=== PATIENT | male | born 1940 | race American Indian/Alaskan Native ===

== ENCOUNTER 2017-11-01 09:22 | Emergency (ER) | payer MEDICARE ==
[2017-11-01 10:06] LABS: Basophils % (Auto) 0.8 % (0.0-1.8); Eosinophils # (Auto) 0.2 K/mm3 (0.0-0.4); Eosinophils % (Auto) 4.5 % (0.0-4.3); Hematocrit 33.3 % (35.5-45.6); Hemoglobin 11.5 gm/dl (11.8-15.2); Lymphocytes # (Auto) 0.8 K/mm3 (1.2-5.4); Lymphocytes % (Auto) 15.4 % (13.4-35.0); Mean Corpuscular HGB Conc 35 % (32-34); Mean Corpuscular Hemoglobin 29 pg (28-32); Mean Corpuscular Volume 85 fl (84-94); Monocytes # (Auto) 0.6 K/mm3 (0.0-0.8); Monocytes % (Auto) 11.8 % (0.0-7.3); Platelet Count 147 K/mm3 (140-440); Red Blood Count 3.92 M/mm3 (3.65-5.03); Red Cell Distribution Width 13.3 % (13.2-15.2)
[2017-11-01 10:14] LABS: INR 0.91 (0.87-1.13)
[2017-11-01 10:15] LABS: Partial Thromboplastin Time 33.6 Sec. (24.2-36.6)
[2017-11-01 10:35] LABS: Albumin 3.6 g/dL (3.9-5); Calcium 8.6 mg/dL (8.4-10.2)
[2017-11-01] MEDS ORDERED: APRESOLINE PO ONE ×2 (11:00→14:06)
--- NOTE | 2017-11-01 11:45 | Emergency Department Report ---
ED ENT HPI - General Chief complaint: Nosebleed Stated complaint: BLOODY NOSE Time Seen by Provider: 11/01/17 10:36 Source: patient Mode of arrival: Ambulatory Limitations: No Limitations - History of Present Illness Initial comments: 77-year-old male with a past medical history diabetes and hypertension presents to the hospital complaining of seeing blood clot with blowing his nose. This happened this a.m. Patient noticed blood clots last nostril then blowing his congested nose this a.m. Patient states he had some blood, from the medial portion of his left eye and his mouth persistent bleeding. Symptoms resolved prior to ER evaluation. Patient takes aspirin 81 mg daily. Compliant with his blood pressure medicine clonidine 0.1 mg and metoprolol 100 mg which he takes once a day in the evening. He takes other medications as well but no other blood thinners. No recent trauma or pain reported. PMD: Dr. Klyeigh Nuñez - Related Data Allergies Allergy/AdvReac Type Severity Reaction Status Date / Time No Known Allergies Allergy Unverified 11/01/17 09:33 ED Dental HPI - General Chief complaint: Nosebleed Stated complaint: BLOODY NOSE Time Seen by Provider: 11/01/17 10:36 Source: patient Mode of arrival: Ambulatory Limitations: No Limitations - Related Data Allergies Allergy/AdvReac Type Severity Reaction Status Date / Time No Known Allergies Allergy Unverified 11/01/17 09:33 ED Review of Systems ROS: Stated complaint: BLOODY NOSE Other details as noted in HPI Comment: All other systems reviewed and negative Other: Constitutional: No fevers chills Eyes: No eye pain visual changes ENT: As per HPI Neck: Denies pain Respiratory: Denies cough wheezing shortness of breath Cardiovascular: Denies chest pain, palpitations, syncope GI: Denies abdominal pain, nausea, vomiting, diarrhea : Denies dysuria Musculoskeletal: Denies back pain Skin: Denies rash, lesions, erythema Neurologic: Denies headache, numbness, weakness Psychiatric: Denies suicidal ideation, hallucinations thy ED Past Medical Hx - Past Medical History Previous Medical History?: Yes Hx Hypertension: Yes Hx Diabetes: Yes - Surgical History Past Surgical History?: Yes Additional Surgical History: Prostate surgery, right knee surgery - Social History Smoking Status: Former Smoker Substance Use Type: Alcohol, Prescribed ED Physical Exam - General Limitations: No Limitations - Other Other exam information: General: No limitations, patient is alert in no acute distress Head exam: Atraumatic, normocephalic Eyes exam: Normal appearance, pupils equal reactive to light, extraocular movements intact ENT: Moist mucous membrane, normal oropharynx. Dry blood noted in left nares. No active clots or bleeding Neck exam: Normal inspection, full range of motion, no meningismus nontender Respiratory exam: Clear to auscultation bilateral, no wheezes, rales, crackles Cardiovascular: Normal rate and rhythm, normal heart sounds Abdomen: Soft, nondistended, and nontender, with normal bowel sounds, no rebound, or guarding Extremity: Full range of motion normal inspection no deformity Back: Normal Inspection, full range of motion, no tenderness Neurologic: Alert, oriented x3, cranial nerves intact, no motor or sensory deficit Psychiatric: normal affect, normal mood Skin: Warm, dry, intact ED Course Vital Signs 11/01/17 11/01/17 11/01/17 09:33 12:20 13:35 Temperature 97.7 F Pulse Rate 56 L 56 L 59 L Respiratory 18 18 Rate Blood Pressure 208/99 213/96 Blood Pressure [Left] O2 Sat by Pulse 100 99 Oximetry 11/01/17 14:33 Temperature Pulse Rate 58 L Respiratory 20 Rate Blood Pressure Blood Pressure 178/79 [Left] O2 Sat by Pulse 98 Oximetry - Reevaluation(s) Reevaluation #1: 11/01/17 14:43 BP improved after hydralazine 10 mg. Second dose not given - Consultations Consultation #1: 11/01/17 11:[address] 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3) % Baso % (Auto) 0.8 (0.0-1.8) % Lymph # 0.8 L (1.2-5.4) K/mm3 [place] # 0.6 (0.0-0.8) K/mm3 Eos # 0.2 (0.0-0.4) K/mm3 Baso # 0.0 (0.0-0.1) K/mm3 Seg Neutrophils % 67.5 (40.0-70.0) % Seg Neutrophils # 3.5 (1.8-7.7) K/mm3 PT 12.7 (12.2-14.9) Sec. INR 0.91 (0.87-1.13) APTT 33.6 (24.2-36.6) Sec. Sodium 140 (137-145) mmol/L Potassium 4.0 (3.6-5.0) mmol/L Chloride 102.7 (98-107) mmol/L Carbon Dioxide 26 (22-30) mmol/L Anion Gap 15 mmol/L BUN 22 H (9-20) mg/dL Creatinine 2.9 H (0.8-1.5) mg/dL Estimated GFR 26 ml/min BUN/Creatinine Ratio 8 % Glucose 173 H (75-100) mg/dL Calcium 8.6 (8.4-10.2) mg/dL Total Bilirubin 0.40 (0.1-1.2) mg/dL AST 14 (5-40) units/L ALT 7 (7-56) units/L Alkaline Phosphatase 48 (35-129) units/L Total Protein 6.9 (6.3-8.2) g/dL Albumin 3.6 L (3.9-5) g/dL Albumin/Globulin Ratio 1.1 % Lipase 33 (13-60) units/L - Medical Decision Making Epistaxis No signs of acute bleeding or coagulopathy. Patient takes aspirin 81 mg daily for cardioprotective effect. Patient will be advised to discontinue to discontinue the asa for 3 days. (No history of stent placement, TN/CAD, or stroke) HTN Chronic Compliant with medication hydralyzine given bp improving F/u advised Renal insuf ? new no acidosis or hyperkalemia Case discussed with nephrology outpatient follow-up advised - Differential Diagnosis uncontrolled hypertension, coagulopathy, epistaxis, anemia Critical Care Time: No Critical care attestation.: If time is entered above; I have spent that time in minutes in the direct care of this critically ill patient, excluding procedure time. ED Disposition Clinical Impression: Epistaxis, Renal insufficiency, Uncontrolled hypertension Disposition: TO HOME OR SELFCARE Is pt being admited?: No Does the pt Need Aspirin: No Condition: Stable Instructions: Epistaxis (ED), Hypertension (ED) Additional Instructions: Discontinue aspirin for 3 days to lessen the chance of recurrent bleeding. Your lab work indicates renal/kidney dysfunction. It is very important that you follow up with your primary care doctor and supervisor metal placing for further evaluation Referrals: KYLEIGH NUÑEZ JR, MD [Staff Physician] - 3-5 Days BOBO AGUDELO MD [Staff Physician] - 3-5 Days (kidney specialist ) Time of Disposition: 14:43
[2017-11-01 14:34] VITALS: BP 178/79
== END 2017-11-01 15:00 | disposition home or self-care (01) ==
LOC: ED 09:22
DX: R04.0 Epistaxis (principal); N28.9 Disorder of kidney and ureter, unspecified; I10 Essential (primary) hypertension; E11.9 Type 2 diabetes mellitus without complications; Z87.891 Personal history of nicotine dependence
CPT/HCPCS: 36415; 80053; 83690; 85025; 85610; 85730; 99283

== ENCOUNTER 2018-04-20 09:30 | Inpatient (IN) | payer MEDICARE ==
[2018-04-20] MEDS ORDERED: CATAPRES PO ONE (09:57)
[2018-04-20] MEDS ORDERED: CATAPRES ONE (09:58)
--- NOTE | 2018-04-20 10:32 | XRay Report ---
ROUTINE CHEST, TWO VIEWS: HISTORY: Shortness of breath. No comparison. Heart size and pulmonary vascularity are within normal limits. Bronchovascular markings in the lower lung zones appear prominent consistent with mild fibrotic changes. No evidence for consolidation, large pleural effusion or pneumothorax. The bony structures are grossly intact. IMPRESSION: Chronic interstitial changes in the lower lobes. No acute process is appreciated.
[2018-04-20 10:57] LABS: Basophils # (Auto) 0.1 K/mm3 (0.0-0.1); Basophils % (Auto) 1.4 % (0.0-1.8); Eosinophils # (Auto) 0.3 K/mm3 (0.0-0.4); Eosinophils % (Auto) 5.2 % (0.0-4.3); Hematocrit 31.5 % (35.5-45.6); Hemoglobin 10.6 gm/dl (11.8-15.2); Lymphocytes # (Auto) 0.8 K/mm3 (1.2-5.4); Lymphocytes % (Auto) 12.5 % (13.4-35.0); Mean Corpuscular HGB Conc 34 % (32-34); Mean Corpuscular Hemoglobin 30 pg (28-32); Mean Corpuscular Volume 88 fl (84-94); Monocytes # (Auto) 0.8 K/mm3 (0.0-0.8); Monocytes % (Auto) 11.3 % (0.0-7.3); Platelet Count 139 K/mm3 (140-440); Red Blood Count 3.57 M/mm3 (3.65-5.03); Red Cell Distribution Width 13.5 % (13.2-15.2)
[2018-04-20 11:10] LABS: Calcium 9.2 mg/dL (8.4-10.2)
--- NOTE | 2018-04-20 13:12 | Emergency Department Report ---
ED Shortness of Breath HPI - General Chief Complaint: Dyspnea/Respdistress Stated Complaint: SOB/WHEEZING Time Seen by Provider: 04/20/18 13:12 Source: patient Mode of arrival: Ambulatory Limitations: No Limitations - History of Present Illness Initial Comments: Patient called his primary doctor this morning complaining of shortness of breath which has been ongoing for 2 weeks, and his primary doctor told him to go to the emergency room for evaluation. Patient said he is here about renal failure today in the emergency room for the first time. MD Complaint: shortness of breath -: Gradual, week(s) (2) Severity: moderate Pain Scale: 6 Consistency: constant Improves With: nothing Worsens With: nothing Associated Symptoms: denies other symptoms Treatments Prior to Arrival: none - Related Data Home Oxygen Therapy: No Allergies Allergy/AdvReac Type Severity Reaction Status Date / Time No Known Allergies Allergy Unverified 11/01/17 09:33 ED Review of Systems ROS: Stated complaint: SOB/WHEEZING Other details as noted in HPI Comment: All other systems reviewed and negative Constitutional: denies: chills, fever Eyes: denies: eye pain ENT: denies: ear pain Respiratory: shortness of breath, SOB with exertion. denies: cough Cardiovascular: dyspnea on exertion. denies: chest pain, palpitations Endocrine: no symptoms reported Gastrointestinal: denies: abdominal pain, nausea, vomiting Genitourinary: denies: urgency, dysuria, frequency Musculoskeletal: denies: back pain, joint swelling Skin: denies: rash, lesions Neurological: denies: headache, weakness, numbness Psychiatric: denies: anxiety, depression Hematological/Lymphatic: denies: easy bleeding, easy bruising ED Past Medical Hx - Past Medical History Hx Hypertension: Yes Hx Diabetes: Yes - Surgical History Additional Surgical History: Prostate surgery, right knee surgery - Social History Smoking Status: Never Smoker Substance Use Type: Alcohol ED Physical Exam - General Limitations: No Limitations General appearance: alert, in no apparent distress - Head Head exam: Present: atraumatic, normocephalic, normal inspection - Eye Eye exam: Present: normal appearance, PERRL, EOMI Pupils: Present: normal accommodation - ENT ENT exam: Present: normal exam, normal orophraynx, mucous membranes moist - Neck Neck exam: Present: normal inspection, full ROM. Absent: tenderness - Respiratory Respiratory exam: Present: normal lung sounds bilaterally, respiratory distress , rales, rhonchi. Absent: wheezes - Cardiovascular Cardiovascular Exam: Present: regular rate, normal rhythm, normal heart sounds - GI/Abdominal GI/Abdominal exam: Present: soft, normal bowel sounds. Absent: distended, tenderness, guarding, rebound, rigid - Extremities Exam Extremities exam: Present: normal inspection, full ROM, normal capillary refill - Back Exam Back exam: Present: normal inspection, full ROM. Absent: tenderness, CVA tenderness (R), CVA tenderness (L) - Neurological Exam Neurological exam: Present: alert, oriented X3, CN II-XII intact - Psychiatric Psychiatric exam: Present: normal affect, normal mood - Skin Skin exam: Present: warm, dry, intact, normal color. Absent: rash ED Course Vital Signs 04/20/18 04/20/18 04/20/18 09:33 09:40 14:20 Temperature 98.1 F Pulse Rate 60 58 L Blood Pressure 224/99 198/88 Blood Pressure 194/103 [Right] O2 Sat by Pulse 98 Oximetry - Reevaluation(s) Reevaluation #1: 04/20/18 15:06 I consulted the [employer] container repairer Dr. Mccarthy. He will see the patient as a consult and he recommended admission to the hospitalist. Patient care was discussed with the hospitalist on-call Dr. Schmidt. He will admit patient to the hospital for further evaluation and management. ED Medical Decision Making - Lab Data Result diagrams: 04/20/18 10:26 04/20/18 10:26 - EKG Data -: EKG Interpreted by Me EKG shows normal: sinus rhythm Rate: bradycardia (50) - EKG Data Interpretation: nonspecific ST-T wave kishore, LVH, other (Diffused T wave inversion. No STEMI.) - Radiology Data Radiology results: report reviewed, image reviewed - Medical Decision Making Shortness of Breath. CHF. Critical Care Time: Yes Critical care time in (mins) excluding proc time.: 50 Critical care attestation.: If time is entered above; I have spent that time in minutes in the direct care of this critically ill patient, excluding procedure time. ED Disposition Clinical Impression: Shortness of breath, New onset of congestive heart failure, Uncontrolled hypertension Acute on chronic renal failure Qualifiers: Acute renal failure type: unspecified Chronic kidney disease stage: stage 5, not on chronic dialysis Qualified Code(s): N17.9 - Acute kidney failure, unspecified Disposition: OP ADMIT IP TO THIS HOSP Is pt being admited?: Yes Does the pt Need Aspirin: Yes Condition: Stable Instructions: Hypertension (ED) Referrals: KYLEIGH PHILLIPS JR, MD [Primary Care Provider] - 3-5 Days Time of Disposition: 15:06
[2018-04-20] MEDS ORDERED: APRESOLINE IV ONE ×2 (13:14→15:08)
[2018-04-20 13:39] LABS: INR 0.97 (0.87-1.13)
[2018-04-20 13:40] LABS: Partial Thromboplastin Time 32.9 Sec. (24.2-36.6)
[2018-04-20 13:52] LABS: Creatine Kinase MB 3.9 ng/mL (0.0-4.0)
[2018-04-20 14:26] LABS: Chol/HDL Ratio 2.18 %
[2018-04-20] MEDS ORDERED: BABY ASPIRIN PO ONE (15:03)
--- NOTE | 2018-04-20 15:31 | History and Physical Report ---
History of Present Illness Chief complaint: Its hard to breathe History of present illness: 77 YO Male with HTN, DM presents to ED for evaluation. Pt states that he has experienced shortness of breath for the past 2 weeks. Pt acknowledges Orthopnea , PND, leg swelling, and subjective weight gain. Pt denies fever, chills, CP, Palpitations, NVD, Trauma, productive cough, or recent ill contacts. Pt seen and evaluated by his PCP and was instructed to seek further care at [facility]. Pt seen and evaluated in ED and found to have CHF, Acute REspiratory Failure, ARF suspicious for ESRD, and Acidosis. Pt admitted to telemetry. Cardiology and Nephrology teams consulted in ED. Past History Past Medical History: diabetes, hypertension Past Surgical History: total knee replacement, Other (Prostatectomy, ) Social history: . denies: smoking, alcohol abuse, prescription drug abuse Family history: hypertension Medications and Allergies Allergies Allergy/AdvReac Type Severity Reaction Status Date / Time No Known Allergies Allergy Unverified 11/01/17 09:33 Home Medications Medication Instructions Recorded Confirmed Last Taken Type Amlodipine Besylate [Norvasc] 10 mg PO QDAY 04/20/18 04/20/18 Unknown History Bumetanide 0.5 mg PO QAM 04/20/18 04/20/18 Unknown History Insulin Aspart [Novolog] 0 unit SUB-Q AC 04/20/18 04/20/18 Unknown History Insulin Glargine,Hum.rec.anlog 50 units SUB-Q QPM 04/20/18 04/20/18 Unknown History [Lantus Solostar] Metoprolol Succinate [Toprol Xl] 100 mg PO QDAY 04/20/18 04/20/18 Unknown History Quinapril HCl 40 mg PO HS 04/20/18 04/20/18 Unknown History Simvastatin [Zocor TAB] 20 mg PO QHS 04/20/18 04/20/18 Unknown History Tamsulosin [Flomax] 0.4 mg PO QPM 04/20/18 04/20/18 Unknown History Active Meds: Active Medications Furosemide 80 mg/ Sodium (Chloride) 58 mls @ 100 mls/hr IV ONCE ONE Stop: 04/20/18 16:09 Review of Systems Constitutional: no weight loss, no weight gain, no fever, no chills Ears, nose, mouth and throat: no ear pain, no ear discharge, no tinnitis, no decreased hearing, no nose pain Cardiovascular: orthopnea, shortness of breath, paroxysmal nocturnal dyspnea, leg edema, decreased exercise tolerance, no chest pain, no palpitations, no rapid/irregular heart beat Respiratory: no cough, no cough with sputum, no excessive sputum, no hemoptysis , no shortness of breath Gastrointestinal: no nausea, no vomiting, no diarrhea, no constipation, no change in bowel habits Genitourinary Male: no hematuria, no flank pain, no discharge, no urinary frequency, no urinary hesitancy Rectal: no pain, no incontinence, no bleeding Musculoskeletal: no neck stiffness, no neck pain Integumentary: no rash, no pruritis, no redness, no sores, no wounds Neurological: no transient paralysis, no paralysis, no weakness, no parathesias , no numbness, no tingling, no seizures Psychiatric: no anxiety, no memory loss, no change in sleep habits, no sleep disturbances, no insomnia, no hypersomnia, no change in appetite Endocrine: no cold intolerance, no heat intolerance, no polyphagia, no excessive thirst, no polydipsia, no polyuria, no nocturia Hematologic/Lymphatic: no easy bruising, no easy bleeding, no lymphadenopathy, no lymphedema Allergic/Immunologic: no urticaria, no allergic rhinitis, no wheezing, no persistent infections, no anaphylaxis, no angioedema Exam - Constitutional Vitals: Temp Pulse Resp BP Pulse Ox 98.1 F 58 L 198/88 98 04/20/18 09:33 04/20/18 14:20 04/20/18 14:20 04/20/18 09:33 General appearance: Present: mild distress - EENT Eyes: Present: PERRL ENT: hearing intact, clear oral mucosa - Neck Neck: Present: supple, normal ROM - Respiratory Respiratory effort: normal, labored Respiratory: bilateral: diminished - Cardiovascular Heart Sounds: Present: S1 & S2. Absent: rub, click - Extremities Extremities: pulses symmetrical, No edema Extremity abnormal: edema Peripheral Pulses: within normal limits - Abdominal General gastrointestinal: Present: soft, non-tender, non-distended, normal bowel sounds Male genitourinary: Present: normal - Integumentary Integumentary: Present: clear, warm, dry - Musculoskeletal Musculoskeletal: gait normal, strength equal bilaterally - Psychiatric Psychiatric: appropriate mood/affect, intact judgment & insight - Neurologic Neurologic: CNII-XII intact, moves all extremities Results - Labs CBC & Chem 7: 04/20/18 10:26 04/20/18 10:26 Labs: Abnormal lab results 04/20/18 04/20/18 04/20/18 Range/Units 10: 10: 13:20 RBC 3.57 L (3.65-5.03) M/mm3 Hgb 10.6 L (11.8-15.2) gm/dl Hct 31.5 L (35.5-45.6) % Plt Count 139 L (140-440) K/mm3 Lymph % (Auto) 12.5 L (13.4-35.0) % [place] % (Auto) 11.3 H (0.0-7.3) % Eos % (Auto) 5.2 H (0.0-4.3) % Lymph # 0.8 L (1.2-5.4) K/mm3 Carbon Dioxide 21 L (22-30) mmol/L BUN 35 H (9-20) mg/dL Creatinine 4.9 H (0.8-1.5) mg/dL Glucose 141 H (75-100) mg/dL Total Creatine Kinase 200 H (55-170) units/L Troponin T 0.058 H (0.00-0.029) ng/mL NT-Pro-B Natriuret Pep (0-900) pg/mL 04/20/18 Range/Units 13:20 RBC (3.65-5.03) M/mm3 Hgb (11.8-15.2) gm/dl Hct (35.5-45.6) % Plt Count (140-440) K/mm3 Lymph % (Auto) (13.4-35.0) % [place] % (Auto) (0.0-7.3) % Eos % (Auto) (0.0-4.3) % Lymph # (1.2-5.4) K/mm3 Carbon Dioxide (22-30) mmol/L BUN (9-20) mg/dL Creatinine (0.8-1.5) mg/dL Glucose (75-100) mg/dL Total Creatine Kinase (55-170) units/L Troponin T (0.00-0.029) ng/mL NT-Pro-B Natriuret Pep 8504 H (0-900) pg/mL Assessment and Plan - Patient Problems (1) Respiratory failure Current Visit: Yes Status: Acute Qualifiers: Chronicity: acute Respiratory failure complication: hypoxia Qualified Code(s): J96.01 - Acute respiratory failure with hypoxia Plan to address problem: Supplemental oxygen, nebulizer therapy, Chest x ray, diuretics, NIPPV as clinically indicated, pulse oximetry (2) ARF (acute renal failure) with tubular necrosis Current Visit: Yes Status: Acute Plan to address problem: IVF resuscitation therapy, monitor uop q shift, renal ultrasound, urine electrolytes, nephrology consulted. (3) CHF (congestive heart failure) Current Visit: Yes Status: Acute Qualifiers: Heart failure type: systolic Heart failure chronicity: acute Qualified Code(s): I50.21 - Acute systolic (congestive) heart failure Plan to address problem: Admit to telemetry, Echo, cardiology consulted in ED, strict I/o, monitor uop q shift, daily weight, afterload reduction, thyroid panel, (4) Acidosis Current Visit: Yes Status: Acute Plan to address problem: secondary to ESRD. IV bicarbonate, repeat bmp (5) DVT prophylaxis Current Visit: Yes Status: Acute Plan to address problem: SCD to BLE while in bed.
[2018-04-20] MEDS ORDERED: LASIX 80 MG in NACL 0.9% 50 ML IV ONE (15:35)
[2018-04-20] MEDS ORDERED: PROVENTIL IH PRN (16:45)
[2018-04-20] MEDS ORDERED: ZOFRAN IV PRN (16:45)
[2018-04-20] MEDS ORDERED: MORPHINE IV PRN (16:45)
[2018-04-20] MEDS ORDERED: TYLENOL PO PRN (16:45)
[2018-04-20] MEDS ORDERED: SODIUM BICARBONATE 50 MEQ in NACL 0.9% 1000 ML 1,000 ML IV SCH (17:00)
--- NOTE | 2018-04-20 17:04 | Consultation ---
History of Present Illness - Reason for Consult Consult date: 04/20/18 acute renal failure Requesting physician: MARIELA HATCH - History of Present Illness This is a 77 yo AAM with past medical history of hypertension diagnosed more than 15 yrs ago, Type 2 DM more than 5 years ago, on insulin therapy about 2 years, CKD, who presents to the [facility] ER with complaints of progressive shortness of breath, dyspnea on exertion lasting for the last 2 weeks. pt called his PCP this AM about his symptoms and he was instructed to the ER since his renal function was deteriorating. in ER patient was found to be hypertensive with BP as high as 220/100mmHg, CXR showed chronic interstitial changes bibasilar, labs showed increased proBNP > 8000, elevated BUN/Cr at 35/ 4.9mg/dl along with mildly elevated trop at 0.058. pt is admitted for further cardiac and renal work up. based on chart review patient had abnormal BUN/Cr at 22/2.9mg/dl on 11/01/17, however pt states that it's his first time that he was told to have abnormal renal function. Pt denies fever, chills, vomiting, diarrhea, abd pain dysuria, rash, blurry vision, headaches. however reports intermittent nausea, especially early AM. No recent NSAIDs use or IV contrast exposure reported. Past History Past Medical History: diabetes, hypertension, renal failure Past Surgical History: Other (Prostate surgery, right knee surgery) Social history: denies: smoking, alcohol abuse, prescription drug abuse, IV drug use Family history: hypertension Medications and Allergies Allergies Allergy/AdvReac Type Severity Reaction Status Date / Time No Known Allergies Allergy Unverified 11/01/17 09:33 Home Medications Medication Instructions Recorded Confirmed Last Taken Type Amlodipine Besylate [Norvasc] 10 mg PO QDAY 04/20/18 04/20/18 Unknown History Bumetanide 0.5 mg PO QAM 04/20/18 04/20/18 Unknown History Insulin Aspart [Novolog] 0 unit SUB-Q AC 04/20/18 04/20/18 Unknown History Insulin Glargine,Hum.rec.anlog 50 units SUB-Q QPM 04/20/18 04/20/18 Unknown History [Lantus Solostar] Metoprolol Succinate [Toprol Xl] 100 mg PO QDAY 04/20/18 04/20/18 Unknown History Quinapril HCl 40 mg PO HS 04/20/18 04/20/18 Unknown History Simvastatin [Zocor TAB] 20 mg PO QHS 04/20/18 04/20/18 Unknown History Tamsulosin [Flomax] 0.4 mg PO QPM 04/20/18 04/20/18 Unknown History Active Meds: Active Medications Acetaminophen (Tylenol) 650 mg PO Q4H PRN PRN Reason: Pain MILD(1-3)/Fever >100.5/HER Albuterol (Proventil) 2.5 mg IH Q4HRT PRN PRN Reason: Shortness Of Breath Amlodipine Besylate (Norvasc) 10 mg PO QDAY [facility] Furosemide (Lasix) 20 mg IV BID@0600,1800 [facility] Sodium Bicarbonate 50 meq/ (Sodium Chloride) 1,050 mls @ 0 mls/hr IV DIRECT [facility] Metoprolol Succinate (Toprol Xl) 100 mg PO QDAY [facility] Miscellaneous Medication (Bumetanide [Bumetanide]) 0.5 mg PO QAM [facility] Miscellaneous Medication (Insulin Glargine,Hum.Rec.Anlog [Lantus Solostar]) 50 units SUB-Q QPM [facility] Miscellaneous Medication (Quinapril Hcl [Quinapril Hcl]) 40 mg PO HS [facility] Miscellaneous Medication (Simvastatin) 20 mg PO QHS [facility] Morphine Sulfate (Morphine) 2 mg IV Q4H PRN PRN Reason: Pain, Moderate (4-6) Ondansetron HCl (Zofran) 4 mg IV Q8H PRN PRN Reason: Nausea And Vomiting Sodium Chloride (Sodium Chloride Flush Syringe 10 Ml) 10 ml IV BID [facility] Sodium Chloride (Sodium Chloride Flush Syringe 10 Ml) 10 ml IV PRN PRN PRN Reason: LINE FLUSH Tamsulosin HCl (Flomax) 0.4 mg PO QPM [facility] Review of Systems All systems: negative Constitutional: weakness Respiratory: cough, shortness of breath, dyspnea on exertion Gastrointestinal: nausea Exam - Vital Signs Vital signs: Vital Signs Temp Pulse BP Pulse Ox 98.1 F 60 224/99 98 04/20/18 09:33 04/20/18 09:33 04/20/18 09:33 04/20/18 09:33 - General Appearance General appearance: well-developed, well-nourished, appears stated age EENT: ATNC, PERRL, mucous membranes moist Neck: Present: neck supple Respiratory: Decreased Breath Sounds Heart: regular, S1S2 Gastrointestinal: Present: normoactive bowel sounds Integumentary: no rash, other (no pitting edema ) Neurologic: no focal deficit, alert and oriented x3, strength 5/5, CN 3-12 intact Psychiatric: mood/affect appropriate, cooperative Results - Lab Results 04/20/18 10:26 04/20/18 10:26 Most recent lab results Calcium 9.2 mg/dL (8.4-10.2) 04/20/18 10:26 Magnesium 2.00 mg/dL (1.7-2.3) 04/20/18 13:20 Laboratory Tests 11/01/17 04/20/18 04/20/18 09:46 13:20 13:20 PT 13.4 INR 0.97 APTT 32.9 Total Creatine Kinase 200 H CK-MB (CK-2) 3.9 CK-MB (CK-2) Rel Index 1.9 Troponin T 0.058 H NT-Pro-B Natriuret Pep Total Protein 6.9 Albumin 3.6 L Albumin/Globulin Ratio 1.1 Triglycerides 41 Cholesterol 105 LDL Cholesterol Direct 54 HDL Cholesterol 48 Cholesterol/HDL Ratio 2.18 Lipase 33 04/20/18 13:20 PT INR APTT Total Creatine Kinase CK-MB (CK-2) CK-MB (CK-2) Rel Index Troponin T NT-Pro-B Natriuret Pep 8504 H Total Protein Albumin Albumin/Globulin Ratio Triglycerides Cholesterol LDL Cholesterol Direct HDL Cholesterol Cholesterol/HDL Ratio Lipase Assessment and Plan - Patient Problems (1) Acute on chronic renal failure Current Visit: Yes Status: Acute Qualifiers: Acute renal failure type: unspecified Chronic kidney disease stage: stage 4 (severe) Qualified Code(s): N17.9 - Acute kidney failure, unspecified; N18.4 - Chronic kidney disease, stage 4 (severe) Plan to address problem: To rule out acute cardiorenal syndrome, ECHO pending. treat with Lasix 80mg IVP , strict I/Os, target net negative fluid balance > 1L /day. Progressive CKD possible, check UA, urine lytes, urine protein/cr ratio. Will obtain renal US to rule out obstructive nephropathy. Avoid further nephrotoxins, NSAIDs, IV contrast. Will monitor lytes/renal parameters and make further recommendations. 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 cont lasix for further volume/BP control (4) Chronic kidney disease, stage IV (severe) Current Visit: Yes Status: Acute Plan to address problem: suspect underlying diabetic nephropathy/hypertensive nephrosclerosis. if renal US is negative, eGFR continues to decline with e/o significant hematuria/ proteinuria will consider renal biopsy. (5) Shortness of breath Current Visit: Yes Status: Acute Plan to address problem: IV lasix 80mg x 1 dose then 40mg bid to target net negative fluid balance
[2018-04-20] MEDS ORDERED: ZESTRIL PO SCH (17:30)
[2018-04-20 17:36] LABS: Bilirubin,Urine NEG (Negative); Blood,Urine NEG (Negative); Color,Urine Straw (Yellow); Mucus,Urine FEW /HPF; Urobilinogen,Urine < 2.0 mg/dL (<2.0)
[2018-04-20 17:39] LABS: WBC,Urine < 1.0 /HPF (0.0-6.0)
[2018-04-20 17:58] LABS: Free T4 (Free Thyroxine) 1.09 ng/dL (0.76-1.46)
[2018-04-20] MEDS ORDERED: NON-FORMULARY (Insulin Glargine,Hum.Rec.Anlog [Lantus Solostar] 50 UNITS) SUB-Q SCH (18:00)
[2018-04-20 18:05] LABS: Creatinine,Urine 48.5 mg/dL (0.1-20.0)
--- NOTE | 2018-04-20 19:03 | Ultrasound Report ---
FINAL REPORT EXAM: US RENAL BILAT HISTORY: ONEIL TECHNIQUE: Ultrasound kidneys PRIORS: None. FINDINGS: Right kidney is 9.0 x 4.8 x 5.2 centimeters. There is normal renal echogenicity. No evidence for hydronephrosis. There lobular contour present. Left kidney measures 8.3 x 6.3 x 5.6 centimeters. No evidence for hydronephrosis. At the mid left kidney there is a hypoechoic focus measuring 1.1 x 0.93 centimeters containing a a thin septation minimally complex. At the lower pole of the left kidney there is an anechoic structure measuring 1.52 centimeters most consistent with a simple cyst. IMPRESSION: Minimally complex 1.1 centimeter left renal cyst and simple cyst at the lower pole 1.52 centimeters
[2018-04-20] MEDS: SODIUM CHLORIDE FLUSH SYRINGE 10 ML IV SCH (20:55)
[2018-04-20] MEDS: LASIX IV SCH (20:57)
[2018-04-20] MEDS: PRAVACHOL PO SCH (21:50)
[2018-04-20] MEDS ORDERED: NON-FORMULARY (Simvastatin 20 MG) PO SCH (22:00)
[2018-04-20] MEDS ORDERED: QUINAPRIL HCL 40 MG PO SCH (22:00)
[2018-04-20] MEDS: LANTUS SUB-Q SCH (23:30)
[2018-04-21] MEDS: LASIX IV SCH (06:20)
[2018-04-21] MEDS ORDERED: APRESOLINE PO SCH (08:00)
[2018-04-21] MEDS: FLOMAX PO SCH ×2 (08:50→18:09)
[2018-04-21] MEDS ORDERED: BUMETANIDE 0.5 MG PO SCH (10:00)
[2018-04-21] MEDS ORDERED: BUMEX PO SCH (10:00)
[2018-04-21 11:25] LABS: Calcium 9.1 mg/dL (8.4-10.2)
[2018-04-21 12:47] LABS: Creatine Kinase MB 2.8 ng/mL (0.0-4.0)
--- NOTE | 2018-04-21 12:55 | Consultation ---
History of Present Illness Consult date: 04/21/18 Consult reason: other (CMP) History of present illness: This is a 77 year old man who presented to this hospital with worsening shortness of breath. On presentation, he was found to have acute renal failure, with a creatinine of 5.1. Chest x-ray reports chronic interstitial changes in the lower lobes. Further evaluation with an echocardiogram reveals a mildly decreased left ventricular systolic function, ejection fraction 40-45%. Cardiac consultation was requested further assessment. The patient has no chest pain or palpitations. There is no lower extremity edema. He denies syncope. He has no prior cardiac history. He is uncertain about his renal disease history although 6 months ago he had a creatinine of 2.9 during an emergency room visit to this hospital. He reports a history of hypertension and diabetes. His ECG shows sinus bradycardia with LVH, rate 50. Past History Past Medical History: diabetes, hypertension Social history: . denies: smoking, alcohol abuse, prescription drug abuse Family history: hypertension Medications and Allergies Allergies Allergy/AdvReac Type Severity Reaction Status Date / Time No Known Allergies Allergy Unverified 11/01/17 09:33 Home Medications Medication Instructions Recorded Confirmed Last Taken Type Amlodipine Besylate [Norvasc] 10 mg PO QDAY 04/20/18 04/20/18 Unknown History Bumetanide 0.5 mg PO QAM 04/20/18 04/20/18 Unknown History Insulin Aspart [Novolog] 0 unit SUB-Q AC 04/20/18 04/20/18 Unknown History Insulin Glargine,Hum.rec.anlog 50 units SUB-Q QPM 04/20/18 04/20/18 Unknown History [Lantus Solostar] Metoprolol Succinate [Toprol Xl] 100 mg PO QDAY 04/20/18 04/20/18 Unknown History Quinapril HCl 40 mg PO HS 04/20/18 04/20/18 Unknown History Simvastatin [Zocor TAB] 20 mg PO QHS 04/20/18 04/20/18 Unknown History Tamsulosin [Flomax] 0.4 mg PO QPM 04/20/18 04/20/18 Unknown History Active Meds: Active Medications Acetaminophen (Tylenol) 650 mg PO Q4H PRN PRN Reason: Pain MILD(1-3)/Fever >100.5/HER Albuterol (Proventil) 2.5 mg IH Q4HRT PRN PRN Reason: Shortness Of Breath Amlodipine Besylate (Norvasc) 10 mg PO QDAY [facility] Bumetanide (Bumex) 0.5 mg PO QAM [facility] Furosemide (Lasix) 20 mg IV BID@0600,1800 [facility] Last Admin: 04/21/18 06:20 Dose: 20 mg Hydralazine HCl (Apresoline) 100 mg PO Q8HR [facility] Sodium Bicarbonate 50 meq/ (Sodium Chloride) 1,050 mls @ 0 mls/hr IV DIRECT [facility] Insulin Glargine (Lantus) 50 units SUB-Q QHS [facility] Last Admin: 04/20/18 23:30 Dose: 50 units Metoprolol Succinate (Toprol Xl) 100 mg PO QDAY [facility] Morphine Sulfate (Morphine) 2 mg IV Q4H PRN PRN Reason: Pain, Moderate (4-6) Ondansetron HCl (Zofran) 4 mg IV Q8H PRN PRN Reason: Nausea And Vomiting Pravastatin Sodium (Pravachol) 40 mg PO QHS [facility] Last Admin: 04/20/18 21:50 Dose: 40 mg Sodium Chloride (Sodium Chloride Flush Syringe 10 Ml) 10 ml IV BID [facility] Last Admin: 04/20/18 20:55 Dose: 10 ml Sodium Chloride (Sodium Chloride Flush Syringe 10 Ml) 10 ml IV PRN PRN PRN Reason: LINE FLUSH Tamsulosin HCl (Flomax) 0.4 mg PO QPM [facility] Last Admin: 04/21/18 08:50 Dose: Not Given Physical Examination Vital Signs Temp Pulse BP Pulse Ox 98.1 F 60 224/99 98 04/20/18 09:33 04/20/18 09:33 04/20/18 09:33 04/20/18 09:33 General appearance: no acute distress HEENT: Positive: PERRL Cardiac: Positive: Reg Rate and Rhythm Lungs: Positive: Decreased Breath Sounds Neuro: Positive: Grossly Intact Extremities: Absent: edema Results 04/20/18 10:26 04/21/18 10:23 Cardiac Enzymes 04/20/18 04/21/18 Range/Units 13:20 11:59 CK-MB (CK-2) 3.9 2.8 (0.0-4.0) ng/mL Coagulation 04/20/18 Range/Units 13:20 PT 13.4 (12.2-14.9) Sec. INR 0.97 (0.87-1.13) APTT 32.9 (24.2-36.6) Sec. Lipids 04/20/18 Range/Units 13:20 Triglycerides 41 (2-149) mg/dL Cholesterol 105 (50-199) mg/dL HDL Cholesterol 48 (40-59) mg/dL Cholesterol/HDL Ratio 2.18 % CBC 04/20/18 Range/Units 10:26 WBC 6.7 (4.5-11.0) K/mm3 RBC 3.57 L (3.65-5.03) M/mm3 Hgb 10.6 L (11.8-15.2) gm/dl Hct 31.5 L (35.5-45.6) % Plt Count 139 L (140-440) K/mm3 Lymph # 0.8 L (1.2-5.4) K/mm3 Mccormick # 0.8 (0.0-0.8) K/mm3 Eos # 0.3 (0.0-0.4) K/mm3 Baso # 0.1 (0.0-0.1) K/mm3 Comprehensive Metabolic Panel 04/20/18 04/21/18 Range/Units 10:26 10:23 Sodium 140 140 (137-145) mmol/L Potassium 4.3 4.1 (3.6-5.0) mmol/L Chloride 104.7 103.1 (98-107) mmol/L Carbon Dioxide 21 L 22 (22-30) mmol/L BUN 35 H 41 H (9-20) mg/dL Creatinine 4.9 H 5.1 H (0.8-1.5) mg/dL Glucose 141 H 120 H (75-100) mg/dL Calcium 9.2 9.1 (8.4-10.2) mg/dL Assessment and Plan Acute on chronic renal failure Acute systolic heart failure echocardiogram reveals a mildly decreased left ventricular systolic function , ejection fraction 40-45%. Hypertension -uncontrolled Diabetes
--- NOTE | 2018-04-21 13:25 | Progress Note ---
Assessment and Plan Assessment and plan: 77 YO Male with HTN, DM presents to ED for evaluation. Pt states that he has experienced shortness of breath for the past 2 weeks. Pt acknowledges Orthopnea , PND, leg swelling, and subjective weight gain. Pt denies fever, chills, CP, Palpitations, NVD, Trauma, productive cough, or recent ill contacts. Pt seen and evaluated by his PCP and was instructed to seek further care at [facility]. Pt seen and evaluated in ED and found to have CHF, Acute REspiratory Failure, ARF suspicious for ESRD, and Acidosis. Pt admitted to telemetry. Cardiology and Nephrology teams consulted in ED. (1) Respiratory failure Current Visit: Yes Status: Acute Qualifiers: Chronicity: acute Respiratory failure complication: hypoxia Qualified Code(s): J96.01 - Acute respiratory failure with hypoxia Plan to address problem: Supplemental oxygen, nebulizer therapy, Chest x ray, diuretics, NIPPV as clinically indicated, pulse oximetry Clinically improving this. Continue current treatment (2) ARF (acute renal failure) with tubular necrosis Current Visit: Yes Status: Acute Plan to address problem: IVF resuscitation therapy, monitor uop q shift, renal ultrasound, urine electrolytes, nephrology consulted. (3) CHF (congestive heart failure) Current Visit: Yes Status: Acute Qualifiers: Heart failure type: systolic Heart failure chronicity: acute Qualified Code(s): I50.21 - Acute systolic (congestive) heart failure Plan to address problem: Continue telemetry and if no events can down grade in 24 hrs. Echo, cardiology consulted in ED, strict I/o, monitor uop q shift, daily weight, afterload reduction, thyroid panel, (4) Acidosis Current Visit: Yes Status: Acute Plan to address problem: secondary to ESRD. IV bicarbonate, repeat bmp (5) DVT prophylaxis Current Visit: Yes Status: Acute Plan to address problem: SCD to BLE while in bed. History Interval history: Patient seen and examined, reports improvement in shortness of breath,. Hospitalist Physical - Physical exam Narrative exam: General appearance: Present: NAD - EENT Eyes: Present: PERRL ENT: hearing intact, clear oral mucosa - Neck Neck: Present: supple, normal ROM - Respiratory Respiratory effort: normal, labored Respiratory: bilateral: diminished - Cardiovascular Heart Sounds: Present: S1 & S2. Absent: rub, click - Extremities Extremities: pulses symmetrical, No edema Extremity abnormal: edema Peripheral Pulses: within normal limits - Abdominal General gastrointestinal: Present: soft, non-tender, non-distended, normal bowel sounds Male genitourinary: Present: normal - Integumentary Integumentary: Present: clear, warm, dry - Musculoskeletal Musculoskeletal: gait normal, strength equal bilaterally - Psychiatric Psychiatric: appropriate mood/affect, intact judgment & insight - Neurologic Neurologic: CNII-XII intact, moves all extremities - Constitutional Vitals: Temp Pulse Resp BP Pulse Ox 97.9 F 55 L 20 198/84 95 04/21/18 11:55 04/21/18 11:55 04/21/18 11:55 04/21/18 11:55 04/21/18 11:55 General appearance: Present: no acute distress Results - Labs CBC & Chem 7: 04/20/18 10:26 04/21/18 10:23 Labs: Laboratory Last Values WBC 6.7 K/mm3 (4.5-11.0) 04/20/18 10:26 RBC 3.57 M/mm3 (3.65-5.03) L 04/20/18 10:26 Hgb 10.6 gm/dl (11.8-15.2) L 04/20/18 10:26 Hct 31.5 % (35.5-45.6) L 04/20/18 10:26 MCV 88 fl (84-94) 04/20/18 10:26 MCH 30 pg (28-32) 04/20/18 10:26 MCHC 34 % (32-34) 04/20/18 10:26 RDW 13.5 % (13.2-15.2) 04/20/18 10:26 Plt Count 139 K/mm3 (140-440) L 04/20/18 10:26 Lymph % (Auto) 12.5 % (13.4-35.0) L 04/20/18 10:26 [place] % (Auto) 11.3 % (0.0-7.3) H 04/20/18 10:26 Eos % (Auto) 5.2 % (0.0-4.3) H 04/20/18 10:26 Baso % (Auto) 1.4 % (0.0-1.8) 04/20/18 10:26 Lymph # 0.8 K/mm3 (1.2-5.4) L 04/20/18 10:26 [place] # 0.8 K/mm3 (0.0-0.8) 04/20/18 10:26 Eos # 0.3 K/mm3 (0.0-0.4) 04/20/18 10:26 Baso # 0.1 K/mm3 (0.0-0.1) 04/20/18 10:26 Seg Neutrophils % 69.6 % (40.0-70.0) 04/20/18 10:26 Seg Neutrophils # 4.6 K/mm3 (1.8-7.7) 04/20/18 10:26 PT 13.4 Sec. (12.2-14.9) 04/20/18 13:20 INR 0.97 (0.87-1.13) 04/20/18 13:20 APTT 32.9 Sec. (24.2-36.6) 04/20/18 13:20 Sodium 140 mmol/L (137-145) 04/21/18 10:23 Potassium 4.1 mmol/L (3.6-5.0) 04/21/18 10:23 Chloride 103.1 mmol/L (98-107) 04/21/18 10:23 Carbon Dioxide 22 mmol/L (22-30) 04/21/18 10:23 Anion Gap 19 mmol/L 04/21/18 10:23 BUN 41 mg/dL (9-20) H 04/21/18 10:23 Creatinine 5.1 mg/dL (0.8-1.5) H 04/21/18 10:23 Estimated GFR 13 ml/min 04/21/18 10:23 BUN/Creatinine Ratio 8 % 04/21/18 10:23 Glucose 120 mg/dL (75-100) H 04/21/18 10:23 POC Glucose 146 (70-105) H 04/21/18 05:06 Calcium 9.1 mg/dL (8.4-10.2) 04/21/18 10:23 Magnesium 2.00 mg/dL (1.7-2.3) 04/20/18 13:20 Total Creatine Kinase 133 units/L (55-170) 04/21/18 11:59 CK-MB (CK-2) 2.8 ng/mL (0.0-4.0) 04/21/18 11:59 CK-MB (CK-2) Rel Index 2.1 (0-4) 04/21/18 11:59 Troponin T 0.044 ng/mL (0.00-0.029) H D 04/21/18 11:59 NT-Pro-B Natriuret Pep 8504 pg/mL (0-900) H 04/20/18 13:20 Triglycerides 41 mg/dL (2-149) 04/20/18 13:20 Cholesterol 105 mg/dL (50-199) 04/20/18 13:20 LDL Cholesterol Direct 54 mg/dL (50-130) 04/20/18 13:20 HDL Cholesterol 48 mg/dL (40-59) 04/20/18 13:20 Cholesterol/HDL Ratio 2.18 % 04/20/18 13:20 TSH 2.210 mlU/mL (0.270-4.200) 04/20/18 17:12 Free T4 1.09 ng/dL (0.76-1.46) 04/20/18 17:12 Urine Color Straw (Yellow) 04/20/18 Unknown Urine Turbidity Clear (Clear) 04/20/18 Unknown Urine pH 6.0 (5.0-7.0) 04/20/18 Unknown Ur Specific Asher 1.008 (1.003-1.030) 04/20/18 Unknown Urine Protein 100 mg/dl mg/dL (Negative) 04/20/18 Unknown Urine Glucose (UA) Neg mg/dL (Negative) 04/20/18 Unknown Urine Ketones Neg mg/dL (Negative) 04/20/18 Unknown Urine Blood Neg (Negative) 04/20/18 Unknown Urine Nitrite Neg (Negative) 04/20/18 Unknown Urine Bilirubin Neg (Negative) 04/20/18 Unknown Urine Urobilinogen < 2.0 mg/dL (<2.0) 04/20/18 Unknown Ur Leukocyte Esterase Neg (Negative) 04/20/18 Unknown Urine WBC (Auto) < 1.0 /HPF (0.0-6.0) 04/20/18 Unknown Urine RBC (Auto) 4.0 /HPF (0.0-6.0) 04/20/18 Unknown Urine Mucus Few /HPF 04/20/18 Unknown Urine Creatinine 48.5 mg/dL (0.1-20.0) H 04/20/18 Unknown Urine Sodium 123 mmol/L 04/20/18 Unknown Urine Total Protein 113 mg/dL (5-11.8) H 04/20/18 Unknown
[2018-04-21] MEDS: TOPROL XL PO SCH (14:51)
[2018-04-21] MEDS: NORVASC PO SCH (14:51)
[2018-04-21] MEDS: APRESOLINE PO SCH ×2 (14:52→21:58)
--- NOTE | 2018-04-21 16:33 | Progress Note ---
Assessment and Plan - Patient Problems (1) Acute on chronic renal failure Current Visit: Yes Status: Acute Qualifiers: Acute renal failure type: unspecified Chronic kidney disease stage: stage 4 (severe) Qualified Code(s): N17.9 - Acute kidney failure, unspecified; N18.4 - Chronic kidney disease, stage 4 (severe) Plan to address problem: To rule out acute cardiorenal syndrome, Echo showing LVEF 40-45%. cont lasix 40mg po qd to target net negative fluid balance > 1L /day. Progressive CKD possible, urine studies show isolated proteinuria with urine protein/cr ratio of 2.3g/g, possibly secondary to underlying diabetic nephropathy. no hematuria seen. Renal US without obstructive nephropathy however smaller sized kidneys b/ l with L simple/mildly complex cyst. Recommend renal biopsy to rule out acute GN also to assess chronicity of underlying CKD. risks and benefits of renal biopsy discussed. pt agrees to procedure, will schedule for Mon. hold ASA. No acute indications for renal replacement therapy at present. Discussed different modalities of renal replacement therapy in case his renal function continues to decline, incl. PD, HD, transplantation. Pt understands agrees to [employer] if acute indications arise, leaning towards PD for usp dialysis. Avoid further nephrotoxins, NSAIDs, IV contrast. Will monitor lytes/renal parameters and make further recommendations. 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 (4) Chronic kidney disease, stage IV (severe) Current Visit: Yes Status: Acute Plan to address problem: suspect underlying diabetic nephropathy/hypertensive nephrosclerosis. (5) Shortness of breath Current Visit: Yes Status: Acute Plan to address problem: improved on diuretic therapy Subjective Date of service: 04/21/18 Principal diagnosis: ONEIL on CKD Interval history: Pt awake, alert, in NAD, improved respiratory status after receiving IV diuresis Objective - Vital Signs Vital signs: Vital Signs - 12hr 04/21/18 04/21/18 04/21/18 05:48 07:26 10:05 Temperature 98.1 F 98.0 F Pulse Rate 60 60 Respiratory 18 17 Rate Blood Pressure 182/76 Blood Pressure 194/103 [Right] O2 Sat by Pulse 96 95 97 Oximetry 04/21/18 04/21/18 04/21/18 11:18 11:20 11:55 Temperature 97.9 F Pulse Rate 71 57 L 55 L Respiratory 20 Rate Blood Pressure 198/84 Blood Pressure [Right] O2 Sat by Pulse 95 Oximetry 04/21/18 16:05 Temperature 97.6 F Pulse Rate 57 L Respiratory 18 Rate Blood Pressure 182/73 Blood Pressure [Right] O2 Sat by Pulse 96 Oximetry - General Appearance General appearance: well-developed, well-nourished, appears stated age EENT: ATNC, PERRL, mucous membranes moist Neck: no JVD Respiratory: Present: Clear to Ascultation Cardiology: regular, S1S2 Gastrointestinal: normoactive bowel sounds Integumentary: no rash, other (no edema ) Neurologic: no focal deficit, alert and oriented x3, strength 5/5, CN 3-12 intact Psychiatric: mood/affect appropriate, cooperative - Lab 04/20/18 10:26 04/21/18 10:23 Most recent lab results Calcium 9.1 mg/dL (8.4-10.2) 04/21/18 10:23 Magnesium 2.00 mg/dL (1.7-2.3) 04/20/18 13:20 Urine Creatinine 48.5 mg/dL (0.1-20.0) H 04/20/18 Unknown Urine Sodium 123 mmol/L 04/20/18 Unknown Urine Total Protein 113 mg/dL (5-11.8) H 04/20/18 Unknown
[2018-04-21 18:01] LABS: Creatine Kinase MB 2.7 ng/mL (0.0-4.0)
[2018-04-21] MEDS: CATAPRES PO SCH ×2 (18:09→21:56)
[2018-04-21] MEDS: SODIUM CHLORIDE FLUSH SYRINGE 10 ML IV SCH ×2 (18:39→21:59)
[2018-04-21] MEDS: LANTUS SUB-Q SCH (21:55)
[2018-04-21] MEDS: PRAVACHOL PO SCH (21:56)
[2018-04-22] MEDS: CATAPRES PO SCH ×3 (05:46→23:10)
[2018-04-22] MEDS: APRESOLINE PO SCH ×3 (05:46→23:09)
--- NOTE | 2018-04-22 11:17 | Progress Note ---
Assessment and Plan - Patient Problems (1) Acute on chronic renal failure Current Visit: Yes Status: Acute Qualifiers: Acute renal failure type: unspecified Chronic kidney disease stage: stage 4 (severe) Qualified Code(s): N17.9 - Acute kidney failure, unspecified; N18.4 - Chronic kidney disease, stage 4 (severe) Plan to address problem: Follow-up pending serologies. Kidney biopsy planned for Tuesday. Try to optimize kidney function. High risk for kidney failure on contrast exposure. 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 (3) Hypertensive chronic kidney disease with stage 1 through stage 4 chronic kidney disease, or unspecified chronic kidney disease Current Visit: Yes Status: Acute Plan to address problem: Blood pressure improving. Follow blood pressure and current medications (4) Type 2 diabetes mellitus with diabetic chronic kidney disease Current Visit: Yes Status: Chronic Qualifiers: Diabetes mellitus half-way insulin use: with half-way use Plan to address problem: Blood sugar management by primary attending (5) Anemia in chronic kidney disease Current Visit: Yes Status: Acute Plan to address problem: Check iron stores. Follow-up hemoglobin (6) Acidosis Current Visit: Yes Status: Acute Plan to address problem: Continue moderate protein diet. Follow bicarbonate Subjective Date of service: 04/22/18 Principal diagnosis: ONEIL on CKD Interval history: Patient seen lying in bed. He has no new complaints. No nausea or vomiting. No chest pain Objective - Exam Narrative Exam: Elderly -[place] male lying in bed in no acute distress HEENT: NCAT, pink oral mucous membrane Neck: Supple, no venous distention CVS: S1S2 RRR with no murmur, rub or gallop Chest: Clear to auscultation Abdomen: Protuberant, soft, nontender, no organomegaly, bowel sounds are present Extremities: No edema Skin warm and dry, no rash Neuro: Awake, alert no focal deficits - Vital Signs Vital signs: Vital Signs - 12hr 04/21/18 04/22/18 04/22/18 23:52 05:41 05:46 Temperature 97.9 F 98.3 F Pulse Rate 54 L 48 L 52 L Respiratory 18 18 Rate Blood Pressure 162/68 143/72 143/72 O2 Sat by Pulse 95 96 Oximetry - Lab 04/20/18 10:26 04/21/18 10:23 Most recent lab results Calcium 9.1 mg/dL (8.4-10.2) 04/21/18 10:23 Magnesium 2.00 mg/dL (1.7-2.3) 04/20/18 13:20 Urine Creatinine 48.5 mg/dL (0.1-20.0) H 04/20/18 Unknown Urine Sodium 123 mmol/L 04/20/18 Unknown Urine Total Protein 113 mg/dL (5-11.8) H 04/20/18 Unknown
[2018-04-22] MEDS: BUMEX PO SCH (11:53)
[2018-04-22] MEDS: NORVASC PO SCH (11:53)
[2018-04-22] MEDS: TOPROL XL PO SCH (11:53)
--- NOTE | 2018-04-22 13:01 | Progress Note ---
Assessment and Plan - Patient Problems (1) CHF (congestive heart failure) Current Visit: Yes Status: Acute Qualifiers: Heart failure type: systolic Heart failure chronicity: acute Qualified Code(s): I50.21 - Acute systolic (congestive) heart failure Plan to address problem: 77-year-old man who presented to the hospital with shortness of breath, and chest x-ray revealed bilateral mild interstitial infiltrates, consistent with fluid overload. On presentation, he was found with acute on chronic renal failure. His baseline creatinine of 2.9 in October 2017, is now 5.1. In addition , there was severe uncontrolled hypertension, systolic blood pressure 224 on presentation. The patient's echocardiogram shows a mild to moderate severity cardiomyopathy, ejection fraction 40-45%. However it's quite plausible that his fluid overload was due to diastolic dysfunction of uncontrolled hypertension plus the acute kidney injury, not necessarily cardiac ischemia. Recommendations: Aggressive risk factor management, we will substitute amlodipine with Procardia XL for better blood pressure control. Nephrology workup and management of the acute kidney injury. Diuretics for fluid overload as recommended by nephrology. Invasive cardiac ischemic workup will not be considered and decided not for acute kidney injury, but we will order a Persantine thallium stress test once fluid overload is resolved. (2) Uncontrolled hypertension Current Visit: Yes Status: Acute Plan to address problem: 77-year-old man who presented to the hospital with shortness of breath, and chest x-ray revealed bilateral mild interstitial infiltrates, consistent with fluid overload. On presentation, he was found with acute on chronic renal failure. His baseline creatinine of 2.9 in October 2017, is now 5.1. In addition , there was severe uncontrolled hypertension, systolic blood pressure 224 on presentation. The patient's echocardiogram shows a mild to moderate severity cardiomyopathy, ejection fraction 40-45%. However it's quite plausible that his fluid overload was due to diastolic dysfunction of uncontrolled hypertension plus the acute kidney injury, not necessarily cardiac ischemia. Recommendations: Aggressive risk factor management, we will substitute amlodipine with Procardia XL for better blood pressure control. Nephrology workup and management of the acute kidney injury. Diuretics for fluid overload as recommended by nephrology. Invasive cardiac ischemic workup will not be considered and decided not for acute kidney injury, but we will order a Persantine thallium stress test once fluid overload is resolved. Subjective Date of service: 04/22/18 Principal diagnosis: ONEIL on CKD Interval history: 77-year-old man who presented to the hospital with shortness of breath, and chest x-ray revealed bilateral mild interstitial infiltrates, consistent with fluid overload. On presentation, he was found with acute on chronic renal failure. His baseline creatinine of 2.9 in October 2017, is now 5.1. In addition , there was severe uncontrolled hypertension, systolic blood pressure 224 on presentation. EKG was a sinus bradycardia, left ventricular hypertrophy with nonspecific repolarization changes of LVH. Objective Vital Signs Temp Pulse Resp BP Pulse Ox 04/22/18 10:51 99 04/22/18 05:46 52 L 143/72 04/22/18 05:41 98.3 F 48 L 18 143/72 96 04/21/18 23:52 97.9 F 54 L 18 162/68 95 04/21/18 22:00 58 L 04/21/18 21:58 59 L 158/72 04/21/18 21:56 59 L 158/72 04/21/18 19:25 98.4 F 58 L 18 158/72 95 04/21/18 16:05 97.6 F 57 L 18 182/73 96 - Physical Examination General: No Apparent Distress HEENT: Positive: PERRL Neck: Positive: neck supple Cardiac: Positive: Reg Rate and Rhythm Lungs: Positive: Decreased Breath Sounds Neuro: Positive: Grossly Intact Abdomen: Positive: Soft Skin: Positive: Clear Extremities: Absent: edema - Labs and Meds Cardiac Enzymes 04/21/18 Range/Units 17:08 CK-MB (CK-2) 2.7 (0.0-4.0) ng/mL
--- NOTE | 2018-04-22 14:06 | Progress Note ---
Assessment and Plan Assessment and Plan Assessment and plan: 77 YO Male with HTN, DM presents to ED for evaluation. Pt states that he has experienced shortness of breath for the past 2 weeks. Pt acknowledges Orthopnea , PND, leg swelling, and subjective weight gain. Pt denies fever, chills, CP, Palpitations, NVD, Trauma, productive cough, or recent ill contacts. Pt seen and evaluated by his PCP and was instructed to seek further care at [facility]. Pt seen and evaluated in ED and found to have CHF, Acute REspiratory Failure, ARF suspicious for ESRD, and Acidosis. (1) Respiratory failure Current Visit: Yes Status: Acute Qualifiers: Chronicity: acute Respiratory failure complication: hypoxia Qualified Code(s): J96.01 - Acute respiratory failure with hypoxia Plan to address problem: Supplemental oxygen, nebulizer therapy, Chest x ray, diuretics, NIPPV as clinically indicated, pulse oximetry Clinically improving this. Continue current treatment.Improved (2) ARF (acute renal failure) with tubular necrosis Current Visit: Yes Status: Acute Plan to address problem: IVF resuscitation therapy, monitor uop q shift, renal ultrasound, urine electrolytes, nephrology consulted. Will defer to Nephrology about FIELD PROJECT MANAGER' (3) CHF (congestive heart failure) Exacerbation-Diastolic Current Visit: Yes Status: Acute Qualifiers: Heart failure type: systolic Heart failure chronicity: acute Qualified Code(s): I50.21 - Acute systolic (congestive) heart failure Plan to address problem: Continue telemetry and if no events can down grade in 24 hrs. Echo, cardiology consulted in ED, strict I/o, monitor uop q shift, daily weight, afterload reduction, thyroid panel, EF 40 to 45 percent Diuretics as necessary (4) Acidosis Current Visit: Yes Status: Acute Plan to address problem: secondary to ESRD. IV bicarbonate, repeat bmp (5) HTN Cont Procardia (6) DVT prophylaxis Current Visit: Yes Status: Acute Plan to address problem: SCD to BLE while in bed. Subjective Date of service: 04/22/18 Principal diagnosis: ONEIL on CKD ,Resp failure,CHF exacerbation Interval history: Symptomatically better No SOB at rest Objective - Constitutional Vitals: Vital Signs - 12hr 04/22/18 04/22/18 04/22/18 05:41 05:46 10:00 Temperature 98.3 F Pulse Rate 48 L 52 L 52 L Respiratory 18 Rate Blood Pressure 143/72 143/72 O2 Sat by Pulse 96 97 Oximetry 04/22/18 10:51 Temperature Pulse Rate Respiratory Rate Blood Pressure O2 Sat by Pulse 99 Oximetry General appearance: Present: no acute distress, well-nourished - EENT Eyes: PERRL, EOM intact ENT: hearing intact, clear oral mucosa Ears: bilateral: normal - Neck Neck: supple, normal ROM - Respiratory Respiratory effort: normal Respiratory: bilateral: CTA - Breasts Breasts: normal - Cardiovascular Heart rate: 78 Rhythm: regular Heart Sounds: Present: S1 & S2. Absent: gallop, rub Extremities: no ischemia, pulses intact, No edema, normal color, Full ROM - Gastrointestinal General gastrointestinal: Present: soft, non-tender, non-distended, normal bowel sounds - Genitourinary Male genitourinary: deferred, normal - Integumentary Integumentary: clear, warm, dry - Musculoskeletal Musculoskeletal: 1, strength equal bilaterally - Neurologic Neurologic: moves all extremities - Psychiatric Psychiatric: memory intact, appropriate mood/affect, intact judgment & insight - Allied health notes Allied health notes reviewed: nursing, case management - Labs CBC & Chem 7: 04/20/18 10:26 04/21/18 10:23 Labs: Abnormal lab results 04/21/18 04/21/18 04/21/18 Range/Units 11:57 16:07 17:08 POC Glucose 130 H 175 H (70-105) Troponin T 0.045 H (0.00-0.029) ng/mL 04/21/18 Range/Units 21:08 POC Glucose 230 H (70-105) Troponin T (0.00-0.029) ng/mL
[2018-04-22] MEDS: FLOMAX PO SCH (18:51)
[2018-04-22] MEDS: PROCARDIA XL PO SCH (18:51)
[2018-04-22] MEDS: PRAVACHOL PO SCH (23:10)
[2018-04-22] MEDS: SODIUM CHLORIDE FLUSH SYRINGE 10 ML IV SCH (23:11)
[2018-04-22] MEDS: LANTUS SUB-Q SCH (23:11)
[2018-04-23] MEDS: APRESOLINE PO SCH ×3 (05:11→22:55)
[2018-04-23] MEDS: CATAPRES PO SCH ×3 (05:12→22:54)
[2018-04-23] MEDS: BUMEX PO SCH (09:39)
[2018-04-23] MEDS: SODIUM CHLORIDE FLUSH SYRINGE 10 ML IV SCH ×3 (09:39→23:00)
[2018-04-23] MEDS: PROCARDIA XL PO SCH (09:39)
[2018-04-23] MEDS: TOPROL XL PO SCH (09:40)
--- NOTE | 2018-04-23 14:16 | Progress Note ---
Assessment and Plan Assessment and Plan 77 YO Male with HTN, DM presents to ED for evaluation. Pt states that he has experienced shortness of breath for the past 2 weeks. Pt acknowledges Orthopnea , PND, leg swelling, and subjective weight gain. Pt denies fever, chills, CP, Palpitations, NVD, Trauma, productive cough, or recent ill contacts. Pt seen and evaluated by his PCP and was instructed to seek further care at [facility]. Pt seen and evaluated in ED and found to have CHF, Acute REspiratory Failure, ARF suspicious for ESRD, and Acidosis. (1) Respiratory failure Current Visit: Yes Status: Acute Qualifiers: Chronicity: acute Respiratory failure complication: hypoxia Qualified Code(s): J96.01 - Acute respiratory failure with hypoxia Plan to address problem: Supplemental oxygen, nebulizer therapy, Chest x ray, diuretics, NIPPV as clinically indicated, pulse oximetry Clinically improving this. Continue current treatment.Improved (2) ARF (acute renal failure) with tubular necrosis Current Visit: Yes Status: Acute Plan to address problem: IVF resuscitation therapy, monitor uop q shift, renal ultrasound, urine electrolytes, nephrology consulted. Will defer to Nephrology about PHOSPHORIC ACID SUPERVISOR' For Kidney biopsy tomorrow (3) CHF (congestive heart failure) Exacerbation-Diastolic Current Visit: Yes Status: Acute Qualifiers: Heart failure type: systolic Heart failure chronicity: acute Qualified Code(s): I50.21 - Acute systolic (congestive) heart failure Plan to address problem: Continue telemetry and if no events can down grade in 24 hrs. Echo, cardiology consulted in ED, strict I/o, monitor uop q shift, daily weight, afterload reduction, thyroid panel, EF 40 to 45 percent Diuretics as necessary (4) Acidosis Current Visit: Yes Status: Acute Plan to address problem: secondary to ESRD. IV bicarbonate, repeat bmp (5) HTN Cont Procardia (6) DVT prophylaxis Current Visit: Yes Status: Acute Plan to address problem: SCD to BLE while in bed. Subjective Date of service: 04/23/18 Principal diagnosis: ONEIL on CKD ,Resp failure,CHF exacerbation Interval history: Symptomatically better No SOB at rest Objective - Constitutional Vitals: Vital Signs - 12hr 04/23/18 04/23/18 04/23/18 02:48 05:11 05:12 Temperature 97.9 F 98.2 F Pulse Rate 49 L 52 L 48 L Respiratory 18 18 Rate Blood Pressure 157/72 144/67 144/67 O2 Sat by Pulse 95 96 Oximetry 04/23/18 04/23/18 04/23/18 08:07 09:40 10:00 Temperature 97.6 F Pulse Rate 49 L 49 L 49 L Respiratory 18 18 Rate Blood Pressure 140/59 140/59 O2 Sat by Pulse 96 96 Oximetry 04/23/18 04/23/18 04/23/18 13:42 14:10 14:11 Temperature 97.4 F L Pulse Rate 52 L 52 L 52 L Respiratory 18 Rate Blood Pressure 122/67 122/67 122/67 O2 Sat by Pulse 97 Oximetry General appearance: Present: no acute distress, well-nourished - EENT Eyes: PERRL, EOM intact ENT: hearing intact, clear oral mucosa Ears: bilateral: normal - Neck Neck: supple, normal ROM - Respiratory Respiratory effort: normal Respiratory: bilateral: CTA - Breasts Breasts: normal - Cardiovascular Rhythm: regular Heart Sounds: Present: S1 & S2. Absent: gallop, rub Extremities: pulses intact, No edema, normal color, Full ROM - Gastrointestinal General gastrointestinal: Present: soft, non-tender, non-distended, normal bowel sounds - Genitourinary Male genitourinary: normal - Integumentary Integumentary: clear, warm, dry - Musculoskeletal Musculoskeletal: 1, strength equal bilaterally - Neurologic Neurologic: moves all extremities - Psychiatric Psychiatric: memory intact, appropriate mood/affect, intact judgment & insight - Labs CBC & Chem 7: 04/20/18 10:26 04/21/18 10:23 Labs: Abnormal lab results 04/22/18 04/23/18 04/23/18 Range/Units 22:27 08:10 11:28 POC Glucose 136 H 106 H 170 H (70-105)
--- NOTE | 2018-04-23 15:31 | Progress Note ---
Assessment and Plan - Patient Problems (1) Acute on chronic renal failure Current Visit: Yes Status: Acute Qualifiers: Acute renal failure type: unspecified Chronic kidney disease stage: stage 4 (severe) Qualified Code(s): N17.9 - Acute kidney failure, unspecified; N18.4 - Chronic kidney disease, stage 4 (severe) Plan to address problem: For Kidney biopsy in am. High risk for kidney failure on contrast exposure. No invasive cardiac procedures planned by booking prizer at his point. Follow-up electrolytes and renal function. Discussed moderate protein diet with patient and . We'll have dietitian discuss with them tomorrow. I answered their numerous questions (2) Shortness of breath Current Visit: Yes Status: Acute Plan to address problem: Patient with ejection fraction of 40-45%. (3) Hypertensive chronic kidney disease with stage 1 through stage 4 chronic kidney disease, or unspecified chronic kidney disease Current Visit: Yes Status: Acute Plan to address problem: Blood pressure improved. Follow blood pressure on current medications (4) Type 2 diabetes mellitus with diabetic chronic kidney disease Current Visit: Yes Status: Chronic Qualifiers: Diabetes mellitus mcc insulin use: with rn long term care use Plan to address problem: Blood sugar management by primary attending (5) Anemia in chronic kidney disease Current Visit: Yes Status: Acute Plan to address problem: Check iron stores. Follow-up hemoglobin (6) Acidosis Current Visit: Yes Status: Acute Plan to address problem: Continue moderate protein diet. Follow bicarbonate Subjective Date of service: 04/23/18 Principal diagnosis: ONEIL on CKD ,Resp failure,CHF exacerbation Interval history: Patient seen lying in bed. He has no new complaints. No nausea or vomiting. No chest pain. at bedside Objective - Exam Narrative Exam: Elderly -Armenian male lying in bed in no acute distress HEENT: NCAT, pink oral mucous membrane Neck: Supple, no venous distention CVS: S1S2 RRR with no murmur, rub or gallop Chest: Clear to auscultation Abdomen: Protuberant, soft, nontender, no organomegaly, bowel sounds are present Extremities: No edema Skin warm and dry, no rash Neuro: Awake, alert no focal deficits - Vital Signs Vital signs: Vital Signs - 12hr 04/23/18 04/23/18 04/23/18 05:11 05:12 08:07 Temperature 98.2 F 97.6 F Pulse Rate 52 L 48 L 49 L Respiratory 18 18 Rate Blood Pressure 144/67 144/67 140/59 O2 Sat by Pulse 96 96 Oximetry 04/23/18 04/23/18 04/23/18 09:40 10:00 13:42 Temperature 97.4 F L Pulse Rate 49 L 49 L 52 L Respiratory 18 18 Rate Blood Pressure 140/59 122/67 O2 Sat by Pulse 96 97 Oximetry 04/23/18 04/23/18 14:10 14:11 Temperature Pulse Rate 52 L 52 L Respiratory Rate Blood Pressure 122/67 122/67 O2 Sat by Pulse Oximetry - Lab 04/20/18 10:26 04/21/18 10:23 Most recent lab results Calcium 9.1 mg/dL (8.4-10.2) 04/21/18 10:23 Magnesium 2.00 mg/dL (1.7-2.3) 04/20/18 13:20 Urine Creatinine 48.5 mg/dL (0.1-20.0) H 04/20/18 Unknown Urine Sodium 123 mmol/L 04/20/18 Unknown Urine Total Protein 113 mg/dL (5-11.8) H 04/20/18 Unknown
[2018-04-23] MEDS: FLOMAX PO SCH (17:21)
[2018-04-23] MEDS: HumaLOG SUB-Q SCH ×2 (17:56→22:57)
[2018-04-23] MEDS: PRAVACHOL PO SCH (22:55)
[2018-04-23] MEDS: LANTUS SUB-Q SCH (22:56)
[2018-04-24 05:20] LABS: Calcium 8.8 mg/dL (8.4-10.2)
[2018-04-24] MEDS: APRESOLINE PO SCH ×4 (06:17→21:57)
[2018-04-24] MEDS: CATAPRES PO SCH (06:17)
--- NOTE | 2018-04-24 07:55 | Progress Note ---
Assessment and Plan - Patient Problems (1) Acute on chronic renal failure Current Visit: Yes Status: Acute Plan to address problem: Plan for renal biopsy today. High risk for injury with nephrotoxin exposure. Discussed with nursing staff to ensure adequate measurements of I/O No acute renal replacement needs today. Serology studies pending. (2) Hypertensive chronic kidney disease with stage 1 through stage 4 chronic kidney disease, or unspecified chronic kidney disease Current Visit: Yes Status: Acute Plan to address problem: Continue with current antihypertensive regimen. Will closely monitor. (3) Shortness of breath Current Visit: Yes Status: Acute Plan to address problem: Respiratory status has improved. Will continue to monitor. Current EF og 40-45%. (4) Type 2 diabetes mellitus with diabetic chronic kidney disease Current Visit: Yes Status: Chronic Plan to address problem: Management per primary team. (5) Acidosis Current Visit: Yes Status: Acute Plan to address problem: Serum bicarbonate levels are stable. Continue to monitor. Subjective Date of service: 04/24/18 Principal diagnosis: ONEIL on CKD ,Resp failure,CHF exacerbation Interval history: No acute issues overnight. patient set up for renal biopsy this am. He has been NPO after midnight. Labs noted. Objective - Vital Signs Vital signs: Vital Signs - 12hr 04/23/18 04/23/18 04/24/18 20:42 22:00 04:00 Temperature 98.2 F 98.3 F Pulse Rate 52 L 56 L 52 L Respiratory 20 20 18 Rate Blood Pressure 156/63 156/68 O2 Sat by Pulse 96 94 Oximetry - General Appearance General appearance: well-developed, well-nourished, appears stated age EENT: ATNC, PERRL Neck: no JVD, no thyromegaly, supple Respiratory: Present: Decreased Breath Sounds Cardiology: regular, bradycardia Gastrointestinal: normal, normoactive bowel sounds Integumentary: no rash, warm and dry Neurologic: no focal deficit, no asterixis, alert and oriented x3 Musculoskeletal: other ((-) edema ) Psychiatric: mood/affect appropriate, cooperative - Lab 04/20/18 10:26 04/24/18 03:59 Most recent lab results Calcium 8.8 mg/dL (8.4-10.2) 04/24/18 03:59 Magnesium 2.00 mg/dL (1.7-2.3) 09/06/18 13:20 Urine Creatinine 48.5 mg/dL (0.1-20.0) H 04/20/18 Unknown Urine Sodium 123 mmol/L 04/20/18 Unknown Urine Total Protein 113 mg/dL (5-11.8) H 04/20/18 Unknown - Allied health notes Allied health notes reviewed: nursing
[2018-04-24] MEDS: D50W (25GM) Syringe IV PRN ×2 (08:04→11:31)
[2018-04-24] MEDS: SODIUM CHLORIDE FLUSH SYRINGE 10 ML IV PRN ×2 (08:05→11:32)
[2018-04-24] MEDS: HumaLOG SUB-Q SCH ×4 (08:08→22:28)
[2018-04-24] MEDS ORDERED: VERSED IV ONE ×2 (08:37→12:44)
[2018-04-24] MEDS ORDERED: SUBLIMAZE IV ONE (08:37)
[2018-04-24] MEDS: BUMEX PO SCH (10:00)
[2018-04-24] MEDS: TOPROL XL PO SCH ×2 (10:01→20:52)
[2018-04-24] MEDS: SODIUM CHLORIDE FLUSH SYRINGE 10 ML IV SCH ×2 (10:01→21:57)
[2018-04-24] MEDS: PROCARDIA XL PO SCH ×2 (10:01→20:52)
--- NOTE | 2018-04-24 10:28 | Progress Note ---
Assessment and Plan Acute on chronic renal failure Acute systolic heart failure echocardiogram reveals a mildly decreased left ventricular systolic function , ejection fraction 40-45%. Hypertension Diabetes Recommend: Persantine thallium stress test once fluid overload is resolved. Subjective Date of service: 04/24/18 Principal diagnosis: ONEIL on CKD ,Resp failure,CHF exacerbation Interval history: Patient is resting in bed comfortably. He denies shortness of breath and chest pain. Objective Vital Signs Temp Pulse Resp BP Pulse Ox 04/24/18 08:46 18 94 04/24/18 07:27 98.4 F 66 18 153/63 94 04/24/18 04:00 98.3 F 52 L 18 156/68 94 04/23/18 22:00 56 L 20 04/23/18 20:42 98.2 F 52 L 20 156/63 96 04/23/18 14:11 52 L 122/67 04/23/18 14:10 52 L 122/67 04/23/18 13:42 97.4 F L 52 L 18 122/67 97 - Physical Examination General: No Apparent Distress HEENT: Positive: PERRL Cardiac: Positive: Reg Rate and Rhythm Lungs: Positive: Decreased Breath Sounds Neuro: Positive: Grossly Intact Extremities: Absent: edema - Labs and Meds Comprehensive Metabolic Panel 04/24/18 Range/Units 03:59 Sodium 137 (137-145) mmol/L Potassium 3.8 (3.6-5.0) mmol/L Chloride 99.4 (98-107) mmol/L Carbon Dioxide 23 (22-30) mmol/L BUN 45 H (9-20) mg/dL Creatinine 5.7 H (0.8-1.5) mg/dL Glucose 92 (75-100) mg/dL Calcium 8.8 (8.4-10.2) mg/dL - Allied health notes Allied health notes reviewed: nursing
[2018-04-24] MEDS ORDERED: SUBLIMAZE ONE (12:44)
--- NOTE | 2018-04-24 14:05 | Cat Scan Report ---
CT BIOPSY RENAL RIGHT History: Acute renal insufficiency, proteinuria Description of procedure: Informed consent was obtained. Sterile technique was utilized. 1% lidocaine for skin anesthesia. Moderate sedation was accomplished with Versed and fentanyl. The patient was sedated for 15 minutes. Independent cardiorespiratory monitoring by RN. Intraobserver time of [address] guidance, a 17-gauge introducer needle was advanced to the inferior pole of the right kidney. 2 separate 18-gauge core biopsies were obtained for pathologic analysis. No complications. Impression: Successful CT-guided biopsy of the inferior pole of the right kidney.
--- NOTE | 2018-04-24 16:59 | Progress Note ---
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 He denies chest pain or shortness of breath. Hospitalist Physical - Constitutional Vitals: Temp Pulse Resp BP Pulse Ox 98.4 F 48 L 14 131/63 100 04/24/18 07:27 04/24/18 13:32 04/24/18 13:32 04/24/18 14:57 04/24/18 13:32 General appearance: Present: no acute distress, well-nourished - EENT Eyes: Present: PERRL, EOM intact ENT: hearing intact, clear oral mucosa - Neck Neck: Present: supple - Respiratory Respiratory effort: normal Respiratory: bilateral: CTA - Cardiovascular Rhythm: other (bradycardia with regular rhythm) Heart Sounds: Present: S1 & S2 - Extremities Extremities: No edema - Abdominal General gastrointestinal: soft, non-tender, normal bowel sounds - Neurologic Neurologic: CNII-XII intact Results - Labs CBC & Chem 7: 04/20/18 10:26 04/24/18 03:59 Labs: Laboratory Last Values WBC 6.7 K/mm3 (4.5-11.0) 04/20/18 10:26 RBC 3.57 M/mm3 (3.65-5.03) L 04/20/18 10:26 Hgb 10.6 gm/dl (11.8-15.2) L 04/20/18 10:26 Hct 31.5 % (35.5-45.6) L 04/20/18 10:26 MCV 88 fl (84-94) 04/20/18 10:26 MCH 30 pg (28-32) 04/20/18 10:26 MCHC 34 % (32-34) 04/20/18 10:26 RDW 13.5 % (13.2-15.2) 04/20/18 10:26 Plt Count 139 K/mm3 (140-440) L 04/20/18 10:26 Lymph % (Auto) 12.5 % (13.4-35.0) L 04/20/18 10:26 [place] % (Auto) 11.3 % (0.0-7.3) H 04/20/18 10:26 Eos % (Auto) 5.2 % (0.0-4.3) H 04/20/18 10:26 Baso % (Auto) 1.4 % (0.0-1.8) 04/20/18 10:26 Lymph # 0.8 K/mm3 (1.2-5.4) L 04/20/18 10:26 [place] # 0.8 K/mm3 (0.0-0.8) 04/20/18 10:26 Eos # 0.3 K/mm3 (0.0-0.4) 04/20/18 10: Baso # 0.1 K/mm3 (0.0-0.1) 04/20/18 10:26 Seg Neutrophils % 69.6 % (40.0-70.0) 04/20/18 10: Seg Neutrophils # 4.6 K/mm3 (1.8-7.7) 04/20/18 10:26 PT 13.4 Sec. (12.2-14.9) 04/20/18 13:20 INR 0.97 (0.87-1.13) 04/20/18 13:20 APTT 32.9 Sec. (24.2-36.6) 04/20/18 13:20 Sodium 137 mmol/L (137-145) 04/24/18 03:59 Potassium 3.8 mmol/L (3.6-5.0) 04/24/18 03:59 Chloride 99.4 mmol/L (98-107) 04/24/18 03:59 Carbon Dioxide 23 mmol/L (22-30) 04/24/18 03:59 Anion Gap 18 mmol/L 04/24/18 03:59 BUN 45 mg/dL (9-20) H 04/24/18 03:59 Creatinine 5.7 mg/dL (0.8-1.5) H 04/24/18 03:59 Estimated GFR 12 ml/min 04/24/18 03:59 BUN/Creatinine Ratio 8 % 04/24/18 03:59 Glucose 92 mg/dL (75-100) 04/24/18 03:59 POC Glucose 164 (70-105) H 04/24/18 16:37 Calcium 8.8 mg/dL (8.4-10.2) 04/24/18 03:59 Magnesium 2.00 mg/dL (1.7-2.3) 04/20/18 13:20 Total Creatine Kinase 130 units/L (55-170) 04/21/18 17:08 CK-MB (CK-2) 2.7 ng/mL (0.0-4.0) 04/21/18 17:08 CK-MB (CK-2) Rel Index 2.0 (0-4) 04/21/18 17:08 Troponin T 0.045 ng/mL (0.00-0.029) H 04/21/18 17:08 NT-Pro-B Natriuret Pep 8504 pg/mL (0-900) H 04/20/18 13:20 Triglycerides 41 mg/dL (2-149) 04/20/18 13:20 Cholesterol 105 mg/dL (50-199) 04/20/18 13:20 LDL Cholesterol Direct 54 mg/dL (50-130) 04/20/18 13:20 HDL Cholesterol 48 mg/dL (40-59) 04/20/18 13:20 Cholesterol/HDL Ratio 2.18 % 04/20/18 13:20 TSH 2.210 mlU/mL (0.270-4.200) 04/20/18 17:12 Free T4 1.09 ng/dL (0.76-1.46) 04/20/18 17:12 Urine Color Straw (Yellow) 04/20/18 Unknown Urine Turbidity Clear (Clear) 04/20/18 Unknown Urine pH 6.0 (5.0-7.0) 04/20/18 Unknown Ur Specific [place] 1.008 (1.003-1.030) 04/20/18 Unknown Urine Protein 100 mg/dl mg/dL (Negative) 04/20/18 Unknown Urine Glucose (UA) Neg mg/dL (Negative) 04/20/18 Unknown Urine Ketones Neg mg/dL (Negative) 04/20/18 Unknown Urine Blood Neg (Negative) 04/20/18 Unknown Urine Nitrite Neg (Negative) 04/20/18 Unknown Urine Bilirubin Neg (Negative) 04/20/18 Unknown Urine Urobilinogen < 2.0 mg/dL (<2.0) 04/20/18 Unknown Ur Leukocyte Esterase Neg (Negative) 04/20/18 Unknown Urine WBC (Auto) < 1.0 /HPF (0.0-6.0) 04/20/18 Unknown Urine RBC (Auto) 4.0 /HPF (0.0-6.0) 04/20/18 Unknown Urine Mucus Few /HPF 04/20/18 Unknown Urine Creatinine 48.5 mg/dL (0.1-20.0) H 04/20/18 Unknown Urine Sodium 123 mmol/L 04/20/18 Unknown Urine Total Protein 113 mg/dL (5-11.8) H 04/20/18 Unknown
[2018-04-24] MEDS: FLOMAX PO SCH (17:45)
[2018-04-24] MEDS: PRAVACHOL PO SCH ×2 (20:53→21:58)
[2018-04-24] MEDS ORDERED: COLACE PO ONE (22:00)
[2018-04-24] MEDS: LANTUS SUB-Q SCH (22:27)
[2018-04-25] MEDS: APRESOLINE PO SCH ×3 (05:47→22:48)
[2018-04-25 06:30] LABS: Hematocrit 27.1 % (35.5-45.6); Hemoglobin 9.4 gm/dl (11.8-15.2); Mean Corpuscular HGB Conc 35 % (32-34); Mean Corpuscular Hemoglobin 30 pg (28-32); Mean Corpuscular Volume 88 fl (84-94); Platelet Count 127 K/mm3 (140-440); Red Blood Count 3.08 M/mm3 (3.65-5.03); Red Cell Distribution Width 13.8 % (13.2-15.2)
[2018-04-25 06:31] LABS: Eosinophils # (Auto) 0.3 K/mm3 (0.0-0.4); Eosinophils % (Auto) 5.5 % (0.0-4.3); Lymphocytes # (Auto) 0.8 K/mm3 (1.2-5.4); Lymphocytes % (Auto) 12.5 % (13.4-35.0); Monocytes # (Auto) 0.7 K/mm3 (0.0-0.8); Monocytes % (Auto) 10.9 % (0.0-7.3)
[2018-04-25 06:53] LABS: Calcium 8.8 mg/dL (8.4-10.2)
--- NOTE | 2018-04-25 08:40 | Progress Note ---
Assessment and Plan - Patient Problems (1) Acute on chronic renal failure Current Visit: Yes Status: Acute Qualifiers: Acute renal failure type: unspecified Chronic kidney disease stage: stage 4 (severe) Qualified Code(s): N17.9 - Acute kidney failure, unspecified; N18.4 - Chronic kidney disease, stage 4 (severe) Plan to address problem: s/p renal biopsy yesterday. High risk for injury with nephrotoxin exposure. Plan for NM stress test today. Discussed with nursing staff to ensure adequate measurements of I/O No acute renal replacement needs today. Serologies pending. (2) Hypertensive chronic kidney disease with stage 1 through stage 4 chronic kidney disease, or unspecified chronic kidney disease Current Visit: Yes Status: Acute Plan to address problem: Continue with current antihypertensive regimen. Will closely monitor. (3) Shortness of breath Current Visit: Yes Status: Acute Plan to address problem: Respiratory status has improved. Will continue to monitor. Current EF of 40-45%. Pending stress test this am. 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 (5) Acidosis Current Visit: Yes Status: Acute Plan to address problem: Serum bicarbonate levels are stable. Continue to monitor. Subjective Principal diagnosis: ONEIL on CKD ,Resp failure,CHF exacerbation Interval history: No acute issues overnight. Had CT guided renal biopsy done yesterday without any issues. Plan for NM stress test this am. Labs noted, and his serum creatinine is stable. Patient remains non oliguric. Objective - Vital Signs Vital signs: Vital Signs - 12hr 04/24/18 04/24/18 04/25/18 20:54 22:00 02:19 Temperature 98.8 F Pulse Rate 56 L 59 L Respiratory 18 16 Rate Blood Pressure 163/69 O2 Sat by Pulse 94 Oximetry - General Appearance General appearance: well-developed, well-nourished, appears stated age EENT: ATNC, PERRL Neck: no JVD, no thyromegaly, no carotid bruit, supple Respiratory: Present: Clear to Ascultation, Normal Exam Cardiology: regular, normal heart rate, S1S2 Gastrointestinal: normal, normoactive bowel sounds Integumentary: no rash, warm and dry Neurologic: no focal deficit, no asterixis, alert and oriented x3 Musculoskeletal: other ((-) edema) - Lab 04/25/18 05:49 04/25/18 05:49 Most recent lab results Calcium 8.8 mg/dL (8.4-10.2) 04/25/18 05:49 Magnesium 2.00 mg/dL (1.7-2.3) 04/20/18 13:20 Urine Creatinine 48.5 mg/dL (0.1-20.0) H 04/20/18 Unknown Urine Sodium 123 mmol/L 04/20/18 Unknown Urine Total Protein 113 mg/dL (5-11.8) H 04/20/18 Unknown - Allied health notes Allied health notes reviewed: nursing
[2018-04-25] MEDS: HumaLOG SUB-Q SCH ×4 (09:19→22:49)
[2018-04-25] MEDS: BUMEX PO SCH (09:19)
[2018-04-25] MEDS: PROCARDIA XL PO SCH (09:19)
[2018-04-25] MEDS: TOPROL XL PO SCH (09:41)
[2018-04-25] MEDS: SODIUM CHLORIDE FLUSH SYRINGE 10 ML IV SCH ×2 (10:00→22:50)
[2018-04-25] MEDS ORDERED: LEXISCAN IV ONE ×2 (10:43→11:00)
--- NOTE | 2018-04-25 15:34 | Progress Note ---
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 He denies chest pain. Hospitalist Physical - Constitutional Vitals: Temp Pulse Resp BP Pulse Ox 98 F 65 18 144/69 98 04/25/18 08:00 04/25/18 11:21 04/25/18 08:00 04/25/18 11:21 04/25/18 10:00 General appearance: Present: no acute distress, well-nourished - EENT Eyes: Present: PERRL, EOM intact ENT: hearing intact, clear oral mucosa - Neck Neck: Present: supple - Respiratory Respiratory effort: normal Respiratory: bilateral: CTA - Cardiovascular Rhythm: regular Heart Sounds: Present: S1 & S2 - Extremities Extremities: No edema - Abdominal General gastrointestinal: soft, non-tender, normal bowel sounds - Neurologic Neurologic: CNII-XII intact Results - Labs CBC & Chem 7: 04/25/18 05:49 04/25/18 05:49 Labs: Laboratory Last Values WBC 6.4 K/mm3 (4.5-11.0) 04/25/18 05:49 RBC 3.08 M/mm3 (3.65-5.03) L 04/25/18 05:49 Hgb 9.4 gm/dl (11.8-15.2) L 04/25/18 05:49 Hct 27.1 % (35.5-45.6) L 04/25/18 05:49 MCV 88 fl (84-94) 04/25/18 05:49 MCH 30 pg (28-32) 04/25/18 05:49 MCHC 35 % (32-34) H 04/25/18 05:49 RDW 13.8 % (13.2-15.2) 04/25/18 05:49 Plt Count 127 K/mm3 (140-440) L 04/25/18 05:49 Lymph % (Auto) 12.5 % (13.4-35.0) L 04/25/18 05:49 [place] % (Auto) 10.9 % (0.0-7.3) H 04/25/18 05:49 Eos % (Auto) 5.5 % (0.0-4.3) H 04/25/18 05:49 Baso % (Auto) 0.0 % (0.0-1.8) 04/25/18 05:49 Lymph # 0.8 K/mm3 (1.2-5.4) L 04/25/18 05:49 [place] # 0.7 K/mm3 (0.0-0.8) 04/25/18 05:49 Eos # 0.3 K/mm3 (0.0-0.4) 04/25/18 05:49 Baso # 0.0 K/mm3 (0.0-0.1) 04/25/18 05:49 Seg Neutrophils % 71.1 % (40.0-70.0) H 04/25/18 05:49 Seg Neutrophils # 4.5 K/mm3 (1.8-7.7) 04/25/18 05:49 PT 13.4 Sec. (12.2-14.9) 04/20/18 13:20 INR 0.97 (0.87-1.13) 04/20/18 13:20 APTT 32.9 Sec. (24.2-36.6) 04/20/18 13:20 Sodium 136 mmol/L (137-145) L 04/25/18 05:49 Potassium 4.4 mmol/L (3.6-5.0) 04/25/18 05:49 Chloride 99.3 mmol/L (98-107) 04/25/18 05:49 Carbon Dioxide 22 mmol/L (22-30) 04/25/18 05:49 Anion Gap 19 mmol/L 04/25/18 05:49 BUN 47 mg/dL (9-20) H 04/25/18 05:49 Creatinine 5.6 mg/dL (0.8-1.5) H 04/25/18 05:49 Estimated GFR 12 ml/min 04/25/18 05:49 BUN/Creatinine Ratio 8 % 09/11/18 05:49 Glucose 173 mg/dL (75-100) H 04/25/18 05:49 POC Glucose 134 (70-105) H 04/25/18 08:10 Calcium 8.8 mg/dL (8.4-10.2) 04/25/18 05:49 Magnesium 2.00 mg/dL (1.7-2.3) 04/20/18 13:20 Total Creatine Kinase 130 units/L (55-170) 04/21/18 17:08 CK-MB (CK-2) 2.7 ng/mL (0.0-4.0) 04/21/18 17:08 CK-MB (CK-2) Rel Index 2.0 (0-4) 04/21/18 17:08 Troponin T 0.045 ng/mL (0.00-0.029) H 04/21/18 17:08 NT-Pro-B Natriuret Pep 8504 pg/mL (0-900) H 04/20/18 13:20 Triglycerides 41 mg/dL (2-149) 04/20/18 13:20 Cholesterol 105 mg/dL (50-199) 04/20/18 13:20 LDL Cholesterol Direct 54 mg/dL (50-130) 04/20/18 13:20 HDL Cholesterol 48 mg/dL (40-59) 04/20/18 13:20 Cholesterol/HDL Ratio 2.18 % 04/20/18 13:20 TSH 2.210 mlU/mL (0.270-4.200) 04/20/18 17:12 Free T4 1.09 ng/dL (0.76-1.46) 04/20/18 17:12 Urine Color Straw (Yellow) 04/20/18 Unknown Urine Turbidity Clear (Clear) 04/20/18 Unknown Urine pH 6.0 (5.0-7.0) 04/20/18 Unknown Ur Specific [place] 1.008 (1.003-1.030) 04/20/18 Unknown Urine Protein 100 mg/dl mg/dL (Negative) 04/20/18 Unknown Urine Glucose (UA) Neg mg/dL (Negative) 04/20/18 Unknown Urine Ketones Neg mg/dL (Negative) 04/20/18 Unknown Urine Blood Neg (Negative) 04/20/18 Unknown Urine Nitrite Neg (Negative) 04/20/18 Unknown Urine Bilirubin Neg (Negative) 04/20/18 Unknown Urine Urobilinogen < 2.0 mg/dL (<2.0) 04/20/18 Unknown Ur Leukocyte Esterase Neg (Negative) 04/20/18 Unknown Urine WBC (Auto) < 1.0 /HPF (0.0-6.0) 04/20/18 Unknown Urine RBC (Auto) 4.0 /HPF (0.0-6.0) 04/20/18 Unknown Urine Mucus Few /HPF 04/20/18 Unknown Urine Creatinine 48.5 mg/dL (0.1-20.0) H 04/20/18 Unknown Urine Sodium 123 mmol/L 04/20/18 Unknown Urine Total Protein 113 mg/dL (5-11.8) H 04/20/18 Unknown
--- NOTE | 2018-04-25 17:22 | Progress Note ---
Assessment and Plan - Patient Problems (1) CHF (congestive heart failure) Current Visit: Yes Status: Acute Qualifiers: Heart failure type: systolic Heart failure chronicity: acute Qualified Code(s): I50.21 - Acute systolic (congestive) heart failure Plan to address problem: 77-year-old man who presented to the hospital with shortness of breath, and chest x-ray revealed bilateral mild interstitial infiltrates, consistent with fluid overload. On presentation, he was found with acute on chronic renal failure. His baseline creatinine of 2.9 in October 2017, is now 5.1. In addition , there was severe uncontrolled hypertension, systolic blood pressure 224 on presentation. The patient's echocardiogram shows a mild to moderate severity cardiomyopathy, ejection fraction 40-45%. However it's quite plausible that his fluid overload was due to diastolic dysfunction of uncontrolled hypertension plus the acute kidney injury, not necessarily cardiac ischemia. Recommendations: Aggressive risk factor management, we will substitute amlodipine with Procardia XL for better blood pressure control. Nephrology workup and management of the acute kidney injury. Diuretics for fluid overload as recommended by nephrology. Person and thallium stress test was completed for cardiac ischemia assessment, results pending. (2) Uncontrolled hypertension Current Visit: Yes Status: Acute Plan to address problem: Medical therapy for blood pressure control. Subjective Date of service: 04/25/18 Principal diagnosis: ONEIL on CKD ,Resp failure,CHF exacerbation Interval history: Patient is comfortable, no new cardiac complaints. Persantine thallium stress test completed, results pending. Objective Vital Signs Temp Pulse Resp BP BP Pulse Ox 04/25/18 12:30 60 04/25/18 12:00 16 04/25/18 11:21 65 144/69 04/25/18 11:20 67 140/68 04/25/18 11:19 67 141/68 04/25/18 11:18 68 122/67 04/25/18 11:17 71 126/69 04/25/18 11:16 62 161/77 04/25/18 11:07 57 L 159/78 04/25/18 10:00 98 04/25/18 08:00 98 F 70 18 160/70 96 04/25/18 02:19 98.8 F 59 L 16 163/69 94 04/24/18 22:00 56 L 04/24/18 20:54 18 04/24/18 19:04 98.2 F 59 L 16 185/78 97 - Physical Examination General: No Apparent Distress HEENT: Positive: PERRL Neck: Positive: neck supple Cardiac: Positive: Reg Rate and Rhythm Lungs: Positive: Decreased Breath Sounds Neuro: Positive: Grossly Intact Abdomen: Positive: Soft Skin: Positive: Clear Extremities: Absent: edema - Labs and Meds CBC 04/25/18 Range/Units 05:49 WBC 6.4 (4.5-11.0) K/mm3 RBC 3.08 L (3.65-5.03) M/mm3 Hgb 9.4 L (11.8-15.2) gm/dl Hct 27.1 L (35.5-45.6) % Plt Count 127 L (140-440) K/mm3 Lymph # 0.8 L (1.2-5.4) K/mm3 [place] # 0.7 (0.0-0.8) K/mm3 Eos # 0.3 (0.0-0.4) K/mm3 Baso # 0.0 (0.0-0.1) K/mm3 Comprehensive Metabolic Panel 04/25/18 Range/Units 05:49 Sodium 136 L (137-145) mmol/L Potassium 4.4 (3.6-5.0) mmol/L Chloride 99.3 (98-107) mmol/L Carbon Dioxide 22 (22-30) mmol/L BUN 47 H (9-20) mg/dL Creatinine 5.6 H (0.8-1.5) mg/dL Glucose 173 H (75-100) mg/dL Calcium 8.8 (8.4-10.2) mg/dL - Allied health notes Allied health notes reviewed: nursing
[2018-04-25] MEDS: FLOMAX PO SCH (19:07)
[2018-04-25] MEDS: PRAVACHOL PO SCH (22:48)
[2018-04-25] MEDS: LANTUS SUB-Q SCH (22:48)
[2018-04-26] MEDS: APRESOLINE PO SCH ×3 (06:44→23:15)
--- NOTE | 2018-04-26 07:14 | Treadmill Report ---
THALLIUM STRESS TEST LEFT VENTRICLE: Left ventricle is at the upper limits of normal in size. There is normal apical thinning. In addition, there is a small to moderate size fixed basal inferior defect, worse on the resting study. No significant reversible defects identified. Gated analysis suggests mild left ventricular systolic dysfunction with ejection fraction 43%. CONCLUSION: Fixed basal inferior defect, suggests diaphragmatic attenuation artifact. Cannot exclude a prior basal inferior infarct. There is no significant reversible ischemia demonstrated. Recommend clinical correlation and echocardiographic reassessment of left ventricular systolic function. JOB# [id number] CA/NTS
[2018-04-26] MEDS: HumaLOG SUB-Q SCH ×4 (07:35→23:16)
--- NOTE | 2018-04-26 10:00 | Progress Note ---
Assessment and Plan Acute on chronic renal failure Acute systolic heart failure echocardiogram reveals a mildly decreased left ventricular systolic function , ejection fraction 40-45%. no ischemia samanta MPI Hypertension Diabetes Conservative cardiac management. Subjective Date of service: 04/26/18 Principal diagnosis: ONEIL on CKD ,Resp failure,CHF exacerbation Interval history: Patient is resting in bed comfortably. He denies shortness of breath and chest pain. Objective Vital Signs Temp Pulse Resp BP Pulse Ox 04/26/18 07:53 98.9 F 60 18 153/69 96 04/26/18 02:16 98.3 F 56 L 20 167/76 97 04/25/18 22:00 56 L 20 97 04/25/18 20:17 98.3 F 60 20 161/76 96 04/25/18 14:54 98.6 F 55 L 18 152/67 97 04/25/18 12:30 60 04/25/18 12:00 16 04/25/18 11:21 65 144/69 04/25/18 11:20 67 140/68 04/25/18 11:19 67 141/68 04/25/18 11:18 68 122/67 04/25/18 11:17 71 126/69 04/25/18 11:16 62 161/77 04/25/18 11:07 57 L 159/78 04/25/18 10:00 98 - Physical Examination General: No Apparent Distress HEENT: Positive: PERRL Cardiac: Positive: Reg Rate and Rhythm Neuro: Positive: Grossly Intact Extremities: Absent: edema - Allied health notes Allied health notes reviewed: nursing
[2018-04-26] MEDS: SODIUM CHLORIDE FLUSH SYRINGE 10 ML IV SCH ×2 (10:05→23:24)
[2018-04-26] MEDS: BUMEX PO SCH (10:15)
[2018-04-26] MEDS: TOPROL XL PO SCH (10:15)
[2018-04-26] MEDS: PROCARDIA XL PO SCH (10:15)
--- NOTE | 2018-04-26 11:23 | Progress Note ---
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 -Improved on treatment -Continue Bumex and metoprolol, aspirin -Echo showed EF of 40-45% with diastolic dysfunction Metabolic acidosis, resolved Elevated troponin/NSTEMI type 2 -Echo significant for hypokinesis -nuclear stress test done showed a fixed inferior wall defect suggesting prior [place] however no ischemia - plan for conservative management DM2, stable HTN with bradycardia -BP and HR improved -Cont on tele monitor AOCD -H/H stable Disposition: For discharge when BP stable and cleared by nephrology Hospitalist Physical General appearance: Present: no acute distress, well-nourished - EENT Eyes: Present: PERRL, EOM intact ENT: hearing intact, clear oral mucosa - Neck Neck: Present: supple - Respiratory Respiratory effort: normal Respiratory: bilateral: CTA - Cardiovascular Rhythm: regular Heart Sounds: Present: S1 & S2 - Extremities Extremities: No edema - Abdominal General gastrointestinal: soft, non-tender, normal bowel sounds - Neurologic Neurologic: CNII-XII intact Subjective Date of service: 04/26/18 Principal diagnosis: ONEIL on CKD ,Resp failure,CHF exacerbation Interval history: Pt seen and examined states he is feeling lot better wants to know about dialysis planning no new complaint Updated family at bedside Objective - Constitutional Vitals: Vital Signs - 12hr 04/26/18 04/26/18 04/26/18 02:16 07:53 10:15 Temperature 98.3 F 98.9 F Pulse Rate 56 L 60 60 Respiratory 20 18 Rate Blood Pressure 167/76 153/69 153/69 O2 Sat by Pulse 97 96 Oximetry - Labs CBC & Chem 7: 04/25/18 05:49 04/25/18 05:49 Labs: Abnormal lab results 04/25/18 Range/Units 22:09 POC Glucose 308 H (70-105)
[2018-04-26] MEDS: HALFPRIN EC PO SCH (16:06)
[2018-04-26] MEDS: SODIUM CHLORIDE FLUSH SYRINGE 10 ML IV PRN (16:07)
[2018-04-26] MEDS: FLOMAX PO SCH (18:05)
--- NOTE | 2018-04-26 22:02 | Progress Note ---
Assessment and Plan - Patient Problems (1) Acute on chronic renal failure Current Visit: Yes Status: Acute Qualifiers: Qualified Code(s): N17.9 - Acute kidney failure, unspecified; N18.4 - Chronic kidney disease, stage 4 (severe) Plan to address problem: Awaiting kidney histology. Patient can be discharged and we will follow up kidney histology as out Patient and arrange for PD catheter placement if no renal recovery. (2) Shortness of breath Current Visit: Yes Status: Acute Plan to address problem: Patient with ejection fraction of 40-45%. Stress test also with no reversible ischemia (3) Hypertensive chronic kidney disease with stage 1 through stage 4 chronic kidney disease, or unspecified chronic kidney disease Current Visit: Yes Status: Acute Plan to address problem: Blood pressure improved. Follow blood pressure on current medications (4) Type 2 diabetes mellitus with diabetic chronic kidney disease Current Visit: Yes Status: Chronic Plan to address problem: Blood sugar management by primary attending (5) Anemia in chronic kidney disease Current Visit: Yes Status: Acute Plan to address problem: Check iron stores. Follow-up hemoglobin (6) Acidosis Current Visit: Yes Status: Acute Plan to address problem: Continue moderate protein diet. Follow bicarbonate Subjective Date of service: 04/26/18 Principal diagnosis: ONEIL on CKD ,Resp failure,CHF exacerbation Interval history: Patient seen lying in bed earlier this evening at 5.20 pm. He has no new complaints. No nausea or vomiting. No chest pain. at bedside Objective - Exam Narrative Exam: Elderly -[place] male lying in bed in no acute distress HEENT: NCAT, pink oral mucous membrane Neck: Supple, no venous distention CVS: S1S2 RRR with no murmur, rub or gallop Chest: Clear to auscultation Abdomen: Protuberant, soft, nontender, no organomegaly, bowel sounds are present Extremities: No edema Skin warm and dry, no rash Neuro: Awake, alert no focal deficits - Vital Signs Vital signs: Vital Signs - 12hr 04/26/18 04/26/18 04/26/18 10:00 10:15 16:00 Pulse Rate 72 60 66 Respiratory 18 Rate Blood Pressure 153/69 Blood Pressure 160/65 [Right] - Lab 04/25/18 05:49 04/25/18 05:49 Most recent lab results Calcium 8.8 mg/dL (8.4-10.2) 04/25/18 05:49 Magnesium 2.00 mg/dL (1.7-2.3) 04/20/18 13:20 Urine Creatinine 48.5 mg/dL (0.1-20.0) H 04/20/18 Unknown Urine Sodium 123 mmol/L 04/20/18 Unknown Urine Total Protein 113 mg/dL (5-11.8) H 04/20/18 Unknown
[2018-04-26] MEDS: HEPARIN SUB-Q SCH (23:14)
[2018-04-26] MEDS: PRAVACHOL PO SCH (23:15)
[2018-04-26] MEDS: LANTUS SUB-Q SCH (23:15)
[2018-04-27] MEDS: APRESOLINE PO SCH ×2 (05:41→14:41)
[2018-04-27 06:24] LABS: Calcium 8.8 mg/dL (8.4-10.2)
--- NOTE | 2018-04-27 06:46 | Progress Note ---
Assessment and Plan - Patient Problems (1) Acute on chronic renal failure Current Visit: Yes Status: Acute Qualifiers: Acute renal failure type: unspecified Chronic kidney disease stage: stage 4 (severe) Qualified Code(s): N17.9 - Acute kidney failure, unspecified; N18.4 - Chronic kidney disease, stage 4 (severe) Plan to address problem: s/p renal biopsy , pending histology. No acute renal replacement needs today. From a renal standpoint he is stable for DC but he needs to follow up with the nephrology clinic in 1 week time. (2) Hypertensive chronic kidney disease with stage 1 through stage 4 chronic kidney disease, or unspecified chronic kidney disease Current Visit: Yes Status: Acute Plan to address problem: Continue with current antihypertensive regimen. Will closely monitor. (3) Shortness of breath Current Visit: Yes Status: Acute Plan to address problem: Respiratory status has improved. Will continue to monitor. Current EF of 40-45%. Stress test results noted. 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 (5) Acidosis Current Visit: Yes Status: Acute Plan to address problem: Serum bicarbonate levels are stable. Continue to monitor. Subjective Date of service: 04/27/18 Principal diagnosis: ONEIL on CKD ,Resp failure,CHF exacerbation Interval history: No acute issues overnight. He remains non-oliguric. Serum creatinine is stable at 5.6. Final pathology report is pending at this time. He had NM stress test done. Objective - Vital Signs Vital signs: Vital Signs - 12hr 04/26/18 04/26/18 21:07 22:00 Temperature 98.5 F Pulse Rate 63 Respiratory 20 18 Rate Blood Pressure 167/73 O2 Sat by Pulse 93 93 Oximetry - General Appearance General appearance: well-developed, appears stated age EENT: ATNC, PERRL Neck: no JVD, no thyromegaly, supple Respiratory: Present: Clear to Ascultation, Normal Exam Cardiology: regular, normal heart rate Gastrointestinal: normal, normoactive bowel sounds Integumentary: no rash, warm and dry Neurologic: no focal deficit, no asterixis, alert and oriented x3 Musculoskeletal: other (-edema) Psychiatric: mood/affect appropriate, cooperative - Lab 04/25/18 05:49 04/27/18 05:43 Most recent lab results Calcium 8.8 mg/dL (8.4-10.2) 04/27/18 05:43 Magnesium 2.00 mg/dL (1.7-2.3) 04/20/18 13:20 Urine Creatinine 48.5 mg/dL (0.1-20.0) H 04/20/18 Unknown Urine Sodium 123 mmol/L 04/20/18 Unknown Urine Total Protein 113 mg/dL (5-11.8) H 04/20/18 Unknown - Allied health notes Allied health notes reviewed: nursing
[2018-04-27] MEDS: HumaLOG SUB-Q SCH ×2 (08:00→12:15)
--- NOTE | 2018-04-27 09:19 | Progress Note ---
Assessment and Plan Acute on chronic renal failure Acute systolic heart failure echocardiogram reveals a mildly decreased left ventricular systolic function , ejection fraction 40-45%. fixed inferior wall defect, no ischemia by MPI Hypertension Diabetes Conservative cardiac management. Once discharged, patient will follow up with [facility] at 240p. Subjective Date of service: 04/27/18 Principal diagnosis: ONEIL on CKD ,Resp failure,CHF exacerbation Interval history: Patient is resting in bed comfortably. He denies shortness of breath and chest pain. Objective Vital Signs Temp Pulse Resp BP BP Pulse Ox 04/27/18 07:51 98.7 F 63 18 150/68 94 04/26/18 22:00 18 93 04/26/18 21:07 98.5 F 63 20 167/73 93 04/26/18 16:00 66 160/65 04/26/18 13:24 98.7 F 63 18 168/72 98 04/26/18 10:15 60 153/69 04/26/18 10:00 72 18 - Physical Examination General: No Apparent Distress HEENT: Positive: PERRL Cardiac: Positive: Reg Rate and Rhythm Neuro: Positive: Grossly Intact Extremities: Absent: edema - Labs and Meds Comprehensive Metabolic Panel 04/27/18 Range/Units 05:43 Sodium 139 (137-145) mmol/L Potassium 4.3 (3.6-5.0) mmol/L Chloride 104.2 (98-107) mmol/L Carbon Dioxide 22 (22-30) mmol/L BUN 51 H (9-20) mg/dL Creatinine 5.6 H (0.8-1.5) mg/dL Glucose 78 (75-100) mg/dL Calcium 8.8 (8.4-10.2) mg/dL - Allied health notes Allied health notes reviewed: nursing
[2018-04-27] MEDS: TOPROL XL PO SCH (09:53)
[2018-04-27] MEDS: PROCARDIA XL PO SCH (09:53)
[2018-04-27] MEDS: HEPARIN SUB-Q SCH (09:54)
[2018-04-27] MEDS: HALFPRIN EC PO SCH (09:54)
[2018-04-27] MEDS: SODIUM CHLORIDE FLUSH SYRINGE 10 ML IV SCH (09:55)
[2018-04-27] MEDS: BUMEX PO SCH (10:00)
--- NOTE | 2018-04-27 12:07 | Discharge Summary ---
Providers - Providers Date of Admission: 04/20/18 16:46 Date of discharge: 04/27/18 Attending physician: COOPER HESS 04/21/18 08:09 Consult to Physician [CONS] Routine Comment: Consulting Provider: DESMOND KIM Physician Instructions: Reason For Exam: kaur 04/21/18 11:38 Consult to Physician [CONS] Routine Comment: Consulting Provider: PEDRO PABLO GOLDBERG Physician Instructions: Reason For Exam: cardiomyopathy Primary care physician: KYLEIGH PHILLIPS Hospitalization Condition: Stable Hospital course: Discharge diagnosis and management: Acute on CKD -Creatinine level remains elevated -s/p renal biopsy -Nephrology following - plan for PD to start as outpt 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 -Improved on treatment -Continue Bumex and metoprolol, aspirin -Echo showed EF of 40-45% with diastolic dysfunction Metabolic acidosis, resolved Elevated troponin/NSTEMI type 2 -Echo significant for hypokinesis -nuclear stress test done showed a fixed inferior wall defect suggesting prior IA however no ischemia - plan for conservative management DM2, stable HTN with bradycardia -BP and HR improved -Cont on tele monitor AOCD -H/H stable Hospitalist Physical General appearance: Present: no acute distress, well-nourished - EENT Eyes: Present: PERRL, EOM intact ENT: hearing intact, clear oral mucosa - Neck Neck: Present: supple - Respiratory Respiratory effort: normal Respiratory: bilateral: CTA - Cardiovascular Rhythm: regular Heart Sounds: Present: S1 & S2 - Extremities Extremities: No edema - Abdominal General gastrointestinal: soft, non-tender, normal bowel sounds - Neurologic Neurologic: CNII-XII intact Disposition: DC-01 TO HOME OR SELFCARE Time spent for discharge: 34 minutes Core Measure Documentation - Palliative Care Palliative Care/ Comfort Measures: Not Applicable - Core Measures Any of the following diagnoses?: history only Exam - Constitutional Vitals: Temp Pulse Resp BP Pulse Ox 98.7 F 63 18 150/68 94 04/27/18 07:51 04/27/18 09:53 04/27/18 07:51 04/27/18 09:53 04/27/18 07:51 Plan Activity: advance as tolerated Weight Bearing Status: Weight Bear as Tolerated Diet: renal Additional Instructions: Follow-up with cardiology on May 11. Follow- up with nephrology for outpatient peritoneal dialysis setup. Follow up with: KYLEIGH PHILLIPS JR, MD [Primary Care Provider] - 3-5 Days Prescriptions: Aspirin EC [Aspirin Enteric Coated TAB] 81 mg PO QDAY #30 tablet Bumetanide [Bumex 1 mg tab] 2 mg PO QAM #30 tablet hydrALAZINE [Apresoline TAB] 100 mg PO Q8HR #90 tab Metoprolol Xl [Metoprolol SUCCINATE ER TAB] 50 mg PO QDAY #30 tablet NIFEdipine XL [Procardia Xl] 90 mg PO QDAY #30 tablet
[2018-04-27 14:56] VITALS: BP 164/66
== END 2018-04-27 16:45 | disposition home or self-care (01) | DRG 280 ==
LOC: ED 09:30 → 4A 16:46 → 2B-ACE 04-22 20:35
PROVIDERS: ADMIT Internal Medicine; ATTEND Internal Medicine
PROC: 0TB03ZX Excision of Right Kidney, Percutaneous Approach, Diagnostic (ICD-10-PCS; principal; 2018-04-24)
DX: I13.2 Hypertensive heart and chronic kidney disease with heart failure and with stage 5 chronic kidney disease, or end stage renal disease (principal); I21.A1 Myocardial infarction type 2; I50.41 Acute combined systolic (congestive) and diastolic (congestive) heart failure; N17.0 Acute kidney failure with tubular necrosis; J96.01 Acute respiratory failure with hypoxia; N18.6 End stage renal disease; E87.2 Acidosis; E11.22 Type 2 diabetes mellitus with diabetic chronic kidney disease; D63.8 Anemia in other chronic diseases classified elsewhere; E11.649 Type 2 diabetes mellitus with hypoglycemia without coma; I25.5 Ischemic cardiomyopathy; R00.1 Bradycardia, unspecified; I16.0 Hypertensive urgency; E78.5 Hyperlipidemia, unspecified; Z96.659 Presence of unspecified artificial knee joint; Z82.49 Family history of ischemic heart disease and other diseases of the circulatory system; Z79.4 Long term (current) use of insulin; Z79.899 Other long term (current) drug therapy; Z90.79 Acquired absence of other genital organ(s); Z72.89 Other problems related to lifestyle
CPT/HCPCS: 36415; 71046; 76770; 77012; 78452; 80048; 80061; 81001; 82550; 82553; 82570; 82962; 83735; 83880; 84156; 84300; 84439; 84443; 84484; 85025; 85610; 85730; 93005; 93010; 93017; 93306; A9270-GY; A9502; J0360; J1644; J1815; J1940; J2250; J2785; J3010; J7030

== ENCOUNTER 2018-08-16 00:49 | Inpatient (IN) | payer MEDICARE ==
[2018-08-16 01:49] LABS: Basophils # (Auto) 0.1 K/mm3 (0.0-0.1); Basophils % (Auto) 0.8 % (0.0-1.8); Eosinophils # (Auto) 0.3 K/mm3 (0.0-0.4); Eosinophils % (Auto) 4.1 % (0.0-4.3); Hematocrit 27.2 % (35.5-45.6); Hemoglobin 9.1 gm/dl (11.8-15.2); Lymphocytes # (Auto) 0.6 K/mm3 (1.2-5.4); Lymphocytes % (Auto) 8.4 % (13.4-35.0); Mean Corpuscular HGB Conc 34 % (32-34); Mean Corpuscular Volume 89 fl (84-94); Monocytes # (Auto) 0.8 K/mm3 (0.0-0.8); Monocytes % (Auto) 10.5 % (0.0-7.3); Platelet Count 114 K/mm3 (140-440); Red Blood Count 3.06 M/mm3 (3.65-5.03); Red Cell Distribution Width 14.4 % (13.2-15.2)
--- NOTE | 2018-08-16 01:55 | Emergency Department Report ---
ED Shortness of Breath HPI - General Chief Complaint: Dyspnea/Respdistress Stated Complaint: SOB Time Seen by Provider: 08/16/18 01:54 Source: patient Mode of arrival: Ambulatory Limitations: No Limitations - History of Present Illness MD Complaint: shortness of breath -: Gradual, days(s) (2) Severity: moderate Pain Scale: 5 Quality: dull Consistency: constant Improves With: oxygen Worsens With: lying flat, exertion Known History Of: congestive heart failure Associated Symptoms: denies other symptoms Treatments Prior to Arrival: none - Related Data Home Oxygen Therapy: No Home Medications Medication Instructions Recorded Confirmed Last Taken Insulin Aspart [NovoLOG 100 0 unit SUB-Q AC 04/20/18 04/20/18 Unknown UNITS/ML VIAL] Simvastatin [Zocor TAB] 20 mg PO QHS 04/20/18 04/20/18 Unknown Tamsulosin [Flomax] 0.4 mg PO QPM 04/20/18 04/20/18 Unknown Previous Rx's Medication Instructions Recorded Last Taken Type Aspirin EC [Aspirin Enteric Coated 81 mg PO QDAY #30 tablet 04/27/18 Unknown Rx TAB] Bumetanide [Bumex 1 mg tab] 2 mg PO QAM #30 tablet 04/27/18 Unknown Rx Insulin Glargine,Hum.rec.anlog 20 units SUB-Q QPM 30 Days 04/27/18 Unknown Rx [Lantus Solostar] Metoprolol Xl [Metoprolol 50 mg PO QDAY #30 tablet 04/27/18 Unknown Rx SUCCINATE ER TAB] NIFEdipine XL [Procardia Xl] 90 mg PO QDAY #30 tablet 04/27/18 Unknown Rx hydrALAZINE [Apresoline TAB] 100 mg PO Q8HR #90 tab 04/27/18 Unknown Rx levoFLOXacin [Levaquin TAB] 500 mg PO Q48H #2 tablet 05/26/18 Unknown Rx oxyCODONE /ACETAMINOPHEN [Percocet 1 tab PO QHS PRN #5 tablet 05/26/18 Unknown Rx 5/325] ALBUTEROL Inhaler(NF) [VENTOLIN 1 puff IH BID #1 inha 08/02/18 Unknown Rx Inhaler(NF)] Allergies Allergy/AdvReac Type Severity Reaction Status Date / Time No Known Allergies Allergy Unverified 11/01/17 09:33 ED Review of Systems ROS: Stated complaint: SOB Other details as noted in HPI Comment: All other systems reviewed and negative Constitutional: denies: chills, fever Eyes: denies: eye pain, eye discharge, vision change ENT: denies: ear pain, throat pain Respiratory: orthopnea, shortness of breath, SOB with exertion, SOB at rest. denies: cough, wheezing Cardiovascular: orthopnea. denies: chest pain, palpitations Endocrine: no symptoms reported Gastrointestinal: denies: abdominal pain, nausea, diarrhea Genitourinary: denies: urgency, dysuria Musculoskeletal: denies: back pain, joint swelling, arthralgia Skin: denies: rash, lesions Neurological: denies: headache, weakness, paresthesias Psychiatric: denies: anxiety, depression Hematological/Lymphatic: denies: easy bleeding, easy bruising ED Past Medical Hx - Past Medical History Hx Hypertension: Yes Hx Congestive Heart Failure: No Hx Diabetes: Yes Hx Renal Disease: Yes (stage 5 CKD, not on dialysis yet) Hx Asthma: No Hx COPD: No - Surgical History Additional Surgical History: Prostate surgery, right knee surgery. Cardiac stent 07/2018 - Social History Smoking Status: Never Smoker Substance Use Type: None - Medications Home Medications: Home Medications Medication Instructions Recorded Confirmed Last Taken Type Insulin Aspart [NovoLOG 100 0 unit SUB-Q AC 04/20/18 04/20/18 Unknown History UNITS/ML VIAL] Simvastatin [Zocor TAB] 20 mg PO QHS 04/20/18 04/20/18 Unknown History Tamsulosin [Flomax] 0.4 mg PO QPM 04/20/18 04/20/18 Unknown History Aspirin EC [Aspirin Enteric Coated 81 mg PO QDAY #30 tablet 04/27/18 Unknown Rx TAB] Bumetanide [Bumex 1 mg tab] 2 mg PO QAM #30 tablet 04/27/18 Unknown Rx Insulin Glargine,Hum.rec.anlog 20 units SUB-Q QPM 30 Days 04/27/18 04/20/18 Unknown Rx [Lantus Solostar] Metoprolol Xl [Metoprolol 50 mg PO QDAY #30 tablet 04/27/18 Unknown Rx SUCCINATE ER TAB] NIFEdipine XL [Procardia Xl] 90 mg PO QDAY #30 tablet 04/27/18 Unknown Rx hydrALAZINE [Apresoline TAB] 100 mg PO Q8HR #90 tab 04/27/18 Unknown Rx levoFLOXacin [Levaquin TAB] 500 mg PO Q48H #2 tablet 05/26/18 Unknown Rx oxyCODONE /ACETAMINOPHEN [Percocet 1 tab PO QHS PRN #5 tablet 05/26/18 Unknown Rx 5/325] ALBUTEROL Inhaler(NF) [VENTOLIN 1 puff IH BID #1 inha 08/02/18 Unknown Rx Inhaler(NF)] ED Physical Exam - General Limitations: No Limitations General appearance: alert, in no apparent distress - Head Head exam: Present: atraumatic, normocephalic - Eye Eye exam: Present: normal appearance, PERRL, EOMI Pupils: Present: normal accommodation - ENT ENT exam: Present: normal exam, normal orophraynx, mucous membranes moist - Neck Neck exam: Present: normal inspection, full ROM - Respiratory Respiratory exam: Present: respiratory distress, rales - Cardiovascular Cardiovascular Exam: Present: regular rate, normal rhythm. Absent: systolic murmur, diastolic murmur, rubs, gallop - GI/Abdominal GI/Abdominal exam: Present: soft, normal bowel sounds - Rectal Rectal exam: Present: deferred - Extremities Exam Extremities exam: Present: normal inspection, full ROM, normal capillary refill - Back Exam Back exam: Present: normal inspection, full ROM - Neurological Exam Neurological exam: Present: alert, oriented X3, CN II-XII intact - Psychiatric Psychiatric exam: Present: normal affect, normal mood - Skin Skin exam: Present: warm, dry, intact, normal color. Absent: rash ED Course Vital Signs 08/16/18 08/16/18 00:50 01:59 Temperature 97.6 F Pulse Rate 66 56 L Respiratory 22 18 Rate Blood Pressure 221/100 Blood Pressure 193/84 [Right] O2 Sat by Pulse 97 Oximetry - Consultations Consultation #1: 08/16/18 04:[address] Morales who is on juan manuel for Dr Valentino. he recommend admission to the hospitalist for dialysis later this morning. Consultation #2: 08/16/18 04:14 Dr Keira Helm to admit. ED Medical Decision Making - Lab Data Result diagrams: 08/16/18 01:28 08/16/18 02:14 Lab Results 08/16/18 08/16/18 08/16/18 Range/Units 01:28 01:28 02:14 WBC 7.5 (4.5-11.0) K/mm3 RBC 3.06 L (3.65-5.03) M/mm3 Hgb 9.1 L (11.8-15.2) gm/dl Hct 27.2 L (35.5-45.6) % MCV 89 (84-94) fl MCH 30 (28-32) pg MCHC 34 (32-34) % RDW 14.4 (13.2-15.2) % Plt Count 114 L (140-440) K/mm3 Lymph % (Auto) 8.4 L (13.4-35.0) % King % (Auto) 10.5 H (0.0-7.3) % Eos % (Auto) 4.1 (0.0-4.3) % Baso % (Auto) 0.8 (0.0-1.8) % Lymph # 0.6 L (1.2-5.4) K/mm3 King # 0.8 (0.0-0.8) K/mm3 Eos # 0.3 (0.0-0.4) K/mm3 Baso # 0.1 (0.0-0.1) K/mm3 Seg Neutrophils % 76.2 H (40.0-70.0) % Seg Neutrophils # 5.7 (1.8-7.7) K/mm3 PT 14.1 (12.2-14.9) Sec. INR 1.05 (0.87-1.13) APTT 27.7 (24.2-36.6) Sec. Sodium 140 (137-145) mmol/L Potassium 4.2 (3.6-5.0) mmol/L Chloride 106.9 (98-107) mmol/L Carbon Dioxide 20 L (22-30) mmol/L Anion Gap 17 mmol/L BUN 49 H (9-20) mg/dL Creatinine 5.1 H (0.8-1.5) mg/dL Estimated GFR 13 ml/min BUN/Creatinine Ratio 10 % Glucose 172 H (75-100) mg/dL Calcium 8.9 (8.4-10.2) mg/dL Total Bilirubin (0.1-1.2) mg/dL AST (5-40) units/L ALT (7-56) units/L Alkaline Phosphatase (35-129) units/L Total Creatine Kinase (55-170) units/L CK-MB (CK-2) (0.0-4.0) ng/mL Troponin T 0.060 H (0.00-0.029) ng/mL NT-Pro-B Natriuret Pep (0-900) pg/mL Total Protein (6.3-8.2) g/dL Albumin (3.9-5) g/dL Albumin/Globulin Ratio % Triglycerides 57 (2-149) mg/dL Cholesterol 95 (50-199) mg/dL LDL Cholesterol Direct 47 L (50-130) mg/dL HDL Cholesterol 43 (40-59) mg/dL Cholesterol/HDL Ratio 2.20 % // Range/Units 02:14 WBC (4.5-11.0) K/mm3 RBC (3.65-5.03) M/mm3 Hgb (11.8-15.2) gm/dl Hct (35.5-45.6) % MCV (84-94) fl MCH (28-32) pg MCHC (32-34) % RDW (13.2-15.2) % Plt Count (140-440) K/mm3 Lymph % (Auto) (13.4-35.0) % King % (Auto) (0.0-7.3) % Eos % (Auto) (0.0-4.3) % Baso % (Auto) (0.0-1.8) % Lymph # (1.2-5.4) K/mm3 King # (0.0-0.8) K/mm3 Eos # (0.0-0.4) K/mm3 Baso # (0.0-0.1) K/mm3 Seg Neutrophils % (40.0-70.0) % Seg Neutrophils # (1.8-7.7) K/mm3 PT (12.2-14.9) Sec. INR (0.87-1.13) APTT (24.2-36.6) Sec. Sodium 140 (137-145) mmol/L Potassium 4.4 (3.6-5.0) mmol/L Chloride 106.1 (98-107) mmol/L Carbon Dioxide 23 (22-30) mmol/L Anion Gap 15 mmol/L BUN 50 H (9-20) mg/dL Creatinine 5.2 H (0.8-1.5) mg/dL Estimated GFR 13 ml/min BUN/Creatinine Ratio 10 % Glucose 179 H (75-100) mg/dL Calcium 9.0 (8.4-10.2) mg/dL Total Bilirubin 0.20 (0.1-1.2) mg/dL AST 14 (5-40) units/L ALT 11 (7-56) units/L Alkaline Phosphatase 44 (35-129) units/L Total Creatine Kinase 78 (55-170) units/L CK-MB (CK-2) 2.0 (0.0-4.0) ng/mL Troponin T (0.00-0.029) ng/mL NT-Pro-B Natriuret Pep 8313 H (0-900) pg/mL Total Protein 6.5 (6.3-8.2) g/dL Albumin 3.7 L (3.9-5) g/dL Albumin/Globulin Ratio 1.3 % Triglycerides (2-149) mg/dL Cholesterol (50-199) mg/dL LDL Cholesterol Direct (50-130) mg/dL HDL Cholesterol (40-59) mg/dL Cholesterol/HDL Ratio % - EKG Data -: EKG Interpreted by Me EKG shows normal: sinus rhythm Rate: bradycardia (57) - EKG Data When compared to previous EKG there are: no significant change Interpretation: nonspecific ST-T wave kishore 08/16/18 02:04 LBBB. - Radiology Data Radiology results: report reviewed, image reviewed CXR is consistent with CHF. - Medical Decision Making Volume overload. CHF form ESRD. Patient will be admitted for hemodialysis. Critical care attestation.: If time is entered above; I have spent that time in minutes in the direct care of this critically ill patient, excluding procedure time. ED Disposition Clinical Impression: Chronic kidney disease, stage IV (severe), ESRD (end stage renal disease), Uncontrolled hypertension CHF (congestive heart failure) Qualifiers: Heart failure type: unspecified Heart failure chronicity: acute on chronic Qualified Code(s): I50.9 - Heart failure, unspecified Volume overload Qualifiers: Hypervolemia type: unspecified Qualified Code(s): E87.70 - Fluid overload, unspecified Disposition: -09 OP ADMIT IP TO THIS HOSP Is pt being admited?: Yes Does the pt Need Aspirin: No Condition: Stable Instructions: Hypertension (ED) Time of Disposition: 04:17
--- NOTE | 2018-08-16 01:59 | XRay Report ---
FINAL REPORT EXAM: XR CHEST 1V AP HISTORY: Shortness of breath TECHNIQUE: A portable upright view of the chest was obtained and compared to the study of 05/22/2018 . FINDINGS: The heart size is normal. The lungs are diffusely congested with mild interstitial edema. There are n o localized infiltrates or effusions. The skeletal structures do not show any acute changes. IMPRESSION: Congestive heart failure pattern.
[2018-08-16] MEDS ORDERED: LASIX IV ONE (02:01)
[2018-08-16 02:05] LABS: Calcium 8.9 mg/dL (8.4-10.2)
[2018-08-16 02:26] LABS: Chol/HDL Ratio 2.2 %
[2018-08-16 02:37] LABS: Albumin 3.7 g/dL (3.9-5)
[2018-08-16 02:44] LABS: INR 1.05 (0.87-1.13); Partial Thromboplastin Time 27.7 Sec. (24.2-36.6)
[2018-08-16] MEDS ORDERED: NORVASC PO ONE (04:08)
[2018-08-16 04:36] LABS: Bilirubin,Urine NEG (Negative); Blood,Urine NEG (Negative); Color,Urine Straw (Yellow); Mucus,Urine FEW /HPF; RBC,Urine < 1.0 /HPF (0.0-6.0); Urobilinogen,Urine < 2.0 mg/dL (<2.0); WBC,Urine < 1.0 /HPF (0.0-6.0)
--- NOTE | 2018-08-16 10:30 | Consultation ---
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 To, presented to the ED secondary to worsening dyspnea, weakness. He has had multiple hospitalizations/ER visits for similar symptoms. Per patient he also had recent cardiac cath last month, after which time he did require temporary dialysis session x2 via vascath. He is being worked up for kidney transplant at [place], and he has a potential living donor in his daughter. She is currently undergoing evaluation. Patient states that he has had recurrent episodes of worsening dyspnea associated with progressively decreasing urine o utput despite chronic outpatient diuretic therapy. He is right hand dominant. He has had discussions with Dr. To in the past about the possibility of having to start dialysis. He noted decreased appetite, weight loss, metallic taste. Denies tremors, asterixis, nausea, vomiting, diarrhea. Past History Past Medical History: diabetes, hypertension, renal failure Past Surgical History: total knee replacement, Other (prostate surgery) Social history: lives with family, smoking (former smoker, quit this past year, 35 year smoking history) Family history: diabetes, hypertension Medications and Allergies Allergies Allergy/AdvReac Type Severity Reaction Status Date / Time No Known Allergies Allergy Unverified 11/01/17 09:33 Home Medications Medication Instructions Recorded Confirmed Last Taken Type Insulin Aspart [NovoLOG 100 0 unit SUB-Q AC 04/20/18 04/20/18 Unknown History UNITS/ML VIAL] Simvastatin [Zocor TAB] 20 mg PO QHS 04/20/18 04/20/18 Unknown History Tamsulosin [Flomax] 0.4 mg PO QPM 04/20/18 04/20/18 Unknown History Aspirin EC [Aspirin Enteric Coated 81 mg PO QDAY #30 tablet 04/27/18 Unknown Rx TAB] Bumetanide [Bumex 1 mg tab] 2 mg PO QAM #30 tablet 04/27/18 Unknown Rx Insulin Glargine,Hum.rec.anlog 20 units SUB-Q QPM 30 Days 04/27/18 04/20/18 Unk nown Rx [Lantus Solostar] Metoprolol Xl [Metoprolol 50 mg PO QDAY #30 tablet 04/27/18 Unknown Rx SUCCINATE ER TAB] NIFEdipine XL [Procardia Xl] 90 mg PO QDAY #30 tablet 04/27/18 Unknown Rx hydrALAZINE [Apresoline TAB] 100 mg PO Q8HR #90 tab 04/27/18 Unknown Rx levoFLOXacin [Levaquin TAB] 500 mg PO Q48H #2 tablet 05/26/18 Unknown Rx oxyCODONE /ACETAMINOPHEN [Percocet 1 tab PO QHS PRN #5 tablet 05/26/18 Unknown Rx 5/325] ALBUTEROL Inhaler(NF) [VENTOLIN 1 puff IH BID #1 inha 08/02/18 Unknown Rx Inhaler(NF)] Active Meds: Active Medications Hydralazine HCl (Apresoline) 5 mg IV Q6H PRN PRN Reason: Hypertension Review of Systems All systems: negative Constitutional: weight loss, fatigue, weakness, malaise, poor appetite Respiratory: shortness of breath, dyspnea on exertion Exam - Vital Signs Vital signs: Vital Signs Temp Pulse Resp BP Pulse Ox 97.6 F 66 22 221/100 97 08/16/18 00:50 08/16/18 00:50 08/16/18 00:50 08/16/18 00:50 08/16/18 00:50 - General Appearance General appearance: well-developed, well-nourished, appears stated age EENT: ATNC, PERRL Neck: Present: neck supple, trachea midline Respiratory: Rales Heart: regular, S1S2 Gastrointestinal: Present: normal, normoactive bowel sounds Integumentary: no rash, warm and dry Neurologic: no focal deficit, no asterixis, alert and oriented x3 Musculoskeletal: Present: other (-edema ) Psychiatric: mood/affect appropriate, cooperative Results - Lab Results 08/16/18 01:28 08/16/18 02:14 Most recent lab results Calcium 9.0 mg/dL (8.4-10.2) 08/16/18 02:14 Assessment and Plan - Patient Problems (1) CKD (chronic kidney disease), stage V Current Visit: Yes Status: Chronic Plan to address problem: Had long discussion with patient. Given his recurrent admissions for respiratory distress in the setting of volume overload, worsening uremia, generalized weakness, believe that as an inpatient this would be the optimal time to transition to HD, especially as he is still undergoing evaluation for kidney transplant. Explained to patient the risks and benefits of HD. Hope is that we can use this as an appropriate transition to eventual kidney transplant in future. I have contacted vascular surgery for plan to place permcath hopefully today and to initiate patient on HD. Will initiate on three consecutive HD sessions. Will also need to work with case management for placement as outpatient. Have instructed to the nursing staff that patient is right hand dominant, and therefore we need to prevent any IV lines/blood draws/blood pressure readings from the left arm as we want to preserve for possible permanent vascular access in the future if needed. (2) Acute and chronic respiratory failure with hypoxia Current Visit: Yes Status: Acute Plan to address problem: Will initiate patient on HD today, and will attempt UF goal 500cc to 1L as tolerated as this is the initiation process, and will titrate UF goals as he becomes stable on dialysis. (3) Fluid overload Current Visit: Yes Status: Acute Plan to address problem: UF goal 500cc to 1L during initial sessions. Would also favor that we continue his outpatient bumex regimen, which will help with adequate fluid removal especially on his off dialysis days. (4) Hypertensive chronic kidney disease with stage 1 through stage 4 chronic kidney disease, or unspecified chronic kidney disease Current Visit: No Status: Chronic Plan to address problem: Favor to continue patient on home anti-hypertensive regimen. (5) Type 2 diabetes mellitus with diabetic chronic kidney disease Current Visit: No Status: Chronic Qualifiers: Chronic kidney disease stage: stage 5, not on chronic dialysis Plan to address problem: Diabetes management per primary team. (6) Secondary hyperparathyroidism (of renal origin) Current Visit: Yes Status: Acute Plan to address problem: Will monitor Ca, Phos and iPTH. (7) Anemia in chronic kidney disease Current Visit: No Status: Chronic Qualifiers: Chronic kidney disease stage: stage 5, not on chronic dialysis Qualified Code(s): N18.5 - Chronic kidney disease, stage 5; D63.1 - Anemia in chronic kidney disease Plan to address problem: As he becomes stable on HD, will initiate EPO as an outpatient.
[2018-08-16] MEDS ORDERED: HEPARIN/NS 5000 UNIT/500ML(CATH LAB) 500 ML IR ONE (10:38)
[2018-08-16] MEDS ORDERED: NACL 0.9% 250ML 250 ML ONE (10:47)
[2018-08-16] MEDS ORDERED: NACL 0.9% 100 ML IV PRN (11:00)
[2018-08-16] MEDS ORDERED: VERSED ONE (11:09)
[2018-08-16] MEDS ORDERED: SUBLIMAZE ONE (11:09)
[2018-08-16] MEDS: XYLOCAINE 2% INFILTRATI ONE ×2 (11:39→11:42)
[2018-08-16] MEDS: HEPARIN 10,000 UNITS/10 ML ONE ×2 (11:47→11:48)
--- NOTE | 2018-08-16 11:59 | Operative Report ---
Operative Report Operative Report: Exam: Ultrasound and fluoroscopic guided placement of tunneled hemodialysis catheter Clinical indication: End-stage renal disease requiring dialysis access, volume overload Date: 08/16/2018 Procedure: Following an explanation of the risks, benefits and alternatives; written informed consent was obtained. The patient was brought to the angiographic suite and placed in supine position on the examination table. Initial ultrasound evaluation of the neck demonstrated a patent right internal jugular vein. The patient's right neck and chest wall were prepped and draped in the usual sterile fashion. 1% lidocaine was used for anesthesia. Under ultrasound guidance, the right internal jugular vein was cannulated with a 7 cm 18-gauge needle. A 0.035 guidewire was advanced centrally. Under fluoroscopy, the guidewire was advanced into the right hepatic vein to document intravenous positioning. The needle was removed. An appropriate catheter exit site was chosen along the lateral right chest wall. 1% lidocaine was used for anesthesia at the catheter exit site and along the tunnel tract. A Bard 23 cm tunneled hemodialysis catheter was then tunneled antegrade from the catheter exit site to the venotomy site. Following serial dilation over the guidewire under fluoroscopy, a 16 [place] peel-away sheath was placed over the guidewire under fluoroscopy and advanced centrally. The trocar and guidewire were removed and the catheter placed through the peel-away sheath. The peel-away sheath was removed and the catheter tip positioned in the proximal right atrium. Both ports flushed and aspirated easily and were then locked with appropriate volumes of heparin. That venotomy site was closed using 4-0 Vicryl suture and Dermabond. The catheter exit site was approximated with 4-0 Vicryl suture and Dermabond. Sterile dressings were then applied. The patient tolerated the procedure well. There were no immediate post procedure complications. Conscious sedation was performed under the guidance of radiologic nursing. Continuous cardiopulmonary monitoring was utilized. Impression: Ultrasound and fluoroscopic guided placement of tunneled hemodialysis catheter via the right internal jugular vein
[2018-08-16] MEDS ORDERED: AFLURIA QUAD 2018-2019 SYRINGE IM ONE (12:30)
--- NOTE | 2018-08-16 12:47 | History and Physical Report ---
History of Present Illness Date of examination: 08/16/18 Date of admission: 08/16/18 06:39 Chief complaint: SOB History of present illness: Patient is a 78 yo Black man with a history of CKD 4, hypertension, DM type 2, remote prostate cancer and anemia who presents to [facility] ED with severe acute onset constant and worsening SOB x 2 days without aggravating or relieving factors. He is followed by the Suppression Crew Leader Dr. To. He is being evaluated for kidney transplant at [place]. PMH: as hpi, prior short coarse of HD PSH: prostate seed implantation for prostate cancer, right knee surgery not replacement/bball injury, recent appendectomy here 05/2018, renal bx, cardiac cath, vas cath placement and removal SH: quit tob 36 years ago, no etoh or illegal drug abuse FH: DM, hypertension in Father, Mother had a stroke ROS: Constitutional: denies: fever ENT: denies: throat or neck pain Respiratory: denies: cough, + shortness of breath Cardiovascular: denies: chest pain Endocrine: denies unexplained weight loss or gain Gastrointestinal: denies: abdominal pain, nausea Genitourinary: denies: dysuria Rectal: denies no incontinence, no bleeding, no itching, no discharge Musculoskeletal: +leg swelling, myaglia, muscle weakness Skin: denies: rash Neurological: denies: headache Hematological/Lymphatic: denies: easy bleeding or easy bruising Allergic/Immunologic: no urticaria, no allergic rhinitis, no anaphylaxis Psych: denies sadness or hopelessness, SI/HI Past History Past Medical History: diabetes, hypertension, renal failure Past Surgical History: total knee replacement, Other (prostate surgery) Social history: lives with family, smoking (former smoker, quit this past year, 35 year smoking history) Family history: diabetes, hypertension Medications and Allergies Allergies Allergy/AdvReac Type Severity Reaction Status Date / Time No Known Allergies Allergy Unverified 11/01/17 09:33 Home Medications Medication Instructions Recorded Confirmed Last Taken Type Insulin Aspart [NovoLOG 100 0 unit SUB-Q AC 04/20/18 04/20/18 Unknown History UNITS/ML VIAL] Simvastatin [Zocor TAB] 20 mg PO QHS 04/20/18 04/20/18 Unknown History Tamsulosin [Flomax] 0.4 mg PO QPM 04/20/18 04/20/18 Unknown History Aspirin EC [Aspirin Enteric Coated 81 mg PO QDAY #30 tablet 04/27/18 Unknown Rx TAB] Bumetanide [Bumex 1 mg tab] 2 mg PO QAM #30 tablet 04/27/18 Unknown Rx Insulin Glargine,Hum.rec.anlog 20 units SUB-Q QPM 30 Days 04/27/18 04/20/18 Unknown Rx [Lantus Solostar] Metoprolol Xl [Metoprolol 50 mg PO QDAY #30 tablet 04/27/18 Unknown Rx SUCCINATE ER TAB] NIFEdipine XL [Procardia Xl] 90 mg PO QDAY #30 tablet 04/27/18 Unknown Rx hydrALAZINE [Apresoline TAB] 100 mg PO Q8HR #90 tab 04/27/18 Unknown Rx levoFLOXacin [Levaquin TAB] 500 mg PO Q48H #2 tablet 05/26/18 Unknown Rx oxyCODONE /ACETAMINOPHEN [Percocet 1 tab PO QHS PRN #5 tablet 05/26/18 Unknown Rx 5/325] ALBUTEROL Inhaler(NF) [VENTOLIN 1 puff IH BID #1 inha 08/02/18 Unknown Rx Inhaler(NF)] Active Meds: Active Medications Hydralazine HCl (Apresoline) 5 mg IV Q6H PRN PRN Reason: Hypertension Sodium Chloride (Nacl 0.9%) 100 mls @ 999 mls/hr IV RICK PRN PRN Reason: Hypotension Exam - Physical Exam Narrative exam: Gen: WDWN, NAD, Awake, Alert, Orientated x 3 HEENT: NCAT, EOMI, PERRL, OP Clear Neck: supple, no adenopathy, no thyromegaly, no JVD CVS/Heart: Regular bradycardia, normal S1S2, pulses present bilaterally Chest/Lungs: diminished bs bilaterally, Symmetrical chest expansion, good air entry bilaterally GI/Abdomen: soft, NTND, good bowel sounds, no guarding or rebound /Bladder: no suprapubic tenderness, no CVA or paraspinal tenderness Extermity/Skin: no c/c/e, no obvious rash MSK: FROM x 4 Neuro: CN 2-12 grossly intact, no new focal deficits Psych: calm - Constitutional Vitals: Temp Pulse Resp BP Pulse Ox 97.6 F 53 L 15 172/81 98 08/16/18 00:50 08/16/18 05:55 08/16/18 05:55 08/16/18 05:55 08/16/18 10:43 Results - Labs CBC & Chem 7: 08/16/18 01:28 08/16/18 02:14 Labs: Abnormal lab results 08/16/18 08/16/18 08/16/18 Range/Units 01:28 01:28 02:14 RBC 3.06 L (3.65-5.03) M/mm3 Hgb 9.1 L (11.8-15.2) gm/dl Hct 27.2 L (35.5-45.6) % Plt Count 114 L (140-440) K/mm3 Lymph % (Auto) 8.4 L (13.4-35.0) % Woodson % (Auto) 10.5 H (0.0-7.3) % Lymph # 0.6 L (1.2-5.4) K/mm3 Seg Neutrophils % 76.2 H (40.0-70.0) % Carbon Dioxide 20 L (22-30) mmol/L BUN 49 H 50 H (9-20) mg/dL Creatinine 5.1 H 5.2 H (0.8-1.5) mg/dL Glucose 172 H 179 H (75-100) mg/dL Troponin T 0.060 H (0.00-0.029) ng/mL NT-Pro-B Natriuret Pep 8313 H (0-900) pg/mL Albumin 3.7 L (3.9-5) g/dL LDL Cholesterol Direct 47 L (50-130) mg/dL Assessment and Plan Patient is a 78 yo Black man with a history of CKD 4, hypertension, IDDM type 2, remote prostate cancer, dyslipidemia, CHF EF and anemia who presents to [facility] ED with severe acute onset constant and worsening SOB x 2 days without aggravating or relieving factors. He is followed by the Supp[employer] Crew Leader Dr. To. He is being evaluated for kidney transplant at [place]. 04/20/2018 2D ECHO estimated EF 40-45%, mild LVH, abnormal LV diastolic filing, mid inferior, mid inferoseptal, apical septal and apical inferior wall hypokinetic, mild MR, mild TR, RVSP calculated at 48mmhg, small pericardial effusion * pCXR: CHF -SOB due to Acute on chronic combined heart failure: treat with diuretics, and hemodialysis with ultrafiltration -Acute on CKD IV, vasomotor nephropathy to ESRD suspected, cr on 05/2018 was 4.9 up to 5.5: Hemodialysis to begin per nephrology -Acute hypoxic respiratory failure: treat with O2 and try to wean off, add nebs treatment -Type 2 diabetes mellitus with diabetic chronic kidney disease: SSI while npo for tunnel cath, ada diet, a1c ordered -Hypertensive heart disease: continue antihypertensives, low salt diet, reduce metoprolol due to the bradycardia -Anemia in chronic kidney disease: monitor h/h closely, possibly EPO, -Secondary hyperparathyroidism (of renal origin); monitor bmp and electrolytes closely -DVT prophylaxis: sq heparin
[2018-08-16] MEDS ORDERED: D50W (25GM) Syringe IV PRN (13:06)
[2018-08-16] MEDS: HumaLOG SUB-Q SCH ×2 (14:07→18:16)
[2018-08-16] MEDS: APRESOLINE PO SCH ×2 (14:08→18:15)
[2018-08-16 16:16] LABS: Hepatitis B Surface Antigen Non-Reactive (Negative); Hepatitis C Virus Antibody Non-Reactive (NonReactive)
[2018-08-16] MEDS ORDERED: NACL 0.9 (PRIMING MACHINE ONLY DIALYSIS) MC ONE (17:56)
[2018-08-16] MEDS: FLOMAX PO SCH (18:15)
[2018-08-16] MEDS: PRAVACHOL PO SCH (21:56)
[2018-08-16] MEDS: APRESOLINE IV PRN (21:56)
[2018-08-16] MEDS ORDERED: NON-FORMULARY (Simvastatin 20 MG) PO SCH (22:00)
[2018-08-17] MEDS: HumaLOG SUB-Q SCH ×4 (00:25→21:53)
[2018-08-17] MEDS ORDERED: PROVENTIL IH PRN (00:43)
[2018-08-17] MEDS: APRESOLINE PO SCH ×4 (03:01→21:54)
[2018-08-17 06:32] LABS: Hematocrit 27.3 % (35.5-45.6); Hemoglobin 9.5 gm/dl (11.8-15.2); Mean Corpuscular HGB Conc 35 % (32-34); Mean Corpuscular Volume 87 fl (84-94); Platelet Count 113 K/mm3 (140-440); Red Blood Count 3.15 M/mm3 (3.65-5.03)
[2018-08-17] MEDS: PERCOCET 5/325 PO PRN ×2 (06:47→18:25)
[2018-08-17] MEDS: APRESOLINE IV PRN (06:47)
[2018-08-17 06:54] LABS: Calcium 8.5 mg/dL (8.4-10.2)
--- NOTE | 2018-08-17 09:44 | Progress Note ---
Assessment and Plan - Patient Problems (1) CKD (chronic kidney disease), stage V Current Visit: Yes Status: Chronic Plan to address problem: Had long discussion with patient. Given his recurrent admissions for respiratory distress in the setting of volume overload, worsening uremia, generalized weakness, believe that as an inpatient this would be the optimal time to transition to HD, especially as he is still undergoing evaluation for kidney transplant. Explained to patient the risks and benefits of HD. Hope is that we can use this as an appropriate transition to eventual kidney transplant in future. I have contacted vascular surgery for plan to place permcath hopefully today and to initiate patient on HD. Will initiate on three consecutive HD sessions. Will also need to work with case management for placement as outpatient. Have instructed to the nursing staff that patient is right hand dominant, and therefore we need to prevent any IV lines/blood draws/blood pressure readings from the left arm as we want to preserve for possible permanent vascular access in the future if needed. He had permcath placed and received his 1st session of HD yesterday. Receiving his second session today. Plan for third session tomorrow. CM on case and paperwork has been faxed out to [facility]. Pending placement at present time. (2) Acute and chronic respiratory failure with hypoxia Current Visit: Yes Status: Acute Plan to address problem: Will attempt UF goal 500cc to 1L/session as tolerated as this is the initiation process, and will titrate UF goals as he becomes stable on dialysis. (3) Fluid overload Current Visit: Yes Status: Acute Plan to address problem: UF goal 500cc to 1L during initial sessions. Would also favor that we continue his outpatient bumex regimen, which will help with adequate fluid removal especially on his off dialysis days. (4) Hypertensive chronic kidney disease with stage 1 through stage 4 chronic kidney disease, or unspecified chronic kidney disease Current Visit: No Status: Chronic Plan to address problem: Will add losartan 25 mg to his current regimen. (5) Type 2 diabetes mellitus with diabetic chronic kidney disease Current Visit: No Status: Chronic Qualifiers: Chronic kidney disease stage: stage 5, not on chronic dialysis Plan to address problem: Diabetes management per primary team. (6) Secondary hyperparathyroidism (of renal origin) Current Visit: Yes Status: Acute Plan to address problem: Will monitor Ca, Phos and iPTH. (7) Anemia in chronic kidney disease Current Visit: No Status: Chronic Qualifiers: Chronic kidney disease stage: stage 5, not on chronic dialysis Qualified Code(s): N18.5 - Chronic kidney disease, stage 5; D63.1 - Anemia in chronic kidney disease Plan to address problem: As he becomes stable on HD, will initiate EPO as an outpatient. Subjective Date of service: 08/17/18 Interval history: No acute issues, seen at HD unit this am. s/p permcath placement and initiation of HD. Tolerated 1st session without any issues. Undergoing second session of HD at present time. Objective - Vital Signs Vital signs: Vital Signs - 12hr 08/16/18 08/16/18 08/16/18 21:56 22:00 23:31 Temperature 98.0 F Pulse Rate 57 L 61 Respiratory 18 Rate Blood Pressure 189/78 155/68 O2 Sat by Pulse 97 96 Oximetry 08/17/18 08/17/18 08/17/18 05:14 06:47 07:36 Temperature 98.0 F 99.0 F Pulse Rate 65 65 Respiratory 18 17 Rate Blood Pressure 171/77 171/77 O2 Sat by Pulse 98 Oximetry 08/17/18 08/17/18 07:37 07:47 Temperature Pulse Rate 60 Respiratory 20 20 Rate Blood Pressure 182/77 O2 Sat by Pulse 97 Oximetry - General Appearance General appearance: well-developed, well-nourished, appears stated age EENT: ATNC, PERRL Neck: no JVD, no thyromegaly Respiratory: Present: Clear to Ascultation Cardiology: regular, S1S2 Gastrointestinal: normal, normoactive bowel sounds Integumentary: no rash, warm and dry Neurologic: no focal deficit, no asterixis Musculoskeletal: other (-edema) Psychiatric: mood/affect appropriate, cooperative - Lab 08/17/18 06:12 08/17/18 06:12 Most recent lab results Calcium 8.5 mg/dL (8.4-10.2) 08/17/18 06:12 - Imaging Chest x-ray: pending - Allied health notes Allied health notes reviewed: nursing Medications & Allergies - Medications Allergies/Adverse Reactions: Allergies No Known Allergies Allergy (Unverified 11/01/17 09:33) Home Medications: Home Medications Medication Instructions Recorded Confirmed Last Taken Type Insulin Aspart [NovoLOG 100 0 unit SUB-Q AC 04/20/18 08/17/18 Unknown History UNITS/ML VIAL] Simvastatin [Zocor TAB] 20 mg PO QHS 04/20/18 08/17/18 08/14/18 22:00 History Tamsulosin [Flomax] 0.4 mg PO QPM 04/20/18 08/17/18 08/14/18 History Aspirin EC [Aspirin Enteric Coated 81 mg PO QDAY #30 tablet 04/27/18 08/17/18 08/14/18 Rx TAB] Bumetanide [Bumex 1 mg tab] 2 mg PO QAM #30 tablet 04/27/18 08/17/18 08/14/18 Rx Insulin Glargine,Hum.rec.anlog 20 units SUB-Q QPM 30 Days 04/27/18 08/17/18 08/14/18 Rx [Lantus Solostar] Metoprolol Xl [Metoprolol 50 mg PO QDAY #30 tablet 04/27/18 08/17/18 08/14/18 Rx SUCCINATE ER TAB] NIFEdipine XL [Procardia Xl] 90 mg PO QDAY #30 tablet 04/27/18 08/17/18 08/14/18 Rx hydrALAZINE [Apresoline TAB] 100 mg PO Q8HR #90 tab 04/27/18 08/17/18 08/14/18 Rx levoFLOXacin [Levaquin TAB] 500 mg PO Q48H #2 tablet 05/26/18 08/17/18 Unknown Rx oxyCODONE /ACETAMINOPHEN [Percocet 1 tab PO QHS PRN #5 tablet 05/26/18 08/17/18 Unknown Rx 5/325] ALBUTEROL Inhaler(NF) [VENTOLIN 1 puff IH BID #1 inha 08/02/18 08/17/18 08/15/18 Rx Inhaler(NF)] Active Medications: Generic Name Dose Route Start Last Admin Trade Name Freq PRN Reason Stop Dose Admin Albuterol 2.5 mg 08/17/18 00:43 Proventil IH Q4HRT PRN Shortness Of Breath Aspirin 81 mg 08/17/18 10:00 Halfprin Ec PO QDAY PORSHA Bumetanide 2 mg 08/17/18 10:00 Bumex PO QAM PORSHA Dextrose 50 ml 08/16/18 13:06 D50w (25gm) Syringe IV PRN PRN Hypoglycemia Heparin Sodium (Porcine) 5,000 unit 08/17/18 13:04 Heparin SUB-Q Q12HR PORSHA Hydralazine HCl 5 mg 08/16/18 06:40 08/17/18 06:47 Apresoline IV 5 mg Q6H PRN Administration Hypertension Hydralazine HCl 100 mg 08/16/18 14:00 08/17/18 07:19 Apresoline PO Not Given Q8HR [facility] Sodium Chloride 100 mls @ 999 mls/hr 08/16/18 11:00 Nacl 0.9% IV RICK PRN Hypotension Insulin Human Lispro 0 unit 08/16/18 14:00 08/17/18 07:24 Humalog SUB-Q 2 unit Q6HR PORSHA Administration Protocol Metoprolol Succinate 25 mg 08/17/18 10:00 Toprol Xl PO QDAY PORSHA Nifedipine 90 mg 08/17/18 10:00 Procardia Xl PO QDAY PORSHA Oxycodone/Acetaminophen 1 tab 08/16/18 13:04 08/17/18 06:47 Percocet 5/325 PO 1 tab QHS PRN Administration Pain , Severe (7-10) Pravastatin Sodium 40 mg 08/16/18 22:00 08/16/18 21:56 Pravachol PO 40 mg QHS PORSHA Administration Tamsulosin HCl 0.4 mg 08/16/18 18:00 08/16/18 18:15 Flomax PO 0.4 mg QPM PORSHA Administration
[2018-08-17] MEDS ORDERED: AFLURIA QUAD 2018-2019 SYRINGE IM ONE (12:00)
[2018-08-17] MEDS: HALFPRIN EC PO SCH (12:55)
[2018-08-17] MEDS: COZAAR PO SCH (12:55)
[2018-08-17] MEDS: TOPROL XL PO SCH (12:56)
[2018-08-17] MEDS: BUMEX PO SCH (12:56)
[2018-08-17] MEDS: PROCARDIA XL PO SCH (12:56)
[2018-08-17] MEDS: HEPARIN SUB-Q SCH ×2 (14:23→21:57)
--- NOTE | 2018-08-17 16:57 | Progress Note ---
Subjective Date of service: 08/17/18 Principal diagnosis: ESRD Interval history: He has no new complaints today. Awake alert resting quietly in bed. Right IJ permacath present Respirations nonlabored at rest. Good ROM extremities. Palpable bilateral radial pulses. He has chronic renal disease previously had been managed medically. Admitted with fluid volume overload and worsening of renal function. Required permacath placement with initiation of hemodialysis He is being evaluated for renal transplant with daughter being possible donor. Vein mapping ordered not completed at time of this evaluation. He is right hand dominant advised no venipuncture, IV or blood pressures to the left arm in preparation for creation of permament hemodialysis access. Discussed different types of permanent hemodialysis access in detail with patient. He admits to some confusion if a permament hemodialysis access is necessary. If permanent hemodialysis access is necessary, he can follow up in office as outpatient for this to be set up. Objective - Constitutional Vitals: Vital Signs - 12hr 08/17/18 08/17/18 08/17/18 05:14 06:47 07:36 Temperature 98.0 F 99.0 F Pulse Rate 65 65 Respiratory 18 17 Rate Respiratory Rate [Abdomen] Blood Pressure 171/77 171/77 Blood Pressure [Right] O2 Sat by Pulse 98 Oximetry 08/17/18 08/17/18 08/17/18 07:37 07:47 08:00 Temperature Pulse Rate 60 62 Respiratory 20 20 Rate Respiratory Rate [Abdomen] Blood Pressure 182/77 Blood Pressure [Right] O2 Sat by Pulse 97 Oximetry 08/17/18 08/17/18 08/17/18 09:00 09:15 09:30 Temperature 98.6 F Pulse Rate 61 61 56 L Respiratory 16 Rate Respiratory Rate [Abdomen] Blood Pressure 171/89 171/89 164/81 Blood Pressure [Right] O2 Sat by Pulse Oximetry 08/17/18 08/17/18 08/17/18 09:45 10:00 10:15 Temperature Pulse Rate 56 L 57 L 59 L Respiratory Rate Respiratory Rate [Abdomen] Blood Pressure 143/76 149/73 167/80 Blood Pressure [Right] O2 Sat by Pulse Oximetry 08/17/18 08/17/18 08/17/18 10:30 10:45 11:03 Temperature Pulse Rate 57 L 58 L 60 Respiratory Rate Respiratory Rate [Abdomen] Blood Pressure 167/86 161/79 144/81 Blood Pressure [Right] O2 Sat by Pulse Oximetry 08/17/18 08/17/18 08/17/18 11:15 11:30 11:45 Temperature Pulse Rate 58 L 58 L 57 L Respiratory Rate Respiratory Rate [Abdomen] Blood Pressure 162/81 160/82 161/72 Blood Pressure [Right] O2 Sat by Pulse Oximetry 08/17/18 08/17/18 08/17/18 12:00 12:15 12:24 Temperature 98.9 F Pulse Rate 57 L 64 64 Respiratory 16 Rate Respiratory Rate [Abdomen] Blood Pressure 151/75 177/82 177/82 Blood Pressure [Right] O2 Sat by Pulse Oximetry 08/17/18 08/17/18 08/17/18 12:39 12:51 12:52 Temperature 98.2 F Pulse Rate 66 68 Respiratory 20 Rate Respiratory 17 Rate [Abdomen] Blood Pressure 178/73 Blood Pressure 178/73 [Right] O2 Sat by Pulse 99 99 Oximetry 08/17/18 08/17/18 08/17/18 12:55 14:22 16:25 Temperature 98.2 F Pulse Rate 66 66 69 Respiratory 18 Rate Respiratory Rate [Abdomen] Blood Pressure 178/73 189/90 173/83 Blood Pressure [Right] O2 Sat by Pulse 97 98 Oximetry - Labs CBC & Chem 7: 08/17/18 06:12 08/17/18 06:12 Labs: Abnormal lab results 08/16/18 08/16/18 08/17/18 Range/Units 18:12 22:09 06:12 RBC 3.15 L (3.65-5.03) M/mm3 Hgb 9.5 L (11.8-15.2) gm/dl Hct 27.3 L (35.5-45.6) % MCHC 35 H (32-34) % Plt Count 113 L (140-440) K/mm3 BUN (9-20) mg/dL Creatinine (0.8-1.5) mg/dL Glucose (75-100) mg/dL POC Glucose 164 H 139 H (70-105) Hemoglobin A1c (4-6) % 08/17/18 08/17/18 08/17/18 Range/Units 06:12 06:12 07:01 RBC (3.65-5.03) M/mm3 Hgb (11.8-15.2) gm/dl Hct (35.5-45.6) % MCHC (32-34) % Plt Count (140-440) K/mm3 BUN 33 H (9-20) mg/dL Creatinine 4.0 H (0.8-1.5) mg/dL Glucose 132 H (75-100) mg/dL POC Glucose 150 H (70-105) Hemoglobin A1c 7.1 H (4-6) % 08/17/18 Range/Units 12:51 RBC (3.65-5.03) M/mm3 Hgb (11.8-15.2) gm/dl Hct (35.5-45.6) % MCHC (32-34) % Plt Count (140-440) K/mm3 BUN (9-20) mg/dL Creatinine (0.8-1.5) mg/dL Glucose (75-100) mg/dL POC Glucose 172 H (70-105) Hemoglobin A1c (4-6) % Medications & Allergies - Medications Allergies/Adverse Reactions: Allergies No Known Allergies Allergy (Unverified 11/01/17 09:33) Home Medications: Home Medications Medication Instructions Recorded Confirmed Last Taken Type Insulin Aspart [NovoLOG 100 0 unit SUB-Q AC 04/20/18 08/17/18 Unknown History UNITS/ML VIAL] Simvastatin [Zocor TAB] 20 mg PO QHS 04/20/18 08/17/18 08/14/18 22:00 History Tamsulosin [Flomax] 0.4 mg PO QPM 04/20/18 08/17/18 08/14/18 History Aspirin EC [Aspirin Enteric Coated 81 mg PO QDAY #30 tablet 04/27/18 08/17/18 08/14/18 Rx TAB] Bumetanide [Bumex 1 mg tab] 2 mg PO QAM #30 tablet 04/27/18 08/17/18 08/14/18 Rx Insulin Glargine,Hum.rec.anlog 20 units SUB-Q QPM 30 Days 04/27/18 08/17/18 08/14/18 Rx [Lantus Solostar] Metoprolol Xl [Metoprolol 50 mg PO QDAY #30 tablet 04/27/18 08/17/18 08/14/18 Rx SUCCINATE ER TAB] NIFEdipine XL [Procardia Xl] 90 mg PO QDAY #30 tablet 04/27/18 08/17/18 08/14/18 Rx hydrALAZINE [Apresoline TAB] 100 mg PO Q8HR #90 tab 04/27/18 08/17/18 08/14/18 Rx levoFLOXacin [Levaquin TAB] 500 mg PO Q48H #2 tablet 05/26/18 08/17/18 Unknown Rx oxyCODONE /ACETAMINOPHEN [Percocet 1 tab PO QHS PRN #5 tablet 05/26/18 08/17/18 Unknown Rx 5/325] ALBUTEROL Inhaler(NF) [VENTOLIN 1 puff IH BID #1 inha 08/02/18 08/17/18 08/15/18 Rx Inhaler(NF)] Active Medications: Generic Name Dose Route Start Last Admin Trade Name Freq PRN Reason Stop Dose Admin Albuterol 2.5 mg 08/17/18 00:43 Proventil IH Q4HRT PRN Shortness Of Breath Aspirin 81 mg 08/17/18 10:00 08/17/18 12:55 Halfprin Ec PO 81 mg QDAY PORSHA Administration Bumetanide 2 mg 08/17/18 10:00 08/17/18 12:56 Bumex PO 2 mg QAM PORSHA Administration Dextrose 50 ml 08/16/18 13:06 D50w (25gm) Syringe IV PRN PRN Hypoglycemia Heparin Sodium (Porcine) 5,000 unit 08/17/18 13:04 08/17/18 14:23 Heparin SUB-Q 5,000 unit Q12HR PORSHA Administration Hydralazine HCl 5 mg 08/16/18 06:40 08/17/18 06:47 Apresoline IV 5 mg Q6H PRN Administration Hypertension Hydralazine HCl 100 mg 08/16/18 14:00 08/17/18 14:23 Apresoline PO 100 mg Q8HR PORSHA Administration Sodium Chloride 100 mls @ 999 mls/hr 08/16/18 11:00 Nacl 0.9% IV RICK PRN Hypotension Insulin Human Lispro 0 unit 08/16/18 14:00 08/17/18 12:57 Humalog SUB-Q 2 unit Q6HR PORSHA Administration Protocol Losartan Potassium 25 mg 08/17/18 10:00 08/17/18 12:55 Cozaar PO 25 mg QDAY PORSHA Administration Metoprolol Succinate 25 mg 08/17/18 10:00 08/17/18 12:56 Toprol Xl PO 25 mg QDAY PORSHA Administration Nifedipine 90 mg 08/17/18 10:00 08/17/18 12:56 Procardia Xl PO 90 mg QDAY PORSHA Administration Oxycodone/Acetaminophen 1 tab 08/16/18 13:04 08/17/18 06:47 Percocet 5/325 PO 1 tab QHS PRN Administration Pain , Severe (7-10) Pravastatin Sodium 40 mg 08/16/18 22:00 08/16/18 21:56 Pravachol PO 40 mg QHS PORSHA Administration Tamsulosin HCl 0.4 mg 08/16/18 18:00 08/16/18 18:15 Flomax PO 0.4 mg QPM PORSHA Administration
--- NOTE | 2018-08-17 17:00 | Progress Note ---
Assessment and Plan Assessment and plan: Patient is a 78 yo Black man with a history of CKD 4, hypertension, IDDM type 2, remote prostate cancer, dyslipidemia, CHF EF and anemia who presents to [facility] ED with severe acute onset constant and worsening SOB x 2 days without aggravating or relieving factors. He is followed by the Laundry Housekeeping Aide Dr. To. He is being evaluated for kidney transplant at [facility]. 04/20/2018 2D ECHO estimated EF 40-45%, mild LVH, abnormal LV diastolic filing, mid inferior, mid inferoseptal, apical septal and apical inferior wall hypokinetic, mild MR, mild TR, RVSP calculated at 48mmhg, small pericardial effusion * pCXR: CHF -SOB due to Acute on chronic combined heart failure: treat with diuretics, and hemodialysis with ultrafiltration -Acute on CKD IV, vasomotor nephropathy to ESRD suspected, cr on 05/2018 was 4.9 up to 5.5 on admission: Hemodialysis started 08/16/17 -Acute hypoxic respiratory failure: treat with O2 and try to wean off, add nebs treatment -Type 2 diabetes mellitus with diabetic chronic kidney disease: SSI while npo for tunnel cath, ada diet, a1c ordered -Hypertensive heart disease: continue antihypertensives, low salt diet, reduce metoprolol due to the bradycardia -Anemia in chronic kidney disease: monitor h/h closely, possibly EPO, -Secondary hyperparathyroidism (of renal origin); monitor bmp and electrolytes closely -DVT prophylaxis: sq heparin History Interval history: Patient was seen and examined. Follow-up on current diagnosis of sob, resolved. Overnight uneventful. Patient denies any chest pain, shortness breath, nausea/vomiting or severe headaches. Imaging, nursing note, chart, labs and old chart reviewed. Discussed with patient. Hospitalist Physical - Physical exam Narrative exam: Gen: WDWN, NAD, Awake, Alert, Orientated x 3 HEENT: NCAT, EOMI, PERRL, OP Clear Neck: supple, no adenopathy, no thyromegaly, no JVD CVS/Heart: Regular bradycardia, normal S1S2, pulses present bilaterally Chest/Lungs: diminished bs bilaterally, Symmetrical chest expansion, good air entry bilaterally GI/Abdomen: soft, NTND, good bowel sounds, no guarding or rebound /Bladder: no suprapubic tenderness, no CVA or paraspinal tenderness Extermity/Skin: no c/c/e, no obvious rash MSK: FROM x 4 Neuro: CN 2-12 grossly intact, no new focal deficits Psych: calm - Constitutional Vitals: Temp Pulse Resp BP Pulse Ox 98.2 F 69 18 173/83 98 08/17/18 16:25 08/17/18 16:25 08/17/18 16:25 08/17/18 16:25 08/17/18 16:25 Results - Labs CBC & Chem 7: 08/17/18 06:12 08/17/18 06:12 Labs: Laboratory Last Values WBC 6.2 K/mm3 (4.5-11.0) 08/17/18 06:12 RBC 3.15 M/mm3 (3.65-5.03) L 08/17/18 06:12 Hgb 9.5 gm/dl (11.8-15.2) L 08/17/18 06:12 Hct 27.3 % (35.5-45.6) L 08/17/18 06:12 MCV 87 fl (84-94) 08/17/18 06:12 MCH 30 pg (28-32) 08/17/18 06:12 MCHC 35 % (32-34) H 08/17/18 06:12 RDW 14.0 % (13.2-15.2) 08/17/18 06:12 Plt Count 113 K/mm3 (140-440) L 08/17/18 06:12 Lymph % (Auto) 8.4 % (13.4-35.0) L 08/16/18 01:28 [place] % (Auto) 10.5 % (0.0-7.3) H 08/16/18 01:28 Eos % (Auto) 4.1 % (0.0-4.3) 08/16/18 01:28 Baso % (Auto) 0.8 % (0.0-1.8) 08/16/18 01:28 Lymph # 0.6 K/mm3 (1.2-5.4) L 08/16/18 01:28 [place] # 0.8 K/mm3 (0.0-0.8) 08/16/18 01:28 Eos # 0.3 K/mm3 (0.0-0.4) 08/16/18 01:28 Baso # 0.1 K/mm3 (0.0-0.1) 08/16/18 01:28 Seg Neutrophils % 76.2 % (40.0-70.0) H 08/16/18 01:28 Seg Neutrophils # 5.7 K/mm3 (1.8-7.7) 08/16/18 01:28 PT 14.1 Sec. (12.2-14.9) 08/16/18 02:14 INR 1.05 (0.87-1.13) 08/16/18 02:14 APTT 27.7 Sec. (24.2-36.6) 08/16/18 02:14 Sodium 138 mmol/L (137-145) 08/17/18 06:12 Potassium 3.7 mmol/L (3.6-5.0) 08/17/18 06:12 Chloride 100.7 mmol/L (98-107) 08/17/18 06:12 Carbon Dioxide 26 mmol/L (22-30) 08/17/18 06:12 Anion Gap 15 mmol/L 08/17/18 06:12 BUN 33 mg/dL (9-20) H 08/17/18 06:12 Creatinine 4.0 mg/dL (0.8-1.5) H 08/17/18 06:12 Estimated GFR 18 ml/min 08/17/18 06:12 BUN/Creatinine Ratio 8 % 08/17/18 06:12 Glucose 132 mg/dL (75-100) H 08/17/18 06:12 POC Glucose 172 (70-105) H 08/17/18 12:51 Hemoglobin A1c 7.1 % (4-6) H 08/17/18 06:12 Calcium 8.5 mg/dL (8.4-10.2) 08/17/18 06:12 Total Bilirubin 0.20 mg/dL (0.1-1.2) 08/16/18 02:14 AST 14 units/L (5-40) 08/16/18 02:14 ALT 11 units/L (7-56) 08/16/18 02:14 Alkaline Phosphatase 44 units/L (35-129) 08/16/18 02:14 Total Creatine Kinase 78 units/L (55-170) 08/16/18 02:14 CK-MB (CK-2) 2.0 ng/mL (0.0-4.0) 08/16/18 02:14 Troponin T 0.060 ng/mL (0.00-0.029) H 08/16/18 01:28 NT-Pro-B Natriuret Pep 8313 pg/mL (0-900) H 08/16/18 02:14 Total Protein 6.5 g/dL (6.3-8.2) 08/16/18 02:14 Albumin 3.7 g/dL (3.9-5) L 08/16/18 02:14 Albumin/Globulin Ratio 1.3 % 08/16/18 02:14 Triglycerides 57 mg/dL (2-149) 08/16/18 01:28 Cholesterol 95 mg/dL (50-199) 08/16/18 01:28 LDL Cholesterol Direct 47 mg/dL (50-130) L 08/16/18 01:28 HDL Cholesterol 43 mg/dL (40-59) 08/16/18 01:28 Cholesterol/HDL Ratio 2.20 % 08/16/18 01:28 Urine Color Straw (Yellow) 08/16/18 04:27 Urine Turbidity Clear (Clear) 08/16/18 04:27 Urine pH 5.0 (5.0-7.0) 08/16/18 04:27 Ur Specific [place] 1.006 (1.003-1.030) 08/16/18 04:27 Urine Protein 100 mg/dl mg/dL (Negative) 08/16/18 04:27 Urine Glucose (UA) Neg mg/dL (Negative) 08/16/18 04:27 Urine Ketones Neg mg/dL (Negative) 08/16/18 04:27 Urine Blood Neg (Negative) 08/16/18 04:27 Urine Nitrite Neg (Negative) 08/16/18 04:27 Urine Bilirubin Neg (Negative) 08/16/18 04:27 Urine Urobilinogen < 2.0 mg/dL (<2.0) 08/16/18 04:27 Ur Leukocyte Esterase Neg (Negative) 08/16/18 04:27 Urine WBC (Auto) < 1.0 /HPF (0.0-6.0) 08/16/18 04:27 Urine RBC (Auto) < 1.0 /HPF (0.0-6.0) 08/16/18 04:27 Urine Mucus Few /HPF 08/16/18 04:27 Hepatitis A IgM Ab Non-reactive (NonReactive) 08/16/18 14:39 Hep Bs Antigen Non-reactive (Negative) 08/16/18 14:39 Hep B Core IgM Ab Non-reactive (NonReactive) 08/16/18 14:39 Hepatitis C Antibody Non-reactive (NonReactive) 08/16/18 14:39 Nutrition/Malnutrition Assess - Dietary Evaluation Nutrition/Malnutrition Findings: Nutrition Notes Start: 08/16/18 15:41 Freq: Status: Active Protocol: Document 08/17/18 15:32 RM (Rec: 08/17/18 15:33 RM [id number]) Nutrition Notes Initial or Follow up Brief Note Current Diagnoses CKD (stage V CKD) Diabetes Hypertension Other Pertinent Diagnosis prostate cancer, fluid overload Subjective/Other Information Pt not in room at time of visit. Nutrition Intervention Follow-Up By: 08/18/18 Additional Comments f/u: assessment and education needs
[2018-08-17] MEDS ORDERED: NON-FORMULARY (Insulin Glargine,Hum.Rec.Anlog [Lantus Solostar] 20 UNITS) SUB-Q SCH (18:00)
[2018-08-17] MEDS: FLOMAX PO SCH (18:23)
[2018-08-17] MEDS: PRAVACHOL PO SCH (21:54)
[2018-08-18 05:05] LABS: Hematocrit 28.6 % (35.5-45.6); Mean Corpuscular HGB Conc 35 % (32-34); Mean Corpuscular Volume 87 fl (84-94); Red Blood Count 3.31 M/mm3 (3.65-5.03); Red Cell Distribution Width 14.1 % (13.2-15.2)
[2018-08-18 05:17] LABS: Platelet Count 98 K/mm3 (140-440)
[2018-08-18 05:30] LABS: Calcium 8.5 mg/dL (8.4-10.2)
[2018-08-18] MEDS: APRESOLINE PO SCH ×3 (05:35→22:26)
--- NOTE | 2018-08-18 07:20 | Progress Note ---
Assessment and Plan - Patient Problems (1) CKD (chronic kidney disease), stage V Current Visit: Yes Status: Chronic Plan to address problem: Had long discussion with patient. Given his recurrent admissions for respiratory distress in the setting of volume overload, worsening uremia, generalized weakness, believe that as an inpatient this would be the optimal time to transition to HD, especially as he is still undergoing evaluation for kidney transplant. Explained to patient the risks and benefits of HD. Hope is that we can use this as an appropriate transition to eventual kidney transplant in future. I have contacted vascular surgery for plan to place permcath hopefully today and to initiate patient on HD. Will initiate on three consecutive HD sessions. Will also need to work with case management for placement as outpatient. Have instructed to the nursing staff that patient is right hand dominant, and therefore we need to prevent any IV lines/blood draws/blood pressure readings from the left arm as we want to preserve for possible permanent vascular access in the future if needed. He had permcath placed and received his first two sessions of HD. Plan for third session today. CM on case and [facility]. Pending placement at present time. From renal standpoint patient is stable for DC pending outpatient HD arrangements. (2) Acute and chronic respiratory failure with hypoxia Current Visit: Yes Status: Acute Plan to address problem: Will attempt UF goal 500cc to 1L/session as tolerated as this is the initiation process, and will titrate UF goals as he becomes stable on dialysis. (3) Fluid overload Current Visit: Yes Status: Acute Plan to address problem: UF goal 500cc to 1L during initial sessions. Would also favor that we continue his outpatient bumex regimen, which will help with adequate fluid removal especially on his off dialysis days. (4) Hypertensive chronic kidney disease with stage 1 through stage 4 chronic kidney disease, or unspecified chronic kidney disease Current Visit: No Status: Chronic Plan to address problem: Added losartan 25 mg to his current regimen. Continue to monitor (5) Type 2 diabetes mellitus with diabetic chronic kidney disease Current Visit: No Status: Chronic Qualifiers: Chronic kidney disease stage: stage 5, not on chronic dialysis Plan to address problem: Diabetes management per primary team. (6) Secondary hyperparathyroidism (of renal origin) Current Visit: Yes Status: Acute Plan to address problem: Will monitor Ca, Phos and iPTH. (7) Anemia in chronic kidney disease Current Visit: No Status: Chronic Qualifiers: Chronic kidney disease stage: stage 5, not on chronic dialysis Qualified Code(s): N18.5 - Chronic kidney disease, stage 5; D63.1 - Anemia in chronic kidney disease Plan to address problem: As he becomes stable on HD, will initiate EPO as an outpatient. Subjective Date of service: 08/18/18 Principal diagnosis: ESRD Interval history: Tolerated his second session of HD. Did c/o mild nausea after session, which soon resolved after medication treatment. No complaints this am. Pending outpatient dialysis arrangements. Objective - Vital Signs Vital signs: Vital Signs - 12hr 08/17/18 08/17/18 08/17/18 20:01 20:57 20:58 Temperature 99.1 F Pulse Rate 65 Respiratory 20 Rate Respiratory 17 Rate [Abdomen] Blood Pressure 139/61 O2 Sat by Pulse 95 98 Oximetry 08/17/18 08/18/18 23:03 03:27 Temperature 98.9 F 98.7 F Pulse Rate 60 66 Respiratory 20 20 Rate Respiratory Rate [Abdomen] Blood Pressure 155/68 136/69 O2 Sat by Pulse 97 97 Oximetry - General Appearance General appearance: well-developed, well-nourished, appears stated age EENT: ATNC, PERRL Neck: no JVD, no thyromegaly Respiratory: Present: Clear to Ascultation, Normal Exam Cardiology: regular, S1S2 Gastrointestinal: normal, normoactive bowel sounds Integumentary: no rash, warm and dry Neurologic: no focal deficit, no asterixis Musculoskeletal: other (-edema ) Psychiatric: mood/affect appropriate, cooperative - Lab 08/18/18 04:23 08/18/18 04:23 Most recent lab results Calcium 8.5 mg/dL (8.4-10.2) 08/18/18 04:23 - Allied health notes Allied health notes reviewed: nursing Medications & Allergies - Medications Allergies/Adverse Reactions: Allergies No Known Allergies Allergy (Unverified 11/01/17 09:33) Home Medications: Home Medications Medication Instructions Recorded Confirmed Last Taken Type Insulin Aspart [NovoLOG 100 0 unit SUB-Q AC 04/20/18 08/17/18 Unknown History UNITS/ML VIAL] Simvastatin [Zocor TAB] 20 mg PO QHS 04/20/18 08/17/18 08/14/18 22:00 History Tamsulosin [Flomax] 0.4 mg PO QPM 04/20/18 08/17/18 08/14/18 History Aspirin EC [Aspirin Enteric Coated 81 mg PO QDAY #30 tablet 04/27/18 08/17/18 08/14/18 Rx TAB] Bumetanide [Bumex 1 mg tab] 2 mg PO QAM #30 tablet 04/27/18 08/17/18 08/14/18 Rx Insulin Glargine,Hum.rec.anlog 20 units SUB-Q QPM 30 Days 04/27/18 08/17/18 08/14/18 Rx [Lantus Solostar] Metoprolol Xl [Metoprolol 50 mg PO QDAY #30 tablet 04/27/18 08/17/18 08/14/18 Rx SUCCINATE ER TAB] NIFEdipine XL [Procardia Xl] 90 mg PO QDAY #30 tablet 04/27/18 08/17/18 08/14/18 Rx hydrALAZINE [Apresoline TAB] 100 mg PO Q8HR #90 tab 04/27/18 08/17/18 08/14/18 Rx levoFLOXacin [Levaquin TAB] 500 mg PO Q48H #2 tablet 05/26/18 08/17/18 Unknown Rx oxyCODONE /ACETAMINOPHEN [Percocet 1 tab PO QHS PRN #5 tablet 05/26/18 08/17/18 Unknown Rx 5/325] ALBUTEROL Inhaler(NF) [VENTOLIN 1 puff IH BID #1 inha 08/02/18 08/17/18 08/15/18 Rx Inhaler(NF)] Active Medications: Generic Name Dose Route Start Last Admin Trade Name Freq PRN Reason Stop Dose Admin Albuterol 2.5 mg 08/17/18 00:43 Proventil IH Q4HRT PRN Shortness Of Breath Aspirin 81 mg 08/17/18 10:00 08/17/18 12:55 Halfprin Ec PO 81 mg QDAY PORSHA Administration Bumetanide 2 mg 08/17/18 10:00 08/17/18 12:56 Bumex PO 2 mg QAM PORSHA Administration Dextrose 50 ml 08/16/18 13:06 D50w (25gm) Syringe IV PRN PRN Hypoglycemia Heparin Sodium (Porcine) 5,000 unit 08/17/18 13:04 08/17/18 21:57 Heparin SUB-Q 5,000 unit Q12HR PORSHA Administration Hydralazine HCl 5 mg 08/16/18 06:40 08/17/18 06:47 Apresoline IV 5 mg Q6H PRN Administration Hypertension Hydralazine HCl 100 mg 08/16/18 14:00 08/18/18 05:35 Apresoline PO 100 mg Q8HR PORSHA Administration Sodium Chloride 100 mls @ 999 mls/hr 08/16/18 11:00 Nacl 0.9% IV RICK PRN Hypotension Insulin Human Lispro 0 unit 08/17/18 22:00 08/17/18 21:53 Humalog SUB-Q 2 unit ACHS PORSHA Administration Protocol Losartan Potassium 25 mg 08/17/18 10:00 08/17/18 12:55 Cozaar PO 25 mg QDAY PORSHA Administration Metoprolol Succinate 25 mg 08/17/18 10:00 08/17/18 12:56 Toprol Xl PO 25 mg QDAY PORSHA Administration Nifedipine 90 mg 08/17/18 10:00 08/17/18 12:56 Procardia Xl PO 90 mg QDAY PORSHA Administration Oxycodone/Acetaminophen 1 tab 08/16/18 13:04 08/17/18 18:25 Percocet 5/325 PO 1 tab QHS PRN Administration Pain , Severe (7-10) Pravastatin Sodium 40 mg 08/16/18 22:00 08/17/18 21:54 Pravachol PO 40 mg QHS PORSHA Administration Tamsulosin HCl 0.4 mg 08/16/18 18:00 08/17/18 18:23 Flomax PO 0.4 mg QPM PORSHA Administration
[2018-08-18] MEDS: HumaLOG SUB-Q SCH ×4 (09:30→22:24)
[2018-08-18] MEDS: HALFPRIN EC PO SCH (09:59)
[2018-08-18] MEDS: BUMEX PO SCH (09:59)
[2018-08-18] MEDS: PROCARDIA XL PO SCH (10:02)
[2018-08-18] MEDS: COZAAR PO SCH (10:02)
[2018-08-18] MEDS: TOPROL XL PO SCH (10:02)
[2018-08-18] MEDS: HEPARIN SUB-Q SCH ×2 (10:03→22:26)
--- NOTE | 2018-08-18 14:36 | Progress Note ---
Assessment and Plan Assessment and plan: Patient is a 78 yo Black man with a history of CKD 4, hypertension, IDDM type 2, remote prostate cancer, dyslipidemia, CHF EF and anemia who presents to [facility] ED with severe acute onset constant and worsening SOB x 2 days without aggravating or relieving factors. He is followed by the Welding Machine Operator/Tender Dr. To. He is being evaluated for kidney transplant at [facility]. 04/20/2018 2D ECHO estimated EF 40-45%, mild LVH, abnormal LV diastolic filing, mid inferior, mid inferoseptal, apical septal and apical inferior wall hypokinetic, mild MR, mild TR, RVSP calculated at 48mmhg, small pericardial effusion * pCXR: CHF -SOB due to Acute on chronic combined heart failure: treat with diuretics, and hemodialysis with ultrafiltration -Acute on CKD IV, vasomotor nephropathy to ESRD suspected, cr on 05/2018 was 4.9 up to 5.5 on admission: Hemodialysis started 08/16/17 -Acute hypoxic respiratory failure: treat with O2 and try to wean off, add nebs treatment -Type 2 diabetes mellitus with diabetic chronic kidney disease: SSI while npo for tunnel cath, ada diet, a1c ordered -Hypertensive heart disease: continue antihypertensives, low salt diet, reduce metoprolol due to the bradycardia -Anemia in chronic kidney disease: monitor h/h closely, possibly EPO, -Secondary hyperparathyroidism (of renal origin); monitor bmp and electrolytes closely -DVT prophylaxis: sq heparin Awaiting on outpatient hemodialysis setup History Interval history: Patient was seen and examined. Follow-up on current diagnosis of sob, resolved. Overnight uneventful. Patient denies any chest pain, shortness breath, nausea/vomiting or severe headaches. Imaging, nursing note, chart, labs and old chart reviewed. Discussed with patient. Hospitalist Physical - Physical exam Narrative exam: Gen: WDWN, NAD, Awake, Alert, Orientated x 3 HEENT: NCAT, EOMI, PERRL, OP Clear Neck: supple, no adenopathy, no thyromegaly, no JVD CVS/Heart: Regular bradycardia, normal S1S2, pulses present bilaterally Chest/Lungs: CTA B, Symmetrical chest expansion, good air entry bilaterally GI/Abdomen: soft, NTND, good bowel sounds, no guarding or rebound /Bladder: no suprapubic tenderness, no CVA or paraspinal tenderness Extermity/Skin: no c/c/e, no obvious rash MSK: FROM x 4 Neuro: CN 2-12 grossly intact, no new focal deficits Psych: calm - Constitutional Vitals: Temp Pulse Resp BP Pulse Ox 98.7 F 71 20 150/70 97 08/18/18 03:27 08/18/18 10:02 08/18/18 03:27 08/18/18 10:02 08/18/18 03:27 Results - Labs CBC & Chem 7: 08/18/18 04:23 08/18/18 04:23 Labs: Laboratory Last Values WBC 6.0 K/mm3 (4.5-11.0) 08/18/18 04:23 RBC 3.31 M/mm3 (3.65-5.03) L 08/18/18 04:23 Hgb 10.0 gm/dl (11.8-15.2) L 08/18/18 04:23 Hct 28.6 % (35.5-45.6) L 08/18/18 04:23 MCV 87 fl (84-94) 08/18/18 04:23 MCH 30 pg (28-32) 08/18/18 04:23 MCHC 35 % (32-34) H 08/18/18 04:23 RDW 14.1 % (13.2-15.2) 08/18/18 04:23 Plt Count 98 K/mm3 (140-440) L 08/18/18 04:23 Lymph % (Auto) 8.4 % (13.4-35.0) L 08/16/18 01:28 [place] % (Auto) 10.5 % (0.0-7.3) H 08/16/18 01:28 Eos % (Auto) 4.1 % (0.0-4.3) 08/16/18 01:28 Baso % (Auto) 0.8 % (0.0-1.8) 08/16/18 01:28 Lymph # 0.6 K/mm3 (1.2-5.4) L 08/16/18 01:28 [place] # 0.8 K/mm3 (0.0-0.8) 08/16/18 01:28 Eos # 0.3 K/mm3 (0.0-0.4) 08/16/18 01:28 Baso # 0.1 K/mm3 (0.0-0.1) 08/16/18 01:28 Seg Neutrophils % 76.2 % (40.0-70.0) H 08/16/18 01:28 Seg Neutrophils # 5.7 K/mm3 (1.8-7.7) 08/16/18 01:28 PT 14.1 Sec. (12.2-14.9) 08/16/18 02:14 INR 1.05 (0.87-1.13) 08/16/18 02:14 APTT 27.7 Sec. (24.2-36.6) 08/16/18 02:14 Sodium 138 mmol/L (137-145) 08/18/18 04:23 Potassium 3.5 mmol/L (3.6-5.0) L 08/18/18 04:23 Chloride 97.3 mmol/L (98-107) L 08/18/18 04:23 Carbon Dioxide 28 mmol/L (22-30) 08/18/18 04:23 Anion Gap 16 mmol/L 08/18/18 04:23 BUN 21 mg/dL (9-20) H 08/18/18 04:23 Creatinine 3.5 mg/dL (0.8-1.5) H 08/18/18 04:23 Estimated GFR 21 ml/min 08/18/18 04:23 BUN/Creatinine Ratio 6 % 08/18/18 04:23 Glucose 155 mg/dL (75-100) H 08/18/18 04:23 POC Glucose 191 (70-105) H 08/17/18 21:29 Hemoglobin A1c 7.1 % (4-6) H 08/17/18 06:12 Calcium 8.5 mg/dL (8.4-10.2) 08/18/18 04:23 Total Bilirubin 0.20 mg/dL (0.1-1.2) 08/16/18 02:14 AST 14 units/L (5-40) 08/16/18 02:14 ALT 11 units/L (7-56) 08/16/18 02:14 Alkaline Phosphatase 44 units/L (35-129) 08/16/18 02:14 Total Creatine Kinase 78 units/L (55-170) 08/16/18 02:14 CK-MB (CK-2) 2.0 ng/mL (0.0-4.0) 08/16/18 02:14 Troponin T 0.060 ng/mL (0.00-0.029) H 08/16/18 01:28 NT-Pro-B Natriuret Pep 8313 pg/mL (0-900) H 08/16/18 02:14 Total Protein 6.5 g/dL (6.3-8.2) 08/16/18 02:14 Albumin 3.7 g/dL (3.9-5) L 08/16/18 02:14 Albumin/Globulin Ratio 1.3 % 08/16/18 02:14 Triglycerides 57 mg/dL (2-149) 08/16/18 01:28 Cholesterol 95 mg/dL (50-199) 08/16/18 01:28 LDL Cholesterol Direct 47 mg/dL (50-130) L 08/16/18 01:28 HDL Cholesterol 43 mg/dL (40-59) 08/16/18 01:28 Cholesterol/HDL Ratio 2.20 % 08/16/18 01:28 Urine Color Straw (Yellow) 08/16/18 04:27 Urine Turbidity Clear (Clear) 08/16/18 04:27 Urine pH 5.0 (5.0-7.0) 08/16/18 04:27 Ur Specific [place] 1.006 (1.003-1.030) 08/16/18 04:27 Urine Protein 100 mg/dl mg/dL (Negative) 08/16/18 04:27 Urine Glucose (UA) Neg mg/dL (Negative) 08/16/18 04:27 Urine Ketones Neg mg/dL (Negative) 08/16/18 04:27 Urine Blood Neg (Negative) 08/16/18 04:27 Urine Nitrite Neg (Negative) 08/16/18 04:27 Urine Bilirubin Neg (Negative) 08/16/18 04:27 Urine Urobilinogen < 2.0 mg/dL (<2.0) 08/16/18 04:27 Ur Leukocyte Esterase Neg (Negative) 08/16/18 04:27 Urine WBC (Auto) < 1.0 /HPF (0.0-6.0) 08/16/18 04:27 Urine RBC (Auto) < 1.0 /HPF (0.0-6.0) 08/16/18 04:27 Urine Mucus Few /HPF 08/16/18 04:27 Hepatitis A IgM Ab Non-reactive (NonReactive) 08/16/18 14:39 Hep Bs Antigen Non-reactive (Negative) 08/16/18 14:39 Hep B Core IgM Ab Non-reactive (NonReactive) 08/16/18 14:39 Hepatitis C Antibody Non-reactive (NonReactive) 08/16/18 14:39 Nutrition/Malnutrition Assess - Dietary Evaluation Nutrition/Malnutrition Findings: Nutrition Notes Start: 08/16/18 15:41 Freq: Status: Active Protocol: Document 08/17/18 15:32 RM (Rec: 08/17/18 15:33 RM [id number]) Nutrition Notes Initial or Follow up Brief Note Current Diagnoses CKD (stage V CKD) Diabetes Hypertension Other Pertinent Diagnosis prostate cancer, fluid overload Subjective/Other Information Pt not in room at time of visit. Nutrition Intervention Follow-Up By: 08/18/18 Additional Comments f/u: assessment and education needs
[2018-08-18] MEDS ORDERED: NACL 0.9 (PRIMING MACHINE ONLY DIALYSIS) MC ONE (16:32)
[2018-08-18] MEDS: FLOMAX PO SCH (18:06)
[2018-08-18] MEDS: PRAVACHOL PO SCH (22:26)
[2018-08-19] MEDS: PERCOCET 5/325 PO PRN ×2 (04:35→22:33)
[2018-08-19 05:13] LABS: Hematocrit 26.4 % (35.5-45.6); Hemoglobin 9.4 gm/dl (11.8-15.2); Mean Corpuscular HGB Conc 35 % (32-34); Mean Corpuscular Volume 86 fl (84-94); Red Blood Count 3.06 M/mm3 (3.65-5.03); Red Cell Distribution Width 13.9 % (13.2-15.2)
[2018-08-19 05:14] LABS: Platelet Count 95 K/mm3 (140-440)
[2018-08-19 05:30] LABS: Calcium 8.4 mg/dL (8.4-10.2)
[2018-08-19] MEDS: APRESOLINE IV PRN (05:41)
[2018-08-19] MEDS: APRESOLINE PO SCH ×3 (05:41→21:24)
[2018-08-19] MEDS: HumaLOG SUB-Q SCH ×4 (07:50→22:35)
[2018-08-19] MEDS: HEPARIN SUB-Q SCH ×2 (10:22→21:26)
[2018-08-19] MEDS: COZAAR PO SCH (10:23)
[2018-08-19] MEDS: TOPROL XL PO SCH (10:23)
[2018-08-19] MEDS: BUMEX PO SCH (10:23)
[2018-08-19] MEDS: HALFPRIN EC PO SCH (10:23)
[2018-08-19] MEDS: PROCARDIA XL PO SCH (10:23)
--- NOTE | 2018-08-19 10:56 | Progress Note ---
Assessment and Plan - Patient Problems (1) Chronic kidney disease, stage V Current Visit: Yes Status: Acute Plan to address problem: Patient has been started on dialysis and is tolerating it so far. Received 3 dialysis sessions the last 3 days. Awaiting confirmation of placement at the outpatient dialysis clinic. Once confirmed, patient can be discharged home to follow up at outpatient dialysis clinic from renal perspective (2) Hypertensive chronic kidney disease with stage 5 chronic kidney disease or end stage renal disease Current Visit: Yes Status: Acute Plan to address problem: Follow-up blood pressure and current medications (3) Acute and chronic respiratory failure with hypoxia Current Visit: Yes Status: Acute Plan to address problem: Resolved (4) Fluid overload Current Visit: Yes Status: Acute Plan to address problem: Improved (5) Anemia in chronic kidney disease Current Visit: No Status: Chronic Qualifiers: Chronic kidney disease stage: stage 5, not on chronic dialysis Qualified Code(s): N18.5 - Chronic kidney disease, stage 5; D63.1 - Anemia in chronic kidney disease Plan to address problem: Give erythropoietin on dialysis (6) Type 2 diabetes mellitus with diabetic chronic kidney disease Current Visit: No Status: Chronic Qualifiers: Chronic kidney disease stage: stage 5, not on chronic dialysis Plan to address problem: Blood sugar management by primary attending Subjective Date of service: 08/19/18 Principal diagnosis: ESRD Interval history: Patient seen lying in bed. There is no complaints today. Denies chest pain, shortness of breath, nausea or vomiting today. Objective - Exam Narrative Exam: Elderly -Kazakh male lying in bed in no acute distress HEENT: NCAT, pink oral mucous membrane Neck: Supple, no venous distention CVS: S1S2 RRR with no murmur, rub or gallop Chest: Clear to auscultation Abdomen: Protuberant, soft, nontender, no organomegaly, bowel sounds are present Extremities: No edema Neuro: Awake, alert no focal deficits - Vital Signs Vital signs: Vital Signs - 12hr 08/19/18 08/19/18 08/19/18 00:01 04:49 05:00 Temperature 99.6 F 98.6 F Pulse Rate 70 68 68 Respiratory 18 18 Rate Blood Pressure 162/78 181/76 Blood Pressure [Right] O2 Sat by Pulse 98 96 Oximetry 08/19/18 08/19/18 05:41 07:53 Temperature 98.7 F Pulse Rate 61 Respiratory 20 Rate Blood Pressure 181/76 Blood Pressure 172/74 [Right] O2 Sat by Pulse 98 Oximetry - Lab 08/19/18 04:24 08/19/18 04:24 Most recent lab results Calcium 8.4 mg/dL (8.4-10.2) 08/19/18 04:24 Medications & Allergies - Medications Allergies/Adverse Reactions: Allergies No Known Allergies Allergy (Unverified 11/01/17 09:33) Home Medications: Home Medications Medication Instructions Recorded Confirmed Last Taken Type Insulin Aspart [NovoLOG 100 0 unit SUB-Q AC 04/20/18 08/17/18 Unknown History UNITS/ML VIAL] Simvastatin [Zocor TAB] 20 mg PO QHS 04/20/18 08/17/18 08/14/18 22:00 History Tamsulosin [Flomax] 0.4 mg PO QPM 04/20/18 08/17/18 08/14/18 History Aspirin EC [Aspirin Enteric Coated 81 mg PO QDAY #30 tablet 04/27/18 08/17/18 08/14/18 Rx TAB] Bumetanide [Bumex 1 mg tab] 2 mg PO QAM #30 tablet 04/27/18 08/17/18 08/14/18 Rx Insulin Glargine,Hum.rec.anlog 20 units SUB-Q QPM 30 Days 04/27/18 08/17/18 08/14/18 Rx [Lantus Solostar] Metoprolol Xl [Metoprolol 50 mg PO QDAY #30 tablet 04/27/18 08/17/18 08/14/18 Rx SUCCINATE ER TAB] NIFEdipine XL [Procardia Xl] 90 mg PO QDAY #30 tablet 04/27/18 08/17/18 08/14/18 Rx hydrALAZINE [Apresoline TAB] 100 mg PO Q8HR #90 tab 04/27/18 08/17/18 08/14/18 Rx levoFLOXacin [Levaquin TAB] 500 mg PO Q48H #2 tablet 05/26/18 08/17/18 Unknown Rx oxyCODONE /ACETAMINOPHEN [Percocet 1 tab PO QHS PRN #5 tablet 05/26/18 08/17/18 Unknown Rx 5/325] ALBUTEROL Inhaler(NF) [VENTOLIN 1 puff IH BID #1 inha 08/02/18 08/17/18 08/15/18 Rx Inhaler(NF)] Active Medications: Generic Name Dose Route Start Last Admin Trade Name Freq PRN Reason Stop Dose Admin Albuterol 2.5 mg 08/17/18 00:43 Proventil IH Q4HRT PRN Shortness Of Breath Aspirin 81 mg 08/17/18 10:00 08/19/18 10:23 Halfprin Ec PO 81 mg QDAY PORSHA Administration Bumetanide 2 mg 08/17/18 10:00 08/19/18 10:23 Bumex PO 2 mg QAM PORSHA Administration Dextrose 50 ml 08/16/18 13:06 D50w (25gm) Syringe IV PRN PRN Hypoglycemia Heparin Sodium (Porcine) 5,000 unit 08/17/18 13:04 08/19/18 10:22 Heparin SUB-Q 5,000 unit Q12HR PORSHA Administration Hydralazine HCl 5 mg 08/16/18 06:40 08/19/18 05:41 Apresoline IV 5 mg Q6H PRN Administration Hypertension Hydralazine HCl 100 mg 08/16/18 14:00 08/19/18 05:41 Apresoline PO 100 mg Q8HR PORSHA Administration Sodium Chloride 100 mls @ 999 mls/hr 08/16/18 11:00 Nacl 0.9% IV RICK PRN Hypotension Insulin Human Lispro 0 unit 08/17/18 22:00 08/19/18 07:50 Humalog SUB-Q Not Given ACHS [facility] Protocol Losartan Potassium 25 mg 08/17/18 10:00 08/19/18 10:23 Cozaar PO 25 mg QDAY PORSHA Administration Metoprolol Succinate 25 mg 08/17/18 10:00 08/19/18 10:23 Toprol Xl PO 12.5 mg QDAY PORSHA Administration Nifedipine 90 mg 08/17/18 10:00 08/19/18 10:23 Procardia Xl PO 90 mg QDAY PORSHA Administration Oxycodone/Acetaminophen 1 tab 08/16/18 13:04 08/19/18 04:35 Percocet 5/325 PO 1 tab QHS PRN Administration Pain , Severe (7-10) Pravastatin Sodium 40 mg 08/16/18 22:00 08/18/18 22:26 Pravachol PO 40 mg QHS PORSHA Administration Tamsulosin HCl 0.4 mg 08/16/18 18:00 08/18/18 18:06 Flomax PO 0.4 mg QPM PORSHA Administration
[2018-08-19] MEDS: FLOMAX PO SCH (17:25)
--- NOTE | 2018-08-19 18:17 | Progress Note ---
Assessment and Plan Assessment and plan: Patient is a 78 yo Black man with a history of CKD 4, hypertension, IDDM type 2, remote prostate cancer, dyslipidemia, CHF EF and anemia who presents to [facility] ED with severe acute onset constant and worsening SOB x 2 days without aggravating or relieving factors. He is followed by the Vendor Analyst Dr. To. He is being evaluated for kidney transplant at [place]. 04/20/2018 2D ECHO estimated EF 40-45%, mild LVH, abnormal LV diastolic filing, mid inferior, mid inferoseptal, apical septal and apical inferior wall hypokinetic, mild MR, mild TR, RVSP calculated at 48mmhg, small pericardial effusion * pCXR: CHF -SOB due to Acute on chronic combined heart failure: treat with diuretics, and hemodialysis with ultrafiltration -Acute on CKD IV, vasomotor nephropathy to ESRD suspected, cr on 05/2018 was 4.9 up to 5.5 on admission: Hemodialysis started 08/16/17 -Acute hypoxic respiratory failure: treat with O2 and try to wean off, add nebs treatment -Type 2 diabetes mellitus with diabetic chronic kidney disease: SSI while npo for tunnel cath, ada diet, a1c ordered -Hypertensive heart disease: continue antihypertensives, low salt diet, reduce metoprolol due to the bradycardia -Anemia in chronic kidney disease: monitor h/h closely, possibly EPO, -Secondary hyperparathyroidism (of renal origin); monitor bmp and electrolytes closely -DVT prophylaxis: sq heparin Awaiting on outpatient hemodialysis setup History Interval history: Patient was seen and examined. Follow-up on current diagnosis of sob, resolved. Overnight uneventful. Patient denies any chest pain, shortness breath, nausea/vomiting or severe headaches. Imaging, nursing note, chart, labs and old chart reviewed. Discussed with patient. Hospitalist Physical - Physical exam Narrative exam: Gen: WDWN, NAD, Awake, Alert, Orientated x 3 HEENT: NCAT, EOMI, PERRL, OP Clear Neck: supple, no adenopathy, no thyromegaly, no JVD CVS/Heart: Regular bradycardia, normal S1S2, pulses present bilaterally Chest/Lungs: CTA B, Symmetrical chest expansion, good air entry bilaterally GI/Abdomen: soft, NTND, good bowel sounds, no guarding or rebound /Bladder: no suprapubic tenderness, no CVA or paraspinal tenderness Extermity/Skin: no c/c/e, no obvious rash MSK: FROM x 4 Neuro: CN 2-12 grossly intact, no new focal deficits Psych: calm - Constitutional Vitals: Temp Pulse Resp BP Pulse Ox 99.4 F 72 18 127/57 97 08/19/18 16:20 08/19/18 16:20 08/19/18 16:20 08/19/18 16:20 08/19/18 16:20 Results - Labs CBC & Chem 7: 08/19/18 04:24 08/19/18 04:24 Labs: Laboratory Last Values WBC 6.8 K/mm3 (4.5-11.0) 08/19/18 04:24 RBC 3.06 M/mm3 (3.65-5.03) L 08/19/18 04:24 Hgb 9.4 gm/dl (11.8-15.2) L 08/19/18 04:24 Hct 26.4 % (35.5-45.6) L 08/19/18 04:24 MCV 86 fl (84-94) 08/19/18 04:24 MCH 31 pg (28-32) 08/19/18 04:24 MCHC 35 % (32-34) H 08/19/18 04:24 RDW 13.9 % (13.2-15.2) 08/19/18 04:24 Plt Count 95 K/mm3 (140-440) L 08/19/18 04:24 Lymph % (Auto) 8.4 % (13.4-35.0) L 08/16/18 01:28 [place] % (Auto) 10.5 % (0.0-7.3) H 08/16/18 01:28 Eos % (Auto) 4.1 % (0.0-4.3) 08/16/18 01:28 Baso % (Auto) 0.8 % (0.0-1.8) 08/16/18 01:28 Lymph # 0.6 K/mm3 (1.2-5.4) L 08/16/18 01:28 [place] # 0.8 K/mm3 (0.0-0.8) 08/16/18 01:28 Eos # 0.3 K/mm3 (0.0-0.4) 08/16/18 01:28 Baso # 0.1 K/mm3 (0.0-0.1) 08/16/18 01:28 Seg Neutrophils % 76.2 % (40.0-70.0) H 08/16/18 01:28 Seg Neutrophils # 5.7 K/mm3 (1.8-7.7) 08/16/18 01:28 PT 14.1 Sec. (12.2-14.9) 08/16/18 02:14 INR 1.05 (0.87-1.13) 08/16/18 02:14 APTT 27.7 Sec. (24.2-36.6) 08/16/18 02:14 Sodium 138 mmol/L (137-145) 08/19/18 04:24 Potassium 3.4 mmol/L (3.6-5.0) L 08/19/18 04:24 Chloride 99.0 mmol/L (98-107) 08/19/18 04:24 Carbon Dioxide 28 mmol/L (22-30) 08/19/18 04:24 Anion Gap 14 mmol/L 08/19/18 04:24 BUN 16 mg/dL (9-20) 08/19/18 04:24 Creatinine 3.5 mg/dL (0.8-1.5) H 08/19/18 04:24 Estimated GFR 21 ml/min 08/19/18 04:24 BUN/Creatinine Ratio 5 % 08/19/18 04:24 Glucose 150 mg/dL (75-100) H 08/19/18 04:24 POC Glucose 209 (70-105) H 08/19/18 15:30 Hemoglobin A1c 7.1 % (4-6) H 08/17/18 06:12 Calcium 8.4 mg/dL (8.4-10.2) 08/19/18 04:24 Total Bilirubin 0.20 mg/dL (0.1-1.2) 08/16/18 02:14 AST 14 units/L (5-40) 08/16/18 02:14 ALT 11 units/L (7-56) 08/16/18 02:14 Alkaline Phosphatase 44 units/L (35-129) 08/16/18 02:14 Total Creatine Kinase 78 units/L (55-170) 08/16/18 02:14 CK-MB (CK-2) 2.0 ng/mL (0.0-4.0) 08/16/18 02:14 Troponin T 0.060 ng/mL (0.00-0.029) H 08/16/18 01:28 NT-Pro-B Natriuret Pep 8313 pg/mL (0-900) H 08/16/18 02:14 Total Protein 6.5 g/dL (6.3-8.2) 08/16/18 02:14 Albumin 3.7 g/dL (3.9-5) L 08/16/18 02:14 Albumin/Globulin Ratio 1.3 % 08/16/18 02:14 Triglycerides 57 mg/dL (2-149) 08/16/18 01:28 Cholesterol 95 mg/dL (50-199) 08/16/18 01:28 LDL Cholesterol Direct 47 mg/dL (50-130) L 08/16/18 01:28 HDL Cholesterol 43 mg/dL (40-59) 08/16/18 01:28 Cholesterol/HDL Ratio 2.20 % 08/16/18 01:28 Urine Color Straw (Yellow) 08/16/18 04:27 Urine Turbidity Clear (Clear) 08/16/18 04:27 Urine pH 5.0 (5.0-7.0) 08/16/18 04:27 Ur Specific [place] 1.006 (1.003-1.030) 08/16/18 04:27 Urine Protein 100 mg/dl mg/dL (Negative) 08/16/18 04:27 Urine Glucose (UA) Neg mg/dL (Negative) 08/16/18 04:27 Urine Ketones Neg mg/dL (Negative) 08/16/18 04:27 Urine Blood Neg (Negative) 08/16/18 04:27 Urine Nitrite Neg (Negative) 08/16/18 04:27 Urine Bilirubin Neg (Negative) 08/16/18 04:27 Urine Urobilinogen < 2.0 mg/dL (<2.0) 08/16/18 04:27 Ur Leukocyte Esterase Neg (Negative) 08/16/18 04:27 Urine WBC (Auto) < 1.0 /HPF (0.0-6.0) 08/16/18 04:27 Urine RBC (Auto) < 1.0 /HPF (0.0-6.0) 08/16/18 04:27 Urine Mucus Few /HPF 01/02/19 04:27 Hepatitis A IgM Ab Non-reactive (NonReactive) 08/16/18 14:39 Hep Bs Antigen Non-reactive (Negative) 08/16/18 14:39 Hep B Core IgM Ab Non-reactive (NonReactive) 08/16/18 14:39 Hepatitis C Antibody Non-reactive (NonReactive) 08/16/18 14:39 Nutrition/Malnutrition Assess - Dietary Evaluation Nutrition/Malnutrition Findings: Nutrition Notes Start: 08/16/18 15:41 Freq: Status: Active Protocol: Document 08/18/18 16:08 RM (Rec: 08/18/18 16:10 RM [id number]) Nutrition Notes Initial or Follow up Brief Note Current Diagnoses CKD (stage V CKD) Diabetes Hypertension Other Pertinent Diagnosis prostate cancer, fluid overload Subjective/Other Information Pt not in room for AM or PM visit. Nutrition Intervention Follow-Up By: 08/21/18 Additional Comments Follow for assessment and education needs
[2018-08-19] MEDS: PRAVACHOL PO SCH (21:25)
[2018-08-20] MEDS ORDERED: BANOPHEN PO ONE (00:02)
[2018-08-20] MEDS: APRESOLINE PO SCH ×2 (05:31→14:07)
[2018-08-20] MEDS: HumaLOG SUB-Q SCH ×3 (07:19→17:20)
[2018-08-20] MEDS: HALFPRIN EC PO SCH (10:05)
[2018-08-20] MEDS: HEPARIN SUB-Q SCH (10:05)
[2018-08-20] MEDS: PROCARDIA XL PO SCH (10:05)
[2018-08-20] MEDS: BUMEX PO SCH (10:05)
[2018-08-20] MEDS: COZAAR PO SCH (10:05)
[2018-08-20] MEDS: TOPROL XL PO SCH (10:05)
--- NOTE | 2018-08-20 14:53 | Progress Note ---
Assessment and Plan - Patient Problems (1) Chronic kidney disease, stage V Current Visit: Yes Status: Acute Plan to address problem: Patient has been started on dialysis and is tolerating it so far. Received 3 dialysis sessions the last 3 days. Confirmed outpatient dialysis at [facility] dialysis starting tomorrow at 1:30 PM Mondays, Wednesdays and Fridays. Patient can be discharged home to follow up at outpatient dialysis clinic from renal pe rspective. Discussed the need to get an AV access placed. Patient's daughter is meant to be his kidney donor and transplant appears to be imminent. I explained the importance of getting an AV fistula/graft and we agreed that if transplant is not imminent by the end of August, patient will get AV graft placed. (2) Hypertensive chronic kidney disease with stage 5 chronic kidney disease or end stage renal disease Current Visit: Yes Status: Acute Plan to address problem: Follow-up blood pressure and current medications (3) Acute and chronic respiratory failure with hypoxia Current Visit: Yes Status: Acute Plan to address problem: Resolved (4) Fluid overload Current Visit: Yes Status: Acute Plan to address problem: Improved (5) Anemia in chronic kidney disease Current Visit: No Status: Chronic Qualifiers: Chronic kidney disease stage: stage 5, not on chronic dialysis Qualified Code(s): N18.5 - Chronic kidney disease, stage 5; D63.1 - Anemia in chronic kidney disease Plan to address problem: Give erythropoietin on dialysis (6) Type 2 diabetes mellitus with diabetic chronic kidney disease Current Visit: No Status: Chronic Qualifiers: Chronic kidney disease stage: stage 5, not on chronic dialysis Plan to address problem: Blood sugar management by primary attending Subjective Date of service: 08/20/18 Principal diagnosis: ESRD Interval history: Patient seen lying in bed. There is no complaints today. Denies chest pain, shortness of breath, nausea or vomiting today. at bedside Objective - Exam Narrative Exam: Elderly -[place]igerian male lying in bed in no acute distress HEENT: NCAT, pink oral mucous membrane Neck: Supple, no venous distention CVS: S1S2 RRR with no murmur, rub or gallop Chest: Clear to auscultation Abdomen: Protuberant, soft, nontender, no organomegaly, bowel sounds are present Extremities: No edema Neuro: Awake, alert no focal deficits - Vital Signs Vital signs: Vital Signs - 12hr 08/20/18 08/20/18 08/20/18 04:44 06:03 08:02 Temperature 98.0 F 98.2 F Pulse Rate 62 62 66 Respiratory 18 20 Rate Blood Pressure 173/76 159/71 O2 Sat by Pulse 97 98 Oximetry 08/20/18 08/20/18 11:04 12:05 Temperature 98.5 F Pulse Rate 61 67 Respiratory 18 Rate Blood Pressure 179/73 O2 Sat by Pulse 96 Oximetry - Lab 08/19/18 04:24 08/19/18 04:24 Most recent lab results Calcium 8.4 mg/dL (8.4-10.2) 08/19/18 04:24 Medications & Allergies - Medications Allergies/Adverse Reactions: Allergies No Known Allergies Allergy (Unverified 11/01/17 09:33) Home Medications: Home Medications Medication Instructions Recorded Confirmed Last Taken Type Insulin Aspart [NovoLOG 100 0 unit SUB-Q AC 04/20/18 08/17/18 Unknown History UNITS/ML VIAL] Simvastatin [Zocor TAB] 20 mg PO QHS 04/20/18 08/17/18 08/14/18 22:00 History Tamsulosin [Flomax] 0.4 mg PO QPM 04/20/18 08/17/18 08/14/18 History Aspirin EC [Aspirin Enteric Coated 81 mg PO QDAY #30 tablet 04/27/18 08/17/18 08/14/18 Rx TAB] Bumetanide [Bumex 1 mg tab] 2 mg PO QAM #30 tablet 04/27/18 08/17/18 08/14/18 Rx Insulin Glargine,Hum.rec.anlog 20 units SUB-Q QPM 30 Days 04/27/18 08/17/1807/17 Rx [Lantus Solostar] Metoprolol Xl [Metoprolol 50 mg PO QDAY #30 tablet 04/27/18 08/17/18 08/14/18 Rx SUCCINATE ER TAB] NIFEdipine XL [Procardia Xl] 90 mg PO QDAY #30 tablet 04/27/18 08/17/18 08/14/18 Rx hydrALAZINE [Apresoline TAB] 100 mg PO Q8HR #90 tab 04/27/18 08/17/18 08/14/18 Rx levoFLOXacin [Levaquin TAB] 500 mg PO Q48H #2 tablet 05/26/18 08/17/18 Unknown Rx oxyCODONE /ACETAMINOPHEN [Percocet 1 tab PO QHS PRN #5 tablet 05/26/18 08/17/18 Unknown Rx 5/325] ALBUTEROL Inhaler(NF) [VENTOLIN 1 puff IH BID #1 inha 08/02/18 08/17/18 08/15/18 Rx Inhaler(NF)] Active Medications: Generic Name Dose Route Start Last Admin Trade Name Freq PRN Reason Stop Dose Admin Albuterol 2.5 mg 08/17/18 00:43 Proventil IH Q4HRT PRN Shortness Of Breath Aspirin 81 mg 08/17/18 10:00 08/20/18 10:05 Halfprin Ec PO 81 mg QDAY PORSHA Administration Bumetanide 2 mg 08/17/18 10:00 08/20/18 10:05 Bumex PO 2 mg QAM PORSHA Administration Dextrose 50 ml 08/16/18 13:06 D50w (25gm) Syringe IV PRN PRN Hypoglycemia Heparin Sodium (Porcine) 5,000 unit 08/17/18 13:04 08/20/18 10:05 Heparin SUB-Q 5,000 unit Q12HR PORSHA Administration Hydralazine HCl 5 mg 08/16/18 06:40 08/19/18 05:41 Apresoline IV 5 mg Q6H PRN Administration Hypertension Hydralazine HCl 100 mg 08/16/18 14:00 08/20/18 14:07 Apresoline PO 100 mg Q8HR PORSHA Administration Sodium Chloride 100 mls @ 999 mls/hr 08/16/18 11:00 Nacl 0.9% IV RICK PRN Hypotension Insulin Human Lispro 0 unit 08/17/18 22:00 08/20/18 12:51 Humalog SUB-Q 3 unit ACHS PORSHA Administration Protocol Losartan Potassium 25 mg 08/17/18 10:00 08/20/18 10:05 Cozaar PO 25 mg QDAY PORSHA Administration Metoprolol Succinate 25 mg 08/17/18 10:00 08/20/18 10:05 Toprol Xl PO 25 mg QDAY PORSHA Administration Nifedipine 90 mg 08/17/18 10:00 08/20/18 10:05 Procardia Xl PO 90 mg QDAY PORSHA Administration Oxycodone/Acetaminophen 1 tab 08/16/18 13:04 08/19/18 22:33 Percocet 5/325 PO 1 tab QHS PRN Administration Pain , Severe (7-10) Pravastatin Sodium 40 mg 08/16/18 22:00 08/19/18 21:25 Pravachol PO 40 mg QHS PORSHA Administration Tamsulosin HCl 0.4 mg 08/16/18 18:00 08/19/18 17:25 Flomax PO 0.4 mg QPM PORSHA Administration
--- NOTE | 2018-08-20 14:57 | Discharge Summary ---
Providers - Providers Date of Admission: 08/16/18 06:39 Date of discharge: 08/20/18 Attending physician: RASHAD RUTLEDGE 08/16/18 04:09 Consult to Physician [CONS] Stat Comment: Dr. Dan spoke with Dr. Morales @ [phone] Consulting Provider: ILANA MORALES Physician Instructions: Reason For Exam: ESRD needing hemodialysis Primary care physician: AUTOMATIC MACHINE ATTENDANT Hospitalization Condition: Stable Hospital course: Patient is a 78 yo Black man with a history of CKD 4, hypertension, IDDM type 2, remote prostate cancer, dyslipidemia, CHF EF and anemia who presents to [facility] ED with severe acute onset constant and worsening SOB x 2 days without aggravating or relieving factors. He is followed by the Kindergarten Aide Dr. To. He is being evaluated for kidney transplant at [place]. 04/20/2018 2D ECHO estimated EF 40-45%, mild LVH, abnormal LV diastolic filing, mid inferior, mid inferoseptal, apical septal and apical inferior wall hypokinetic, mild MR, mild TR, RVSP calculated at 48mmhg, small pericardial effusion * pCXR: CHF -SOB due to Acute on chronic combined heart failure: treat with diuretics, and hemodialysis with ultrafiltration -Acute on CKD IV, vasomotor nephropathy to ESRD cr on 05/2018 was 4.9 up to 5.5 on admission: Hemodialysis started 08/16/17 -Acute hypoxic respiratory failure: treat with O2 and try to wean off, add nebs treatment -Type 2 diabetes mellitus with diabetic chronic kidney disease: SSI while npo for tunnel cath, ada diet, a1c ordered -Hypertensive heart disease: continue antihypertensives, low salt diet, reduce metoprolol due to the bradycardia -Anemia in chronic kidney disease: monitor h/h closely, possibly EPO, -Secondary hyperparathyroidism (of renal origin); monitor bmp and electrolytes closely -DVT prophylaxis: sq heparin Awaiting on outpatient hemodialysis setup===> I was notified by Dr. Mccarthy that Mr. Burrows has hemodialysis arranged for tomorrow MW at 1:30 pm [facility] Disposition: DC- TO HOME OR SELFCARE Time spent for discharge: 32 minutes Core Measure Documentation - Palliative Care Palliative Care/ Comfort Measures: Not Applicable - Core Measures Any of the following diagnoses?: none - VTE Discharge Requirements Deep Vein Thrombosis/Pulmonary Embolism Present on Admission: No Has pt received <5 days of overlap therapy or INR<2.0: No Anticoagulant overlap therapy prescribed at discharge: No Contraindication No Overlap Therapy order at DC: Not Indicated Exam - Physical Exam Narrative exam: Gen: WDWN, NAD, Awake, Alert, Orientated x 3 HEENT: NCAT, EOMI, PERRL, OP Clear Neck: supple, no adenopathy, no thyromegaly, no JVD CVS/Heart: Regular bradycardia, normal S1S2, pulses present bilaterally Chest/Lungs: CTA B, Symmetrical chest expansion, good air entry bilaterally GI/Abdomen: soft, NTND, good bowel sounds, no guarding or rebound /Bladder: no suprapubic tenderness, no CVA or paraspinal tenderness Extermity/Skin: no c/c/e, no obvious rash MSK: FROM x 4 Neuro: CN 2-12 grossly intact, no new focal deficits Psych: calm - Constitutional Vitals: Temp Pulse Resp BP Pulse Ox 98.5 F 67 18 179/73 96 08/20/18 12:05 08/20/18 12:05 08/20/18 12:05 08/20/18 12:05 08/20/18 12:05 Plan Activity: other (no strenous activity unless cleared by pcp) Diet: renal Additional Instructions: Go to Hemodialysi tomorrow at 1:30 pm [facility] ([facility] [address] [address] Follow up with: PRIMARY CARE, [Primary Care Provider] - 3-5 Days ILANA MORALES DO [Staff Physician] - 7 Days Forms: Discharge Signature Page Prescriptions: RX: oxyCODONE /ACETAMINOPHEN [Percocet 5/325 mg] 1 tab PO QHS PRN #10 tablet PRN Reason: Pain , Severe (7-10) RX: Simvastatin [Zocor TAB] 20 mg PO QHS #30 tablet RX: ALBUTEROL Inhaler(NF) [VENTOLIN Inhaler(NF)] 2 puff IH Q4H PRN #1 inha PRN Reason: Shortness Of Breath RX: Aspirin EC [Aspirin Enteric Coated TAB] 81 mg PO QDAY #30 tablet RX: Bumetanide [Bumex 1 mg tab] 2 mg PO QAM 30 Days tablet RX: hydrALAZINE [Apresoline TAB] 100 mg PO TID #90 tab RX: Losartan [Cozaar] 25 mg PO QDAY #30 tablet RX: Metoprolol Xl [Metoprolol SUCCINATE ER TAB] 50 mg PO QDAY #30 tablet RX: NIFEdipine XL [Procardia Xl] 90 mg PO QDAY #30 tablet RX: Tamsulosin [Flomax] 0.4 mg PO QPM #30 capsule
[2018-08-20 16:16] VITALS: BP 149/65
[2018-08-20] MEDS: FLOMAX PO SCH (17:20)
== END 2018-08-20 18:42 | disposition home or self-care (01) | DRG 673 ==
LOC: ED 00:49 → 4A 06:39
PROVIDERS: ADMIT Internal Medicine; ATTEND Internal Medicine
PROC: 0JH63XZ Insertion of Tunneled Vascular Access Device into Chest Subcutaneous Tissue and Fascia, Percutaneous Approach (ICD-10-PCS; principal; 2018-08-16)
PROC: B2141ZZ Fluoroscopy of Right Heart using Low Osmolar Contrast (ICD-10-PCS; 2018-08-16)
PROC: 02H633Z Insertion of Infusion Device into Right Atrium, Percutaneous Approach (ICD-10-PCS; 2018-08-16)
PROC: B244YZZ Ultrasonography of Right Heart using Other Contrast (ICD-10-PCS; 2018-08-16)
PROC: 5A1D70Z Performance of Urinary Filtration, Intermittent, Less than 6 Hours Per Day (ICD-10-PCS; 2018-08-16)
PROC: 5A1D70Z Performance of Urinary Filtration, Intermittent, Less than 6 Hours Per Day (ICD-10-PCS; 2018-08-17)
PROC: 5A1D70Z Performance of Urinary Filtration, Intermittent, Less than 6 Hours Per Day (ICD-10-PCS; 2018-08-18)
DX: N17.0 Acute kidney failure with tubular necrosis (principal); I50.43 Acute on chronic combined systolic (congestive) and diastolic (congestive) heart failure; J96.21 Acute and chronic respiratory failure with hypoxia; I13.2 Hypertensive heart and chronic kidney disease with heart failure and with stage 5 chronic kidney disease, or end stage renal disease; I31.3 Pericardial effusion (noninflammatory); N18.6 End stage renal disease; N25.81 Secondary hyperparathyroidism of renal origin; E11.22 Type 2 diabetes mellitus with diabetic chronic kidney disease; I08.1 Rheumatic disorders of both mitral and tricuspid valves; D63.1 Anemia in chronic kidney disease; Z85.46 Personal history of malignant neoplasm of prostate; Z90.49 Acquired absence of other specified parts of digestive tract; Z79.4 Long term (current) use of insulin; Z95.5 Presence of coronary angioplasty implant and graft; Z83.3 Family history of diabetes mellitus; Z82.49 Family history of ischemic heart disease and other diseases of the circulatory system
CPT/HCPCS: 36415; 36558; 71045; 77001; 80048; 80053; 80061; 80074; 81001; 82550; 82553; 82962; 83036; 83880; 84484; 85025; 85027; 85610; 85730; 90686; 93005; 93010; 94760; 96374; G0378; A9270-GY; C1750; J0360; J1644; J1815; J1940; J2250; J3010; J7030; J7050; Q0163

== ENCOUNTER 2020-01-26 13:12 | Emergency (ER) | payer MEDICARE ==
--- NOTE | 2020-01-26 14:06 | Event Note ---
ED Screening Note ED Screening Note: tripped over something outside and landed forward left shoulder left rib pain unsure of LOC no neck pain or back pain PMHx ESRD on dialysis M,W,F, DM no allergies to meds This initial assessment/diagnostic orders/clinical plan/treatment(s) is/are subject to change based on patients health status, clinical progression and re- assessment by fellow clinical providers in the ED. Further treatment and workup at subsequent clinical providers discretion. Patient/guardian urged not to elope from the ED as their condition may be serious if not clinically assessed and managed. Initial orders include: CT head/c-spine XR shoulder left XR chest with ribs sent to MAIN
--- NOTE | 2020-01-26 15:13 | XRay Report ---
Left shoulder-3 views INDICATION: fall, left shoulder pain. COMPARISON: None. IMPRESSION: There is an impacted fracture of the superolateral humeral head with mild sclerosis in t he humeral head in this region. There is also faint calcific density overlying the humeral head and t he acromiohumeral interval. No significant fracture displacement. Some of this calcific density could represent external callus; however, chondral calcinosis is another possibility. Underlying mild deg enerative changes are present at the acromioclavicular and glenohumeral joints. Visualized left lung is clear. Signer Name: Joaquín Salcido MD Signed: 01/26/2020 3:08 PM Workstation Name: [id number]
--- NOTE | 2020-01-26 15:16 | XRay Report ---
BILATERAL RIBS, PA CHEST RADIOGRAPH HISTORY: Fall, rib pain COMPARISON: Chest radiograph 08/16/2018 TECHNIQUE: 4 views of the ribs were obtained. Single view of the chest was also obtained. FINDINGS: Bilateral Ribs: There is suggestion of probable nondisplaced fractures of the right posterior seventh through ninth r ibs. Chest: Cardiomediastinal silhouette: Stable borderline heart size. Normal mediastinal contours. Lungs: There is mild opacity in the medial right lung base. The lungs are otherwise clear. No pleural effusions. No pneumothorax. Pulmonary vascularity: Normal. Additional findings: None. IMPRESSION: 1. Probable nondisplaced fractures of the right posterior seventh through ninth ribs. 2. Mild right basilar pulmonary opacity likely reflects subsegmental atelectasis. Signer Name: Leonor Holcobm MD Signed: 01/26/2020 3:11 PM Workstation Name: [id number]
--- NOTE | 2020-01-26 16:10 | Emergency Department Report ---
ED General Adult HPI - General Chief complaint: Fall Stated complaint: FALL PUI?: No Time Seen by Provider: 01/26/20 14:02 Source: patient, RN notes reviewed, old records reviewed Mode of arrival: Ambulatory Limitations: Physical Limitation - History of Present Illness Initial comments: Nephrology: Dr. To This is an 79-year-old gentleman. The patient has a history of end-stage renal disease, on hemodialysis, Tuesday, Tuesday, Tuesday. Also has a history of hypertension, CHF, anemia, remote prostate cancer, awaiting kidney transplant, ejection fraction 45% Patient is right-hand dominant, and has a history of left upper extremity graft. Patient presents to the ER with acute left-sided thoracic rib pain, and left pro ximal shoulder pain, after mechanical trip and fall. There is no complaint of headache, neck pain, abdominal pain, extremity weakness and or numbness. Pain is sharp and throbbing, increases with palpation, range of motion of the aforementioned, decreases with rest, pain medication, and position. Patient reports being in his usual state of health this afternoon, when he had his mechanical trip and fall. Prior to the trip and fall, he states being in his usual state of health. -: Sudden, This afternoon Location: left (Left chest and ribs), upper extremity (Left shoulder) Quality: other Consistency: other Improves with: other Worsens with: other - Related Data Home Medications Medication Instructions Recorded Confirmed Last Taken Insulin Aspart (Nf) [NovoLOG 100 0 unit SUB-Q AC 04/20/18 08/17/18 Unknown UNITS/ML VIAL] Previous Rx's Medication Instructions Recorded Last Taken Type Insulin Glargine,Hum.rec.anlog 20 units SUB-Q QPM 30 Days 04/27/18 08/14/18 Rx [Lantus Solostar] ALBUTEROL Inhaler(NF) [VENTOLIN 2 puff IH Q4H PRN #1 inha 08/20/18 Unknown Rx Inhaler(NF)] Aspirin EC [Halfprin EC] 81 mg PO QDAY #30 tablet 08/20/18 Unknown Rx Bumetanide [Bumex 1 mg tab] 2 mg PO QAM 30 Days tablet 08/20/18 Unknown Rx Losartan [Cozaar] 25 mg PO QDAY #30 tablet 08/20/18 Unknown Rx Metoprolol Xl [Metoprolol 50 mg PO QDAY #30 tablet 08/20/18 Unknown Rx SUCCINATE ER TAB] NIFEdipine XL [Procardia Xl] 90 mg PO QDAY #30 tablet 08/20/18 Unknown Rx Simvastatin (Nf) [Zocor TAB] 20 mg PO QHS #30 tablet 08/20/18 Unknown Rx Tamsulosin [Flomax] 0.4 mg PO QPM #30 capsule 08/20/18 Unknown Rx hydrALAZINE [Apresoline TAB] 100 mg PO TID #90 tab 08/20/18 Unknown Rx oxyCODONE /ACETAMINOPHEN [Percocet 1 tab PO QHS PRN #10 tablet 08/20/18 Unknown Rx 5/325 mg] Allergies Allergy/AdvReac Type Severity Reaction Status Date / Time No Known Allergies Allergy Unverified 11/01/17 09:33 ED Review of Systems ROS: Stated complaint: FALL Other details as noted in HPI Constitutional: denies: fever Eyes: denies: eye discharge ENT: denies: congestion Cardiovascular: chest pain (Left-sided chest wall pain) Gastrointestinal: denies: abdominal pain Musculoskeletal: as per HPI, arthralgia, myalgia Neurological: denies: weakness, numbness, paresthesias Psychiatric: anxiety Hematological/Lymphatic: denies: easy bleeding ED Past Medical Hx - Past Medical History Previous Medical History?: Yes Hx Hypertension: Yes Hx Congestive Heart Failure: No Hx Diabetes: Yes Hx Renal Disease: Yes (stage 5 CKD, On dialysis) Hx Asthma: No Hx COPD: No - Surgical History Past Surgical History?: Yes Additional Surgical History: Prostate surgery, right knee surgery. Cardiac stent 07/2018 - Social History Smoking Status: Never Smoker Substance Use Type: None - Medications Home Medications: Home Medications Medication Instructions Recorded Confirmed Last Taken Type Insulin Aspart (Nf) [NovoLOG 100 0 unit SUB-Q AC 04/20/18 08/17/18 Unknown History UNITS/ML VIAL] Insulin Glargine,Hum.rec.anlog 20 units SUB-Q QPM 30 Days 04/27/18 08/17/18 08/14/18 Rx [Lantus Solostar] ALBUTEROL Inhaler(NF) [VENTOLIN 2 puff IH Q4H PRN #1 inha 08/20/18 Unknown Rx Inhaler(NF)] Aspirin EC [Halfprin EC] 81 mg PO QDAY #30 tablet 08/20/18 Unknown Rx Bumetanide [Bumex 1 mg tab] 2 mg PO QAM 30 Days tablet 08/20/18 Unknown Rx Losartan [Cozaar] 25 mg PO QDAY #30 tablet 08/20/18 Unknown Rx Metoprolol Xl [Metoprolol 50 mg PO QDAY #30 tablet 08/20/18 Unknown Rx SUCCINATE ER TAB] NIFEdipine XL [Procardia Xl] 90 mg PO QDAY #30 tablet 08/20/18 Unknown Rx Simvastatin (Nf) [Zocor TAB] 20 mg PO QHS #30 tablet 08/20/18 Unknown Rx Tamsulosin [Flomax] 0.4 mg PO QPM #30 capsule 08/20/18 Unknown Rx hydrALAZINE [Apresoline TAB] 100 mg PO TID #90 tab 08/20/18 Unknown Rx oxyCODONE /ACETAMINOPHEN [Percocet 1 tab PO QHS PRN #10 tablet 08/20/18 Unknown Rx 5/325 mg] ED Physical Exam - General Limitations: Physical Limitation General appearance: alert, anxious, in distress - Head Head exam: Present: atraumatic, normocephalic - Eye Eye exam: Present: normal appearance, PERRL, EOMI, other (Visual acuity intact to finger counting, color perception, reading at a close distance). Absent: nystagmus - ENT ENT exam: Present: normal exam, normal orophraynx, mucous membranes moist, normal external ear exam - Neck Neck exam: Present: normal inspection - Respiratory Respiratory exam: Present: chest wall tenderness (There is diffuse left-sided rib and thoracic tenderness. There is no right-sided rib tenderness.), decreased breath sounds. Absent: wheezes, rhonchi, stridor - Cardiovascular Cardiovascular Exam: Present: normal rhythm, bradycardia, normal heart sounds. Absent: systolic murmur, diastolic murmur, rubs, gallop - GI/Abdominal GI/Abdominal exam: Present: soft. Absent: distended, tenderness, guarding, rebound, rigid, pulsatile mass - Rectal Rectal exam: Present: deferred - Extremities Exam Extremities exam: Present: tenderness, other (2+ pulses noted on the bilateral upper and lower extremities. There is lower extremity edema. The pelvis is stable. There is no snuffbox tenderness on the bilateral upper extremities. There is no pain with axial loading on the bilateral upper extremities. There is a left upper extremity graft, without redness, pus or streaking. There is proximal left-sided humerus tenderness. Range of motion in the right upper ex tremity is intact. Range of motion in the left wrist is intact. Left elbow, left shoulder range of motion not intact secondary to acute pain). Absent: full ROM - Back Exam Back exam: Present: normal inspection, paraspinal tenderness. Absent: CVA tenderness (R), CVA tenderness (L) - Neurological Exam Neurological exam: Present: alert, other (No facial droop. Tongue midline. Extraocular movements intact bilaterally. Facial sensation intact to light touch in V1, V2, V3 distribution bilaterally. 5 and a 5 strength in 4 extremities. Sensation intact to light touch in 4 extremities.) - Psychiatric Psychiatric exam: Present: anxious - Skin Skin exam: Present: warm, dry, intact, normal color. Absent: rash ED Course Vital Signs 01/26/20 01/26/20 01/26/20 13:42 15:59 16:00 Temperature 98.3 F Pulse Rate 60 78 Respiratory 14 18 18 Rate Blood Pressure 156/70 Blood Pressure 144/82 [Right] O2 Sat by Pulse 98 96 Oximetry 01/26/20 01/26/20 01/26/20 17:33 18:00 18:03 Temperature Pulse Rate 70 Respiratory 16 16 16 Rate Blood Pressure Blood Pressure 156/76 [Right] O2 Sat by Pulse 96 Oximetry ED Medical Decision Making - Lab Data Result diagrams: 01/26/20 16:35 01/26/20 16:35 Vital Signs (72 hours) 01/26/20 13:42 Temperature 98.3 F Pulse Rate 60 Respiratory 14 Rate Blood Pressure 156/70 O2 Sat by Pulse 98 Oximetry Lab Results 01/26/20 01/26/20 Range/Units 16:35 16:35 WBC 7.0 (4.5-11.0) K/mm3 RBC 3.98 (3.65-5.03) M/mm3 Hgb 12.5 (11.8-15.2) gm/dl Hct 37.3 (35.5-45.6) % MCV 94 (84-94) fl MCH 32 (28-32) pg MCHC 34 (32-34) % RDW 18.4 H (13.2-15.2) % Plt Count 106 L (140-440) K/mm3 Sodium 138 (137-145) mmol/L Potassium 4.1 (3.6-5.0) mmol/L Chloride 97.1 L (98-107) mmol/L Carbon Dioxide 24 (22-30) mmol/L Anion Gap 21 mmol/L BUN 20 (9-20) mg/dL Creatinine 4.2 H (0.8-1.5) mg/dL Estimated GFR 17 ml/min BUN/Creatinine Ratio 5 % Glucose 194 H (75-100) mg/dL Calcium 9.5 (8.4-10.2) mg/dL Magnesium 2.30 (1.7-2.3) mg/dL Total Bilirubin 0.80 (0.1-1.2) mg/dL AST 23 (5-40) units/L ALT 14 (7-56) units/L Alkaline Phosphatase 116 (35-129) units/L Total Creatine Kinase 90 (55-170) units/L Total Protein 7.9 (6.3-8.2) g/dL Albumin 4.1 (3.9-5) g/dL Albumin/Globulin Ratio 1.1 % Vital Signs 01/26/20 13:42 Temperature 98.3 F Pulse Rate 60 Respiratory 14 Rate Blood Pressure 156/70 O2 Sat by Pulse 98 Oximetry - Radiology Data Radiology results: report reviewed, image reviewed interpreted by me: One-view portable x-ray of the pelvis, interpreted by myself, negative for acute findings. Prostate seeds noted, arterial calcifications noted. Print Report Referring Physician: BYRON MATSON Patient Name: KALEB FERMIN Date of : 1940 Sex: Male Report Date: 2020-01-26 Report Status: Finalized Findings [facility] [address] [place] [address] XRay Report Signed Patient: KALEB FERMIN MR#: [id number] : 1940 Acct:[id number] Age/Sex: 79 / M ADM Date: 01/26/20 Loc: ED Attending Dr: Ordering Physician: SHAHEEN RODRÍGUEZ Date of Service: 01/26/20 Procedure(s): XR shoulder 2+V LT Accession Number(s): [id number] cc: SHAHEEN RODRÍGUEZ Fluoro Time In Minutes: Left shoulder-3 views INDICATION: fall, left shoulder pain. COMPARISON: None. IMPRESSION: There is an impacted fracture of the superolateral humeral head with mild sclerosis in the humeral head in this region. There is also faint calcific density overlying the humeral head and the acromiohumeral interval. No significant fracture displacement. Some of this calcific density could represent external callus; however, chondral calcinosis is another possibility. Underlying mild degenerative changes are present at the acromioclavicular and glenohumeral joints. Visualized left lung is clear. Signer Name: Joaquín Salcido MD Signed: 01/26/2020 3:08 PM Workstation Name: [id number] Transcribed By: JW Dictated By: Joaquín Salcido MD Electronically Authenticated By: Joaquín Salcido MD Signed Date/Time: 01/26/201507 DD/ 150 rint Report Referring Physician: BYRON MATSON Patient Name: KALEB FERMIN Date of : 1940 Sex: Male Report Date: 2020-01-26 Report Status: Finalized Findings [facility] [address] [place] [address] XRay Report Signed Patient: KALEB FERMIN MR#: [id number] : 1940 Acct:[id number] Age/Sex: 79 / M ADM Date: 01/26/20 Loc: ED Attending Dr: Ordering Physician: SHAHEEN RODRÍGUEZ Date of Service: 01/26/20 Procedure(s): XR ribs BILAT w/PA chest 4+V Accession Number(s): [id number] cc: SHAHEEN RODRÍGUEZ Fluoro Time In Minutes: BILATERAL RIBS, PA CHEST RADIOGRAPH HISTORY: Fall, rib pain COMPARISON: Chest radiograph 08/16/2018 TECHNIQUE: 4 views of the ribs were obtained. Single view of the chest was also obtained. FINDINGS: Bilateral Ribs: There is suggestion of probable nondisplaced fractures of the right posterior seventh through ninth ribs. Chest: Cardiomediastinal silhouette: Stable borderline heart size. Normal mediastinal contours. Lungs: There is mild opacity in the medial right lung base. The lungs are otherwise clear. No pleural effusions. No pneumothorax. Pulmonary vascularity: Normal. Additional findings: None. IMPRESSION: 1. Probable nondisplaced fractures of the right posterior seventh through ninth ribs. 2. Mild right basilar pulmonary opacity likely reflects subsegmental atelectasis. Signer Name: Leonor Holcomb MD Signed: 01/26/2020 3:11 PM Workstation Name: [id number] Transcribed By: HRC Dictated By: Leonor Holcomb MD Electronically Authenticated By: Leonor Holcomb MD Signed Date/Time: 01/26/20 1511 DD/ 1504 Print Report Referring Physician: BYRON MATSON Patient Name: KALEB FERMIN Date of : 1940 Sex: Male Report Date: 2020-01-26 Report Status: Finalized Findings [facility] [address] [place] [address] Cat Scan Report Signed Patient: KALEB FERMIN MR#: [id number] : 1940 Acct:[id number] Age/Sex: 79 / M ADM Date: 01/26/20 Loc: ED [place] Dr: Ordering Physician: SHAHEEN RODRÍGUEZ Date of Service: 01/26/20 Procedure(s): CT head/brain wo con Accession Number(s): [id number] cc: SHAHEEN RODRÍGUEZ NONENHANCED CT SCAN OF THE HEAD: INDICATION / CLINICAL INFORMATION: 79 years Male; fall, unsure of LOC. TECHNIQUE: Routine CT head without contrast. All CT scans at this location are performed using CT dose reduction for ALARA by means of automated exposure control. COMPARISON: None. FINDINGS: BRAIN / INTRACRANIAL CONTENTS: No intracranial sequela from the trauma. Focal scalp thickening is seen in the left parasagittal frontoparietal junction, probably sebaceous cyst. No air-fluid level in the visualized portions of the paranasal sinuses. No acute hemorrhage, mass effect, midline shift, hydrocephalus, or acute, large territorial infarct. No chronic infarct or focal atrophy. Periventricular low attenuation areas are seen probably due to chronic small vessel disease. Cortical and deep central involutions are seen. CRANIOCERVICAL JUNCTION: No significant abnormality. ORBITS: No significant abnormality of visualized orbits. SINUSES / MASTOIDS: No significant abnormality of the visualized paranasal sinuses or mastoid air cells. ADDITIONAL FINDINGS: None. IMPRESSION: No intracranial sequela from the trauma Signer Name: Anahi Valenzuela MD Signed: 01/26/2020 4:17 PM Workstation Name: [id number] Transcribed By: BS Dictated By: Anahi Heart MD Electronically Authenticated By: Anahi Heart MD Signed Date/Time: 01/26/201616 DD/ 13 TD/TT: PELVIC RADIOGRAPH, ONE VIEW INDICATION / CLINICAL INFORMATION: fall pain COMPARISON: None available. FINDINGS: BONES / JOINT(S): No acute displaced fracture or subluxation. Moderate degenerative change of both hips. SOFT TISSUES: No significant abnormality. ADDITIONAL FINDINGS: Vascular calcifications in the pelvis. Probable prostate brachytherapy seeds. Signer Name: Leonor Holcomb MD Signed: 01/26/2020 4:51 PM Workstation Name: [id number] - Medical Decision Making Differential diagnosis, including but not limited to: Left upper extremity fracture, multiple rib fractures, pulmonary contusion, flail chest, intracranial injury, cervical spine injury Assessment and plan: 79-year-old gentleman, [id number], GCS of 15, who was in his usual state of health, and after mechanical fall, found to have impacted left-sided proximal humerus fracture and multiple rib fractures, and possible early pulmonary contusion. GCS 15. Protecting airway at this time. CT scan of the brain and cervical spine negative for acute pathology. X-rays ordered prior to my interpretation appropriately as part of the patient's primary and secondary survey. We do not detect any obvious penetrating injury on his primary and secondary survey. We will treat his pain aggressively. Screening laboratory studies obtained. CT scan of the chest is ordered by myself. This hospital does not have trauma surgery or orthopedics available for consultation. Given multiple injuries, significant tenderness, potential for dramatic clinical decompensation, patient requires transfer to a trauma center, as we cannot manage this patient at this hospital without the aforementioned consulting services, which at this point time, the hospital cannot provide. I discussed the care with trauma surgeon, Dr. Starks, at [facility], who graciously accepted the patient as a transfer. Updated patient regarding plan of care, and he verbalized understanding. He is hemodynamically stable at this time, and medically suitable for transportation for higher level of care. Critical care attestation.: If time is entered above; I have spent that time in minutes in the direct care of this critically ill patient, excluding procedure time. ED Disposition Clinical Impression: Multiple fractures of ribs of left side, Fracture of humerus, proximal, left, closed, End stage renal disease Disposition: DC/TX- [facility] IP Is pt being admited?: No Does the pt Need Aspirin: No Condition: Serious Referrals: ONIEL DENISE MD [Primary Care Provider] - 3-5 Days
--- NOTE | 2020-01-26 16:22 | Cat Scan Report ---
NONENHANCED CT SCAN OF THE HEAD: INDICATION / CLINICAL INFORMATION: 79 years Male; fall, unsure of LOC. TECHNIQUE: Routine CT head without contrast. All CT scans at this location are performed using CT dos e reduction for ALARA by means of automated exposure control. COMPARISON: None. FINDINGS: BRAIN / INTRACRANIAL CONTENTS: No intracranial sequela from the trauma. Focal scalp thickening is see n in the left parasagittal frontoparietal junction, probably sebaceous cyst. No air-fluid level in th e visualized portions of the paranasal sinuses. No acute hemorrhage, mass effect, midline shift, hydrocephalus, or acute, large territorial infarct. No chronic infarct or focal atrophy. Periventricular low attenuation areas are seen probably due to c hronic small vessel disease. Cortical and deep central involutions are seen. CRANIOCERVICAL JUNCTION: No significant abnormality. ORBITS: No significant abnormality of visualized orbits. SINUSES / MASTOIDS: No significant abnormality of the visualized paranasal sinuses or mastoid air sakshi ls. ADDITIONAL FINDINGS: None. IMPRESSION: No intracranial sequela from the trauma Signer Name: Anahi Valenzuela MD Signed: 01/26/2020 4:17 PM Workstation Name: [id number]
--- NOTE | 2020-01-26 16:34 | Cat Scan Report ---
Exam: CT cervical spine History: MAIN: fall, unsure of LOC ; Technique: Contiguous thin cut axial images obtained through the cervical spine. Sagittal and garcia l reconstructions performed by the technologist. All CT scans at this location are performed using CT dose reduction for ALARA by means of automated exposure control. Findings: No priors. There is no evidence of fracture or traumatic subluxation. No vertebral compression fracture; prevert ebral fat stripe is normal. In the transverse images, no fracture involving the bony canal. At C3-C4 disc level, disc osteophyte complex is seen extending bilaterally. Focal area of dense calci fication is seen in the ligamentum flavum posteriorly in the midline extending towards the left side. Neuroforamina are narrowed. Disc osteophyte complex without lateralization is seen at C4-C5 disc level. At C5-C6 disc level, bony spur is seen on the left side of midline. Right neuroforamen is narrowed. C6-C7 disc level, broad-based disc osteophyte complex is seen extending bilaterally. C7-T1 disc space is normal. Surrounding soft tissues are grossly normal. Impression: No signs of acute bony trauma to the cervical spine. Signer Name: Anahi Valenzuela MD Signed: 01/26/2020 4:29 PM Workstation Name: [id number]
[2020-01-26] MEDS ORDERED: MORPHINE 4 MG/1 ML INJ IV ONE (16:35)
[2020-01-26 16:55] LABS: Albumin 4.1 g/dL (3.9-5); Calcium 9.5 mg/dL (8.4-10.2)
[2020-01-26 17:05] LABS: Hematocrit 37.3 % (35.5-45.6); Hemoglobin 12.5 gm/dl (11.8-15.2); Mean Corpuscular HGB Conc 34 % (32-34); Mean Corpuscular Volume 94 fl (84-94); Red Blood Count 3.98 M/mm3 (3.65-5.03); Red Cell Distribution Width 18.4 % (13.2-15.2)
[2020-01-26 17:07] LABS: Platelet Count 106 K/mm3 (140-440)
[2020-01-26 17:46] LABS: INR 1.24 (0.87-1.13)
--- NOTE | 2020-01-26 17:56 | XRay Report ---
PELVIC RADIOGRAPH, ONE VIEW INDICATION / CLINICAL INFORMATION: fall pain COMPARISON: None available. FINDINGS: BONES / JOINT(S): No acute displaced fracture or subluxation. Moderate degenerative change of both hi ps. SOFT TISSUES: No significant abnormality. ADDITIONAL FINDINGS: Vascular calcifications in the pelvis. Probable prostate brachytherapy seeds. Signer Name: Leonor Holcomb MD Signed: 01/26/2020 5:51 PM Workstation Name: [id number]
--- NOTE | 2020-01-26 18:10 | Cat Scan Report ---
CT chest without contrast INDICATION : fall rib fx, pulm contusion pain. TECHNIQUE: Axial imaging performed through the chest without the use of intravenous contrast. All C T scans at this location are performed using CT dose reduction for ALARA by means of automated exposu re control. COMPARISON: Rib series from today FINDINGS: No displaced fractures identified. There are degenerative changes throughout the cervical spine which are moderately advanced with multilevel prominent Schmorl's node formation. There is a moderate-sized layering effusion on the right with underlying compressive atelectasis. Candi gs are otherwise clear. There is mild cardia megaly with moderate atherosclerotic disease in the thoracic aorta and in the co ronary arteries. Limited imaging of the upper abdomen shows nothing acute. There is small volume ascites. IMPRESSION: 1. No acute fracture identified. 2. Moderate-sized pleural effusion on the right and small volume ascites in the upper abdomen. Underl jp compressive atelectasis in the right lung. Signer Name: Joaquín Salcido MD Signed: 01/26/2020 6:06 PM Workstation Name: [id number]
[2020-01-26 21:25] VITALS: BP 146/78
== END 2020-01-26 21:27 | disposition short-term general hospital (02) ==
LOC: ED 13:12
DX: S22.42XA Multiple fractures of ribs, left side, initial encounter for closed fracture (principal); S42.292A Other displaced fracture of upper end of left humerus, initial encounter for closed fracture; I12.0 Hypertensive chronic kidney disease with stage 5 chronic kidney disease or end stage renal disease; E11.22 Type 2 diabetes mellitus with diabetic chronic kidney disease; N18.6 End stage renal disease; Z98.890 Other specified postprocedural states; Z79.4 Long term (current) use of insulin; Z79.899 Other long term (current) drug therapy; Z79.1 Long term (current) use of non-steroidal anti-inflammatories (NSAID); Z88.8 Allergy status to other drugs, medicaments and biological substances; W01.0XXA Fall on same level from slipping, tripping and stumbling without subsequent striking against object, initial encounter; Y93.89 Activity, other specified; Y92.89 Other specified places as the place of occurrence of the external cause; Y99.8 Other external cause status
CPT/HCPCS: 36415; 70450; 71111; 71250; 72125; 72170; 73030; 80053; 82550; 83735; 85027; 85610; 96374; 99285; J2270

== ENCOUNTER 2020-05-09 07:57 | Emergency (ER) | payer MEDICARE ==
[2020-05-09] MEDS ORDERED: ONDANSETRON 4 MG/2 ML INJ IV ONE (08:24)
--- NOTE | 2020-05-09 08:25 | Emergency Department Report ---
ED General Adult HPI - General Chief complaint: Weakness Stated complaint: ABDOMINAL PRESSURE/CAN'T SWOLLOW PUI?: No Time Seen by Provider: 05/09/20 08:13 Source: patient, EMS (Verbal report received from emergency medical services. EMS documentation not available at time of chart dictation ), RN notes reviewed Mode of arrival: Stretcher Limitations: Physical Limitation - History of Present Illness Initial comments: The patient was evaluated in the emergency department for symptoms described in the history of present illness. He/she was evaluated in the context of the global COVID-19 pandemic, which necessitated consideration that the patient might be at risk for infection with the virus that causes COVID-19. Institut ional protocols and algorithms that pertain to the evaluation of patients at risk for COVID-19 are in a state of rapid change based on information released by regulatory bodies including the CDC and federal and state organizations. These policies and algorithms were followed during the patient's care in the emergency department. Please note that these policies, procedures and recommendations changed on a rapid basis. Nephrology: Dr. Agudelo The patient is an 79-year-old gentleman. His past medical history is complicated, including diabetes on insulin, hypertension, end-stage renal disease, on hemodialysis, Tuesday, Tuesday, Tuesday, supposed to have hemodialysis today, recently diagnosed cirrhosis, chronic congestive heart failure with EF of 40 to 45%, and a documented history of dysphasia in the past. He is sent to the emergency room today by his dialysis center with a complaint of abdominal pressure, nausea, vomiting, and inability to take/tolerate any oral feeds. Patient reports no physical pain, but reports that he feels "tense." He reports inability to swallow solids and/or liquids. He is unable to take his medicines. He denies headache, neck pain, chest pain. He has lower extremity swelling. He does not produce urine. He reports a few episodes of loose bowel movements. Symptoms worsen when he attempts to eat or drink. -: Gradual, days(s) Consistency: intermittent Improves with: rest Worsens with: eating - Related Data Home Medications Medication Instructions Recorded Confirmed Last Taken Insulin Aspart (Nf) [NovoLOG 100 0 unit SUB-Q AC 04/20/18 08/17/18 Unknown UNITS/ML VIAL] Previous Rx's Medication Instructions Recorded Last Taken Type ALBUTEROL Inhaler(NF) [VENTOLIN 2 puff IH Q4H PRN #1 inha 08/20/18 Unknown Rx Inhaler(NF)] Aspirin EC [Halfprin EC] 81 mg PO QDAY #30 tablet 08/20/18 Unknown Rx Bumetanide [Bumex 1 mg tab] 2 mg PO QAM 30 Days tablet 08/20/18 Unknown Rx Losartan [Cozaar] 25 mg PO QDAY #30 tablet 08/20/18 Unknown Rx Simvastatin (Nf) [Zocor TAB] 20 mg PO QHS #30 tablet 08/20/18 Unknown Rx Tamsulosin [Flomax] 0.4 mg PO QPM #30 capsule 08/20/18 Unknown Rx oxyCODONE /ACETAMINOPHEN [Percocet 1 tab PO QHS PRN #10 tablet 08/20/18 Unknown Rx 5/325 mg] Metoprolol Xl [Metoprolol 25 mg PO QDAY tablet 03/24/20 Unknown Rx SUCCINATE ER TAB] megestroL [Megestrol] 400 mg PO QDAY 30 Days 03/24/20 Unknown Rx Allergies Allergy/AdvReac Type Severity Reaction Status Date / Time No Known Allergies Allergy Unverified 11/01/17 09:33 ED Review of Systems ROS: Stated complaint: ABDOMINAL PRESSURE/CAN'T SWOLLOW Other details as noted in HPI Constitutional: malaise, weakness Eyes: denies: eye discharge ENT: denies: congestion Respiratory: shortness of breath (Chronic shortness of breath). denies: wheezing Cardiovascular: edema. denies: chest pain Gastrointestinal: nausea. denies: abdominal pain, hematemesis, melena, hematochezia Genitourinary: denies: dysuria Musculoskeletal: myalgia Skin: denies: lesions Neurological: weakness Hematological/Lymphatic: denies: easy bleeding ED Past Medical Hx - Past Medical History Hx Hypertension: Yes Hx Congestive Heart Failure: No Hx Diabetes: Yes Hx Liver Disease: Yes (cirrhosis newly diagnosed) Hx Renal Disease: Yes (stage 5 CKD, On dialysis M,W,F) Hx Arthritis: Yes (LEFT KNEE SURGERY) Hx Asthma: No Hx COPD: No Additional medical history: Dialysis Access Left arm Last Dialyzed this am - Surgical History Hx Appendectomy: Yes Additional Surgical History: Prostate surgery, right knee surgery. Cardiac stent 07/2018 - Social History Smoking Status: Never Smoker - Medications Home Medications: Home Medications Medication Instructions Recorded Confirmed Last Taken Type Insulin Aspart (Nf) [NovoLOG 100 0 unit SUB-Q AC 04/20/18 08/17/18 Unknown History UNITS/ML VIAL] ALBUTEROL Inhaler(NF) [VENTOLIN 2 puff IH Q4H PRN #1 inha 08/20/18 03/18/20 Unknown Rx Inhaler(NF)] Aspirin EC [Halfprin EC] 81 mg PO QDAY #30 tablet 08/20/18 03/18/20 Unknown Rx Bumetanide [Bumex 1 mg tab] 2 mg PO QAM 30 Days tablet 08/20/18 03/18/20 Unknown Rx Losartan [Cozaar] 25 mg PO QDAY #30 tablet 08/20/18 03/18/20 Unknown Rx Simvastatin (Nf) [Zocor TAB] 20 mg PO QHS #30 tablet 08/20/18 03/18/20 Unknown Rx Tamsulosin [Flomax] 0.4 mg PO QPM #30 capsule 08/20/18 03/18/20 Unknown Rx oxyCODONE /ACETAMINOPHEN [Percocet 1 tab PO QHS PRN #10 tablet 08/20/18 03/18/20 Unknown Rx 5/325 mg] Metoprolol Xl [Metoprolol 25 mg PO QDAY tablet 03/24/20 Unknown Rx SUCCINATE ER TAB] megestroL [Megestrol] 400 mg PO QDAY 30 Days 03/24/20 Unknown Rx ED Physical Exam - General Limitations: No Limitations General appearance: alert, anxious, in distress, obese - Head Head exam: Present: atraumatic, normocephalic - Eye Eye exam: Present: normal appearance, EOMI. Absent: nystagmus - ENT ENT exam: Present: normal exam, normal orophraynx, mucous membranes moist, normal external ear exam - Neck Neck exam: Present: normal inspection, full ROM. Absent: tenderness, meningismus - Respiratory Respiratory exam: Present: decreased breath sounds. Absent: respiratory distress, wheezes, rales, rhonchi, stridor - Cardiovascular Cardiovascular Exam: Present: regular rate, normal rhythm, normal heart sounds. Absent: bradycardia, tachycardia, irregular rhythm, systolic murmur, diastolic murmur, rubs, gallop - GI/Abdominal GI/Abdominal exam: Present: soft, other (Ascites fluid is appreciated, there is no abdominal tenderness, rebound or guarding.). Absent: distended, tenderness, guarding, rebound, rigid, pulsatile mass - Rectal Rectal exam: Present: deferred - Extremities Exam Extremities exam: Present: normal inspection (There is a left upper extremity fistula, without redness, pus, streaking or tenderness.), full ROM, pedal edema (3+ edema noted in the bilateral lower extremities), other (2+ pulses noted in the bilateral upper and lower extremities. There is no palpable cord. negative Homans sign. Muscular compartments are soft. The pelvis is stable.). Absent: calf tenderness - Back Exam Back exam: Present: normal inspection, full ROM. Absent: tenderness, CVA tenderness (R), CVA tenderness (L), paraspinal tenderness, vertebral tenderness - Neurological Exam Neurological exam: Present: alert, other (No facial droop. Tongue midline. Extraocular movements intact bilaterally. Facial sensation intact to light touch in V1, V2, V3 distribution bilaterally. 5 and a 5 strength in 4 extremities. Sensation intact to light touch in 4 extremities.). Absent: motor sensory deficit - Psychiatric Psychiatric exam: Present: anxious - Skin Skin exam: Present: warm, dry, intact, normal color. Absent: rash ED Course Vital Signs 05/09/20 05/09/20 08:28 08:59 Temperature 98.4 F Pulse Rate 79 Respiratory 12 12 Rate Blood Pressure 151/80 Blood Pressure 151/80 [Right] O2 Sat by Pulse 100 100 Oximetry - Reevaluation(s) Reevaluation #1: 05/09/20 08:55 Differential diagnosis, including but not limited to: Dysphasia, electrolyte derangement, hyperkalemia, end-stage renal disease, fluid overload Assessment and plan: 79-year-old gentleman with evidence of fluid overload, manifest by lower extremity edema, also with dysphagia. X-ray of the chest shows right lower lobe atelectasis and effusion. This finding appears to be chronic, there also appears to be an opacity however we do not clinically suspect pneumonia at this time We will obtain swallow screen/barium swallow test. Check appropriate laboratory studies and obtain EKG. We will reassess after his data points have resulted. 05/09/20 09:05 05/09/20 10:44 Reevaluation #2: 05/09/20 10:44 The patient is reassessed. X-ray of the chest shows chronic findings. We do not clinically suspect acute pneumonia or aspiration. Barium swallow was unremarkable, laboratory studies do not demonstrate emergent need for hemodialysis while in the hospital. I contacted the patient's covering densitometrist, Dr. Agudelo, I discussed the patient's history, physical, pertinent laboratory findings. He states he can arrange her outpatient hemodialysis immediately, and therefore, the patient can be discharged from emergency room to go to his hemodialysis as an outpatient receive his routine outpatient hemodialysis. He can follow-up with a primary care doctor or freelance programmer/app developer for his chronic subjective dysphagia. ED Medical Decision Making - Lab Data Result diagrams: 05/09/20 08:36 05/09/20 08:36 Vital Signs 05/09/20 08:28 Temperature 98.4 F Pulse Rate 79 Respiratory 12 Rate Blood Pressure 151/80 Blood Pressure 151/80 [Right] O2 Sat by Pulse 100 Oximetry Lab Results 05/09/20 Range/Units 08:36 WBC 8.3 (4.5-11.0) K/mm3 RBC 3.41 L (3.65-5.03) M/mm3 Hgb 10.9 L (11.8-15.2) gm/dl Hct 32.9 L (35.5-45.6) % MCV 97 H (84-94) fl MCH 32 (28-32) pg MCHC 33 (32-34) % RDW 18.2 H (13.2-15.2) % Lymph % (Auto) 4.1 L (13.4-35.0) % Rich % (Auto) 12.7 H (0.0-7.3) % Eos % (Auto) 0.2 (0.0-4.3) % Baso % (Auto) 0.2 (0.0-1.8) % Lymph # (Auto) 0.3 L (1.2-5.4) K/mm3 Rich # (Auto) 1.1 H (0.0-0.8) K/mm3 Eos # (Auto) 0.0 (0.0-0.4) K/mm3 Baso # (Auto) 0.0 (0.0-0.1) K/mm3 Seg Neutrophils % 82.8 H (40.0-70.0) % Seg Neutrophils # 6.9 (1.8-7.7) K/mm3 - EKG Data -: EKG Interpreted by Me EKG shows normal: sinus rhythm Rate: normal - EKG Data When compared to previous EKG there are: no significant change Interpretation: unchanged when compared t (Compared to prior EKG from March 17, 2020) 05/09/20 08:57 Sinus rhythm, 78 bpm, there is a left axis deviation, there is a left anterior fascicular block, nonspecific interventricular conduction delay, multiple Q waves, poor R wave progression. The EKG is abnormal. The EKG is not a STEMI. Unchanged from prior EKG - Radiology Data Radiology results: pending, report reviewed, image reviewed Print Report Referring Physician: VIET PARKER Patient Name: KALEB FERMIN Date of : 1940 Sex: Male Report Date: 2020-05-09 Report Status: Finalized Findings [facility] [address] [place] [address] XRay Report Signed Patient: KALEB FERMIN MR#: [id number] : 1940 Acct:[id number] Age/Sex: 79 / M ADM Date: 05/09/20 Loc: ED Attending Dr: Ordering Physician: VIET PARKER MD Date of Service: 05/09/20 Procedure(s): XR chest 1V ap Accession Number(s): [id number] cc: VIET PARKER MD Fluoro Time In Minutes: CHEST 1 VIEW INDICATION / CLINICAL INFORMATION: dysphagia. CO MPARISON: 03/17/2020 FINDINGS: SUPPORT DEVICES: None. HEART / MEDIASTINUM: There is prominence the cardiac silhouette LUNGS / PLEURA: There is elevation right hemidiaphragm. There is airspace opacity in the right lung base which is similar to the prior study the left lung appears clear. No pneumothorax is seen.. ADDITIONAL FINDINGS: No significant additional findings. IMPRESSION: 1. There is persistent airspace opacity in the right lung base. There is elevation of the right hemidiaphragm. 2. There is prominence of the cardiac silhouette Signer Name: Adan Malik MD Signed: 05/09/2020 8:49 AM Workstation Name: [id number] Transcribed By: SS Dictated By: Adan Malik MD Electronically Authenticated By: Adan Malik MD Signed Date/Time: 05/09/20 0849 DD/ TD/TT: Print Report Referring Physician: BYRON MATSON Patient Name: KALEB FERMIN Date of : 1940 Sex: Male Report Date: 2020-03-17 Report Status: Finalized Findings [address] [address] XRay Report Signed Patient: KALEB FERMIN MR#: [id number] : 1940 Acct:[id number] Age/Sex: 79 / M ADM Date: 03/17/20 Loc: ED Attending Dr: Ordering Physician: SHAHEEN RODRÍGUEZ Date of Service: 03/17/20 Procedure(s): XR chest routine 2V Accession Number(s): [id number] cc: SHAHEEN RODRÍGUEZ Fluoro Time In Minutes: CHEST 2 VIEWS INDICATION: weakness. COMPARISON: 08/16/2018 FINDINGS: SUPPORT DEVICES: None. HEART: Within normal limits. LUNGS/PLEURA: Patchy right basilar airspace disease with moderate-sized layering effusion. Clear left lung. No pneumothorax. ADDITIONAL FINDINGS: None. IMPRESSION: 1. Pulmonary findings as above. Signer Name: Joaquín Salcido MD Signed: 03/17/2020 6:20 PM Workstation Name: [id number] Transcribed By: JW Dictated By: Joaquín Salcido MD Electronically Authenticated By: Joaquín Salcido MD Signed Date/Time: 03/17/201819 DD/ 1818 Print Report Referring Physician: VIET PARKER Patient Name: KALEB FERMIN Date of : 1940 Sex: Male Report Date: 2020-05-09 Report Status: Finalized Findings [address] [address] Fluoroscopy Report Signed Patient: KALEB FERMIN MR#: [id number] : 1940 Acct:[id number] Age/Sex: 79 / M ADM Date: 05/09/20 Loc: ED Atten ding Dr: Ordering Physician: VIET PARKER MD Date of Service: 05/09/20 Procedure(s): FL barium swallow (esophogram) Accession Number(s): [id number] cc: VIET PARKER MD Fluoro Time In Minutes: 0.8 Limited barium swallow Indication: Chronic dysphagia, reportedly unable to drink water, here for evaluation prior to any potential intervention. Technique: Limited single contrast barium technique utilized to evaluate the esophagus. Findings: To begin the exam, the patient was unable to stand completely so he was tipped to approximately 45 degrees upright. Single contrast technique utilizing thin barium demonstrated no obstruction and contrast did pass distally into the stomach. There was no gross mass or mass effect. The patient was unable to tolerate any further testing. No gastroesophageal reflux. Impression: Very limited exam shows no obstruction or gross mass/mass effect. Fluoroscopic time: 0.8 minutes Number of fluoroscopic images: 10 Signer Name: Joaquín Salcido MD Signed: 05/09/2020 9:34 AM Workstation Name: [id number] Transcribed By: NGUYEN Dictated By: Joaquín Salcido MD Electronically Authenticated By: Joaquín Salcido MD Signed Date/Time: 05/09/20933 DD/ 2 TD/TT: Critical care attestation.: If time is entered above; I have spent that time in minutes in the direct care of this critically ill patient, excluding procedure time. ED Disposition Clinical Impression: ESRD (end stage renal disease), History of dysphagia Disposition: DC-01 TO HOME OR SELFCARE Is pt being admited?: No Does the pt Need Aspirin: No Condition: Stable Instructions: Chronic Kidney Disease (ED), Chronic Dysphagia (ED) Additional Instructions: Please continue outpatient medications. Avoid consumption of Motrin, ibuprofen, Naprosyn, Aleve, heavy and spicy foods. Please follow-up with a freelance programmer/app developer, such as Dr. Thomas within the next week. Advance diet as tolerated, recommend that patient start with foods that are easy to chew and swallow. Patient is to be discharged from this emergency room, and he should present to his outpatient hemodialysis center immediately for routine outpatient hemodialysis. Please return to the emergency room right away with new pain, worsened pain, migration of pain, projectile vomiting, change in mental status, confusion, inability to tolerate liquid feeds, new, worsened or different symptoms not present on the initial emergency room evaluation Referrals: CARMEN THOMAS MD [Staff Physician] - 3-5 Days BOBO AGUDELO MD [Staff Physician] - 3-5 Days
[2020-05-09 08:33] VITALS: BP 151/80
[2020-05-09 08:52] LABS: Basophils % (Auto) 0.2 % (0.0-1.8); Eosinophils % (Auto) 0.2 % (0.0-4.3); Hematocrit 32.9 % (35.5-45.6); Hemoglobin 10.9 gm/dl (11.8-15.2); Lymphocytes # (Auto) 0.3 K/mm3 (1.2-5.4); Lymphocytes % (Auto) 4.1 % (13.4-35.0); Mean Corpuscular HGB Conc 33 % (32-34); Mean Corpuscular Volume 97 fl (84-94); Monocytes # (Auto) 1.1 K/mm3 (0.0-0.8); Monocytes % (Auto) 12.7 % (0.0-7.3); Red Blood Count 3.41 M/mm3 (3.65-5.03); Red Cell Distribution Width 18.2 % (13.2-15.2)
--- NOTE | 2020-05-09 08:53 | XRay Report ---
CHEST 1 VIEW INDICATION / CLINICAL INFORMATION: dysphagia. COMPARISON: 03/17/2020 FINDINGS: SUPPORT DEVICES: None. HEART / MEDIASTINUM: There is prominence the cardiac silhouette LUNGS / PLEURA: There is elevation right hemidiaphragm. There is airspace opacity in the right lung b ase which is similar to the prior study the left lung appears clear. No pneumothorax is seen.. ADDITIONAL FINDINGS: No significant additional findings. IMPRESSION: 1. There is persistent airspace opacity in the right lung base. There is elevation of the right hemid iaphragm. 2. There is prominence of the cardiac silhouette Signer Name: Adan Malik MD Signed: 05/09/2020 8:49 AM Workstation Name: [id number]
[2020-05-09 09:02] LABS: INR 1.46 (0.87-1.13)
[2020-05-09 09:14] LABS: Albumin 3.6 g/dL (3.9-5); Bilirubin,Direct 1.1 mg/dL (0-0.2)
[2020-05-09 09:33] LABS: Platelet Count 99 K/mm3 (140-440)
--- NOTE | 2020-05-09 09:39 | Fluoroscopy Report ---
Limited barium swallow Indication: Chronic dysphagia, reportedly unable to drink water, here for evaluation prior to any po tential intervention. Technique: Limited single contrast barium technique utilized to evaluate the esophagus. Findings: To begin the exam, the patient was unable to stand completely so he was tipped to approxim ately 45 degrees upright. Single contrast technique utilizing thin barium demonstrated no obstruction and contrast did pass dis tally into the stomach. There was no gross mass or mass effect. The patient was unable to tolerate an y further testing. No gastroesophageal reflux. Impression: Very limited exam shows no obstruction or gross mass/mass effect. Fluoroscopic time: 0.8 minutes Number of fluoroscopic images: 10 Signer Name: Joaquín Salcido MD Signed: 05/09/2020 9:34 AM Workstation Name: [id number]
[2020-05-09 09:56] LABS: Calcium 10.2 mg/dL (8.4-10.2)
== END 2020-05-09 11:54 | disposition home or self-care (01) ==
LOC: ED 07:57
DX: E11.22 Type 2 diabetes mellitus with diabetic chronic kidney disease (principal); I12.0 Hypertensive chronic kidney disease with stage 5 chronic kidney disease or end stage renal disease; N18.6 End stage renal disease; R13.10 Dysphagia, unspecified; M19.91 Primary osteoarthritis, unspecified site; Z99.2 Dependence on renal dialysis; Z98.890 Other specified postprocedural states; Z79.4 Long term (current) use of insulin; Z79.899 Other long term (current) drug therapy
CPT/HCPCS: 36415; 71045; 74220; 80048; 80076; 82140; 82550; 83735; 83880; 85025; 85610; 93005

== ENCOUNTER 2020-06-01 13:44 | Inpatient (IN) | payer MEDICARE ==
[2020-06-01] MEDS ORDERED: SODIUM CHLORIDE 0.9% 1000 ML 1,000 ML IV ONE (14:08)
--- NOTE | 2020-06-01 14:12 | Emergency Department Report ---
ED General Adult HPI - General Chief complaint: Hyperglycemia Stated complaint: HYPERGLYCEMIA Time Seen by Provider: 06/01/20 13:52 Source: patient, EMS Mode of arrival: Stretcher Limitations: No Limitations - History of Present Illness Initial comments: Patient is 79 years old male with history of end-stage renal disease on hemodialysis, last dialysis this morning. Patient also had history of diabetes and hypertension. Patient brought to the emergency room for evaluation of hyper glycemia and generalized weakness. EMS stated that patient blood sugar recorded more than 500. Patient denied any chest pain, shortness of breath, abdominal pain, nausea, vomiting or diarrhea. No fever or chills. Patient stated that he is not sure if he took his medicine for diabetes or not. Patient informed the nurse that he has not been drinking and eating well for the last few days. - Related Data Home Medications Medication Instructions Recorded Confirmed Last Taken Insulin Glargine [Lantus VIAL] 50 unit SUB-Q QHS 06/01/20 06/01/20 Unknown Metoprolol Xl [Metoprolol 50 mg PO QDAY 06/01/20 Unknown SUCCINATE ER TAB] Pravastatin Sodium [Pravastatin] 10 mg PO QHS 06/01/20 06/01/20 Unknown Tamsulosin [Flomax] 0.4 mg PO DAILY 06/01/20 Unknown amLODIPine [Norvasc] 10 mg PO DAILY 06/01/20 06/01/20 Unknown hydrALAZINE [Apresoline TAB] 100 mg PO TID 06/01/20 06/01/20 Unknown megestroL [Megestrol] 400 mg PO TID 06/01/20 Unknown Previous Rx's Medication Instructions Recorded Last Taken Type Aspirin EC [Halfprin EC] 81 mg PO QDAY #30 tablet 08/20/18 Unknown Rx Allergies Allergy/AdvReac Type Severity Reaction Status Date / Time No Known Allergies Allergy Unverified 11/01/17 09:33 ED Review of Systems ROS: Stated complaint: HYPERGLYCEMIA Other details as noted in HPI Comment: All other systems reviewed and negative Constitutional: denies: chills, fever Respiratory: denies: cough, shortness of breath, SOB with exertion, SOB at rest Gastrointestinal: denies: abdominal pain, nausea, vomiting, diarrhea, constipation, hematemesis, melena, hematochezia Musculoskeletal: denies: back pain Neurological: weakness. denies: headache, numbness, paresthesias, confusion, abnormal gait ED Past Medical Hx - Past Medical History Previous Medical History?: Yes Hx Hypertension: Yes Hx Congestive Heart Failure: No Hx Diabetes: Yes Hx Liver Disease: Yes (cirrhosis newly diagnosed) Hx Renal Disease: Yes (stage 5 CKD, On dialysis M,W,F) Hx Arthritis: Yes (LEFT KNEE SURGERY) Hx Asthma: No Hx COPD: No Additional medical history: Dialysis Access Left arm Last Dialyzed this am - Surgical History Hx Appendectomy: Yes Additional Surgical History: Prostate surgery, right knee surgery. Cardiac stent 07/2018 - Social History Smoking Status: Former Smoker - Medications Home Medications: Home Medications Medication Instructions Recorded Confirmed Last Taken Type Aspirin EC [Halfprin EC] 81 mg PO QDAY #30 tablet 08/20/18 03/18/20 Unknown Rx Insulin Glargine [Lantus VIAL] 50 unit SUB-Q QHS 06/01/20 06/01/20 Unknown History Metoprolol Xl [Metoprolol 50 mg PO QDAY 06/01/20 Unknown History SUCCINATE ER TAB] Pravastatin Sodium [Pravastatin] 10 mg PO QHS 06/01/20 06/01/20 Unknown History Tamsulosin [Flomax] 0.4 mg PO DAILY 06/01/20 Unknown History amLODIPine [Norvasc] 10 mg PO DAILY 06/01/20 06/01/20 Unknown History hydrALAZINE [Apresoline TAB] 100 mg PO TID 06/01/20 06/01/20 Unknown History megestroL [Megestrol] 400 mg PO TID 06/01/20 Unknown History ED Physical Exam - General Limitations: No Limitations General appearance: alert, in no apparent distress - Head Head exam: Present: atraumatic, normocephalic, normal inspection - Eye Eye exam: Present: normal appearance - ENT ENT exam: Present: normal exam, normal orophraynx, mucous membranes moist - Neck Neck exam: Present: normal inspection, full ROM. Absent: tenderness, meningismus, lymphadenopathy, thyromegaly - Respiratory Respiratory exam: Present: normal lung sounds bilaterally - Cardiovascular Cardiovascular Exam: Present: regular rate, normal rhythm, normal heart sounds - GI/Abdominal GI/Abdominal exam: Present: soft, normal bowel sounds. Absent: distended, tenderness, guarding, rebound, rigid, organomegaly, mass, bruit, pulsatile mass, hernia - Extremities Exam Extremities exam: Present: normal capillary refill - Back Exam Back exam: Present: normal inspection. Absent: CVA tenderness (R), CVA tenderness (L) - Neurological Exam Neurological exam: Present: alert, oriented X3, CN II-XII intact - Psychiatric Psychiatric exam: Present: normal mood - Skin Skin exam: Present: warm, dry, intact ED Course Vital Signs 06/01/20 06/01/20 06/01/20 13:45 13:48 14:00 Temperature 97.5 F L Pulse Rate 62 64 Respiratory 16 11 L 16 Rate Blood Pressure 125/57 O2 Sat by Pulse 96 Oximetry 06/01/20 06/01/20 06/01/20 15:01 16:00 17:00 Temperature Pulse Rate 64 82 74 Respiratory 13 14 20 Rate Blood Pressure 125/57 141/90 133/76 O2 Sat by Pulse 95 Oximetry 06/01/20 06/01/20 06/01/20 19:01 20:01 21:01 Temperature Pulse Rate 68 Respiratory 16 18 19 Rate Blood Pressure 127/68 127/68 127/68 O2 Sat by Pulse 100 98 97 Oximetry ED Medical Decision Making - Lab Data Result diagrams: 06/01/20 14:15 06/01/20 14:15 - EKG Data -: EKG Interpreted by Il - Radiology Data Radiology results: report reviewed - Medical Decision Making Patient is 79 years old male with history of end-stage renal disease on hemodialysis, last dialysis this morning. Patient also had history of diabetes and hypertension. Patient brought to the emergency room for evaluation of hyper glycemia and generalized weakness. EMS stated that patient blood sugar recorded more than 500. Patient denied any chest pain, shortness of breath, abdominal pain, nausea, vomiting or diarrhea. No fever or chills. Patient stated that he is not sure if he took his medicine for diabetes or not. Patient labs reviewed and is unremarkable except for lactic acid of 3.9 that increased to 4.4 even after fluids. Chest x-ray is unremarkable except for a right pleural effusion no evidence of pneumonia. CT abdomen and pelvis is negative for acute finding. Patient received 1/2 L of normal saline so far. I discussed the patient with Dr. Schmidt, he agreed to admit the patient to medical service for further management. Critical Care Time: Yes Critical care time in (mins) excluding proc time.: 30 Critical care attestation.: If time is entered above; I have spent that time in minutes in the direct care of this critically ill patient, excluding procedure time. ED Disposition Clinical Impression: Lactic acidosis, Acute hyperglycemia, Dehydration Disposition: DC-09 OP ADMIT IP TO THIS HOSP Is pt being admited?: Yes Condition: Stable
[2020-06-01] MEDS ORDERED: INSULIN REGULAR, HUMAN 100 UNIT/ML 3ML VIAL IV ONE (15:07)
[2020-06-01 15:09] LABS: Basophils # (Auto) 0.1 K/mm3 (0.0-0.1); Eosinophils # (Auto) 0.1 K/mm3 (0.0-0.4); Eosinophils % (Auto) 1.2 % (0.0-4.3); Hematocrit 39.1 % (35.5-45.6); Hemoglobin 12.5 gm/dl (11.8-15.2); Lymphocytes # (Auto) 0.4 K/mm3 (1.2-5.4); Lymphocytes % (Auto) 6.3 % (13.4-35.0); Mean Corpuscular HGB Conc 32 % (32-34); Mean Corpuscular Volume 103 fl (84-94); Monocytes # (Auto) 0.7 K/mm3 (0.0-0.8); Monocytes % (Auto) 10.6 % (0.0-7.3); Red Blood Count 3.82 M/mm3 (3.65-5.03); Red Cell Distribution Width 19.8 % (13.2-15.2)
[2020-06-01 15:21] LABS: Calcium 9.7 mg/dL (8.4-10.2)
--- NOTE | 2020-06-01 15:24 | XRay Report ---
CHEST 1 VIEW INDICATION / CLINICAL INFORMATION: Lightheadedness/Dizziness. COMPARISON: 05/09/2020 FINDINGS: SUPPORT DEVICES: None. HEART / MEDIASTINUM: Mild cardiomegaly LUNGS / PLEURA: Pleural-parenchymal disease in the right lung base No pneumothorax. ADDITIONAL FINDINGS: No significant additional findings. IMPRESSION: Mild cardiomegaly with pleural-parenchymal disease in the right lung base which could represent pleur al fluid Signer Name: Edmundo Lopez MD FACR Signed: 06/01/2020 3:19 PM Workstation Name: [id number]
[2020-06-01 15:25] LABS: Albumin 4.1 g/dL (3.9-5); Bilirubin,Direct 0.6 mg/dL (0-0.2)
[2020-06-01 16:02] LABS: Platelet Count 64 K/mm3 (140-440)
[2020-06-01] MEDS ORDERED: SODIUM CHLORIDE 0.9% 500 ML 500 ML IV ONE (17:34)
--- NOTE | 2020-06-01 18:59 | Cat Scan Report ---
CT abdomen pelvis wo con INDICATION / CLINICAL INFORMATION: MAIN. TECHNIQUE: All CT scans at this location are performed using CT dose reduction for ALARA by means of automated e xposure control. COMPARISON: 05/22/2018 FINDINGS: A large right pleural effusion is present with basilar atelectasis. A moderate amount of ascites is p resent in the abdomen. Stomach is moderately distended. Diffuse atherosclerotic changes present witho ut evidence of an aneurysm. A nonobstructing right renal stone is present. The liver, spleen, left ki dney, pancreas and adrenal glands are normal. In the pelvis, a small amount of ascites is present. No enlarged lymph nodes are seen. The bladder is normal. Diffuse degenerative changes seen in the spine. IMPRESSION: 1. Large right pleural effusion with basilar atelectasis 2. Moderate amount of ascites 3. moderate gastric distention 4. Nonobstructing right renal stone Signer Name: Edmundo Lopez MD FACR Signed: 06/01/2020 6:55 PM Workstation Name: [id number]
--- NOTE | 2020-06-01 19:11 | History and Physical Report ---
History of Present Illness Chief complaint: I feel weak History of present illness: 79 YO Male with ESRD on HD(M, W,F), HTN, HLD, BPH, Asthma, DM, CAD S/P Stent Placement, Vascular Dementia, Cerebral Atherosclerosis presents to ED for evaluation. Patient has cognitive slowing and provides minimal history. Patient acknowledges feeling weak and also reports that he does not remember if he took his prescribed medication. Patient acknowledges decreased exercise tolerance, orthopnea, and shortness of breath. Patient found to have elevated blood glucose levels. EMS was notified and upon arrival the patient was found to be in distress and subsequently transported to [facility] for further care and evaluation of the aforementioned symptoms. Patient seen and evaluated in the emergency department. All lab and imaging studies reviewed. Patient found to have end-stage renal disease, metabolic acidosis, as well as clinical symptoms consistent with diastolic congestive heart failure. Patient admitted to telemetry and initiated on CHF protocol. Nephrology team consulted in ED. Cardiology team consulted in ED. No reports of fever, chills, chest pain, palpitation, leg swelling, chills, CP, Palpitations, NVD, Trauma, productive cough, or recent ill contacts. Advanced care planning conducted in ED. Past History Past Medical History: heart failure, hypertension, hyperlipidemia, other (See HPI) Past Surgical History: total knee replacement, Other (Prostate surgery, cardiac stent placement, dialysis access) Social history: . denies: smoking, alcohol abuse, prescription drug abuse Family history: diabetes, hypertension Medications and Allergies Allergies Allergy/AdvReac Type Severity Reaction Status Date / Time No Known Allergies Allergy Unverified 11/01/17 09:33 Home Medications Medication Instructions Recorded Confirmed Last Taken Type Aspirin EC [Halfprin EC] 81 mg PO QDAY #30 tablet 08/20/18 03/18/20 Unknown Rx Insulin Glargine [Lantus VIAL] 50 unit SUB-Q QHS 06/01/20 06/01/20 Unknown History Metoprolol Xl [Metoprolol 50 mg PO QDAY 06/01/20 Unknown History SUCCINATE ER TAB] Pravastatin Sodium [Pravastatin] 10 mg PO QHS 06/01/20 06/01/20 Unknown History Tamsulosin [Flomax] 0.4 mg PO DAILY 06/01/20 Unknown History amLODIPine [Norvasc] 10 mg PO DAILY 06/01/20 06/01/20 Unknown History hydrALAZINE [Apresoline TAB] 100 mg PO TID 06/01/20 06/01/20 Unknown History megestroL [Megestrol] 400 mg PO TID 06/01/20 Unknown History Review of Systems ROS unobtainable: due to mental status Constitutional: weakness Exam - Constitutional Vitals: Temp Pulse Resp BP Pulse Ox 97.5 F L 62 16 125/57 96 06/01/20 13:45 06/01/20 13:45 06/01/20 14:00 06/01/20 13:45 06/01/20 14:00 General appearance: Present: mild distress - EENT Eyes: Present: PERRL ENT: hearing intact, clear oral mucosa - Neck Neck: Present: supple, normal ROM - Respiratory Respiratory effort: normal Respiratory: bilateral: CTA - Cardiovascular Heart Sounds: Present: S1 & S2. Absent: rub, click - Extremities Extremities: pulses symmetrical, No edema Peripheral Pulses: within normal limits - Abdominal General gastrointestinal: Present: soft, non-tender, non-distended, normal bowel sounds Male genitourinary: Present: normal - Integumentary Integumentary: Present: clear, warm, dry - Musculoskeletal Musculoskeletal: gait normal, strength equal bilaterally - Psychiatric Psychiatric: appropriate mood/affect, intact judgment & insight - Neurologic Neurologic: CNII-XII intact, moves all extremities HEART Score - HEART Score Troponin: Troponin T 0.293 ng/mL (0.00-0.029) H* 06/01/20 16:20 Results - Labs CBC & Chem 7: 06/01/20 14:15 06/01/20 14:15 Labs: Abnormal lab results 06/01/20 06/01/20 06/01/20 Range/Units 14:15 14:15 14:15 MCV 103 H (84-94) fl MCH 33 H (28-32) pg RDW 19.8 H (13.2-15.2) % Plt Count 64 L (140-440) K/mm3 Lymph % (Auto) 6.3 L (13.4-35.0) % [place] % (Auto) 10.6 H (0.0-7.3) % Lymph # (Auto) 0.4 L (1.2-5.4) K/mm3 Seg Neutrophils % 80.9 H (40.0-70.0) % Sodium 135 L (137-145) mmol/L Chloride 94.0 L (98-107) mmol/L BUN 38 H (9-20) mg/dL Creatinine 4.5 H (0.8-1.3) mg/dL Glucose 411 H (75-100) mg/dL POC Glucose (70-105) Lactic Acid 3.90 H* (0.7-2.0) mmol/L Direct Bilirubin (0-0.2) mg/dL Alkaline Phosphatase (35-129) units/L Troponin T 0.339 H* (0.00-0.029) ng/mL Total Protein (6.3-8.2) g/dL 06/01/20 06/01/20 06/01/20 Range/Units 14:15 14:21 16:20 MCV (84-94) fl MCH (28-32) pg RDW (13.2-15.2) % Plt Count (140-440) K/mm3 Lymph % (Auto) (13.4-35.0) % [place] % (Auto) (0.0-7.3) % Lymph # (Auto) (1.2-5.4) K/mm3 Seg Neutrophils % (40.0-70.0) % Sodium (137-145) mmol/L Chloride (98-107) mmol/L BUN (9-20) mg/dL Creatinine (0.8-1.3) mg/dL Glucose (75-100) mg/dL POC Glucose 361 H (70-105) Lactic Acid 4.40 H* (0.7-2.0) mmol/L Direct Bilirubin 0.6 H (0-0.2) mg/dL Alkaline Phosphatase 168 H (35-129) units/L Troponin T (0.00-0.029) ng/mL Total Protein 8.6 H (6.3-8.2) g/dL 06/01/20 06/01/20 Range/Units 16:20 17:49 MCV (84-94) fl MCH (28-32) pg RDW (13.2-15.2) % Plt Count (140-440) K/mm3 Lymph % (Auto) (13.4-35.0) % [place] % (Auto) (0.0-7.3) % Lymph # (Auto) (1.2-5.4) K/mm3 Seg Neutrophils % (40.0-70.0) % Sodium (137-145) mmol/L Chloride (98-107) mmol/L BUN (9-20) mg/dL Creatinine (0.8-1.3) mg/dL Glucose (75-100) mg/dL POC Glucose 239 H (70-105) Lactic Acid (0.7-2.0) mmol/L Direct Bilirubin (0-0.2) mg/dL Alkaline Phosphatase (35-129) units/L Troponin T 0.293 H* (0.00-0.029) ng/mL Total Protein (6.3-8.2) g/dL Assessment and Plan - Patient Problems (1) CHF (congestive heart failure) Current Visit: No Status: Acute Qualifiers: Heart failure type: unspecified Heart failure chronicity: acute on chronic Qualified Code(s): I50.9 - Heart failure, unspecified Plan to address problem: Strict I's/O, monitor urine output every shift, blood pressure control, afterload reduction, urgent dialysis, supplemental oxygen, thyroid panel, magnesium level. (2) End stage renal disease Current Visit: Yes Status: Acute Plan to address problem: Nephrology team consulted. Dialysis as per renal team, strict I/O, monitor urine output every shift, avoid nephrotoxic agents. (3) Metabolic acidosis Current Visit: Yes Status: Acute Plan to address problem: IV bicarbonate therapy, supportive care, BMP, repeat BMP in a.m. (4) Hyponatremia syndrome Current Visit: Yes Status: Acute Plan to address problem: Supportive care, repeat BMP in a.m., (5) DVT prophylaxis Current Visit: Yes Status: Acute Plan to address problem: SCD to bilateral lower extremities while in bed, patient is ambulatory (6) Advance care planning Current Visit: Yes Status: Acute Plan to address problem: Disease education conducted, patient is full code, prognosis discussed, patient knowledges understanding and agreement with care plan, +30 minutes.
[2020-06-01] MEDS ORDERED: ALBUTEROL 2.5 MG/3 ML NEBU IH PRN (19:22)
[2020-06-01] MEDS ORDERED: ACETAMINOPHEN 325 MG TAB PO PRN (19:22)
[2020-06-01] MEDS ORDERED: ONDANSETRON 4 MG/2 ML INJ IV PRN (19:22)
[2020-06-01] MEDS: hydrALAZINE 100 MG TAB PO SCH (20:08)
[2020-06-01 22:00] LABS: Free T4 (Free Thyroxine) 1.07 ng/dL (0.76-1.46)
[2020-06-01] MEDS ORDERED: NON-FORMULARY EACH (Pravastatin Sodium [Pravastatin] 10 MG) PO SCH (22:00)
[2020-06-01] MEDS: PRAVASTATIN 20 MG TAB PO SCH (23:45)
[2020-06-01] MEDS: INSULIN LISPRO 100 UNIT/ML VIAL 3 mL SUB-Q SCH (23:45)
[2020-06-02] MEDS: DEXTROSE 50% IN WATER (25GM) 50 ML SYRINGE IV PRN ×3 (03:52→10:57)
--- NOTE | 2020-06-02 05:34 | Event Note ---
Date: 06/02/20 Attention called to patient with known history of diabetes mellitus, end-stage renal disease on dialysis who has been on admission for congestive heart failure suddenly having changes in his mental status. Stat blood glucose was done and he was found to be hypoglycemic. Patient has been given an amp of D50. Will monitor blood glucose closely.
[2020-06-02] MEDS: hydrALAZINE 100 MG TAB PO SCH ×3 (07:57→21:35)
[2020-06-02] MEDS: INSULIN LISPRO 100 UNIT/ML VIAL 3 mL SUB-Q SCH ×3 (07:58→21:35)
[2020-06-02] MEDS ORDERED: EPOETIN ALFA 10,000 UNIT/1 ML INJ IV PRN (09:38)
--- NOTE | 2020-06-02 09:45 | Consultation ---
History of Present Illness - Reason for Consult Consult date: 06/02/20 end stage renal disease Requesting physician: JASON RICHARD - History of Present Illness 79-year-old male with a history of diabetes mellitus, hypertension end-stage renal disease on hemodialysis on a Tuesday, Tuesday and Tuesday schedule. Patient has not been doing well recently. He has been losing weight and was having difficulty swallowing with non diagnostic work-up. Patient brought to the hospital because of weakness and hyperglycemia with blood sugar more than 500. Per his , he has not been eating or drinking well for the last few days. Patient says "I am week, tired and I do not know why" He says he is no lobger having difficulty swallowing and has been eating well in his opinion. No fever or chills. No nausea, diarrhea or vomiting. No chest pain or shortness of breath. Past History Past Medical History: heart failure, hypertension, hyperlipidemia, other (See HPI) Past Surgical History: total knee replacement, Other (Prostate surgery, cardiac stent placement, dialysis access) Social history: . denies: smoking, alcohol abuse, prescription drug abuse Family history: diabetes, hypertension Medications and Allergies Allergies Allergy/AdvReac Type Severity Reaction Status Date / Time No Known Allergies Allergy Unverified 11/01/17 09:33 Home Medications Medication Instructions Recorded Confirmed Last Taken Type Aspirin EC [Halfprin EC] 81 mg PO QDAY #30 tablet 08/20/18 03/18/20 Unknown Rx Insulin Glargine [Lantus VIAL] 50 unit SUB-Q QHS 06/01/20 06/01/20 Unknown History Metoprolol Xl [Metoprolol 50 mg PO QDAY 06/01/20 Unknown History SUCCINATE ER TAB] Pravastatin Sodium [Pravastatin] 10 mg PO QHS 06/01/20 06/01/20 Unknown History Tamsulosin [Flomax] 0.4 mg PO DAILY 06/01/20 Unknown History amLODIPine [Norvasc] 10 mg PO DAILY 06/01/20 06/01/20 Unknown History hydrALAZINE [Apresoline TAB] 100 mg PO TID 06/01/20 06/01/20 Unknown History megestroL [Megestrol] 400 mg PO TID 06/01/20 Unknown History Active Meds: Active Medications Acetaminophen (Tylenol) 650 mg PO Q4H PRN PRN Reason: Pain MILD(1-3)/Fever >100.5/HER Albuterol (Proventil) 2.5 mg IH Q4H PRN PRN Reason: Shortness Of Breath Amlodipine Besylate (Amlodipine) 10 mg PO DAILY [facility] Aspirin (Halfprin Ec) 81 mg PO QDAY [facility] Dextrose (D50w (25gm) Syringe) 50 ml IV Q30MIN PRN; Protocol PRN Reason: Hypoglycemia Last Admin: 06/02/20 03:52 Dose: 50 ml Documented by: Hydralazine HCl (Apresoline) 100 mg PO TID [facility] Last Admin: 06/01/20 20:08 Dose: 100 mg Documented by: Insulin Human Lispro (Humalog) 0 unit SUB-Q ACHS [facility]; Protocol Last Admin: 06/01/20 23:45 Dose: Not Given Documented by: Metoprolol Succinate (Metoprolol Xl) 50 mg PO QDAY [facility] Ondansetron HCl (Zofran) 4 mg IV Q8H PRN PRN Reason: Nausea And Vomiting Pravastatin Sodium (Pravachol) 10 mg PO QHS [facility] Last Admin: 06/01/20 23:45 Dose: 10 mg Documented by: Sodium Chloride (Sodium Chloride Flush Syringe 10 Ml) 10 ml IV BID [facility] Last Admin: 06/01/20 23:45 Dose: 10 ml Documented by: Sodium Chloride (Sodium Chloride Flush Syringe 10 Ml) 10 ml IV PRN PRN PRN Reason: LINE FLUSH Tamsulosin HCl (Flomax) 0.4 mg PO DAILY [facility] Review of Systems All systems: negative (Constitutional: no fever or chills. No anorexia or weight loss. HEENT: No sore throat or sinus drainage no hearing or vision impairment . Cardiovascular: No chest pain, shortness of breath, palpitations, lower extremity swelling or dizziness. Respiratory: No cough, sputum, shortness of breath, hemoptysis or wheezing. Gastrointestinal: No nausea, vomiting, diarrhea, abdominal pain, hematemesis or melena. Genitourinary: He does not make urine. hematologic: No abnormal bleeding or bruising. Integumentary: no pruritus or rash. Neurological: No headache no focal weakness or numbness, no syncope or seizures. Musculoskeletal: No joint pains no stiffness. Psychiatry: no anxiety or depression) Exam - Vital Signs Vital signs: Vital Signs Temp Pulse Resp BP 97.5 F L 62 16 125/57 06/01/20 13:45 06/01/20 13:45 06/01/20 13:45 06/01/20 13:45 - Physical Exam Narrative exam: Elderly -[place] male lying in bed in no acute distress HEENT: NCAT, pink oral mucous membrane Neck: Supple, no venous distention CVS: S1S2 RRR with no murmur, rub or gallop Chest: Clear to auscultation Abdomen: Protuberant, soft, nontender, no organomegaly, bowel sounds are present Extremities: 2+ bilateral pitting Edema Skin no rash Genitourinary deferred Neuro: Awake, alert no focal deficits Results - Lab Results 06/01/20 14:15 06/01/20 14:15 Most recent lab results Calcium 9.7 mg/dL (8.4-10.2) 06/01/20 14:15 Magnesium 2.30 mg/dL (1.7-2.3) 06/01/20 21:13 Assessment and Plan - Patient Problems (1) Hyponatremia Current Visit: No Status: Acute Plan to address problem: Hypervolemic hyponatremia. Hemodialysis for fluid removal. Reevaluate (2) Volume overload Current Visit: No Status: Acute Qualifiers: Hypervolemia type: unspecified Qualified Code(s): E87.70 - Fluid overload, unspecified Plan to address problem: Initiate dialysis for fluid removal. May need daily dialysis for the next 3 days. (3) Anemia in chronic kidney disease Current Visit: No Status: Chronic Qualifiers: Chronic kidney disease stage: stage 5, not on chronic dialysis Qualified Code(s): N18.5 - Chronic kidney disease, stage 5; D63.1 - Anemia in chronic kidney disease Plan to address problem: Give erythropoietin on hemodialysis (4) ESRD (end stage renal disease) Current Visit: No Status: Chronic (5) Hypertensive chronic kidney disease with stage 5 chronic kidney disease or end stage renal disease Current Visit: No Status: Chronic Plan to address problem: Hemodialysis Tuesday, Tuesday and Tuesday schedule. We will need to have a lengthy discussion about continuing dialysis. Patient is not doing well and at some point may need to start considering switch to palliation. (6) Type 2 diabetes mellitus with diabetic chronic kidney disease Current Visit: No Status: Chronic Qualifiers: Chronic kidney disease stage: stage 5, not on chronic dialysis Plan to address problem: Blood sugar management by primary team
[2020-06-02] MEDS ORDERED: SODIUM CHLORIDE 0.9% 100 ML IV PRN (10:00)
[2020-06-02] MEDS ORDERED: DEXTROSE 50% IN WATER (25GM) 50 ML SYRINGE IV STA (10:06)
[2020-06-02] MEDS ORDERED: DEXTROSE 50% IN WATER (25GM) 50 ML VIAL IV NR (10:08)
[2020-06-02] MEDS: amLODIPine 10 MG TAB PO SCH (10:58)
[2020-06-02] MEDS: METOPROLOL SUCCINATE XL 50 MG TAB PO SCH (10:59)
[2020-06-02 13:33] LABS: Hepatitis B Surface Antigen Non-Reactive (Negative); Hepatitis C Virus Antibody Non-Reactive (NonReactive)
[2020-06-02] MEDS: TAMSULOSIN 0.4 MG CAP PO SCH (18:10)
[2020-06-02] MEDS: ASPIRIN EC 81 MG TAB PO SCH (18:11)
[2020-06-02] MEDS: PRAVASTATIN 20 MG TAB PO SCH (21:35)
--- NOTE | 2020-06-03 07:18 | Progress Note ---
Assessment and Plan (1) CHF (congestive heart failure) exacerbation Hemodialysis and increased ultrafiltration (2) End stage renal disease Current Visit: Yes Status: Acute Plan to address problem: Nephrology consult appreciated Patient going for hemodialysis today (3) Metabolic acidosis Current Visit: Yes Status: Acute Plan to address problem: IV bicarbonate therapy, supportive care, BMP, repeat BMP in a.m. (4) Hyponatremia syndrome Volume correction 5)uncontrolled diabetes Medications adjusted 6)hypoglycemia D50 W 2 A given in the morning (7) DVT prophylaxis Current Visit: Yes Status: Acute Plan to address problem: SCD to bilateral lower extremities while in bed, patient is ambulatory (8) discharge care planning Patient was not discharged today because of his hypoglycemia and slight lethargy Patient may be discharged tomorrow if stable and hypoglycemia is corrected Subjective Date of service: 06/02/20 Principal diagnosis: Persistent hypoglycemia, CHF exacerbation, end-stage renal disease Interval history: 79 YO Male with ESRD on HD(M, W,F), HTN, HLD, BPH, Asthma, DM, CAD S/P Stent Placement, Vascular Dementia, Cerebral Atherosclerosis presents to ED for evalua tion. Patient has cognitive slowing and provides minimal history. Patient acknowledges feeling weak and also reports that he does not remember if he took his prescribed medication. Patient acknowledges decreased exercise tolerance, orthopnea, and shortness of breath. Patient found to have elevated blood glucose levels. EMS was notified and upon arrival the patient was found to be in distress and subsequently transported to [facility] for further care and evaluation of the aforementioned symptoms. Patient seen and evaluated in the emergency department. All lab and imaging studies reviewed. Patient found to have end- stage renal disease, metabolic acidosis, as well as clinical symptoms consistent with diastolic congestive heart failure. Patient admitted to telemetry and initiated on CHF protocol. Nephrology team consulted in ED. Cardiology team consulted in ED. No reports of fever, chills, chest pain, palpitation, leg swelling, chills, CP, Palpitations, NVD, Trauma, productive cough, or recent ill contacts. Advanced care planning conducted in ED. Patient is hypoglycemic this morning Patient also short of breath Objective - Constitutional Vitals: Vital Signs - 12hr 06/02/20 06/02/20 06/02/20 19:25 21:20 21:30 Temperature 98.5 F 98.5 F Pulse Rate 61 61 67 Respiratory 32 H 18 Rate Blood Pressure 123/67 110/61 113/61 Blood Pressure [Right] O2 Sat by Pulse 100 Oximetry 06/02/20 06/02/20 06/02/20 21:45 21:56 22:00 Temperature Pulse Rate 60 61 Respiratory Rate Blood Pressure 114/59 118/51 Blood Pressure [Right] O2 Sat by Pulse 96 Oximetry 06/02/20 06/02/20 06/02/20 22:15 22:30 22:45 Temperature Pulse Rate 61 61 60 Respiratory Rate Blood Pressure 115/54 107/55 129/61 Blood Pressure [Right] O2 Sat by Pulse Oximetry 06/02/20 06/02/20 06/02/20 23:00 23:15 23:30 Temperature Pulse Rate 60 57 L 61 Respiratory Rate Blood Pressure 127/61 122/59 117/56 Blood Pressure [Right] O2 Sat by Pulse Oximetry 06/02/20 06/02/20 06/03/20 23:45 23:46 00:00 Temperature Pulse Rate 60 61 60 Respiratory 18 Rate Blood Pressure 122/57 119/56 Blood Pressure 117/56 [Right] O2 Sat by Pulse Oximetry 06/03/20 06/03/20 06/03/20 00:15 00:30 00:45 Temperature 98.6 F Pulse Rate 61 61 61 Respiratory 18 Rate Blood Pressure 129/65 123/60 129/60 Blood Pressure [Right] O2 Sat by Pulse Oximetry 06/03/20 03:25 Temperature 98.1 F Pulse Rate 87 Respiratory 18 Rate Blood Pressure 117/62 Blood Pressure [Right] O2 Sat by Pulse 99 Oximetry General appearance: Present: mild distress, well-nourished - EENT Eyes: PERRL, EOM intact ENT: hearing intact, clear oral mucosa Ears: bilateral: normal - Neck Neck: supple, normal ROM - Respiratory Respiratory effort: normal Respiratory: bilateral: CTA, rhonchi - Breasts Breasts: normal - Cardiovascular Heart rate: 78 Rhythm: regular Heart Sounds: Present: S1 & S2. Absent: gallop, rub Extremities: pulses intact, No edema, normal color, Full ROM - Gastrointestinal General gastrointestinal: Present: soft, non-tender, non-distended, normal bowel sounds - Genitourinary Male genitourinary: normal - Integumentary Integumentary: clear, warm, dry - Musculoskeletal Musculoskeletal: 1, strength equal bilaterally - Neurologic Neurologic: moves all extremities - Psychiatric Psychiatric: memory intact, appropriate mood/affect, intact judgment & insight - Labs CBC & Chem 7: 06/01/20 14:15 06/01/20 14:15 Labs: Abnormal lab results 06/02/20 06/02/20 06/02/20 Range/Units 08:26 11:18 17:39 POC Glucose 53 L 187 H 179 H (70-105) 06/02/20 06/03/20 06/03/20 Range/Units 22:03 03:48 06:47 POC Glucose 181 H 197 H 205 H (70-105) HEART Score - HEART Score Troponin: Troponin T 0.293 ng/mL (0.00-0.029) H* 06/01/20 16:20
[2020-06-03] MEDS ORDERED: SODIUM CHLORIDE 0.9% 100 ML IV PRN (09:50)
--- NOTE | 2020-06-03 09:55 | Progress Note ---
Assessment and Plan - Patient Problems (1) Hyponatremia Current Visit: No Status: Acute Plan to address problem: Hypervolemic hyponatremia. Hemodialysis again today isolated ultrafiltration. Reevaluate in the morning (2) Volume overload Current Visit: No Status: Acute Qualifiers: Hypervolemia type: unspecified Qualified Code(s): E87.70 - Fluid overload, unspecified Plan to address problem: Daily dialysis for the next 3 days. Get right lateral decubitus chest x-ray in the morning to evaluate right pleural effusion (3) Anemia in chronic kidney disease Current Visit: No Status: Chronic Qualifiers: Chronic kidney disease stage: stage 5, not on chronic dialysis Qualified Code(s): N18.5 - Chronic kidney disease, stage 5; D63.1 - Anemia in chronic kidney disease Plan to address problem: Give erythropoietin on hemodialysis (4) ESRD (end stage renal disease) Current Visit: No Status: Chronic Plan to address problem: Continue hemodialysis on a Tuesday, Tuesday and Tuesday schedule. Isolated ultrafiltration today for fluid removal (5) Hypertensive chronic kidney disease with stage 5 chronic kidney disease or end stage renal disease Current Visit: No Status: Chronic Plan to address problem: Hemodialysis Tuesday, Tuesday and Tuesday schedule. We will need to have a lengthy discussion about continuing dialysis. Patient is not doing well and at some point may need to start considering switch to palliation. (6) Type 2 diabetes mellitus with diabetic chronic kidney disease Current Visit: No Status: Chronic Qualifiers: Chronic kidney disease stage: stage 5, not on chronic dialysis Plan to address problem: Blood sugar management by primary team Subjective Date of service: 06/03/20 Principal diagnosis: Persistent hypoglycemia, CHF exacerbation, end-stage renal disease Interval history: Patient seen lying in bed. Has no new complaints. Still has shortness of breath. Objective - Exam Narrative Exam: Elderly -[place] male lying in bed in no acute distress HEENT: NCAT, Neck: Supple, no venous distention CVS: S1S2 RRR with no murmur, rub or gallop Chest: Clear to auscultation but diminished in the lower zones Abdomen: Protuberant, soft, nontender, no organomegaly, bowel sounds are present Extremities: 1-2+ bilateral pitting Edema Skin no rash Genitourinary deferred Neuro: Awake, alert no focal deficits - Vital Signs Vital signs: Vital Signs - 12hr 06/02/20 06/02/20 06/02/20 21:56 22:00 22:15 Temperature Pulse Rate 61 61 Respiratory Rate Blood Pressure 118/51 115/54 Blood Pressure [Right] O2 Sat by Pulse 96 Oximetry 06/02/20 06/02/20 06/02/20 22:30 22:45 23:00 Temperature Pulse Rate 61 60 60 Respiratory Rate Blood Pressure 107/55 129/61 127/61 Blood Pressure [Right] O2 Sat by Pulse Oximetry 06/02/20 06/02/20 06/02/20 23:15 23:30 23:45 Temperature Pulse Rate 57 L 61 60 Respiratory Rate Blood Pressure 122/59 117/56 122/57 Blood Pressure [Right] O2 Sat by Pulse Oximetry 06/02/20 06/03/20 06/03/20 23:46 00:00 00:15 Temperature Pulse Rate 61 60 61 Respiratory 18 Rate Blood Pressure 119/56 129/65 Blood Pressure 117/56 [Right] O2 Sat by Pulse Oximetry 06/03/20 06/03/20 06/03/20 00:30 00:45 03:25 Temperature 98.6 F 98.1 F Pulse Rate 61 61 87 Respiratory 18 18 Rate Blood Pressure 123/60 129/60 117/62 Blood Pressure [Right] O2 Sat by Pulse 99 Oximetry 06/03/20 06/03/20 04:00 07:19 Temperature 98.1 F Pulse Rate 82 85 Respiratory 18 Rate Blood Pressure 126/73 Blood Pressure [Right] O2 Sat by Pulse 89 Oximetry - Lab 06/01/20 14:15 06/01/20 14:15 Most recent lab results Calcium 9.7 mg/dL (8.4-10.2) 06/01/20 14:15 Magnesium 2.30 mg/dL (1.7-2.3) 06/01/20 21:13 Medications & Allergies - Medications Allergies/Adverse Reactions: Allergies No Known Allergies Allergy (Unverified 11/01/17 09:33) Home Medications: Home Medications Medication Instructions Recorded Confirmed Last Taken Type Aspirin EC [Halfprin EC] 81 mg PO QDAY #30 tablet 08/20/18 03/18/20 Unknown Rx Insulin Glargine [Lantus VIAL] 50 unit SUB-Q QHS 06/01/20 06/01/20 Unknown History Metoprolol Xl [Metoprolol 50 mg PO QDAY 06/01/20 Unknown History SUCCINATE ER TAB] Pravastatin Sodium [Pravastatin] 10 mg PO QHS 06/01/20 06/01/20 Unknown History Tamsulosin [Flomax] 0.4 mg PO DAILY 06/01/20 Unknown History amLODIPine [Norvasc] 10 mg PO DAILY 06/01/20 06/01/20 Unknown History hydrALAZINE [Apresoline TAB] 100 mg PO TID 06/01/20 06/01/20 Unknown History megestroL [Megestrol] 400 mg PO TID 06/01/20 Unknown History Active Medications: Generic Name Dose Route Start Last Admin Trade Name Freq PRN Reason Stop Dose Admin Acetaminophen 650 mg 06/01/20 19:22 Tylenol PO Q4H PRN Pain MILD(1-3)/Fever >100.5/HER Albuterol 2.5 mg 06/01/20 19:22 Proventil IH Q4H PRN Shortness Of Breath Amlodipine Besylate 10 mg 06/02/20 10:00 06/02/20 10:58 Amlodipine PO Not Given DAILY PORSHA Aspirin 81 mg 06/02/20 10:00 06/02/20 18:11 Halfprin Ec PO 81 mg QDAY PORSHA Administration Dextrose 50 ml 06/01/20 19:28 06/02/20 10:57 D50w (25gm) Syringe IV 50 ml Q30MIN PRN Administration Hypoglycemia Protocol Epoetin Lucho 10,000 unit 06/02/20 09:38 Procrit IV RICK PRN hemodialysis Hydralazine HCl 100 mg 06/01/20 20:00 06/02/20 21:35 Apresoline PO 100 mg TID PORSHA Administration Sodium Chloride 100 mls @ 999 mls/hr 06/02/20 10:00 Nacl 0.9% IV RICK PRN Hypotension Sodium Chloride 100 mls @ 999 mls/hr 06/03/20 09:50 Nacl 0.9% IV RICK PRN Hypotension Insulin Human Lispro 0 unit 06/01/20 22:00 06/02/20 21:35 Humalog SUB-Q Not Given ACHS PORSHA Protocol Metoprolol Succinate 50 mg 06/02/20 10:00 06/02/20 10:59 Metoprolol Xl PO Not Given QDAY PORSHA Ondansetron HCl 4 mg 06/01/20 19:22 Zofran IV Q8H PRN Nausea And Vomiting Pravastatin Sodium 10 mg 06/01/20 22:00 06/02/20 21:35 Pravachol PO 10 mg QHS PORSHA Administration Sodium Chloride 10 ml 06/01/20 22:00 06/02/20 21:35 Sodium Chloride Flush Syringe 10 Ml IV 10 ml BID PORSHA Administration Sodium Chloride 10 ml 06/01/20 19:22 Sodium Chloride Flush Syringe 10 Ml IV PRN PRN LINE FLUSH Tamsulosin HCl 0.4 mg 06/02/20 10:00 06/02/20 18:10 Flomax PO 0.4 mg DAILY PORSHA Administration
[2020-06-03] MEDS: TAMSULOSIN 0.4 MG CAP PO SCH (10:21)
[2020-06-03] MEDS: ASPIRIN EC 81 MG TAB PO SCH (10:21)
[2020-06-03] MEDS: amLODIPine 10 MG TAB PO SCH (10:30)
[2020-06-03] MEDS: hydrALAZINE 100 MG TAB PO SCH ×3 (10:31→21:18)
[2020-06-03] MEDS: METOPROLOL SUCCINATE XL 50 MG TAB PO SCH (10:31)
[2020-06-03] MEDS: INSULIN LISPRO 100 UNIT/ML VIAL 3 mL SUB-Q SCH ×4 (10:32→21:18)
--- NOTE | 2020-06-03 13:59 | Progress Note ---
Assessment and Plan Assessment and plan: (1) CHF (congestive heart failure) exacerbation Hemodialysis and increased ultrafiltration (2) End stage renal disease Current Visit: Yes Status: Acute Plan to address problem: Nephrology evaluation appreciated Hemodialysis today. Possible discharge tomorrow (3) Metabolic acidosis Current Visit: Yes Status: Acute Plan to address problem: IV bicarbonate therapy, supportive care, BMP, repeat BMP in a.m. (4) Hyponatremia syndrome Volume correction 5)uncontrolled diabetes Medications adjusted 6)hypoglycemia Continue to monitor (7) DVT prophylaxis Current Visit: Yes Status: Acute Plan to address problem: SCD to bilateral lower extremities while in bed, patient is ambulatory (8) discharge care planning Plan for hemodialysis today. DC tomorrow History Interval history: Patient seen and examined at bedside this morning. Will get HD today. Hospitalist Physical - Constitutional Vitals: Temp Pulse Resp BP Pulse Ox 98.1 F 62 18 120/65 89 06/03/20 07:19 06/03/20 13:32 06/03/20 07:19 06/03/20 13:32 06/03/20 07:19 General appearance: Present: no acute distress, well-nourished - Neck Neck: Present: supple - Respiratory Respiratory: bilateral: diminished (bases) - Cardiovascular Heart Sounds: Present: S1 & S2 - Extremities Extremities: no ischemia - Abdominal General gastrointestinal: soft, non-distended, normal bowel sounds - Neurologic Neurologic: CNII-XII intact HEART Score - HEART Score Troponin: Troponin T 0.293 ng/mL (0.00-0.029) H* 06/01/20 16:20 Results - Labs CBC & Chem 7: 06/01/20 14:15 06/01/20 14:15 Labs: Laboratory Last Values WBC 6.7 K/mm3 (4.5-11.0) 06/01/20 14:15 RBC 3.82 M/mm3 (3.65-5.03) 06/01/20 14:15 Hgb 12.5 gm/dl (11.8-15.2) 06/01/20 14:15 Hct 39.1 % (35.5-45.6) 06/01/20 14:15 MCV 103 fl (84-94) H 06/01/20 14:15 MCH 33 pg (28-32) H 06/01/20 14:15 MCHC 32 % (32-34) 06/01/20 14:15 RDW 19.8 % (13.2-15.2) H 06/01/20 14:15 Plt Count 64 K/mm3 (140-440) L 06/01/20 14:15 Lymph % (Auto) 6.3 % (13.4-35.0) L 06/01/20 14:15 [place] % (Auto) 10.6 % (0.0-7.3) H 06/01/20 14:15 Eos % (Auto) 1.2 % (0.0-4.3) 06/01/20 14:15 Baso % (Auto) 1.0 % (0.0-1.8) 06/01/20 14:15 Lymph # (Auto) 0.4 K/mm3 (1.2-5.4) L 06/01/20 14:15 [place] # (Auto) 0.7 K/mm3 (0.0-0.8) 06/01/20 14:15 Eos # (Auto) 0.1 K/mm3 (0.0-0.4) 06/01/20 14:15 Baso # (Auto) 0.1 K/mm3 (0.0-0.1) 06/01/20 14:15 Seg Neutrophils % 80.9 % (40.0-70.0) H 06/01/20 14:15 Seg Neutrophils # 5.4 K/mm3 (1.8-7.7) 06/01/20 14:15 Sodium 135 mmol/L (137-145) L 06/01/20 14:15 Potassium 4.3 mmol/L (3.6-5.0) 06/01/20 14:15 Chloride 94.0 mmol/L (98-107) L 06/01/20 14:15 Carbon Dioxide 22 mmol/L (22-30) 06/01/20 14:15 Anion Gap 23 mmol/L 06/01/20 14:15 BUN 38 mg/dL (9-20) H 06/01/20 14:15 Creatinine 4.5 mg/dL (0.8-1.3) H 06/01/20 14:15 Estimated GFR 15 ml/min 06/01/20 14:15 BUN/Creatinine Ratio 8 % 06/01/20 14:15 Glucose 411 mg/dL (75-100) H 06/01/20 14:15 POC Glucose 181 (70-105) H 06/03/20 07:58 Lactic Acid 1.50 mmol/L (0.7-2.0) 06/02/20 01:14 Calcium 9.7 mg/dL (8.4-10.2) 06/01/20 14:15 Magnesium 2.30 mg/dL (1.7-2.3) 06/01/20 21:13 Total Bilirubin 1.10 mg/dL (0.1-1.2) 06/01/20 14:15 Direct Bilirubin 0.6 mg/dL (0-0.2) H 06/01/20 14:15 Indirect Bilirubin 0.5 mg/dL 06/01/20 14:15 AST 21 units/L (5-40) 06/01/20 14:15 ALT 23 units/L (7-56) 06/01/20 14:15 Alkaline Phosphatase 168 units/L (35-129) H 06/01/20 14:15 Troponin T 0.293 ng/mL (0.00-0.029) H* 06/01/20 16:20 NT-Pro-B Natriuret Pep > 26158 pg/mL (0-900) H 06/01/20 21:13 Total Protein 8.6 g/dL (6.3-8.2) H 06/01/20 14:15 Albumin 4.1 g/dL (3.9-5) 06/01/20 14:15 Albumin/Globulin Ratio 0.9 % 06/01/20 14:15 TSH 4.530 mlU/mL (0.270-4.200) H 06/01/20 21:13 Free T4 1.07 ng/dL (0.76-1.46) 06/01/20 21:13 Hepatitis A IgM Ab Non-reactive (NonReactive) 06/02/20 11:26 Hep Bs Antigen Non-reactive (Negative) 06/02/20 11:26 Hep B Core IgM Ab Non-reactive (NonReactive) 06/02/20 11:26 Hepatitis C Antibody Non-reactive (NonReactive) 06/02/20 11:26 Cooper/IV: Voiding Method Toilet IV Catheter Type [Right Peripheral IV Forearm] Active Medications - Current Medications Current Medications: Generic Name Dose Route Start Last Admin Trade Name Freq PRN Reason Stop Dose Admin Acetaminophen 650 mg 06/01/20 19:22 Tylenol PO Q4H PRN Pain MILD(1-3)/Fever >100.5/HER Albuterol 2.5 mg 06/01/20 19:22 Proventil IH Q4H PRN Shortness Of Breath Amlodipine Besylate 10 mg 06/02/20 10:00 06/03/20 10:30 Amlodipine PO Not Given DAILY PORSHA Aspirin 81 mg 06/02/20 10:00 06/03/20 10:21 Halfprin Ec PO 81 mg QDAY PORSHA Administration Dextrose 50 ml 06/01/20 19:28 06/02/20 10:57 D50w (25gm) Syringe IV 50 ml Q30MIN PRN Administration Hypoglycemia Protocol Epoetin Lucho 10,000 unit 06/02/20 09:38 Procrit IV RICK PRN hemodialysis Hydralazine HCl 100 mg 06/01/20 20:00 06/03/20 10:31 Apresoline PO Not Given TID [facility] Sodium Chloride 100 mls @ 999 mls/hr 06/03/20 09:50 Nacl 0.9% IV RICK PRN Hypotension Insulin Human Lispro 0 unit 06/01/20 22:00 06/03/20 12:48 Humalog SUB-Q Not Given ACHS [facility] Protocol Metoprolol Succinate 50 mg 06/02/20 10:00 06/03/20 10:31 Metoprolol Xl PO Not Given QDAY PORSHA Ondansetron HCl 4 mg 06/01/20 19:22 Zofran IV Q8H PRN Nausea And Vomiting Pravastatin Sodium 10 mg 06/01/20 22:00 06/02/20 21:35 Pravachol PO 10 mg QHS PORSHA Administration Sodium Chloride 10 ml 06/01/20 22:00 06/03/20 10:31 Sodium Chloride Flush Syringe 10 Ml IV 10 ml BID PORSAH Administration Sodium Chloride 10 ml 06/01/20 19:22 Sodium Chloride Flush Syringe 10 Ml IV PRN PRN LINE FLUSH Tamsulosin HCl 0.4 mg 06/02/20 10:00 06/03/20 10:21 Flomax PO 0.4 mg DAILY PORSHA Administration
[2020-06-03 15:45] LABS: Calcium 9.4 mg/dL (8.4-10.2)
[2020-06-03 16:17] LABS: Chol/HDL Ratio 2.6 %
[2020-06-03] MEDS: PRAVASTATIN 20 MG TAB PO SCH (21:18)
[2020-06-04] MEDS ORDERED: LOPERAMIDE 2 MG CAP PO ONE ×2 (02:15→23:15)
[2020-06-04] MEDS: hydrALAZINE 100 MG TAB PO SCH ×3 (09:18→21:27)
[2020-06-04] MEDS: amLODIPine 10 MG TAB PO SCH (09:18)
[2020-06-04] MEDS: TAMSULOSIN 0.4 MG CAP PO SCH (09:18)
[2020-06-04] MEDS: ASPIRIN EC 81 MG TAB PO SCH (09:18)
[2020-06-04] MEDS: METOPROLOL SUCCINATE XL 50 MG TAB PO SCH (09:19)
[2020-06-04] MEDS: INSULIN LISPRO 100 UNIT/ML VIAL 3 mL SUB-Q SCH ×4 (09:21→21:27)
--- NOTE | 2020-06-04 12:59 | Progress Note ---
Assessment and Plan - Patient Problems (1) Hyponatremia Current Visit: No Status: Acute Plan to address problem: Hypervolemic hyponatremia. Improved. Hemodialysis again today (2) Volume overload Current Visit: No Status: Acute Qualifiers: Hypervolemia type: unspecified Qualified Code(s): E87.70 - Fluid overload, unspecified Plan to address problem: Completing Daily dialysis for 3 days. (3) Anemia in chronic kidney disease Current Visit: No Status: Chronic Qualifiers: Chronic kidney disease stage: stage 5, not on chronic dialysis Qualified Code(s): N18.5 - Chronic kidney disease, stage 5; D63.1 - Anemia in chronic kidney disease Plan to address problem: Give erythropoietin on hemodialysis (4) ESRD (end stage renal disease) Current Visit: No Status: Chronic Plan to address problem: Continue hemodialysis on a Tuesday, Tuesday and Tuesday schedule. (5) Hypertensive chronic kidney disease with stage 5 chronic kidney disease or end stage renal disease Current Visit: No Status: Chronic Plan to address problem: Completing third day of daily dialysis today. Continue hemodialysis Tuesday, Tuesday and Tuesday schedule. Discharge planning by primary attending (6) Type 2 diabetes mellitus with diabetic chronic kidney disease Current Visit: No Status: Chronic Qualifiers: Chronic kidney disease stage: stage 5, not on chronic dialysis Plan to address problem: Blood sugar management by primary team Subjective Date of service: 06/04/20 Principal diagnosis: Persistent hypoglycemia, CHF exacerbation, end-stage renal disease Interval history: Patient seen lying in bed. Has no new complaints. Shortness of breath imp roving. He is eating better Objective - Exam Narrative Exam: Elderly -[place] male lying in bed in no acute distress HEENT: NCAT, Neck: Supple, no venous distention CVS: S1S2 RRR with no murmur, rub or gallop Chest: Clear to auscultation but diminished in the lower zones Abdomen: Protuberant, soft, nontender, no organomegaly, bowel sounds are present Extremities: 1-2+ bilateral pitting Edema Skin no rash Genitourinary deferred Neuro: Awake, alert no focal deficits - Vital Signs Vital signs: Vital Signs - 12hr 06/04/20 06/04/20 06/04/20 03:27 04:00 08:09 Temperature 97.7 F Pulse Rate 61 60 Respiratory 16 30 H Rate Blood Pressure 115/61 115/61 O2 Sat by Pulse 99 Oximetry 06/04/20 06/04/20 06/04/20 08:15 09:18 09:19 Temperature Pulse Rate 60 60 Respiratory 18 Rate Blood Pressure 115/61 115/61 O2 Sat by Pulse Oximetry 06/04/20 06/04/20 09:47 11:21 Temperature 98.0 F Pulse Rate 55 L Respiratory 18 Rate Blood Pressure 111/53 O2 Sat by Pulse 100 98 Oximetry - Lab 06/01/20 14:15 06/03/20 11:10 Most recent lab results Calcium 9.4 mg/dL (8.4-10.2) 06/03/20 11:10 Magnesium 2.30 mg/dL (1.7-2.3) 06/01/20 21:13 Medications & Allergies - Medications Allergies/Adverse Reactions: Allergies No Known Allergies Allergy (Unverified 11/01/17 09:33) Home Medications: Home Medications Medication Instructions Recorded Confirmed Last Taken Type Aspirin EC [Halfprin EC] 81 mg PO QDAY #30 tablet 08/20/18 03/18/20 Unknown Rx Insulin Glargine [Lantus VIAL] 50 unit SUB-Q QHS 06/01/20 06/01/20 Unknown History Metoprolol Xl [Metoprolol 50 mg PO QDAY 06/01/20 Unknown History SUCCINATE ER TAB] Pravastatin Sodium [Pravastatin] 10 mg PO QHS 06/01/20 06/01/20 Unknown History Tamsulosin [Flomax] 0.4 mg PO DAILY 06/01/20 Unknown History amLODIPine [Norvasc] 10 mg PO DAILY 06/01/20 06/01/20 Unknown History hydrALAZINE [Apresoline TAB] 100 mg PO TID 06/01/20 06/01/20 Unknown History megestroL [Megestrol] 400 mg PO TID 06/01/20 Unknown History Active Medications: Generic Name Dose Route Start Last Admin Trade Name Freq PRN Reason Stop Dose Admin Acetaminophen 650 mg 06/01/20 19:22 Tylenol PO Q4H PRN Pain MILD(1-3)/Fever >100.5/HER Albuterol 2.5 mg 06/01/20 19:22 Proventil IH Q4H PRN Shortness Of Breath Amlodipine Besylate 10 mg 06/02/20 10:00 06/04/20 09:18 Amlodipine PO 10 mg DAILY PORSHA Administration Aspirin 81 mg 06/02/20 10:00 06/04/20 09:18 Halfprin Ec PO 81 mg QDAY PORSHA Administration Dextrose 50 ml 06/01/20 19:28 06/02/20 10:57 D50w (25gm) Syringe IV 50 ml Q30MIN PRN Administration Hypoglycemia Protocol Epoetin Lucho 10,000 unit 06/02/20 09:38 Procrit IV RICK PRN hemodialysis Hydralazine HCl 100 mg 06/01/20 20:00 06/04/20 09:18 Apresoline PO 100 mg TID PORSHA Administration Sodium Chloride 100 mls @ 999 mls/hr 06/03/20 09:50 Nacl 0.9% IV RICK PRN Hypotension Insulin Human Lispro 0 unit 06/01/20 22:00 06/04/20 12:18 Humalog SUB-Q 1 unit ACHS PORSHA Administration Protocol Metoprolol Succinate 50 mg 06/02/20 10:00 06/04/20 09:19 Metoprolol Xl PO 50 mg QDAY PORSHA Administration Ondansetron HCl 4 mg 06/01/20 19:22 Zofran IV Q8H PRN Nausea And Vomiting Pravastatin Sodium 10 mg 06/01/20 22:00 06/03/20 21:18 Pravachol PO 10 mg QHS PORSHA Administration Sodium Chloride 10 ml 06/01/20 22:00 06/04/20 09:20 Sodium Chloride Flush Syringe 10 Ml IV 10 ml BID PORSHA Administration Sodium Chloride 10 ml 06/01/20 19:22 Sodium Chloride Flush Syringe 10 Ml IV PRN PRN LINE FLUSH Tamsulosin HCl 0.4 mg 06/02/20 10:00 06/04/20 09:18 Flomax PO 0.4 mg DAILY PORSHA Administration
--- NOTE | 2020-06-04 15:34 | Discharge Summary ---
Providers - Providers Date of discharge: 06/04/20 Attending physician: JM EMANUEL 06/01/20 19:24 Consult to Physician [CONS] Routine Comment: Consulting Provider: ILANA ROMERO Physician Instructions: Reason For Exam: esrd Primary care physician: PHILOSOPHY SPECIALIST Hospitalization Condition: Stable Hospital course: HPI 79 YO Male with ESRD on HD(M, W,F), HTN, HLD, BPH, Asthma, DM, CAD S/P Stent Placement, Vascular Dementia, Cerebral Atherosclerosis presents to ED for evaluation. Patient has cognitive slowing and provides minimal history. Patient acknowledges feeling weak and also reports that he does not remember if he took his prescribed medication. Patient acknowledges decreased exercise tolerance, orthopnea, and shortness of breath. Patient found to have elevated blood glucose levels. EMS was notified and upon arrival the patient was found to be in distress and subsequently transported to [facility] for further care and evalu ation of the aforementioned symptoms. Patient seen and evaluated in the emergency department. All lab and imaging studies reviewed. Patient found to have end-stage renal disease, metabolic acidosis, as well as clinical symptoms consistent with diastolic congestive heart failure. Patient admitted to telemetry and initiated on CHF protocol. Nephrology team consulted in ED. Cardiology team consulted in ED. No reports of fever, chills, chest pain, palpitation, leg swelling, chills, CP, Palpitations, NVD, Trauma, productive cough, or recent ill contacts. Advanced care planning conducted in ED. Hospital course Patient was started on hemodialysis and breathing subsequently improved. Patient remains stable. He denies any chest pain, shortness of breath or palpitations. He had elevated troponin on admission but denies any chest pain. Elevated troponin most likely from chronic kidney disease. He was recently admitted to outside facility and had extensive cardiac work-up. He mentions that he has a emergency management program specialist. As a result, patient will be discharged and he has been advised to follow-up with his emergency management program specialist in the office. Patient agrees with plan. He is currently stable to be discharged today Disposition: TO HOME OR SELFCARE - Discharge Diagnoses (1) CHF (congestive heart failure) Status: Acute Qualifiers: Heart failure type: systolic Heart failure chronicity: acute on chronic Qualified Code(s): I50.23 - Acute on chronic systolic (congestive) heart failure (2) Volume overload Status: Resolved Qualifiers: Hypervolemia type: unspecified Qualified Code(s): E87.70 - Fluid overload, unspecified (3) Metabolic encephalopathy Status: Resolved Core Measure Documentation - Palliative Care Palliative Care/ Comfort Measures: Not Applicable - Core Measures Any of the following diagnoses?: none Exam - Constitutional Vitals: Temp Pulse Resp BP Pulse Ox 98.2 F 61 18 120/63 98 06/04/20 12:50 06/04/20 12:50 06/04/20 12:50 06/04/20 12:50 06/04/20 11:21 General appearance: Present: no acute distress, well-nourished - EENT Eyes: Present: PERRL ENT: hearing intact, clear oral mucosa - Neck Neck: Present: supple, normal ROM - Respiratory Respiratory effort: normal Respiratory: bilateral: CTA - Cardiovascular Heart Sounds: Present: S1 & S2. Absent: rub, click - Extremities Extremities: pulses symmetrical, No edema Peripheral Pulses: within normal limits - Abdominal General gastrointestinal: Present: soft, non-tender, non-distended, normal bowel sounds Male genitourinary: Present: normal - Integumentary Integumentary: Present: clear, warm, dry - Musculoskeletal Musculoskeletal: gait normal, strength equal bilaterally - Psychiatric Psychiatric: appropriate mood/affect, intact judgment & insight - Neurologic Neurologic: CNII-XII intact, moves all extremities Plan Diet: low fat, low cholesterol, low salt, renal Additional Instructions: Continue medications as prescribed. Follow-up with emergency management program specialist in 1 to 2 weeks. Continue hemodialysis as ordered/scheduled Plan of Treatment: Resumption of home health with [facility] [phone]. Follow up with: PRIMARY CAREMD [Primary Care Provider] - 3-5 Days
--- NOTE | 2020-06-04 15:46 | Progress Note ---
Assessment and Plan Assessment and plan: Problem (1) CHF (congestive heart failure) exacerbation Echocardiogram Hemodialysis and increased ultrafiltration (2) End stage renal disease Current Visit: Yes Status: Acute Plan to address problem: Nephrology evaluation appreciated Hemodialysis today. Possible discharge tomorrow (3) Metabolic acidosis Current Visit: Yes Status: Acute Plan to address problem: IV bicarbonate therapy, supportive care, BMP, repeat BMP in a.m. (4) Elevated Troponin Possible from CKD Will get echocardiogram Stress test tomorrow. 5) Uncontrolled diabetes Medications adjusted 6) Hypoglycemia Continue to monitor (7) DVT prophylaxis Current Visit: Yes Status: Acute Plan to address problem: SCD to bilateral lower extremities while in bed, patient is ambulatory (8) discharge care planning Plan for hemodialysis today. DC tomorrow History Interval history: Patient seen and examined at bedside this morning. Will get HD today. Hospitalist Physical - Constitutional Vitals: Temp Pulse Resp BP Pulse Ox 98.2 F 61 18 120/63 98 06/04/20 12:50 06/04/20 12:50 06/04/20 12:50 06/04/20 12:50 06/04/20 11:21 General appearance: Present: no acute distress, well-nourished - EENT Eyes: Present: PERRL - Respiratory Respiratory: bilateral: CTA - Cardiovascular Heart Sounds: Present: S1 & S2 - Extremities Extremities: No edema - Abdominal General gastrointestinal: soft, non-tender, non-distended, normal bowel sounds - Psychiatric Psychiatric: appropriate mood/affect - Neurologic Neurologic: CNII-XII intact HEART Score - HEART Score Troponin: Troponin T 0.293 ng/mL (0.00-0.029) H* 06/01/20 16:20 Results - Labs CBC & Chem 7: 06/01/20 14:15 06/03/20 11:10 Labs: Laboratory Last Values WBC 6.7 K/mm3 (4.5-11.0) 06/01/20 14:15 RBC 3.82 M/mm3 (3.65-5.03) 06/01/20 14:15 Hgb 12.5 gm/dl (11.8-15.2) 06/01/20 14:15 Hct 39.1 % (35.5-45.6) 06/01/20 14:15 MCV 103 fl (84-94) H 06/01/20 14:15 MCH 33 pg (28-32) H 06/01/20 14:15 MCHC 32 % (32-34) 06/01/20 14:15 RDW 19.8 % (13.2-15.2) H 06/01/20 14:15 Plt Count 64 K/mm3 (140-440) L 06/01/20 14:15 Lymph % (Auto) 6.3 % (13.4-35.0) L 06/01/20 14:15 Sac % (Auto) 10.6 % (0.0-7.3) H 06/01/20 14:15 Eos % (Auto) 1.2 % (0.0-4.3) 06/01/20 14:15 Baso % (Auto) 1.0 % (0.0-1.8) 06/01/20 14:15 Lymph # (Auto) 0.4 K/mm3 (1.2-5.4) L 06/01/20 14:15 Sac # (Auto) 0.7 K/mm3 (0.0-0.8) 06/01/20 14:15 Eos # (Auto) 0.1 K/mm3 (0.0-0.4) 06/01/20 14:15 Baso # (Auto) 0.1 K/mm3 (0.0-0.1) 06/01/20 14:15 Seg Neutrophils % 80.9 % (40.0-70.0) H 06/01/20 14:15 Seg Neutrophils # 5.4 K/mm3 (1.8-7.7) 06/01/20 14:15 Sodium 139 mmol/L (137-145) 06/03/20 11:10 Potassium 3.9 mmol/L (3.6-5.0) 06/03/20 11:10 Chloride 98.7 mmol/L (98-107) 06/03/20 11:10 Carbon Dioxide 23 mmol/L (22-30) 06/03/20 11:10 Anion Gap 21 mmol/L 06/03/20 11:10 BUN 34 mg/dL (9-20) H 06/03/20 11:10 Creatinine 4.3 mg/dL (0.8-1.3) H 06/03/20 11:10 Estimated GFR 16 ml/min 06/03/20 11:10 BUN/Creatinine Ratio 8 % 06/03/20 11:10 Glucose 356 mg/dL (75-100) H 06/03/20 11:10 POC Glucose 159 mg/dL (70-105) H 06/04/20 08:30 Lactic Acid 1.50 mmol/L (0.7-2.0) 06/02/20 01:14 Calcium 9.4 mg/dL (8.4-10.2) 06/03/20 11:10 Magnesium 2.30 mg/dL (1.7-2.3) 06/01/20 21:13 Total Bilirubin 1.10 mg/dL (0.1-1.2) 06/01/20 14:15 Direct Bilirubin 0.6 mg/dL (0-0.2) H 06/01/20 14:15 Indirect Bilirubin 0.5 mg/dL 06/01/20 14:15 AST 21 units/L (5-40) 06/01/20 14:15 ALT 23 units/L (7-56) 06/01/20 14:15 Alkaline Phosphatase 168 units/L (35-129) H 06/01/20 14:15 Troponin T 0.293 ng/mL (0.00-0.029) H* 06/01/20 16:20 NT-Pro-B Natriuret Pep > 05415 pg/mL (0-900) H 06/01/20 21:13 Total Protein 8.6 g/dL (6.3-8.2) H 06/01/20 14:15 Albumin 4.1 g/dL (3.9-5) 06/01/20 14:15 Albumin/Globulin Ratio 0.9 % 06/01/20 14:15 Triglycerides 80 mg/dL (2-149) 06/01/20 14:15 Cholesterol 107 mg/dL (50-199) 06/01/20 14:15 LDL Cholesterol Direct 53 mg/dL (50-130) 06/01/20 14:15 HDL Cholesterol 41 mg/dL (40-59) 06/01/20 14:15 Cholesterol/HDL Ratio 2.60 % 06/01/20 14:15 TSH 4.530 mlU/mL (0.270-4.200) H 06/01/20 21:13 Free T4 1.07 ng/dL (0.76-1.46) 06/01/20 21:13 Hepatitis A IgM Ab Non-reactive (NonReactive) 06/02/20 11:26 Hep Bs Antigen Non-reactive (Negative) 06/02/20 11:26 Hep B Core IgM Ab Non-reactive (NonReactive) 06/02/20 11:26 Hepatitis C Antibody Non-reactive (NonReactive) 06/02/20 11:26 Cooper/IV: Voiding Method Urinal IV Catheter Type [Right Peripheral IV Forearm] IV Catheter Type [Left Upper INT / Saline Lock arm] Active Medications - Current Medications Current Medications: Generic Name Dose Route Start Last Admin Trade Name Freq PRN Reason Stop Dose Admin Acetaminophen 650 mg 06/01/20 19:22 Tylenol PO Q4H PRN Pain MILD(1-3)/Fever >100.5/HER Albuterol 2.5 mg 06/01/20 19:22 Proventil IH Q4H PRN Shortness Of Breath Amlodipine Besylate 10 mg 06/02/20 10:00 06/04/20 09:18 Amlodipine PO 10 mg DAILY PORSHA Administration Aspirin 81 mg 06/02/20 10:00 06/04/20 09:18 Halfprin Ec PO 81 mg QDAY PORSHA Administration Dextrose 50 ml 06/01/20 19:28 06/02/20 10:57 D50w (25gm) Syringe IV 50 ml Q30MIN PRN Administration Hypoglycemia Protocol Epoetin Lucho 10,000 unit 06/02/20 09:38 Procrit IV RICK PRN hemodialysis Hydralazine HCl 100 mg 06/01/20 20:00 06/04/20 09:18 Apresoline PO 100 mg TID PORSHA Administration Sodium Chloride 100 mls @ 999 mls/hr 06/03/20 09:50 Nacl 0.9% IV RICK PRN Hypotension Insulin Human Lispro 0 unit 06/01/20 22:00 06/04/20 12:18 Humalog SUB-Q 1 unit ACHS PORSHA Administration Protocol Metoprolol Succinate 50 mg 06/02/20 10:00 06/04/20 09:19 Metoprolol Xl PO 50 mg QDAY PORSHA Administration Ondansetron HCl 4 mg 06/01/20 19:22 Zofran IV Q8H PRN Nausea And Vomiting Pravastatin Sodium 10 mg 06/01/20 22:00 10/20/20 21:18 Pravachol PO 10 mg QHS PORSHA Administration Sodium Chloride 10 ml 06/01/20 22:00 06/04/20 09:20 Sodium Chloride Flush Syringe 10 Ml IV 10 ml BID PORSHA Administration Sodium Chloride 10 ml 06/01/20 19:22 Sodium Chloride Flush Syringe 10 Ml IV PRN PRN LINE FLUSH Tamsulosin HCl 0.4 mg 06/02/20 10:00 06/04/20 09:18 Flomax PO 0.4 mg DAILY PORSHA Administration
[2020-06-04] MEDS: PRAVASTATIN 20 MG TAB PO SCH (21:27)
[2020-06-05] MEDS: INSULIN LISPRO 100 UNIT/ML VIAL 3 mL SUB-Q SCH ×3 (09:22→14:18)
[2020-06-05] MEDS: hydrALAZINE 100 MG TAB PO SCH ×2 (09:22→14:18)
--- NOTE | 2020-06-05 10:09 | Progress Note ---
Assessment and Plan - Patient Problems (1) Hyponatremia Current Visit: No Status: Acute Plan to address problem: Hypervolemic hyponatremia. Improved with dialysis (2) Volume overload Current Visit: No Status: Acute Qualifiers: Hypervolemia type: unspecified Qualified Code(s): E87.70 - Fluid overload, unspecified Plan to address problem: Improved with Daily dialysis for 3 days. (3) Anemia in chronic kidney disease Current Visit: No Status: Chronic Qualifiers: Chronic kidney disease stage: stage 5, not on chronic dialysis Qualified Code(s): N18.5 - Chronic kidney disease, stage 5; D63.1 - Anemia in chronic kidney disease Plan to address problem: Give erythropoietin on hemodialysis (4) ESRD (end stage renal disease) Current Visit: No Status: Chronic Plan to address problem: Continue hemodialysis on a Tuesday, Tuesday and Tuesday schedule. (5) Hypertensive chronic kidney disease with stage 5 chronic kidney disease or end stage renal disease Current Visit: No Status: Chronic Plan to address problem: Completing third day of daily dialysis today. Continue hemodialysis Tuesday, Tuesday and Tuesday schedule. Discharge planning by primary attending (6) Type 2 diabetes mellitus with diabetic chronic kidney disease Current Visit: No Status: Chronic Qualifiers: Chronic kidney disease stage: stage 5, not on chronic dialysis Plan to address problem: Blood sugar management by primary team Subjective Date of service: 06/05/20 Principal diagnosis: Persistent hypoglycemia, CHF exacerbation, end-stage renal disease Interval history: Patient seen lying in bed. Has no new complaints. No chest pain or shortness of breath. He is eating better and actually complains that he is not being fed -missing breakfast due to stress test Objective - Exam Narrative Exam: Elderly -[place] male lying in bed in no acute distress HEENT: NCAT, Neck: Supple, no venous distention CVS: S1S2 RRR with no murmur, rub or gallop Chest: Clear to auscultation but diminished in the lower zones Abdomen: Protuberant, soft, nontender, no organomegaly, bowel sounds are present Extremities: no Edema Skin no rash Genitourinary deferred Neuro: Awake, alert no focal deficits - Vital Signs Vital signs: Vital Signs - 12hr 06/04/20 06/05/20 06/05/20 23:31 03:07 05:00 Temperature 98.8 F 98.4 F Pulse Rate 62 64 68 Respiratory 16 16 Rate Blood Pressure 109/56 113/60 O2 Sat by Pulse 99 99 Oximetry 06/05/20 07:37 Temperature 97.8 F Pulse Rate 60 Respiratory 18 Rate Blood Pressure 119/65 O2 Sat by Pulse 100 Oximetry - Lab 06/01/20 14:15 06/03/20 11:10 Most recent lab results Calcium 9.4 mg/dL (8.4-10.2) 06/03/20 11:10 Magnesium 2.30 mg/dL (1.7-2.3) 06/01/20 21:13 Medications & Allergies - Medications Allergies/Adverse Reactions: Allergies No Known Allergies Allergy (Unverified 11/01/17 09:33) Home Medications: Home Medications Medication Instructions Recorded Confirmed Last Taken Type Aspirin EC [Halfprin EC] 81 mg PO QDAY #30 tablet 08/20/18 03/18/20 Unknown Rx Insulin Glargine [Lantus VIAL] 50 unit SUB-Q QHS 06/01/20 06/01/20 Unknown History Metoprolol Xl [Metoprolol 50 mg PO QDAY 06/01/20 Unknown History SUCCINATE ER TAB] Pravastatin Sodium [Pravastatin] 10 mg PO QHS 06/01/20 06/01/20 Unknown History Tamsulosin [Flomax] 0.4 mg PO DAILY 06/01/20 Unknown History amLODIPine [Norvasc] 10 mg PO DAILY 06/01/20 06/01/20 Unknown History hydrALAZINE [Apresoline TAB] 100 mg PO TID 06/01/20 06/01/20 Unknown History megestroL [Megestrol] 400 mg PO TID 06/01/20 Unknown History Active Medications: Generic Name Dose Route Start Last Admin Trade Name Freq PRN Reason Stop Dose Admin Acetaminophen 650 mg 06/01/20 19:22 Tylenol PO Q4H PRN Pain MILD(1-3)/Fever >100.5/HER Albuterol 2.5 mg 06/01/20 19:22 Proventil IH Q4H PRN Shortness Of Breath Amlodipine Besylate 10 mg 06/02/20 10:00 06/04/20 09:18 Amlodipine PO 10 mg DAILY PORSHA Administration Aspirin 81 mg 06/02/20 10:00 06/04/20 09:18 Halfprin Ec PO 81 mg QDAY PORSHA Administration Dextrose 50 ml 06/01/20 19:28 06/02/20 10:57 D50w (25gm) Syringe IV 50 ml Q30MIN PRN Administration Hypoglycemia Protocol Epoetin Lucho 10,000 unit 06/02/20 09:38 Procrit IV RICK PRN hemodialysis Hydralazine HCl 100 mg 06/01/20 20:00 06/05/20 09:22 Apresoline PO Not Given TID PORSHA Sodium Chloride 100 mls @ 999 mls/hr 06/03/20 09:50 Nacl 0.9% IV RICK PRN Hypotension Insulin Human Lispro 0 unit 06/01/20 22:00 06/05/20 09:22 Humalog SUB-Q Not Given ACHS PORSHA Protocol Metoprolol Succinate 50 mg 06/02/20 10:00 06/04/20 09:19 Metoprolol Xl PO 50 mg QDAY PORSHA Administration Ondansetron HCl 4 mg 06/01/20 19:22 Zofran IV Q8H PRN Nausea And Vomiting Pravastatin Sodium 10 mg 06/01/20 22:00 06/04/20 21:27 Pravachol PO 10 mg QHS PORSHA Administration Sodium Chloride 10 ml 06/01/20 22:00 06/04/20 21:28 Sodium Chloride Flush Syringe 10 Ml IV 10 ml BID PORSHA Administration Sodium Chloride 10 ml 06/01/20 19:22 Sodium Chloride Flush Syringe 10 Ml IV PRN PRN LINE FLUSH Tamsulosin HCl 0.4 mg 06/02/20 10:00 06/04/20 09:18 Flomax PO 0.4 mg DAILY PORSHA Administration
[2020-06-05] MEDS: TAMSULOSIN 0.4 MG CAP PO SCH (10:17)
[2020-06-05] MEDS: amLODIPine 10 MG TAB PO SCH (10:18)
[2020-06-05] MEDS: ASPIRIN EC 81 MG TAB PO SCH (10:18)
[2020-06-05] MEDS: METOPROLOL SUCCINATE XL 50 MG TAB PO SCH (10:18)
[2020-06-05 14:07] VITALS: BP 108/55
== END 2020-06-05 14:00 | disposition home health service (06) | DRG 291 ==
LOC: ED 13:44 → 4A 19:22
PROVIDERS: ADMIT Internal Medicine; ATTEND Internal Medicine
PROC: 5A1D70Z Performance of Urinary Filtration, Intermittent, Less than 6 Hours Per Day (ICD-10-PCS; principal; 2020-06-02)
PROC: 5A1D70Z Performance of Urinary Filtration, Intermittent, Less than 6 Hours Per Day (ICD-10-PCS; 2020-06-03)
PROC: 5A1D70Z Performance of Urinary Filtration, Intermittent, Less than 6 Hours Per Day (ICD-10-PCS; 2020-06-04)
DX: I13.2 Hypertensive heart and chronic kidney disease with heart failure and with stage 5 chronic kidney disease, or end stage renal disease (principal); N18.6 End stage renal disease; G93.41 Metabolic encephalopathy; I50.43 Acute on chronic combined systolic (congestive) and diastolic (congestive) heart failure; E87.2 Acidosis; E87.1 Hypo-osmolality and hyponatremia; J90 Pleural effusion, not elsewhere classified; J98.11 Atelectasis; E11.22 Type 2 diabetes mellitus with diabetic chronic kidney disease; Z99.2 Dependence on renal dialysis; E11.65 Type 2 diabetes mellitus with hyperglycemia; Z79.4 Long term (current) use of insulin; Z79.82 Long term (current) use of aspirin; M17.12 Unilateral primary osteoarthritis, left knee; Z87.891 Personal history of nicotine dependence; E86.0 Dehydration; I25.10 Atherosclerotic heart disease of native coronary artery without angina pectoris; Z95.5 Presence of coronary angioplasty implant and graft; J45.909 Unspecified asthma, uncomplicated; E78.5 Hyperlipidemia, unspecified; N40.0 Benign prostatic hyperplasia without lower urinary tract symptoms; F01.50 Vascular dementia, unspecified severity, without behavioral disturbance, psychotic disturbance, mood disturbance, and anxiety; Z83.3 Family history of diabetes mellitus; Z82.49 Family history of ischemic heart disease and other diseases of the circulatory system; Z71.89 Other specified counseling; E87.70 Fluid overload, unspecified; D63.1 Anemia in chronic kidney disease; E11.649 Type 2 diabetes mellitus with hypoglycemia without coma
CPT/HCPCS: 36415; 71045; 74176; 80048; 80061; 80074; 80076; 82140; 82962; 83735; 83880; 84439; 84443; 84484; 85025; 87045; 93005; 96361; 96374; G0378; A9270-GY; J1815; J7030; J7040

== ENCOUNTER 2020-06-06 12:33 | Emergency (ER) | payer MEDICARE ==
[2020-06-06] MEDS ORDERED: DEXTROSE 50% IN WATER (25GM) 50 ML SYRINGE IV ONE (12:54)
[2020-06-06 14:26] LABS: Hematocrit TNR % (35.5-45.6); Hemoglobin TNR gm/dl (11.8-15.2); Mean Corpuscular HGB Conc TNR % (32-34); Mean Corpuscular Volume TNR fl (84-94); Platelet Count TNR K/mm3 (140-440); Red Blood Count TNR M/mm3 (3.65-5.03); Red Cell Distribution Width TNR % (13.2-15.2)
[2020-06-06 14:28] LABS: Basophils # (Auto) TNR K/mm3 (0.0-0.1); Basophils % (Auto) TNR % (0.0-1.8); Eosinophils # (Auto) TNR K/mm3 (0.0-0.4); Eosinophils % (Auto) TNR % (0.0-4.3); Lymphocytes # (Auto) TNR K/mm3 (1.2-5.4); Lymphocytes % (Auto) TNR % (13.4-35.0); Monocytes # (Auto) TNR K/mm3 (0.0-0.8); Monocytes % (Auto) TNR % (0.0-7.3)
[2020-06-06 14:38] LABS: Calcium 8.8 mg/dL (8.4-10.2)
--- NOTE | 2020-06-06 15:25 | Emergency Department Report ---
ED General Adult HPI - General Chief complaint: Hypoglycemia Stated complaint: LOW BLOOD SUGAR Time Seen by Provider: 06/06/20 12:53 Source: family Mode of arrival: Wheelchair Limitations: No Limitations - History of Present Illness Initial comments: Patient is 79-year-old F [place] male with a past medical history of hypertension diabetes and end-stage renal disease who is presenting with some hypoglycemia. Patient had just left dialysis and his blood glucose was slightly low at that time. His was alerted. Patient became less talkative and paramedics were called out. Blood glucose was in the 40s. Patient was a difficult stick and arrived without an IV. Patient going between not speaking at all and yelling at staff in a threatening manner. Patient's apparently states that lately he has been more argumentative and somewhat combative. Severity scale (0 -10): 4 - Related Data Home Medications Medication Instructions Recorded Confirmed Last Taken Insulin Glargine [Lantus VIAL] 50 unit SUB-Q QHS 06/01/20 06/01/20 Unknown Metoprolol Xl [Metoprolol 50 mg PO QDAY 06/01/20 06/05/20 Unknown SUCCINATE ER TAB] Pravastatin Sodium [Pravastatin] 10 mg PO QHS 06/01/20 06/01/20 Unknown Tamsulosin [Flomax] 0.4 mg PO DAILY 06/01/20 06/05/20 Unknown amLODIPine 10 mg PO DAILY 06/01/20 06/01/20 Unknown hydrALAZINE [Apresoline TAB] 100 mg PO TID 06/01/20 06/01/20 Unknown megestroL [Megestrol] 400 mg PO TID 06/01/20 06/05/20 Unknown Previous Rx's Medication Instructions Recorded Last Taken Type Aspirin EC [Halfprin EC] 81 mg PO QDAY #30 tablet 08/20/18 Unknown Rx Allergies Allergy/AdvReac Type Severity Reaction Status Date / Time No Known Allergies Allergy Unverified 11/01/17 09:33 ED Review of Systems ROS: Stated complaint: LOW BLOOD SUGAR Other details as noted in HPI Comment: All other systems reviewed and negative ED Past Medical Hx - Past Medical History Hx Hypertension: Yes Hx Heart Attack/AMI: Yes Hx Congestive Heart Failure: No Hx Diabetes: Yes Hx Liver Disease: Yes (cirrhosis newly diagnosed) Hx Renal Disease: Yes (stage 5 CKD, On dialysis M,W,F) Hx Arthritis: Yes (LEFT KNEE SURGERY) Hx Asthma: No Hx COPD: No Hx Dementia: Yes Additional medical history: Dialysis Access Left arm Last Dialyzed this am - Surgical History Hx Coronary Stent: Yes Hx Appendectomy: Yes Additional Surgical History: Prostate surgery, right knee surgery. Cardiac stent 07/2018 - Social History Smoking Status: Never Smoker Substance Use Type: None - Medications Home Medications: Home Medications Medication Instructions Recorded Confirmed Last Taken Type Aspirin EC [Halfprin EC] 81 mg PO QDAY #30 tablet 08/20/18 06/05/20 Unknown Rx Insulin Glargine [Lantus VIAL] 50 unit SUB-Q QHS 06/01/20 06/01/20 Unknown History Metoprolol Xl [Metoprolol 50 mg PO QDAY 06/01/20 06/05/20 Unknown History SUCCINATE ER TAB] Pravastatin Sodium [Pravastatin] 10 mg PO QHS 06/01/20 06/01/20 Unknown History Tamsulosin [Flomax] 0.4 mg PO DAILY 06/01/20 06/05/20 Unknown History amLODIPine 10 mg PO DAILY 06/01/20 06/01/20 Unknown History hydrALAZINE [Apresoline TAB] 100 mg PO TID 06/01/20 06/01/20 Unknown History megestroL [Megestrol] 400 mg PO TID 06/01/20 06/05/20 Unknown History ED Physical Exam - General Limitations: No Limitations General appearance: alert, in no apparent distress - Head Head exam: Present: atraumatic, normocephalic - Eye Eye exam: Present: normal appearance, PERRL, EOMI - ENT ENT exam: Present: mucous membranes moist - Neck Neck exam: Present: normal inspection - Respiratory Respiratory exam: Present: normal lung sounds bilaterally. Absent: respiratory distress, wheezes - Cardiovascular Cardiovascular Exam: Present: regular rate, normal rhythm, normal heart sounds. Absent: systolic murmur, diastolic murmur, rubs, gallop - GI/Abdominal GI/Abdominal exam: Present: soft, normal bowel sounds. Absent: distended, tenderness, guarding, rebound - Rectal Rectal exam: Present: deferred - Extremities Exam Extremities exam: Present: normal inspection - Back Exam Back exam: Present: normal inspection - Neurological Exam Neurological exam: Present: alert, oriented X3 - Psychiatric Psychiatric exam: Present: normal affect, normal mood - Skin Skin exam: Present: warm, dry, intact, normal color. Absent: rash ED Course Vital Signs 06/06/20 06/06/20 12:39 13:21 Temperature 98.2 F Pulse Rate 54 L 75 Respiratory 14 18 Rate Blood Pressure 135/62 Blood Pressure 135/61 [Right] O2 Sat by Pulse 100 100 Oximetry - Reevaluation(s) Reevaluation #1: 06/06/20 15:25 Ultrasound had to be used to obtain an IV. I was able to place IV in the patient's right bicep. Patient was given D50 afterwards and patient was given with food. Is much more alert. ED Medical Decision Making - Lab Data Result diagrams: 06/06/20 15:32 06/06/20 13:43 Lab Results 06/06/20 06/06/20 06/06/20 Range/Units 12:54 13:21 13:43 WBC TNR RBC TNR Hgb TNR Hct TNR MCV TNR MCH TNR MCHC TNR RDW TNR Plt Count TNR Lymph % (Auto) TNR [place] % (Auto) TNR Eos % (Auto) TNR Baso % (Auto) TNR Lymph # (Auto) TNR [place] # (Auto) TNR Eos # (Auto) TNR Baso # (Auto) TNR Seg Neutrophils % TNR Seg Neutrophils # TNR Sodium (137-145) mmol/L Potassium (3.6-5.0) mmol/L Chloride (98-107) mmol/L Carbon Dioxide (22-30) mmol/L Anion Gap mmol/L BUN (9-20) mg/dL Creatinine (0.8-1.3) mg/dL Estimated GFR ml/min BUN/Creatinine Ratio % Glucose (75-100) mg/dL POC Glucose 65 L 42 L (70-105) mg/dL Calcium (8.4-10.2) mg/dL 06/06/20 06/06/20 06/06/20 Range/Units 13:43 14:46 15:32 WBC 8.7 RBC 4.19 Hgb 13.4 Hct 42.0 MCV 100 H MCH 32 MCHC 32 RDW 19.5 H Plt Count 74 L Lymph % (Auto) 4.3 L [place] % (Auto) 14.5 H Eos % (Auto) 0.4 Baso % (Auto) 0.6 Lymph # (Auto) 0.4 L [place] # (Auto) 1.3 H Eos # (Auto) 0.0 Baso # (Auto) 0.1 Seg Neutrophils % 80.2 H Seg Neutrophils # 7.0 Sodium 139 (137-145) mmol/L Potassium 3.2 L (3.6-5.0) mmol/L Chloride 96.2 L (98-107) mmol/L Carbon Dioxide 33 H D (22-30) mmol/L Anion Gap 13 mmol/L BUN 17 (9-20) mg/dL Creatinine 2.5 H (0.8-1.3) mg/dL Estimated GFR 30 ml/min BUN/Creatinine Ratio 7 % Glucose 79 (75-100) mg/dL POC Glucose 76 (70-105) mg/dL Calcium 8.8 (8.4-10.2) mg/dL 06/06/20 Range/Units 16:31 WBC RBC Hgb Hct MCV MCH MCHC RDW Plt Count Lymph % (Auto) [place] % (Auto) Eos % (Auto) Baso % (Auto) Lymph # (Auto) [place] # (Auto) Eos # (Auto) Baso # (Auto) Seg Neutrophils % Seg Neutrophils # Sodium (137-145) mmol/L Potassium (3.6-5.0) mmol/L Chloride (98-107) mmol/L Carbon Dioxide (22-30) mmol/L Anion Gap mmol/L BUN (9-20) mg/dL Creatinine (0.8-1.3) mg/dL Estimated GFR ml/min BUN/Creatinine Ratio % Glucose (75-100) mg/dL POC Glucose 84 (70-105) mg/dL Calcium (8.4-10.2) mg/dL - Medical Decision Making Patient had multiple blood glucose which were within normal limits. He is eating and at his baseline Critical care attestation.: If time is entered above; I have spent that time in minutes in the direct care of this critically ill patient, excluding procedure time. ED Disposition Clinical Impression: Hypoglycemia Disposition: DC-01 TO HOME OR SELFCARE Is pt being admited?: No Does the pt Need Aspirin: No Condition: Stable Instructions: Diabetic Hypoglycemia (ED) Time of Disposition: 16:30
[2020-06-06 15:59] LABS: Basophils # (Auto) 0.1 K/mm3 (0.0-0.1); Basophils % (Auto) 0.6 % (0.0-1.8); Eosinophils % (Auto) 0.4 % (0.0-4.3); Hemoglobin 13.4 gm/dl (11.8-15.2); Lymphocytes # (Auto) 0.4 K/mm3 (1.2-5.4); Lymphocytes % (Auto) 4.3 % (13.4-35.0); Mean Corpuscular HGB Conc 32 % (32-34); Mean Corpuscular Volume 100 fl (84-94); Monocytes # (Auto) 1.3 K/mm3 (0.0-0.8); Monocytes % (Auto) 14.5 % (0.0-7.3); Red Blood Count 4.19 M/mm3 (3.65-5.03); Red Cell Distribution Width 19.5 % (13.2-15.2)
[2020-06-06 16:09] LABS: Platelet Count 74 K/mm3 (140-440)
[2020-06-06 17:02] VITALS: BP 113/56
== END 2020-06-06 17:30 | disposition home or self-care (01) ==
LOC: ED 12:33
DX: E11.649 Type 2 diabetes mellitus with hypoglycemia without coma (principal); I10 Essential (primary) hypertension; I25.2 Old myocardial infarction; M19.91 Primary osteoarthritis, unspecified site; F03.90 Unspecified dementia, unspecified severity, without behavioral disturbance, psychotic disturbance, mood disturbance, and anxiety; Z90.49 Acquired absence of other specified parts of digestive tract; Z98.890 Other specified postprocedural states; Z79.4 Long term (current) use of insulin; Z79.899 Other long term (current) drug therapy
CPT/HCPCS: 36415; 80048; 82962; 85025; 96374

== ENCOUNTER 2020-06-07 03:03 | Emergency (ER) | payer MEDICARE ==
[2020-06-07 04:23] LABS: Basophils # (Auto) 0.1 K/mm3 (0.0-0.1); Basophils % (Auto) 1.1 % (0.0-1.8); Eosinophils # (Auto) 0.1 K/mm3 (0.0-0.4); Eosinophils % (Auto) 1.1 % (0.0-4.3); Hematocrit 35.3 % (35.5-45.6); Hemoglobin 11.7 gm/dl (11.8-15.2); Lymphocytes # (Auto) 0.4 K/mm3 (1.2-5.4); Lymphocytes % (Auto) 6.4 % (13.4-35.0); Mean Corpuscular HGB Conc 33 % (32-34); Mean Corpuscular Volume 98 fl (84-94); Monocytes # (Auto) 0.9 K/mm3 (0.0-0.8); Monocytes % (Auto) 14.6 % (0.0-7.3); Red Blood Count 3.62 M/mm3 (3.65-5.03); Red Cell Distribution Width 19.1 % (13.2-15.2)
[2020-06-07 04:28] LABS: Platelet Count 76 K/mm3 (140-440)
[2020-06-07 04:43] LABS: Calcium 9.2 mg/dL (8.4-10.2)
--- NOTE | 2020-06-07 07:00 | Emergency Department Report ---
ED Psych HPI - General Chief Complaint: Psych Stated Complaint: SI Time Seen by Provider: 06/07/20 06:08 Source: EMS Mode of arrival: Stretcher - History of Present Illness Initial Comments: Patient is a 79-year-old F [place] male who has a history of hypertension and diabetes and end-stage renal disease who is on dialysis who was brought in secondary to suicidal ideations. Patient had a razor to his neck and was threatening to kill himself. Patient is verbally abusive to his as well as for staff here. Patient is very jessica and states he is ready to . Patient w as medically cleared and discharged home. On yesterday's evaluation his stated that he has been with some but combative lately verbally abusive but had not made any threats to actually harm himself and not physically harmed his at that time. Apparently the patient's mental health issues have escalated. - Related Data Home Medications Medication Instructions Recorded Confirmed Last Taken Insulin Glargine [Lantus VIAL] 50 unit SUB-Q QHS 06/01/20 06/07/20 Unknown Metoprolol Xl [Metoprolol 50 mg PO QDAY 06/01/20 06/07/20 Unknown SUCCINATE ER TAB] Pravastatin Sodium [Pravastatin] 10 mg PO QHS 06/01/20 06/07/20 Unknown Tamsulosin [Flomax] 0.4 mg PO DAILY 06/01/20 06/07/20 Unknown amLODIPine 10 mg PO DAILY 06/01/20 06/07/20 Unknown hydrALAZINE [Apresoline TAB] 100 mg PO TID 06/01/20 06/07/20 Unknown megestroL [Megestrol] 40 mg PO TID 06/01/20 06/07/20 Unknown Previous Rx's Medication Instructions Recorded Last Taken Type Aspirin EC [Halfprin EC] 81 mg PO QDAY #30 tablet 08/20/18 Unknown Rx Allergies Allergy/AdvReac Type Severity Reaction Status Date / Time No Known Allergies Allergy Unverified 06/07/20 12:18 ED Review of Systems ROS: Stated complaint: SI Other details as noted in HPI Comment: All other systems reviewed and negative ED Past Medical Hx - Past Medical History Previous Medical History?: Yes Hx Hypertension: Yes Hx Heart Attack/AMI: Yes Hx Congestive Heart Failure: No Hx Diabetes: Yes Hx Liver Disease: Yes (cirrhosis newly diagnosed) Hx Renal Disease: Yes (stage 5 CKD, On dialysis M,W,F) Hx Arthritis: Yes (LEFT KNEE SURGERY) Hx Asthma: No Hx COPD: No Hx Dementia: Yes Additional medical history: Dialysis Access Left arm Last Dialyzed this am - Surgical History Past Surgical History?: Yes Hx Coronary Stent: Yes Hx Appendectomy: Yes Additional Surgical History: Prostate surgery, right knee surgery. Cardiac stent 07/2018 - Social History Smoking Status: Never Smoker Substance Use Type: None - Medications Home Medications: Home Medications Medication Instructions Recorded Confirmed Last Taken Type Aspirin EC [Halfprin EC] 81 mg PO QDAY #30 tablet 08/20/18 06/07/20 Unknown Rx Insulin Glargine [Lantus VIAL] 50 unit SUB-Q QHS 06/01/20 06/07/20 Unknown History Metoprolol Xl [Metoprolol 50 mg PO QDAY 06/01/20 06/07/20 Unknown History SUCCINATE ER TAB] Pravastatin Sodium [Pravastatin] 10 mg PO QHS 06/01/20 06/07/20 Unknown History Tamsulosin [Flomax] 0.4 mg PO DAILY 06/01/20 06/07/20 Unknown History amLODIPine 10 mg PO DAILY 06/01/20 06/07/20 Unknown History hydrALAZINE [Apresoline TAB] 100 mg PO TID 06/01/20 06/07/20 Unknown History megestroL [Megestrol] 40 mg PO TID 06/01/20 06/07/20 Unknown History ED Physical Exam - General Limitations: No Limitations General appearance: alert, in no apparent distress - Head Head exam: Present: atraumatic, normocephalic - Eye Eye exam: Present: normal appearance - ENT ENT exam: Present: mucous membranes moist - Neck Neck exam: Present: normal inspection - Respiratory Respiratory exam: Present: normal lung sounds bilaterally. Absent: respiratory distress, wheezes, rales, rhonchi - Cardiovascular Cardiovascular Exam: Present: regular rate, normal rhythm, normal heart sounds. Absent: systolic murmur, diastolic murmur, rubs, gallop - GI/Abdominal GI/Abdominal exam: Present: soft, normal bowel sounds. Absent: distended, tenderness, guarding - Rectal Rectal exam: Present: deferred - Extremities Exam Extremities exam: Present: normal inspection - Back Exam Back exam: Present: normal inspection - Neurological Exam Neurological exam: Present: alert, oriented X3 - Psychiatric Psychiatric exam: Present: normal affect, normal mood - Skin Skin exam: Present: warm, dry, intact, normal color. Absent: rash ED Course Vital Signs 06/07/20 06/07/20 06/07/20 03:55 04:59 08:01 Temperature 98.4 F Pulse Rate 61 66 68 Respiratory 18 15 Rate Blood Pressure 113/60 Blood Pressure 115/60 112/70 [Right] O2 Sat by Pulse 97 97 97 Oximetry 06/07/20 06/08/20 06/08/20 20:29 02:19 08:00 Temperature 97.5 F L 98.5 F 98 F Pulse Rate 67 74 86 Respiratory 16 16 14 Rate Blood Pressure Blood Pressure 109/58 133/76 123/80 [Right] O2 Sat by Pulse 100 98 95 Oximetry 06/08/20 06/09/20 06/09/20 20:22 02:17 10:39 Temperature 97.9 F 97.7 F 98.3 F Pulse Rate 75 70 63 Respiratory 16 16 18 Rate Blood Pressure Blood Pressure 141/86 132/77 127/64 [Right] O2 Sat by Pulse 98 98 99 Oximetry 06/09/20 06/09/20 20:23 22:01 Temperature 98.4 F Pulse Rate 76 Respiratory 18 18 Rate Blood Pressure Blood Pressure 113/75 [Right] O2 Sat by Pulse 97 97 Oximetry - Reevaluation(s) Reevaluation #1: 06/07/20 13:34 Patient was assessed by our mental health assessment team and patient not only threatened to kill himself with a razor he actually attempted to cut his as well when she was trying to stop them. Patient reports being depressed about his multiple health issues and the patient will be placed on 1013 at this time Reevaluation #2: 06/07/20 13:35 Patient is medically cleared Reevaluation #3: Patient's final psychiatric evaluation note is as follows: 07/03/20 10:08 Patient Name: KALEB FERMIN Date of : 1940 Patient Status: Emergency Emergency Provider: DONNA SEALS Date: 06/10/20 11:00 Initialization Date: 06/10/20 19:21 Subjective - Reason for Consult Consult date: 06/10/20 Reason for consult: SI - Chief Complaint Chief complaint: During my interview with the patient this morning, he is lying in bed awake. He appears to be doing much better today. He describes his mood as "okay." He says "I've been confused." When asking the patient about putting a knife up to his next, he says "that's what they said, but I don't remember much about it." He denies hallucinations of any kind. When asking the patient about any feelings of self harm, he states "no, I don't want to do that. I'm positive about that." REVIEW OF SYSTEMS" Constitutional: Negative for weight loss ENT: Negative for stridor Respiratory: Negative for cough or hemoptysis All other systems reviewed and are negative MENTAL STATUS EXAMINATION General Appearance and Behavior: Age appropriate, wearing appropriate clothes, calm and cooperative. Fair eye contact. Cooperation: Participating Mood: "okay" Affect and affective range: congruent with stated mood Thought Process: Goal directed Thought Content: logical Speech: Normal volume, Regular rate and rhythm, Suicidal Ideation: Denies Homicidal Ideation: Denies Hallucinations: Denies Delusions: None elicites Insight and Judgment: Limited insight and judgment Orientation: Alert, oriented, Assessment and Plan Major Depressive Disorder, Severe w/o Psychotic Features Treatment Plan d/c 1013 Scripts Risperidone 0.25mg po BID Risks, benefits and alternatives of medications discussed with the patient, questions answered and consent obtained from patient. PSYCHOTHERAPY: Supportive psychotherapy provided MEDICAL: Per primary team DELIRIUM PRECAUTIONS: Please re-orient patient frequently, keep lights on during the day, and minimize benzodiazepines and opiates as these medications could worsen patient's confusion. SECURITY DELIVERY SPECIALIST: Disposition: Do not recommend acute inpatient treatment. The patient may discharge once medically clear. He understands that if feelings of endangerment arise or if SI/HI return he is to seek immediate assistance including but not limited to crisis hotline, ER/911 He is to follow up with outpatient psych in 7 to 14 days upon discharge. The security control assessor is to give the patient resources for outpatient, safety plan, cognitive behavior therapy resources and drug rehabilitation. Will sing off. Thank you for this consult ED Medical Decision Making - Lab Data Result diagrams: 06/09/20 10:32 06/10/20 08:37 Lab Results 06/07/20 06/07/2006/07/20 Range/Units 04:06 04:06 04:06 WBC (4.5-11.0) K/mm3 RBC (3.65-5.03) M/mm3 Hgb (11.8-15.2) gm/dl Hct (35.5-45.6) % MCV (84-94) fl MCH (28-32) pg MCHC (32-34) % RDW (13.2-15.2) % Plt Count (140-440) K/mm3 Lymph % (Auto) (13.4-35.0) % Starr % (Auto) (0.0-7.3) % Eos % (Auto) (0.0-4.3) % Baso % (Auto) (0.0-1.8) % Lymph # (Auto) (1.2-5.4) K/mm3 Starr # (Auto) (0.0-0.8) K/mm3 Eos # (Auto) (0.0-0.4) K/mm3 Baso # (Auto) (0.0-0.1) K/mm3 Seg Neutrophils % (40.0-70.0) % Seg Neutrophils # (1.8-7.7) K/mm3 Sodium 140 (137-145) mmol/L Potassium 3.5 L (3.6-5.0) mmol/L Chloride 95.8 L (98-107) mmol/L Carbon Dioxide 31 H (22-30) mmol/L Anion Gap 17 mmol/L BUN 21 H (9-20) mg/dL Creatinine 3.0 H (0.8-1.3) mg/dL Estimated GFR 24 ml/min BUN/Creatinine Ratio 7 % Glucose 126 H (75-100) mg/dL Calcium 9.2 (8.4-10.2) mg/dL Salicylates < 0.3 L (2.8-20.0) mg/dL Acetaminophen 5.0 L (10.0-30.0) ug/mL Plasma/Serum Alcohol (0-0.07) % 06/07/20 06/07/20 Range/Units 04:06 04:06 WBC 6.1 (4.5-11.0) K/mm3 RBC 3.62 L (3.65-5.03) M/mm3 Hgb 11.7 L (11.8-15.2) gm/dl Hct 35.3 L D (35.5-45.6) % MCV 98 H (84-94) fl MCH 32 (28-32) pg MCHC 33 (32-34) % RDW 19.1 H (13.2-15.2) % Plt Count 76 L (140-440) K/mm3 Lymph % (Auto) 6.4 L (13.4-35.0) % Starr % (Auto) 14.6 H (0.0-7.3) % Eos % (Auto) 1.1 (0.0-4.3) % Baso % (Auto) 1.1 (0.0-1.8) % Lymph # (Auto) 0.4 L (1.2-5.4) K/mm3 Starr # (Auto) 0.9 H (0.0-0.8) K/mm3 Eos # (Auto) 0.1 (0.0-0.4) K/mm3 Baso # (Auto) 0.1 (0.0-0.1) K/mm3 Seg Neutrophils % 76.8 H (40.0-70.0) % Seg Neutrophils # 4.7 (1.8-7.7) K/mm3 Sodium (137-145) mmol/L Potassium (3.6-5.0) mmol/L Chloride (98-107) mmol/L Carbon Dioxide (22-30) mmol/L Anion Gap mmol/L BUN (9-20) mg/dL Creatinine (0.8-1.3) mg/dL Estimated GFR ml/min BUN/Creatinine Ratio % Glucose (75-100) mg/dL Calcium (8.4-10.2) mg/dL Salicylates (2.8-20.0) mg/dL Acetaminophen (10.0-30.0) ug/mL Plasma/Serum Alcohol < 0.01 (0-0.07) % Critical care attestation.: If time is entered above; I have spent that time in minutes in the direct care of this critically ill patient, excluding procedure time. ED Disposition Clinical Impression: Passive suicidal ideations Disposition: DC- TO HOME OR SELFCARE Is pt being admited?: No Does the pt Need Aspirin: No Condition: Stable Referrals: PRIMARY CARE, [Referring] - 3-5 Days
--- NOTE | 2020-06-08 11:48 | Consultation ---
History of Present Illness - Reason for Consult Consult date: 06/08/20 Reason for consult: SI - History of Present Psychiatric Illness Jarred Burrows is an 79y/o male patient who presented to the ER after holding a razor to his neck and threatening to kill himself. During my interview with the patient today, he is lying down. He is awake. He is a/o x 3. The patient says "I'm tired of living this kind of life." He says "It's not my dialysis but it's just other stuff." The patient verbalizes feeling "depressed." He says "it's so much other stuff going on." He denies a suicide attempt in the past. He says he says a psychiatrist "many years ago." The patient says he believe it was for "depression." He also denies any psychiatric medications. The patient denies any illicit drug use, alcohol or nicotine. PAST PSYCHIATRIC HISTORY Diagnoses: Depression Suicide attempts or Self-harm behavior: Denies Prior psychiatric hospitalizations: Denies Substance Abuse history: Denies Previous psychiatric medications tried: Denies Outpatient treatment: Denies PAST MEDICAL HISTORY: none reported Family Psychiatric History: None reported or documented SOCIAL HISTORY Marital Status: Living Arrangements: with spouse Employment Status: Retired Access to guns/weapons: none reported Education: History of Abuse: none reported Legal History: Denies REVIEW OF SYSTEMS Constitutional: Negative for weight loss ENT: Negative for stridor Respiratory: Negative for cough or hemoptysis All other systems reviewed and are negative MENTAL STATUS EXAMINATION General Appearance and Behavior: Age appropriate, wearing appropriate clothes, calm and cooperative. Poor eye contact. Cooperation: Participating Mood: Depressed Affect and affective range: congruent with stated mood, restricted Thought Process: Goal directed Thought Content: logical Speech: Normal volume, Regular rate and rhythm, Suicidal Ideation: Yes Homicidal Ideation: Denies Hallucinations: Denies Delusions: None elicited Insight and Judgment: Limited insight and judgment Orientation: Alert, oriented, Assessment and Plan Major Depressive Disorder, Severe w/o Psychotic Features Treatment Plan MEDICATIONS Start Zoloft 25mg po daily Start Trazodone 50mg po qhs Risks, benefits and alternatives of medications discussed with the patient, questions answered and consent obtained from patient. PSYCHOTHERAPY: Supportive psychotherapy provided MEDICAL: Per primary team DELIRIUM PRECAUTIONS: Please re-orient patient frequently, keep lights on during the day, and minimize benzodiazepines and opiates as these medications could worsen patient's confusion. CHANNEL REBUILDER: DISPOSITION: Recommend acute inpatient psychiatric hospitalization LEGAL STATUS: 1013 FOLLOW-UP: Will follow Thank you for the consult. Please contact with any questions and/or concerns. Medications and Allergies Allergies Allergy/AdvReac Type Severity Reaction Status Date / Time No Known Allergies Allergy Unverified 06/07/20 12:18 Home Medications Medication Instructions Recorded Confirmed Last Taken Type Aspirin EC [Halfprin EC] 81 mg PO QDAY #30 tablet 08/20/18 06/07/20 Unknown Rx Insulin Glargine [Lantus VIAL] 50 unit SUB-Q QHS 06/01/20 06/07/20 Unknown History Metoprolol Xl [Metoprolol 50 mg PO QDAY 06/01/20 06/07/20 Unknown History SUCCINATE ER TAB] Pravastatin Sodium [Pravastatin] 10 mg PO QHS 06/01/20 06/07/20 Unknown History Tamsulosin [Flomax] 0.4 mg PO DAILY 06/01/20 06/07/20 Unknown History amLODIPine 10 mg PO DAILY 06/01/20 06/07/20 Unknown History hydrALAZINE [Apresoline TAB] 100 mg PO TID 06/01/20 06/07/20 Unknown History megestroL [Megestrol] 40 mg PO TID 06/01/20 06/07/20 Unknown History Mental Status Exam - Vital signs Last Vital Signs Temp 98 F 06/08/20 08:00 Pulse 86 06/08/20 08:00 Resp 14 06/08/20 08:00 BP 123/80 06/08/20 08:00 Pulse Ox 95 06/08/20 08:00 Results Result Diagrams: 06/07/20 04:06 06/07/20 04:06 All other labs normal.
[2020-06-08] MEDS: SERTRALINE 25 MG TAB PO SCH (12:42)
[2020-06-08] MEDS ORDERED: traZODone 50 MG TAB PO SCH (22:00)
[2020-06-09] MEDS ORDERED: amLODIPine 10 MG TAB PO SCH (10:00)
[2020-06-09] MEDS ORDERED: METOPROLOL SUCCINATE XL 50 MG TAB PO SCH (10:00)
[2020-06-09] MEDS ORDERED: METOPROLOL SUCCINATE XL 25 MG TAB PO SCH (10:00)
[2020-06-09] MEDS ORDERED: ASPIRIN EC 81 MG TAB PO SCH (10:00)
[2020-06-09] MEDS ORDERED: TAMSULOSIN 0.4 MG CAP PO SCH (10:00)
--- NOTE | 2020-06-09 10:21 | XRay Report ---
CHEST 1 VIEW INDICATION / CLINICAL INFORMATION: esrd. COMPARISON: 06/01/2020 FINDINGS: SUPPORT DEVICES: None. HEART / MEDIASTINUM: Stable. LUNGS / PLEURA: Persistent central pulmonary vascular congestion noted. There is been improvement in previously noted pulmonary edema and right-sided pleural effusion. No pneumothorax. ADDITIONAL FINDINGS: No significant additional findings. IMPRESSION: 1. Interval improvement of previously noted pulmonary edema and right-sided pleural effusion. 2. Persistent enlargement of the cardiac silhouette and mild central pulmonary vascular congestion. Signer Name: David Leslie MD Signed: 06/09/2020 10:16 AM Workstation Name: [id number]
--- NOTE | 2020-06-09 11:01 | Progress Note ---
Subjective - Reason for Consult Consult date: 06/09/20 Reason for consult: SI, depression - Chief Complaint Chief complaint: During my interview with the patient this morning, he is lying in bed awake. He us a/o x 2. He appears to have forgotten why he was in the hospital. His thoughts are somewhat disorganized. When reminding the patient he says "that was a long time ago. I never tried to kill myself." He then says "I'm not suicidal, and I don't want to hurt nobody else." He says, "but I am depressed." The patient then says, "I hurt a lot of people." He then looks at me and says, "I killed them. All of them with an ice pick. I've killed over 200 people." The patient states, "that's what I am. I'm a serial killer." He denies hallucinations of any kind. The patient's spouse was called to discuss the patient's progress. Did not receive an answer. REVIEW OF SYSTEMS Constitutional: Negative for weight loss ENT: Negative for stridor Respiratory: Negative for cough or hemoptysis All other systems reviewed and are negative MENTAL STATUS EXAMINATION General Appearance and Behavior: Age appropriate, wearing appropriate clothes, calm and cooperative. Poor eye contact. Cooperation: Participating Mood: Depressed Affect and affective range: congruent with stated mood, restricted Thought Process: Goal directed Thought Content: illogical Speech: Normal volume, Regular rate and rhythm, Suicidal Ideation: Denies Homicidal Ideation: Denies Hallucinations: Denies Delusions: Delusional Insight and Judgment: Limited insight and judgment Orientation: Alert, oriented, Assessment and Plan Major Depressive Disorder, Severe w/o Psychotic Features Treatment Plan MEDICATIONS Start Risperidone 0.25mg po BID Risks, benefits and alternatives of medications discussed with the patient, questions answered and consent obtained from patient. PSYCHOTHERAPY: Supportive psychotherapy provided MEDICAL: Per primary team DELIRIUM PRECAUTIONS: Please re-orient patient frequently, keep lights on during the day, and minimize benzodiazepines and opiates as these medications could worsen patient's confusion. CROSSBAND LAYER: DISPOSITION: Recommend acute inpatient psychiatric hospitalization LEGAL STATUS: 1013 FOLLOW-UP: Will follow Thank you for the consult. Please contact with any questions and/or concerns. Mental Status Exam - Vital signs Last Vital Signs Temp 98.3 F 06/09/20 10:39 Pulse 63 06/09/20 10:39 Resp 18 06/09/20 10:39 BP 127/64 06/09/20 10:39 Pulse Ox 99 06/09/20 10:39
[2020-06-09] MEDS: SERTRALINE 25 MG TAB PO SCH (11:06)
[2020-06-09 11:19] LABS: Hematocrit 40.3 % (35.5-45.6); Hemoglobin 13.3 gm/dl (11.8-15.2); Mean Corpuscular HGB Conc 33 % (32-34); Mean Corpuscular Volume 98 fl (84-94); Red Blood Count 4.13 M/mm3 (3.65-5.03); Red Cell Distribution Width 17.8 % (13.2-15.2)
[2020-06-09 11:45] LABS: Calcium 9.4 mg/dL (8.4-10.2)
[2020-06-09 11:53] LABS: Platelet Count 88 K/mm3 (140-440)
[2020-06-09] MEDS ORDERED: risperiDONE 0.25 MG TAB PO SCH (12:00)
--- NOTE | 2020-06-09 12:26 | Event Note ---
Date: 06/09/20 The patient was evaluated in the emergency department for symptoms described in the history of present illness. He/she was evaluated in the context of the global COVID-19 pandemic, which necessitated consideration that the patient might be at risk for infection with the virus that causes COVID-19. Institutional protocols and algorithms that pertain to the evaluation of patients at risk for COVID-19 are in a state of rapid change based on information released by regulatory bodies including the CDC and federal and state organizations. These policies and algorithms were followed during the patient's care in the emergency department. Please note that these policies, procedures and recommendations changed on a rapid basis. Old medical records are reviewed and appreciated. Nursing team has brought it to my attention that the patient is a hemodialysis patient. Repeat laboratory studies are performed. Basic metabolic panel, EKG and x-ray are reviewed and appreciated. Patient saturating well on room air, without crackles, rales. Laboratory studies today do not demonstrate need for emergent hemodialysis. The patient denies physical pain to myself, and homicidality, suicidality. At this moment, patient does not meet criteria for inpatient hospitalization. I will order a repeat basic metabolic panel for tomorrow morning. In addition, we will continue the patient's home medications. The psychiatric recommendations are reviewed and appreciated. Urinalysis suggest pyuria/bacteriuria. Macrobid is ordered. Print Report Referring Physician: VIET PARKER Patient Name: KALEB FERMIN Date of : 1940 Sex: Male Report Date: 2020-06-09 Report Status: Finalized Findings [address] [address] XRay Report Signed Patient: KALEB FERMIN MR#: [id number] : 1940 Acct:[id number] Age/Sex: 79 / M ADM Date: 06/07/20 Loc: ED Attending Dr: Ordering Physician: VIET PARKER MD Date of Service: 06/09/20 Procedure(s): XR chest 1V ap Accession Number(s): [id number] cc: VIET PARKER MD Fluoro Time In Minutes: CHEST 1 VIEW INDICATION / CLINICAL INFORMATION: esrd. COMPARISON: FINDINGS: SUPPORT DEVICES: None. HEART / MEDIASTINUM: Stable. LUNGS / PLEURA: Persistent central pulmonary vascular congestion noted. There is been improvement in previously noted pulmonary edema and right-sided pleural effusion. No pneumothorax. ADDITIONAL FINDINGS: No significant additional findings. IMPRESSION: 1. Interval improvement of previously noted pulmonary edema and right-sided pleural effusion. 2. Persistent enlargement of the cardiac silhouette and mild central pulmonary vascular congestion. Signer Name: David Jones MD Signed: 06/09/2020 10:16 AM Workstation Name: [id number] Transcribed By: Dictated By: DAVID JONES Electronically Authenticated By: DAVID JONES Signed Date/Time: 06/09/20 1016 DD/ 1015 TD/TT: Vital Signs 06/07/20 06/07/20 06/07/20 03:55 04:59 08:01 Temperature 98.4 F Pulse Rate 61 66 68 Respiratory 18 15 Rate Blood Pressure 113/60 Blood Pressure 115/60 112/70 [Right] O2 Sat by Pulse 97 97 97 Oximetry 06/07/20 06/08/20 06/08/20 20:29 02:19 08:00 Temperature 97.5 F L 98.5 F 98 F Pulse Rate 67 74 86 Respiratory 16 16 14 Rate Blood Pressure Blood Pressure 109/58 133/76 123/80 [Right] O2 Sat by Pulse 100 98 95 Oximetry 06/08/20 06/09/20 06/09/20 20:22 02:17 10:39 Temperature 97.9 F 97.7 F 98.3 F Pulse Rate 75 70 63 Respiratory 16 16 18 Rate Blood Pressure Blood Pressure 141/86 132/77 127/64 [Right] O2 Sat by Pulse 98 98 99 Oximetry Lab Results 06/07/20 06/07/20 06/07/20 Range/Units 04:06 04:06 04:06 WBC (4.5-11.0) K/mm3 RBC (3.65-5.03) M/mm3 Hgb (11.8-15.2) gm/dl Hct (35.5-45.6) % MCV (84-94) fl MCH (28-32) pg MCHC (32-34) % RDW (13.2-15.2) % Plt Count (140-440) K/mm3 Lymph % (Auto) (13.4-35.0) % Foster % (Auto) (0.0-7.3) % Eos % (Auto) (0.0-4.3) % Baso % (Auto) (0.0-1.8) % Lymph # (Auto) (1.2-5.4) K/mm3 [place] # (Auto) (0.0-0.8) K/mm3 Eos # (Auto) (0.0-0.4) K/mm3 Baso # (Auto) (0.0-0.1) K/mm3 Seg Neutrophils % (40.0-70.0) % Seg Neutrophils # (1.8-7.7) K/mm3 Sodium 140 (137-145) mmol/L Potassium 3.5 L (3.6-5.0) mmol/L Chloride 95.8 L (98-107) mmol/L Carbon Dioxide 31 H (22-30) mmol/L Anion Gap 17 mmol/L BUN 21 H (9-20) mg/dL Creatinine 3.0 H (0.8-1.3) mg/dL Estimated GFR 24 ml/min BUN/Creatinine Ratio 7 % Glucose 126 H (75-100) mg/dL Calcium 9.2 (8.4-10.2) mg/dL Magnesium (1.7-2.3) mg/dL Total Creatine Kinase (55-170) units/L Salicylates < 0.3 L (2.8-20.0) mg/dL Acetaminophen 5.0 L (10.0-30.0) ug/mL Plasma/Serum Alcohol (0-0.07) % 06/07/20 06/07/20 06/09/20 Range/Units 04:06 04:06 10:32 WBC 6.1 6.3 (4.5-11.0) K/mm3 RBC 3.62 L 4.13 (3.65-5.03) M/mm3 Hgb 11.7 L 13.3 (11.8-15.2) gm/dl Hct 35.3 L D 40.3 (35.5-45.6) % MCV 98 H 98 H (84-94) fl MCH 32 32 (28-32) pg MCHC 33 33 (32-34) % RDW 19.1 H 17.8 H (13.2-15.2) % Plt Count 76 L 88 L (140-440) K/mm3 Lymph % (Auto) 6.4 L (13.4-35.0) % Foster % (Auto) 14.6 H (0.0-7.3) % Eos % (Auto) 1.1 (0.0-4.3) % Baso % (Auto) 1.1 (0.0-1.8) % Lymph # (Auto) 0.4 L (1.2-5.4) K/mm3 Foster # (Auto) 0.9 H (0.0-0.8) K/mm3 Eos # (Auto) 0.1 (0.0-0.4) K/mm3 Baso # (Auto) 0.1 (0.0-0.1) K/mm3 Seg Neutrophils % 76.8 H (40.0-70.0) % Seg Neutrophils # 4.7 (1.8-7.7) K/mm3 Sodium (137-145) mmol/L Potassium (3.6-5.0) mmol/L Chloride (98-107) mmol/L Carbon Dioxide (22-30) mmol/L Anion Gap mmol/L BUN (9-20) mg/dL Creatinine (0.8-1.3) mg/dL Estimated GFR ml/min BUN/Creatinine Ratio % Glucose (75-100) mg/dL Calcium (8.4-10.2) mg/dL Magnesium (1.7-2.3) mg/dL Total Creatine Kinase (55-170) units/L Salicylates (2.8-20.0) mg/dL Acetaminophen (10.0-30.0) ug/mL Plasma/Serum Alcohol < 0.01 (0-0.07) % //20 Range/Units 10:32 WBC (4.5-11.0) K/mm3 RBC (3.65-5.03) M/mm3 Hgb (11.8-15.2) gm/dl Hct (35.5-45.6) % MCV (84-94) fl MCH (28-32) pg MCHC (32-34) % RDW (13.2-15.2) % Plt Count (140-440) K/mm3 Lymph % (Auto) (13.4-35.0) % Foster % (Auto) (0.0-7.3) % Eos % (Auto) (0.0-4.3) % Baso % (Auto) (0.0-1.8) % Lymph # (Auto) (1.2-5.4) K/mm3 Foster # (Auto) (0.0-0.8) K/mm3 Eos # (Auto) (0.0-0.4) K/mm3 Baso # (Auto) (0.0-0.1) K/mm3 Seg Neutrophils % (40.0-70.0) % Seg Neutrophils # (1.8-7.7) K/mm3 Sodium 133 L (137-145) mmol/L Potassium 4.3 D (3.6-5.0) mmol/L Chloride 96.2 L (98-107) mmol/L Carbon Dioxide 22 D (22-30) mmol/L Anion Gap 19 mmol/L BUN 42 H (9-20) mg/dL Creatinine 4.6 H D (0.8-1.3) mg/dL Estimated GFR 15 ml/min BUN/Creatinine Ratio 9 % Glucose 255 H (75-100) mg/dL Calcium 9.4 (8.4-10.2) mg/dL Magnesium 2.70 H (1.7-2.3) mg/dL Total Creatine Kinase 38 L (55-170) units/L Salicylates (2.8-20.0) mg/dL Acetaminophen (10.0-30.0) ug/mL Plasma/Serum Alcohol (0-0.07) % EKG today shows a sinus rhythm, 65 bpm, with a left axis deviation, left anterior fascicular block, poor R wave progression, and prolonged QTC. The EKG is abnormal. The EKG is not a STEMI.
[2020-06-09 12:28] LABS: Bacteria,Urine 1+ /HPF (Negative); Bilirubin,Urine NEG (Negative); Blood,Urine LG (Negative); Color,Urine Amber (Yellow); Hyaline Casts,Urine 4 /LPF
[2020-06-09 12:29] LABS: Protein,Urine >500 mg/dL (Negative)
[2020-06-09] MEDS ORDERED: hydrALAZINE 100 MG TAB PO SCH (14:00)
[2020-06-09] MEDS ORDERED: MEGESTROL 400 MG/10 ML ORAL LIQD PO SCH (14:00)
[2020-06-09] MEDS ORDERED: NITROFURANTOIN MONOHYD/M-CRYST 100 MG CAP PO SCH (15:00)
[2020-06-09 21:02] VITALS: BP 113/75
[2020-06-09] MEDS ORDERED: PRAVASTATIN 20 MG TAB PO SCH (22:00)
[2020-06-09] MEDS ORDERED: INSULIN GLARGINE 100 UNITS/ML SUB-Q SCH (22:00)
[2020-06-10] MEDS ORDERED: traZODone 50 MG TAB PO ONE (00:12)
[2020-06-10] MEDS ORDERED: hydrALAZINE 100 MG TAB ONE (00:12)
[2020-06-10] MEDS ORDERED: NITROFURANTOIN MONOHYD/M-CRYST 100 MG CAP ONE (00:12)
[2020-06-10] MEDS ORDERED: amLODIPine 10 MG TAB ONE (00:12)
--- NOTE | 2020-06-10 19:29 | Progress Note ---
Subjective - Reason for Consult Consult date: 06/10/20 Reason for consult: SI - Chief Complaint Chief complaint: During my interview with the patient this morning, he is lying in bed awake. He appears to be doing much better today. He describes his mood as "okay." He says "I've been confused." When asking the patient about putting a knife up to his next, he says "that's what they said, but I don't remember much about it." He denies hallucinations of any kind. When asking the patient about any feelings of self harm, he states "no, I don't want to do that. I'm positive about that." REVIEW OF SYSTEMS" Constitutional: Negative for weight loss ENT: Negative for stridor Respiratory: Negative for cough or hemoptysis All other systems reviewed and are negative MENTAL STATUS EXAMINATION General Appearance and Behavior: Age appropriate, wearing appropriate clothes, calm and cooperative. Fair eye contact. Cooperation: Participating Mood: "okay" Affect and affective range: congruent with stated mood Thought Process: Goal directed Thought Content: logical Speech: Normal volume, Regular rate and rhythm, Suicidal Ideation: Denies Homicidal Ideation: Denies Hallucinations: Denies Delusions: None elicites Insight and Judgment: Limited insight and judgment Orientation: Alert, oriented, Assessment and Plan Major Depressive Disorder, Severe w/o Psychotic Features Treatment Plan d/c 1013 Scripts Risperidone 0.25mg po BID Risks, benefits and alternatives of medications discussed with the patient, questions answered and consent obtained from patient. PSYCHOTHERAPY: Supportive psychotherapy provided MEDICAL: Per primary team DELIRIUM PRECAUTIONS: Please re-orient patient frequently, keep lights on during the day, and minimize benzodiazepines and opiates as these medications could worsen patient's confusion. LAND PLANNER: Disposition: Do not recommend acute inpatient treatment. The patient may discharge once medically clear. He understands that if feelings of endangerment arise or if SI/HI return he is to seek immediate assistance including but not limited to crisis hotline, ER/911 He is to follow up with outpatient psych in 7 to 14 days upon discharge. The burrer machine is to give the patient resources for outpatient, safety plan, cognitive behavior therapy resources and drug rehabilitation. Will sing off. Thank you for this consult Mental Status Exam - Vital signs Last Vital Signs Temp 98.4 F 06/09/20 20:23 Pulse 76 06/09/20 20:23 Resp 18 06/09/20 22:01 BP 113/75 06/09/20 20:23 Pulse Ox 97 06/09/20 22:01
[2020-06-16 12:32] LABS: Calcium 9.4 mg/dL (8.4-10.2)
== END 2020-06-10 18:07 ==
LOC: ED 03:03 → EEVIPCON 03:03 → ED 06-10 18:07
DX: R45.851 Suicidal ideations (principal); I10 Essential (primary) hypertension; I25.2 Old myocardial infarction; E11.9 Type 2 diabetes mellitus without complications; M19.90 Unspecified osteoarthritis, unspecified site; Z90.49 Acquired absence of other specified parts of digestive tract; Z98.890 Other specified postprocedural states; Z79.82 Long term (current) use of aspirin; Z79.4 Long term (current) use of insulin; Z79.899 Other long term (current) drug therapy
CPT/HCPCS: 36415; 71045; 80048; 80320; 81001; 82550; 82962; 83735; 85025; 85027; 87086; A9270-GY; G0480; J1815

== ENCOUNTER 2020-07-03 11:10 | Emergency (ER) | payer MEDICARE ==
[2020-07-03] MEDS ORDERED: HALOPERIDOL LACTATE 5 MG/1 ML INJ IM ONE (11:29)
--- NOTE | 2020-07-03 11:40 | Emergency Department Report ---
ED Psych HPI - General Stated Complaint: DEMENTIA Time Seen by Provider: 07/03/20 11:22 - History of Present Illness Initial Comments: Patient is 79-year-old -Japanese male with a past medical history of end- stage renal disease hypertension and dementia who is presenting with aggressive behavior at home. Family states that anytime they try to touch him or help him in any way he is been swinging it and cursing violently. Patient was here last month for similar complaints. Last month the patient had put a knife to his neck and claimed initially they were suicidal. Patient also claimed that he was a serial killer to kill 2/200 people. Days later after being a Risperdal for several days the patient recanted all of these things and stated he was confused and did not remember saying any. Patient has a history of end-stage renal disease is unknown for the last patient dialysis session was. Is unknown whether the patient actually has been taking his Risperdal which seemed to be helpful on his last visit to our hospital. Unknown whether the patient has had any fevers chills cough cold congestion nausea or vomiting. - Related Data Home Medications Medication Instructions Recorded Confirmed Last Taken Insulin Glargine [Lantus VIAL] 50 unit SUB-Q QHS 06/01/20 06/07/20 Unknown Metoprolol Xl [Metoprolol 50 mg PO QDAY 06/01/20 06/07/20 Unknown SUCCINATE ER TAB] Pravastatin Sodium [Pravastatin] 10 mg PO QHS 06/01/20 06/07/20 Unknown Tamsulosin [Flomax] 0.4 mg PO DAILY 06/01/20 06/07/20 Unknown amLODIPine 10 mg PO DAILY 06/01/20 06/07/20 Unknown hydrALAZINE [Apresoline TAB] 100 mg PO TID 06/01/20 06/07/20 Unknown megestroL [Megestrol] 40 mg PO TID 06/01/20 06/07/20 Unknown Previous Rx's Medication Instructions Recorded Last Taken Type Aspirin EC [Halfprin EC] 81 mg PO QDAY #30 tablet 08/20/18 Unknown Rx Allergies Allergy/AdvReac Type Severity Reaction Status Date / Time No Known Allergies Allergy Unverified 07/03/20 12:05 ED Review of Systems ROS: Stated complaint: DEMENTIA Other details as noted in HPI Comment: All other systems reviewed and negative ED Past Medical Hx - Past Medical History Hx Hypertension: Yes Hx Heart Attack/AMI: Yes Hx Congestive Heart Failure: No Hx Diabetes: Yes Hx Liver Disease: Yes (cirrhosis newly diagnosed) Hx Renal Disease: Yes (stage 5 CKD, On dialysis M,W,F) Hx Arthritis: Yes (LEFT KNEE SURGERY) Hx Asthma: No Hx COPD: No Hx Dementia: Yes Additional medical history: Dialysis Access Left arm Last Dialyzed this am - Surgical History Hx Coronary Stent: Yes Hx Appendectomy: Yes Additional Surgical History: Prostate surgery, right knee surgery. Cardiac stent 07/2018 - Social History Smoking Status: Never Smoker Substance Use Type: None - Medications Home Medications: Home Medications Medication Instructions Recorded Confirmed Last Taken Type Aspirin EC [Halfprin EC] 81 mg PO QDAY #30 tablet 08/20/18 06/07/20 Unknown Rx Insulin Glargine [Lantus VIAL] 50 unit SUB-Q QHS 06/01/20 06/07/20 Unknown History Metoprolol Xl [Metoprolol 50 mg PO QDAY 06/01/20 06/07/20 Unknown History SUCCINATE ER TAB] Pravastatin Sodium [Pravastatin] 10 mg PO QHS 06/01/20 06/07/20 Unknown History Tamsulosin [Flomax] 0.4 mg PO DAILY 06/01/20 06/07/20 Unknown History amLODIPine 10 mg PO DAILY 06/01/20 06/07/20 Unknown History hydrALAZINE [Apresoline TAB] 100 mg PO TID 06/01/20 06/07/20 Unknown History megestroL [Megestrol] 40 mg PO TID 06/01/20 06/07/20 Unknown History ED Physical Exam - General General appearance: alert, in no apparent distress, other (aggressive with myself and staff) - Head Head exam: Present: atraumatic, normocephalic - Eye Eye exam: Present: normal appearance - ENT ENT exam: Present: mucous membranes moist - Neck Neck exam: Present: normal inspection - Respiratory Respiratory exam: Present: normal lung sounds bilaterally. Absent: respiratory distress, wheezes, rales, rhonchi - Cardiovascular Cardiovascular Exam: Present: regular rate, normal rhythm, normal heart sounds. Absent: systolic murmur, diastolic murmur, rubs, gallop - GI/Abdominal GI/Abdominal exam: Present: soft, normal bowel sounds. Absent: distended, tenderness, guarding - Rectal Rectal exam: Present: deferred - Extremities Exam Extremities exam: Present: normal inspection - Back Exam Back exam: Present: normal inspection - Neurological Exam Neurological exam: Present: alert, altered, other (Patient is oriented to name only. When been placed in a gown the patient is swinging at the nurse and myself.) - Psychiatric Psychiatric exam: Present: normal affect, normal mood - Skin Skin exam: Present: warm, dry, intact, normal color. Absent: rash ED Course Vital Signs 07/03/20 07/03/20 07/03/20 11:44 11:50 13:00 Temperature 98.5 F Pulse Rate 63 59 L Respiratory 17 17 12 Rate Blood Pressure 151/83 Blood Pressure 162/85 [Right] O2 Sat by Pulse 100 97 Oximetry 07/03/20 07/03/20 07/03/20 13:30 13:46 14:00 Temperature Pulse Rate 60 59 L 61 Respiratory 13 18 19 Rate Blood Pressure 152/81 152/81 139/83 Blood Pressure [Right] O2 Sat by Pulse 100 Oximetry 07/03/20 07/03/20 07/03/20 14:16 14:30 14:46 Temperature Pulse Rate 59 L 60 61 Respiratory 14 17 18 Rate Blood Pressure 139/83 152/81 152/81 Blood Pressure [Right] O2 Sat by Pulse 99 Oximetry 07/03/20 07/03/20 07/03/20 15:00 15:16 15:30 Temperature Pulse Rate 59 L 60 61 Respiratory 18 17 16 Rate Blood Pressure 152/81 149/83 149/83 Blood Pressure [Right] O2 Sat by Pulse 100 99 98 Oximetry 07/03/20 16:00 Temperature Pulse Rate 60 Respiratory 17 Rate Blood Pressure 153/80 Blood Pressure [Right] O2 Sat by Pulse Oximetry - Reevaluation(s) Reevaluation #1: 07/03/20 11:39 [id number] was done for restraint. Patient is swinging at people with his fi st. Patient is states he wants to hurt anyone who touches him. ED Medical Decision Making - Lab Data Result diagrams: 07/03/20 11:42 07/03/20 11:42 Lab Results 07/03/20 07/03/20 07/03/20 Range/Units 11:42 11:42 11:42 WBC 9.5 (4.5-11.0) K/mm3 RBC 4.01 (3.65-5.03) M/mm3 Hgb 12.7 (11.8-15.2) gm/dl Hct 38.3 (35.5-45.6) % MCV 96 H (84-94) fl MCH 32 (28-32) pg MCHC 33 (32-34) % RDW 17.1 H (13.2-15.2) % Plt Count 83 L (140-440) K/mm3 Lymph % (Auto) 3.8 L (13.4-35.0) % [place] % (Auto) 9.8 H (0.0-7.3) % Eos % (Auto) 0.0 (0.0-4.3) % Baso % (Auto) 0.5 (0.0-1.8) % Lymph # (Auto) 0.4 L (1.2-5.4) K/mm3 [place] # (Auto) 0.9 H (0.0-0.8) K/mm3 Eos # (Auto) 0.0 (0.0-0.4) K/mm3 Baso # (Auto) 0.0 (0.0-0.1) K/mm3 Seg Neutrophils % 85.9 H (40.0-70.0) % Seg Neutrophils # 8.2 H (1.8-7.7) K/mm3 Sodium 138 (137-145) mmol/L Potassium 5.0 (3.6-5.0) mmol/L Chloride 96.4 L (98-107) mmol/L Carbon Dioxide 20 L (22-30) mmol/L Anion Gap 27 mmol/L BUN 66 H (9-20) mg/dL Creatinine 8.2 H (0.8-1.3) mg/dL Estimated GFR 8 ml/min BUN/Creatinine Ratio 8 % Glucose 273 H (75-100) mg/dL Calcium 10.0 (8.4-10.2) mg/dL Total Bilirubin 1.20 (0.1-1.2) mg/dL AST 75 H (5-40) units/L ALT 92 H (7-56) units/L Alkaline Phosphatase 138 H (35-129) units/L Total Protein 7.9 (6.3-8.2) g/dL Albumin 3.5 L (3.9-5) g/dL Albumin/Globulin Ratio 0.8 % Salicylates < 0.3 L (2.8-20.0) mg/dL Acetaminophen (10.0-30.0) ug/mL Plasma/Serum Alcohol (0-0.07) % 07/03/20 07/03/20 Range/Units 11:42 11:42 WBC (4.5-11.0) K/mm3 RBC (3.65-5.03) M/mm3 Hgb (11.8-15.2) gm/dl Hct (35.5-45.6) % MCV (84-94) fl MCH (28-32) pg MCHC (32-34) % RDW (13.2-15.2) % Plt Count (140-440) K/mm3 Lymph % (Auto) (13.4-35.0) % [place] % (Auto) (0.0-7.3) % Eos % (Auto) (0.0-4.3) % Baso % (Auto) (0.0-1.8) % Lymph # (Auto) (1.2-5.4) K/mm3 [place] # (Auto) (0.0-0.8) K/mm3 Eos # (Auto) (0.0-0.4) K/mm3 Baso # (Auto) (0.0-0.1) K/mm3 Seg Neutrophils % (40.0-70.0) % Seg Neutrophils # (1.8-7.7) K/mm3 Sodium (137-145) mmol/L Potassium (3.6-5.0) mmol/L Chloride (98-107) mmol/L Carbon Dioxide (22-30) mmol/L Anion Gap mmol/L BUN (9-20) mg/dL Creatinine (0.8-1.3) mg/dL Estimated GFR ml/min BUN/Creatinine Ratio % Glucose (75-100) mg/dL Calcium (8.4-10.2) mg/dL Total Bilirubin (0.1-1.2) mg/dL AST (5-40) units/L ALT (7-56) units/L Alkaline Phosphatase (35-129) units/L Total Protein (6.3-8.2) g/dL Albumin (3.9-5) g/dL Albumin/Globulin Ratio % Salicylates (2.8-20.0) mg/dL Acetaminophen 5.0 L (10.0-30.0) ug/mL Plasma/Serum Alcohol < 0.01 (0-0.07) % - Medical Decision Making Patient is a 79-year-old F Japanese male with a past medical history of dementia end-stage renal disease who has been quite combative with his family. Patient is refusing to go to dialysis is not gone in approximately 1 week. Potassium is within normal limits at this time he does not need emergent dialysis currently. Nurse spoke with the patient's family and they wish to send the patient into hospice care. They have contacted a hospice company and a hospice referral will be sent. Critical care attestation.: If time is entered above; I have spent that time in minutes in the direct care of this critically ill patient, excluding procedure time. ED Disposition Clinical Impression: Chronic kidney disease, stage IV (severe), Dementia, Combative behavior Disposition: Z-41 HOSPICE- MED FAC Is pt being admited?: No Does the pt Need Aspirin: No Condition: Stable Additional Instructions: Pt is recommended to follow up with outpatient mental health providers. See the list provided below as needed. The family reports that they are in the process o f setting up hospice for the patient. Plan: Family continue working with PCP for hospice placement. OUTPATIENT MENTAL HEALTH RESOURCES [facility], [facility] Diana Perez MD: [address] [place] [address] [place] [address] [place] [facility]: [employer] [address] [address] [place] [address] [phone] [facility]: [facility] Healthcare: [address] [facility] [place] [address] [facility] [id number] [place] [facility]: Angel Eddy MD: [address] [facility] [address] [facility] [id number] [facility]: [address] [place] [address] [phone] [place] CRISIS AND ACCESS LINE: Referrals: ONIEL DENISE MD [Primary Care Provider] - 3-5 Days Time of Disposition: 17:01
[2020-07-03 12:12] LABS: Basophils % (Auto) 0.5 % (0.0-1.8); Hematocrit 38.3 % (35.5-45.6); Hemoglobin 12.7 gm/dl (11.8-15.2); Lymphocytes # (Auto) 0.4 K/mm3 (1.2-5.4); Lymphocytes % (Auto) 3.8 % (13.4-35.0); Mean Corpuscular HGB Conc 33 % (32-34); Mean Corpuscular Volume 96 fl (84-94); Monocytes # (Auto) 0.9 K/mm3 (0.0-0.8); Monocytes % (Auto) 9.8 % (0.0-7.3); Red Blood Count 4.01 M/mm3 (3.65-5.03); Red Cell Distribution Width 17.1 % (13.2-15.2)
[2020-07-03 12:13] LABS: Platelet Count 83 K/mm3 (140-440)
[2020-07-03 12:27] LABS: Albumin 3.5 g/dL (3.9-5)
[2020-07-03 18:51] VITALS: BP 149/88
== END 2020-07-04 15:51 | disposition home or self-care (01) ==
LOC: ED 11:10
DX: E11.22 Type 2 diabetes mellitus with diabetic chronic kidney disease (principal); I12.9 Hypertensive chronic kidney disease with stage 1 through stage 4 chronic kidney disease, or unspecified chronic kidney disease; N18.4 Chronic kidney disease, stage 4 (severe); F03.90 Unspecified dementia, unspecified severity, without behavioral disturbance, psychotic disturbance, mood disturbance, and anxiety; Z99.2 Dependence on renal dialysis; I25.2 Old myocardial infarction; M19.91 Primary osteoarthritis, unspecified site; Z90.49 Acquired absence of other specified parts of digestive tract; Z98.890 Other specified postprocedural states; Z79.899 Other long term (current) drug therapy; Z79.4 Long term (current) use of insulin
CPT/HCPCS: 36415; 80053; 80320; 85025; G0480